=== PATIENT | female | born 1950 | race Caucasian/White ===

== ENCOUNTER → 2017-10-22 | Outpatient (CLI) | payer MEDICARE ==
[2015-04-26 21:00] VITALS: BP 157/76
--- NOTE | 2017-10-22 16:50 | RAD ---
Right knee, 2 views, 10/22/2017: HISTORY: Fall, knee pain No fracture or dislocation is identified. A tiny calcific density in the soft tissues along the anterior aspect of the patella appears old. There is minimal posterior patellar degenerative change. No significant joint effusion is evident. IMPRESSION: No acute bony abnormality is detected. Electronically signed by: Mark Andrade MD (10/22/2017 4:46 PM) [facility]
== END | disposition home or self-care (01) ==
LOC: DXRAD 15:55
PROVIDERS: ATTEND Physician Assistant
DX: M25.561 Pain in right knee (principal)
CPT/HCPCS: 73560

== ENCOUNTER 2019-01-03 15:39 | Observation (INO) | payer MEDICARE, OTHER ==
[~2019-01-03] VITALS: Ht 162.6 cm; Wt 91.8 kg
[2019-01-03] MEDS ORDERED: IV NORMAL SALINE 1,000ML 1,000 ML IV ONE (16:00)
[2019-01-03] MEDS ORDERED: ONDANSETRON PF 4 MG/2 ML VIAL. IV ONE (16:15)
[2019-01-03] MEDS ORDERED: FAMOTIDINE 20 MG/2 ML VIAL IVP ONE (16:15)
[2019-01-03 16:20] LABS: BASO % 1 % (0-3); EOS # 0.1 x10^3/uL (0.0-0.7); EOS % 3 % (0-3); HEMOGLOBIN 13.6 g/dL (12.0-15.5); LYMPH # 1.2 x10^3/uL (1.0-4.8); LYMPH % 22 % (24-48); MEAN CORPUSCULAR HEMOGLOBIN 30 pg (25-35); MEAN CORPUSCULAR HGB CONC 33 g/dL (31-37); MEAN CORPUSCULAR VOLUME 92 fL (79-100); MONO # 0.4 x10^3/uL (0.0-1.1); MONO % 7 % (0-9); NEUT # 3.6 x10^3uL (1.8-7.7); NEUT % 68 % (31-73); PLATELET COUNT 191 x10^3/uL (140-400); RED BLOOD COUNT 4.47 x10^6/uL (3.50-5.40); RED CELL DISTRIBUTION WIDTH 14.1 % (11.5-14.5); WHITE BLOOD COUNT 5.3 x10^3/uL (4.0-11.0)
--- NOTE | 2019-01-03 16:26 | EKG ---
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
[2019-01-03 16:27] LABS: BACTERIA,URINE MOD /HPF (0-FEW); BILIRUBIN,URINE NEG (NEG); CLARITY,URINE CLOUDY; COLOR,URINE YELLOW; GLUCOSE,URINE >=1000 mg/dL (NEG); NITRITE,URINE NEG (NEG); RBC,URINE 0 /HPF (0-2); SQUAMOUS EPITHELIAL CELL,UR MOD /LPF; UROBILINOGEN,URINE 0.2 mg/dL (0.2 mg/dL); WBC,URINE 20-40 /HPF (0-4)
[2019-01-03 16:35] LABS: ALBUMIN 3.6 g/dL (3.4-5.0); ALBUMIN/GLOBULIN RATIO 0.9 (1.0-1.7); CALCIUM 8.7 mg/dL (8.5-10.1); TOTAL BILIRUBIN 0.8 mg/dL (0.2-1.0); TOTAL PROTEIN 7.6 g/dL (6.4-8.2)
--- NOTE | 2019-01-03 16:45 | ED.ADGEN ---
Past History Past Medical History: COPD, Diabetes Past Surgical History: Other Additional Past Surgical Histo: stent; shoulder sx Alcohol Use: None Drug Use: None Adult General Chief Complaint Chief Complaint Hyperglycemia HPI HPI Patient is a 68-year-old female with history of insulin-dependent type 2 diabetes who presents with hyperglycemia, nausea, sweats, chest pressure and shortness of breath. Patient is compliant with her Lantus last took 12 units last evening. Reports nausea sweats chest pain starting earlier today. Patient's blood sugar greater than 400 at home. She states that her blood sugar is normal in the 200 range. No urinary frequency urgency or dysuria. Reports occasional cough.[] Review of Systems Review of Systems Review symptoms as per history of present illness. All other review symptoms are negative. All other systems were reviewed and found to be within normal limits, except as documented in this note. Current Medications Current Medications Current Medications Medications (Trade) Dose Ordered Sig/Sherrie Start Time Stop Time Status Last Admin Dose Admin Famotidine (Pepcid Vial) 20 mg 1X ONCE 01/03/19 16:15 01/03/19 16:16 DC 01/03/19 16:13 20 MG Insulin Human Regular (HumuLIN R VIAL) 6 unit 1X ONCE 01/03/19 17:00 01/03/19 17:01 DC 01/03/19 16:53 6 UNIT Ondansetron HCl (Zofran) 4 mg 1X ONCE 01/03/19 16:15 01/03/19 16:16 DC 01/03/19 16:13 4 MG Sodium Chloride 1,000 ml @ 1,000 mls/hr 1X ONCE 01/03/19 16:00 01/03/19 16:59 DC 01/03/19 16:13 1,000 MLS/HR Allergies Allergies Allergies Coded Allergies Type Severity Reaction Last Updated Verified aspirin Allergy Severe SEIZURE 06/19/14 No prednisone Allergy Severe SEIZURES 06/19/14 No Physical Exam Physical Exam Constitutional: anxious,clammy, acutely ill-appearing.[] HENT: Normocephalic, atraumatic, bilateral external ears normal, oropharynx moist, no oral exudates, nose normal. [] Eyes: PERRLA, EOMI, conjunctiva normal, no discharge. [] Neck: Normal range of motion, no tenderness, supple, no stridor. [] Cardiovascular:Heart rate regular rhythm, no murmur [] Lungs & Thorax: tachypnea, diminished breath sounds bilaterally, no wheezes or rales appreciated. [] Abdomen: Bowel sounds normal, soft, no tenderness.. [] Skin: Warm, dry, no erythema, no rash. [] Back: No tenderness, no CVA tenderness. [] Extremities: No tenderness, no edema. [] Neurologic: Alert and oriented X 3, normal motor function, normal sensory functi on, no focal deficits noted. [] Psychologic: Affect normal, judgement normal, mood normal. [] Current Patient Data Vital Signs Vital Signs Date Time Temp Pulse Resp B/P (MAP) Pulse Ox O2 Delivery O2 Flow Rate FiO2 01/03/19 16:08 79 18 94 Room Air Lab Results Laboratory Tests Test 01/03/19 15:52 01/03/19 15:56 01/03/19 16:05 Glucose (Fingerstick) 392 mg/dL (70-99) H White Blood Count 5.3 x10^3/uL (4.0-11.0) Red Blood Count 4.47 x10^6/uL (3.50-5.40) Hemoglobin 13.6 g/dL (12.0-15.5) Hematocrit 41.0 % (36.0-47.0) Mean Corpuscular Volume 92 fL (79-100) Mean Corpuscular Hemoglobin 30 pg (25-35) Mean Corpuscular Hemoglobin Concent 33 g/dL (31-37) Red Cell Distribution Width 14.1 % (11.5-14.5) Platelet Count 191 x10^3/uL (140-400) Neutrophils (%) (Auto) 68 % (31-73) Lymphocytes (%) (Auto) 22 % (24-48) L Monocytes (%) (Auto) 7 % (0-9) Eosinophils (%) (Auto) 3 % (0-3) Basophils (%) (Auto) 1 % (0-3) Neutrophils # (Auto) 3.6 x10^3uL (1.8-7.7) Lymphocytes # (Auto) 1.2 x10^3/uL (1.0-4.8) Monocytes # (Auto) 0.4 x10^3/uL (0.0-1.1) Eosinophils # (Auto) 0.1 x10^3/uL (0.0-0.7) Basophils # (Auto) 0.0 x10^3/uL (0.0-0.2) Sodium Level 136 mmol/L (136-145) Potassium Level 4.0 mmol/L (3.5-5.1) Chloride Level 100 mmol/L (98-107) Carbon Dioxide Level 28 mmol/L (21-32) Anion Gap 8 (6-14) Blood Urea Nitrogen 11 mg/dL (7-20) Creatinine 1.0 mg/dL (0.6-1.0) Estimated GFR (Cockcroft-Gault) 55.0 BUN/Creatinine Ratio 11 (6-20) Glucose Level 413 mg/dL (70-99) H Calcium Level 8.7 mg/dL (8.5-10.1) Total Bilirubin 0.8 mg/dL (0.2-1.0) Aspartate Amino Transferase (AST) 23 U/L (15-37) Alanine Aminotransferase (ALT) 23 U/L (14-59) Alkaline Phosphatase 108 U/L (46-116) Troponin I Quantitative < 0.017 ng/mL (0-0.055) WH-Jjv-V-Type Natriuretic Peptide 234 pg/mL (0-124) H Total Protein 7.6 g/dL (6.4-8.2) Albumin 3.6 g/dL (3.4-5.0) Albumin/Globulin Ratio 0.9 (1.0-1.7) L Acetone Level Neg (NEG) Urine Collection Type Unknown Urine Color Yellow Urine Clarity Cloudy Urine pH 5.5 Urine Specific [place] 1.010 Urine Protein Neg (NEG-TRACE) Urine Glucose (UA) >=1000 mg/dL (NEG) Urine Ketones (Stick) Neg mg/dL (NEG) Urine Blood Neg (NEG) Urine Nitrite Neg (NEG) Urine Bilirubin Neg (NEG) Urine Urobilinogen Dipstick 0.2 mg/dL (0.2 mg/dL) Urine Leukocyte Esterase Neg (NEG) Urine RBC 0 /HPF (0-2) Urine WBC 20-40 /HPF (0-4) Urine Squamous Epithelial Cells Mod /LPF Urine Bacteria Mod /HPF (0-FEW) Urine Mucus Slight /LPF EKG EKG [ekg: nORMAL SINUS RHYTHM, NO ACUTE st-t WAVE CHANGES.] Radiology/Procedures Radiology/Procedures [Chest x-ray: No acute cardiopulmonary disease per radiology report] Course & Med Decision Making Course & Med Decision Making Pertinent Labs and Imaging studies reviewed. (See chart for details) Chest pain, shortness of breath, hyperglycemia.IV fluids and insulin given with improved blood sugar. patient reports continued low-grade chest pressure. nitroglycerin aspirin given.Will admit to hospitalist service for further evaluation and treatment.[] Final Impression Final Impression [#1 chest pain #2 hyperglycemia] Roseline Disclaimer Dragon Disclaimer This electronic medical record was generated, in whole or in part, using a voice recognition dictation system. NIKI PURCELL DO Jan 03, 2019 16:45
[2019-01-03] MEDS ORDERED: INSULIN REGULAR 100 UNIT/ML 3ML VIAL. IM ONE (17:00)
--- NOTE | 2019-01-03 17:08 | RAD ---
Exam: Chest one view INDICATION: Shortness of breath TECHNIQUE: Frontal view of the chest Comparisons: CT 06/19/2014 FINDINGS: The cardiomediastinal silhouette and pulmonary vessels are within normal limits. Perihilar linear opacities are noted bilaterally. No pleural effusion. IMPRESSION: Perihilar linear opacities may represent scarring. No focal consolidation is identified. Electronically signed by: Whitley Ferrara MD (01/03/2019 5:05 PM) [facility]
[2019-01-03] MEDS ORDERED: NITROGLYCERIN OINT 1 GM PACKET. ONE (17:38)
[2019-01-03] MEDS ORDERED: ONDANSETRON PF 4 MG/2 ML VIAL. IV PRN (17:45)
[2019-01-03] MEDS ORDERED: NITROGLYCERIN OINT 1 GM PACKET. TP ONE (17:45)
[2019-01-03] MEDS ORDERED: INSULIN GLARGINE 300 UNITS/3 ML INSULN.PEN. SQ ONE (18:48)
[2019-01-03 19:00] VITALS: BP 147/92
--- NOTE | 2019-01-03 19:00 | NUR ---
The patient, NILESH ENCINAS, 68 y/o, F admitted by APOLONIA PLUNKETT MD, to room 117, was given written information regarding hospital policies, unit procedures and contact persons. Valuables were checked and left with the patient. Pt placed on telemetry. Vitals, medical history, physical and social needs assessed. Blood glucose measured. Water and boxed lunch given. Will continue to monitor.
[2019-01-03] MEDS ORDERED: INSULIN GLARGINE 300 UNITS/3 ML INSULN.PEN. SQ SCH (21:00)
--- NOTE | 2019-01-03 21:00 | NUR ---
Pt c/o chest pain that radiates to her left, lateral neck and face, and left arm with tingling that comes and goes, 12/06. EKG ordered and performed. Troponin series continued. Cardiology consulted, orders received and completed. Morphine given-pain 08/06.
[2019-01-03] MEDS ORDERED: MORPHINE SULFATE 2 MG/ML DISP.SYRIN. IV PRN ×2 (22:15)
[2019-01-03] MEDS: MORPHINE SULFATE 2 MG/ML DISP.SYRIN. IV PRN (22:47)
[2019-01-03 23:00] VITALS: BP 137/79
[2019-01-04] MEDS: MORPHINE SULFATE 2 MG/ML DISP.SYRIN. IV PRN ×2 (02:32→09:29)
[2019-01-04] MEDS ORDERED: GABA100C6 PO (02:53)
[2019-01-04] MEDS ORDERED: CRESTOR20 MG PO (03:25)
[2019-01-04] MEDS ORDERED: ALPR1TAB2 PO (03:25)
[2019-01-04] MEDS ORDERED: ISOS30TA4 PO (03:25)
[2019-01-04] MEDS ORDERED: PRAM0.255 PO (03:25)
[2019-01-04] MEDS ORDERED: MONT10TA80 PO (03:25)
[2019-01-04] MEDS ORDERED: HYDR-2769 PO (03:25)
[2019-01-04] MEDS: IPRATRPIUM/ALBUTEROL 0.5/2.5MG 3 ML NEBU. NEB SCH ×2 (05:22→09:37)
[2019-01-04] MEDS: NITROGLYCERIN OINT 1 GM PACKET. TP SCH ×3 (05:54→11:45)
[2019-01-04 07:01] LABS: BASO % 0 % (0-3); EOS # 0.2 x10^3/uL (0.0-0.7); EOS % 3 % (0-3); HEMATOCRIT 38.4 % (36.0-47.0); HEMOGLOBIN 12.8 g/dL (12.0-15.5); LYMPH # 2.7 x10^3/uL (1.0-4.8); LYMPH % 42 % (24-48); MEAN CORPUSCULAR HEMOGLOBIN 30 pg (25-35); MEAN CORPUSCULAR HGB CONC 33 g/dL (31-37); MEAN CORPUSCULAR VOLUME 91 fL (79-100); MONO # 0.4 x10^3/uL (0.0-1.1); MONO % 6 % (0-9); NEUT # 3.1 x10^3uL (1.8-7.7); NEUT % 49 % (31-73); PLATELET COUNT 189 x10^3/uL (140-400); RED BLOOD COUNT 4.21 x10^6/uL (3.50-5.40); WHITE BLOOD COUNT 6.4 x10^3/uL (4.0-11.0)
[2019-01-04 07:21] LABS: ALBUMIN 3.3 g/dL (3.4-5.0); ALBUMIN/GLOBULIN RATIO 0.9 (1.0-1.7); CALCIUM 8.6 mg/dL (8.5-10.1); CREATININE 0.9 mg/dL (0.6-1.0); GFR 62.1; POTASSIUM 3.4 mmol/L (3.5-5.1); TOTAL BILIRUBIN 0.6 mg/dL (0.2-1.0); TOTAL PROTEIN 6.9 g/dL (6.4-8.2)
[2019-01-04 07:29] VITALS: BP 98/62
[2019-01-04] MEDS ORDERED: HYDROcodone/APAP 10/325 1 TAB TABLET PO PRN (08:30)
[2019-01-04] MEDS: ALPRAZolam 0.5 MG TABLET PO SCH ×2 (08:39→13:28)
[2019-01-04] MEDS ORDERED: GABAPENTIN 100 MG CAPSULE. PO SCH (09:00)
[2019-01-04] MEDS ORDERED: ATORVASTATIN CALCIUM 20 MG TABLET PO SCH (09:00)
[2019-01-04] MEDS ORDERED: ISOSORBIDE MONONITRATE ER 30 MG TAB.ER.24H PO SCH (09:00)
--- NOTE | 2019-01-04 10:32 | NUR ---
Dr. Reid said that patient will need to be transferred to [facility] for cardiac cath. Can be transferred tonight. Will have cath in the morning.
--- NOTE | 2019-01-04 10:37 | PDOC2 ---
CONSULT Date of Admission DATE: 01/04/19 TIME: 10:37 Reason for Consult: Chest pain Referring Physician: Dr. Cisse Chief Complaint Chest pain Source: Chart review, Patient Problem List Problems Medical Problems: (1) Hyperglycemia Status: Acute History of Present Illness 68-year-old female with history of coronary artery disease s/p PCI/stent placement one year ago presented complaining of intermittent episodes of retrosternal chest pressure associated with mild shortness of breath worse with exertion and relieved with rest. She stated that her symptoms are similar to the symptoms she had prior to her angioplasty. She denied any orthopnea/PND, palpitations or syncope. Past Medical History Coronary artery disease s/p PCI/stent placement one year ago Diabetes mellitus type 2 Hypertension Hyperlipidemia COPD/asthma DVT/PE Osteoarthritis CVA Past Surgical History Right rotator cuff repair Cholecystectomy Hysterectomy Carpal tunnel release surgery Family History: Coronary Artery Disease Social History Patient admitted to secondhand smoking and denied any alcohol or drug use. 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 Current Medications Current Medications Sodium Chloride 1,000 ml @ 1,000 mls/hr 1X ONCE IV Last administered on 01/03/19at 16:13; Start 01/03/19 at 16:00; Stop 01/03/19 at 16:59; Status DC Famotidine (Pepcid Vial) 20 mg 1X ONCE IVP Last administered on 01/03/19at 16:13; Start 01/03/19 at 16:15; Stop 01/03/19 at 16:16; Status DC Ondansetron HCl (Zofran) 4 mg 1X ONCE IV Last administered on 01/03/19at 16:13; Start 01/03/19 at 16:15; Stop 01/03/19 at 16:16; Status DC Insulin Human Regular (HumuLIN R VIAL) 6 unit 1X ONCE IM Last administered on 01/03/19at 16:53; Start 01/03/19 at 17:00; Stop 01/03/19 at 17:01; Status DC Nitroglycerin (Nitro-Bid Oint) 0.5 inch 1X ONCE TP Last administered on 01/03/19at 17:42; Start 01/03/19 at 17:45; Stop 01/03/19 at 17:46; Status DC Ondansetron HCl (Zofran) 4 mg PRN Q4HRS PRN IV NAUSEA/VOMITING Last ad ministered on 01/03/19at 21:44; Start 01/03/19 at 17:45; Stop 01/04/19 at 17:44 Nitroglycerin (Nitro-Bid Oint) 0.5 inch Q6HRS TP Last administered on 01/04/19at 05:54; Start 01/04/19 at 00:00 Insulin Glargine (Lantus) 12 units QHS SQ Last administered on 01/03/19at 21:44; Start 01/03/19 at 21:00 Nitroglycerin (Nitro-Bid Oint) 1 inch STK-MED ONCE .ROUTE ; Start 01/03/19 at 17:38; Stop 01/03/19 at 17:39; Status DC Morphine Sulfate (Morphine 2mg Syringe) 2 mg PRN Q6HRS PRN IV PAIN Last administered on 01/04/19at 09:29; Start 01/03/19 at 22:15 Morphine Sulfate (Morphine 2mg Syringe) 3 mg PRN Q6HRS PRN IV PAIN; Start 01/03/19 at 22:15; Stop 01/03/19 at 22:09; Status DC Morphine Sulfate (Morphine 2mg Syringe) 4 mg PRN Q6HRS PRN IV PAIN; Start 01/03/19 at 22:15; Stop 01/03/19 at 22:09; Status DC Albuterol/ Ipratropium (Duoneb) 3 ml RTQID NEB Last administered on 01/04/19at 09:38; Start 01/04/19 at 08:00 Gabapentin (Neurontin) 100 mg BID PO Last administered on 01/04/19at 08:39; Start 01/04/19 at 09:00 Acetaminophen/ Hydrocodone Bitart (Lortab 10/325) 1 tab PRN Q6HRS PRN PO PAIN; Start 01/04/19 at 08:30 Isosorbide Mononitrate (Imdur) 30 mg DAILY PO ; Start 01/04/19 at 09:00 Montelukast Sodium (Singulair) 10 mg HS PO ; Start 01/04/19 at 21:00 Pramipexole Dihydrochloride (miraPEX) 0.25 mg QHS PO ; Start 01/04/19 at 21:00 Alprazolam (Xanax) 1 mg TID PO Last administered on 01/04/19at 08:39; Start 01/04/19 at 09:00 Atorvastatin Calcium (Lipitor) 80 mg DAILY PO Last administered on 01/04/19at 08:39; Start 01/04/19 at 09:00 Active Scripts Active Reported Xanax (Alprazolam) 1 Mg Tablet 1 Tab PO TID Hydrocodone-Apap 10-325 (Hydrocodone Bit/Acetaminophen) 1 Each Tablet 1 Tab PO PRN Q6HRS PRN Mirapex (Pramipexole Di-Hcl) 0.25 Mg Tablet 1 Tab PO QHS Montelukast Sodium Tablet (Montelukast Sodium) 10 Mg Tablet 10 Mg PO HS Crestor (Rosuvastatin Calcium) 20 Mg Tablet 1 Tab PO DAILY Isosorbide Mononitrate Er (Isosorbide Mononitrate) 30 Mg Tab.er.24h 1 Tab PO DAILY Gabapentin 100 Mg Capsule 100 Mg PO BID Allergies: Coded Allergies: aspirin (Unverified Allergy, Severe, SEIZURE, 06/19/14) SEIZURES prednisone (Unverified Allergy, Severe, SEIZURES, 06/19/14) SEIZURES PSYCHOLOGICAL ROS: No: Hallucinations Eyes: No: Loss of vision HEENT: No: Epistaxis Respiratory: YES: Shortness of breath; No: Cough Cardiovascular: yes: Chest Pain Gastrointestinal: No: Vomiting, Diarrhea Neurological: No: Seizures Skin: No: Rash General: Alert, Oriented X3 HEENT: Atraumatic, PERRLA Lungs: Clear to auscultation Heart: Regular rate Abdomen: Soft, No tenderness Extremities: No edema Psych/Mental Status: Mood NL VITALS Vital Signs Date Time Temp Pulse Resp B/P (MAP) Pulse Ox O2 Delivery O2 Flow Rate FiO2 01/04/19 10:12 Room Air 01/04/19 09:43 99 01/04/19 07:29 98.4 96 20 98/62 (74) Labs Laboratory Tests Test 01/03/19 15:52 01/03/19 15:56 01/03/19 16:05 01/03/19 18:12 Glucose (Fingerstick) 392 mg/dL (70-99) White Blood Count 5.3 x10^3/uL (4.0-11.0) Red Blood Count 4.47 x10^6/uL (3.50-5.40) Hemoglobin 13.6 g/dL (12.0-15.5) Hematocrit 41.0 % (36.0-47.0) Mean Corpuscular Volume 92 fL (79-100) Mean Corpuscular Hemoglobin 30 pg (25-35) Mean Corpuscular Hemoglobin Concent 33 g/dL (31-37) Red Cell Distribution Width 14.1 % (11.5-14.5) Platelet Count 191 x10^3/uL (140-400) Neutrophils (%) (Auto) 68 % (31-73) Lymphocytes (%) (Auto) 22 % (24-48) Monocytes (%) (Auto) 7 % (0-9) Eosinophils (%) (Auto) 3 % (0-3) Basophils (%) (Auto) 1 % (0-3) Neutrophils # (Auto) 3.6 x10^3uL (1.8-7.7) Lymphocytes # (Auto) 1.2 x10^3/uL (1.0-4.8) Monocytes # (Auto) 0.4 x10^3/uL (0.0-1.1) Eosinophils # (Auto) 0.1 x10^3/uL (0.0-0.7) Basophils # (Auto) 0.0 x10^3/uL (0.0-0.2) Sodium Level 136 mmol/L (136-145) Potassium Level 4.0 mmol/L (3.5-5.1) Chloride Level 100 mmol/L (98-107) Carbon Dioxide Level 28 mmol/L (21-32) Anion Gap 8 (6-14) Blood Urea Nitrogen 11 mg/dL (7-20) Creatinine 1.0 mg/dL (0.6-1.0) Estimated GFR (Cockcroft-Gault) 55.0 BUN/Creatinine Ratio 11 (6-20) Glucose Level 413 mg/dL (70-99) Calcium Level 8.7 mg/dL (8.5-10.1) Total Bilirubin 0.8 mg/dL (0.2-1.0) Aspartate Amino Transf (AST/SGOT) 23 U/L (15-37) Alanine Aminotransferase (ALT/SGPT) 23 U/L (14-59) Alkaline Phosphatase 108 U/L (46-116) Troponin I Quantitative < 0.017 ng/mL (0-0.055) GP-Qti-E-Type Natriuretic Peptide 234 pg/mL (0-124) Total Protein 7.6 g/dL (6.4-8.2) Albumin 3.6 g/dL (3.4-5.0) Albumin/Globulin Ratio 0.9 (1.0-1.7) Acetone Level Neg (NEG) Urine Collection Type Unknown Urine Color Yellow Urine Clarity Cloudy Urine pH 5.5 Urine Specific [place] 1.010 Urine Protein Neg (NEG-TRACE) Urine Glucose (UA) >=1000 mg/dL (NEG) Urine Ketones (Stick) Neg mg/dL (NEG) Urine Blood Neg (NEG) Urine Nitrite Neg (NEG) Urine Bilirubin Neg (NEG) Urine Urobilinogen Dipstick 0.2 mg/dL (0.2 mg/dL) Urine Leukocyte Esterase Neg (NEG) Urine RBC 0 /HPF (0-2) Urine WBC 20-40 /HPF (0-4) Urine Squamous Epithelial Cells Mod /LPF Urine Bacteria Mod /HPF (0-FEW) Urine Mucus Slight /LPF Lactic Acid Level 1.2 mmol/L (0.4-2.0) Test 01/03/19 20:20 01/03/19 21:30 01/04/19 01:05 01/04/19 04:34 Glucose (Fingerstick) 112 mg/dL (70-99) 100 mg/dL (70-99) Troponin I Quantitative < 0.017 ng/mL (0-0.055) < 0.017 ng/mL (0-0.055) Test 01/04/19 06:17 01/04/19 07:39 White Blood Count 6.4 x10^3/uL (4.0-11.0) Red Blood Count 4.21 x10^6/uL (3.50-5.40) Hemoglobin 12.8 g/dL (12.0-15.5) Hematocrit 38.4 % (36.0-47.0) Mean Corpuscular Volume 91 fL (79-100) Mean Corpuscular Hemoglobin 30 pg (25-35) Mean Corpuscular Hemoglobin Concent 33 g/dL (31-37) Red Cell Distribution Width 14.0 % (11.5-14.5) Platelet Count 189 x10^3/uL (140-400) Neutrophils (%) (Auto) 49 % (31-73) Lymphocytes (%) (Auto) 42 % (24-48) Monocytes (%) (Auto) 6 % (0-9) Eosinophils (%) (Auto) 3 % (0-3) Basophils (%) (Auto) 0 % (0-3) Neutrophils # (Auto) 3.1 x10^3uL (1.8-7.7) Lymphocytes # (Auto) 2.7 x10^3/uL (1.0-4.8) Monocytes # (Auto) 0.4 x10^3/uL (0.0-1.1) Eosinophils # (Auto) 0.2 x10^3/uL (0.0-0.7) Basophils # (Auto) 0.0 x10^3/uL (0.0-0.2) Sodium Level 139 mmol/L (136-145) Potassium Level 3.4 mmol/L (3.5-5.1) Chloride Level 105 mmol/L (98-107) Carbon Dioxide Level 26 mmol/L (21-32) Anion Gap 8 (6-14) Blood Urea Nitrogen 12 mg/dL (7-20) Creatinine 0.9 mg/dL (0.6-1.0) Estimated GFR (Cockcroft-Gault) 62.1 BUN/Creatinine Ratio 13 (6-20) Glucose Level 203 mg/dL (70-99) Calcium Level 8.6 mg/dL (8.5-10.1) Total Bilirubin 0.6 mg/dL (0.2-1.0) Aspartate Amino Transf (AST/SGOT) 20 U/L (15-37) Alanine Aminotransferase (ALT/SGPT) 19 U/L (14-59) Alkaline Phosphatase 93 U/L (46-116) Total Protein 6.9 g/dL (6.4-8.2) Albumin 3.3 g/dL (3.4-5.0) Albumin/Globulin Ratio 0.9 (1.0-1.7) Glucose (Fingerstick) 227 mg/dL (70-99) Assessment/Plan 1. Chest pain with typical features concerning for unstable angina in a patient with known history of coronary artery disease. Myocardial infarction has been ruled out. Plan for cardiac catheterization at [facility]. Risks and benefits were explained and she is agreeable. 2. Hypertension: Controlled 3. Hyperlipidemia: Continue statin therapy 4. Hyperglycemia: Treat per IM 5. h/o DVT/PE, on xarelto Thank you for your consultation CHING LEVY MD Jan 04, 2019 10:37
[2019-01-04 11:35] VITALS: BP 105/61
[2019-01-04 11:45] VITALS: BP 105/61
--- NOTE | 2019-01-04 12:44 | HP ---
ADMIT DATE: 01/03/2019 HISTORY OF PRESENT ILLNESS: The patient is a 68-year-old, female patient who came to the Emergency Room complaining of chest pain. She also complained of shortness of breath, nausea, and diaphoresis. The pain comes and goes, aggravated by exertion. She was evaluated in the Emergency Room. Her EKG showed that she was in normal sinus rhythm with no acute ST-T changes. Chest x-ray also showed no evidence of any acute cardiopulmonary abnormality. She has perihilar linear opacities that may represent scarring. No focal consolidation identified. The cardiomediastinal silhouette and pulmonary vessels are within normal limits. Her first set of cardiac enzyme showed troponin to be less than 0.017, and the patient was admitted to do 2 more sets of cardiac enzyme and consult to cardiology team. PAST MEDICAL HISTORY: Significant for coronary artery disease, status post stent deployment a year ago, type 2 diabetes, hyperlipidemia, chronic obstructive pulmonary disease/bronchial asthma. She has also history of DVT and pulmonary embolism, generalized osteoarthritis, degenerative disk disease. 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 PAST SURGICAL HISTORY: Significant for PCI with stent deployment, right rotator cuff repair, cholecystectomy, total abdominal hysterectomy, bilateral salpingo-oophorectomy, and left carpal tunnel release. ALLERGIES: She is allergic to ASPIRIN and PREDNISONE. She also stated that she is allergic to OXYCODONE. MEDICATIONS: She is currently on following medications: She is on Crestor 20 mg at bedtime, isosorbide mononitrate 30 mg daily, hydrocodone/APAP 10/325 one tablet every 6 hours, gabapentin 100 mg twice a day, alprazolam 1 mg 3 times a day, Mirapex 0.25 mg at bedtime, montelukast sodium 10 mg at bedtime. She is also on Xarelto 20 mg once a day. FAMILY HISTORY: She has 2 brothers, older and healthy. Two sisters, one of them was at the age of 65 because of cancer and heart problems. Her father at the age of 82 because of lung cancer and myocardial infarction. Mother at age of 83 because of myocardial infarction. SOCIAL HISTORY: She is , has 1 son and 2 daughters. She has been a secondhand smoker, does not drink alcohol or use any recreational drugs. 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 REVIEW OF SYSTEMS: The patient denied any blurring of vision, cataract, glaucoma, or macular degeneration. Denied any earache, tinnitus, or sensorineural deafness. Denied any nosebleeds, stuffy nose, or postnasal drip. Denied any sore throat, sore tongue, toothache, hoarseness of voice, or difficulty swallowing. Did complain of nausea, no vomiting. Denied any diarrhea or constipation. Denied any hematemesis, melena, or hematochezia. Denied any dysuria, frequency, or hematuria. Did complain of chest pain and shortness of breath. Denied any cough, phlegm, or hemoptysis. PHYSICAL EXAMINATION: GENERAL: On arrival to the Emergency Room, she looked well and was clearly in no apparent respiratory distress. No pallor, jaundice, cyanosis, or thyromegaly. No jugular venous distention. No limb edema. VITAL SIGNS: Her heart rate was 79, blood pressure 147/92, temperature was 97.7, respiratory rate 20, and oxygen saturation was 92%. HEAD, EYES, EARS, NOSE, AND THROAT: Normocephalic, atraumatic. NECK: Supple. HEART: Showed normal first and second heart sounds. No gallop or murmur. CHEST: Clear to auscultation. No crepitation, rhonchi. ABDOMEN: Distended, soft, nontender. NEUROLOGIC: She was awake, alert, responding appropriately. All cranial nerves intact. EXTREMITIES: She moves extremities without difficulty. She ambulates without assistance or assistive devices. LABORATORY DATA: Her lab work on admission, showed a serum sodium of 136, potassium 4, chloride 100, bicarbonate 28, anion gap of 8, BUN 11, creatinine 1, estimated GFR was 55 mL per minute. Her glucose was 113, calcium was 8.7. Lactic acid is 1.2. Total bilirubin, AST, ALT, alkaline phosphatase were normal. Her first set of cardiac enzymes showed troponin to be less than 0.017. Total protein was 7.6, albumin was 3.6. Her white cell count was 5300, hemoglobin 13, hematocrit 41, MCV 92, and platelet count of 191,000. Her acetone level was negative. Urinalysis showed that she has 20-40 wbc's, large amount of glucose, negative for protein, negative for nitrite, and leukocyte esterase. There was moderate amount of bacteria. Her chest x-ray showed that the cardiomediastinal silhouette and pulmonary vessels are within normal limits. There are perihilar linear opacities noted bilaterally. No pleural effusion. PLAN: We will do 2 more sets of cardiac enzyme, consult the cardiology team, and decide the further management accordingly. APOLONIA PLUNKETT MD DR: SUHA/eliezer JOB#: [id number] / [id number]
--- NOTE | 2019-01-04 12:57 | NUR ---
Called Nursing medical operations supervisor to get bed at [facility]. Awaiting a bed at this time.
[2019-01-04] MEDS ORDERED: RIVA20TA2 PO (13:03)
--- NOTE | 2019-01-04 14:18 | NUR ---
Called Ashley from [facility] and gave patient report. Nurse voiced understanding. Patient going to room 208. Called EMS, and they arrived to sheepskin pickler patient. EMS here to [facility] pick[facility] patient. Belongings sent with patient. Patient stable on discharge.
--- NOTE | 2019-01-04 17:13 | DS ---
DATE OF DISCHARGE: 01/04/2019 HOSPITAL COURSE: The patient is a 68-year-old female patient who came in complaining of chest pain, shortness of breath, nausea and diaphoresis. Her pain comes and goes, aggravated by exertion. She was admitted and has had 3 sets of cardiac enzymes that has ruled out myocardial infarction; however, her presentation is consistent with unstable angina. She was in fact seen by the shipping and receiving supervisor who recommended transferring her to [facility] with a plan to do cardiac catheterization tomorrow. PHYSICAL EXAMINATION: GENERAL: When I saw her this afternoon, she looked well and was clearly in no apparent respiratory distress. No pallor, jaundice, cyanosis or thyromegaly. No jugular venous distention. No limb edema. VITAL SIGNS: Her heart rate was 75, blood pressure was 137/79, temperature was 97.9, respiratory rate 21 and oxygen saturation was 91% on room air. HEAD, EYES, EARS, NOSE AND THROAT: Normocephalic, atraumatic. NECK: Supple. HEART: Showed normal first and second heart sounds. No gallop or murmur. CHEST: Clear to auscultation. No crepitation or rhonchi. ABDOMEN: Distended, soft, nontender. NEUROLOGIC: She is grossly intact. LABORATORY DATA: As of this morning showed a white cell count 6400, hemoglobin 13, hematocrit 38, MCV 91, and platelet count of 189,000. She has 3 sets of cardiac enzymes that ruled out myocardial infarction. Her chemistry showed a serum sodium 139, potassium 3.4, chloride 105, bicarbonate 26, anion gap of 8, BUN 12, creatinine 0.9, estimated GFR was 62 mL per minute. Her glucose was 203, calcium was 8.6. Total bilirubin, AST, ALT, alkaline phosphatase were normal. Total protein was 6.9, albumin 3.3. DISCHARGE MEDICATIONS: She will be transferred to [facility] to continue with alprazolam for Xanax 1 mg 3 times a day, gabapentin 100 mg twice a day, hydrocodone/APAP 10/325 one tablet every 6 hours, isosorbide mononitrate 30 mg daily, montelukast 10 mg at bedtime, Mirapex 0.25 mg at bedtime and Crestor 20 mg daily. FINAL DISCHARGE DIAGNOSES: 1. Unstable angina. 2. Coronary artery disease, status post PCI with stent deployment. 3. Type 2 diabetes. 4. Hyperlipidemia. 5. Deep venous thrombosis and pulmonary embolism. 6. Chronic obstructive pulmonary disease and bronchial asthma. 7. Right middle cerebral artery territory infarct with left side hemiplegia. 8. Osteoarthritis. 9. Degenerative disk disease. APOLONIA PLUNKETT MD DR: SUHA/eliezer JOB#: [id number] / [id number]
[2019-01-04] MEDS ORDERED: PRAMIPEXOLE 0.25 MG TABLET. PO SCH (21:00)
[2019-01-04] MEDS ORDERED: MONTELUKAST 10 MG TABLET. PO SCH (21:00)
--- NOTE | 2019-01-05 03:36 | EKG ---
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
== END 2019-01-04 14:22 | disposition short-term general hospital (02) ==
LOC: ER 15:39 → INTOOBSV 18:59 → 1 SOUTH 18:59
PROVIDERS: ADMIT Internal Medicine; ATTEND Internal Medicine
DX: I25.110 Atherosclerotic heart disease of native coronary artery with unstable angina pectoris (principal); E11.65 Type 2 diabetes mellitus with hyperglycemia; J44.9 Chronic obstructive pulmonary disease, unspecified; I25.10 Atherosclerotic heart disease of native coronary artery without angina pectoris; M15.9 Polyosteoarthritis, unspecified; E78.5 Hyperlipidemia, unspecified; Z82.49 Family history of ischemic heart disease and other diseases of the circulatory system; Z77.22 Contact with and (suspected) exposure to environmental tobacco smoke (acute) (chronic); I10 Essential (primary) hypertension; Z86.73 Personal history of transient ischemic attack (TIA), and cerebral infarction without residual deficits; Z86.718 Personal history of other venous thrombosis and embolism; Z79.4 Long term (current) use of insulin; Z80.1 Family history of malignant neoplasm of trachea, bronchus and lung; Z86.711 Personal history of pulmonary embolism; Z90.710 Acquired absence of both cervix and uterus; Z95.5 Presence of coronary angioplasty implant and graft; I26.99 Other pulmonary embolism without acute cor pulmonale; G81.94 Hemiplegia, unspecified affecting left nondominant side
CPT/HCPCS: 36415; 71045; 80053; 81001; 82010; 82947; 83605; 83880; 84484; 85025; 87086; 87186; 93005; 94640; 96361; 96372; 96374; 96375; 96376; 99284; G0378; J1815; J2270; J2405; J3490; J7620; G0379; 99285-25; J7030

== ENCOUNTER 2019-01-11 17:08 | Observation (INO) | payer OTHER ==
[~2019-01-11] VITALS: Ht 162.6 cm; Wt 91.9 kg
[~2019-01-11 17:08] MED LIST: ALPR1TAB2 PO; CRESTOR20 MG PO; GABA100C6 PO; HYDR-2769 PO; ISOS30TA4 PO; MONT10TA80 PO; PRAM0.255 PO; RIVA20TA2 PO
[2019-01-11] MEDS ORDERED: NALOXONE 2 MG/2 ML DISP.SYRIN. IV ONE ×2 (17:16→17:45)
--- NOTE | 2019-01-11 17:23 | EKG ---
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
--- NOTE | 2019-01-11 17:25 | PHYS DOC ---
Past History Past Medical History: COPD, Diabetes (CHRISTEL CALZADA DO) Past Surgical History: Other Additional Past Surgical Histo: stent; shoulder sx (CHRISTEL CALZADA DO) Alcohol Use: None Drug Use: None (CHRISTEL CALZADA DO) Adult General Chief Complaint Chief Complaint: ALTERED MENTAL STATUS HPI HPI Patient is a 68-year-old female presents by EMS due to altered mental status. History is limited from the patient due to her decreased mental status. EMS reports that her blood sugar was in the 300s. [facility] reports that they were called by a friend of the patient's. Patient been talking to the friend reported that she was having some shortness of breath and chest tightness. Friend tried to call the patient back and was unable to contact her. Friend then called EMS.[] (CHRISTEL CALZADA DO) Review of Systems Review of Systems Unable to obtain due to altered mental status (CHRISTEL CALZADA DO) Current Medications Current Medications Current Medications Medications (Trade) Dose Ordered Sig/Sherrie Start Time Stop Time Status Last Admin Dose Admin Naloxone HCl (Narcan) 2 mg STK-MED ONCE 01/11/19 17:16 01/11/19 17:17 DC (CHRISTEL CALZADA DO) Allergies Allergies Allergies Coded Allergies Type Severity Reaction Last Updated Verified aspirin Allergy Severe SEIZURE 06/19/14 No prednisone Allergy Severe SEIZURES 06/19/14 No (CHRISTEL CALZADA DO) Physical Exam Physical Exam Constitutional: Well developed, well nourished, somnolent[] HENT: Normocephalic, atraumatic, bilateral external ears normal, oropharynx moist, no oral exudates, nose normal. Tolerating secretions, gag reflex is intact[] Eyes: PERRLA, EOMI, conjunctiva normal, no discharge. [] Neck: Normal range of motion, no tenderness, supple, no stridor. [] Cardiovascular:Heart rate regular rhythm, no murmur [] Lungs & Thorax: Bilateral breath sounds clear to auscultation [] Abdomen: Bowel sounds normal, soft, no tenderness, no masses, no pulsatile masses. [] Skin: Warm, dry, no erythema, no rash. [] Back: No tenderness, no CVA tenderness. [] Extremities: No tenderness, no cyanosis, no clubbing, ROM intact, no edema. [] Neurologic: GCS7 E2 V1 M4, . [] Psychologic: Unable to assess[] (CHRISTEL CALZADA DO) EKG EKG [] (CHRISTEL CALZADA DO) Radiology/Procedures Radiology/Procedures [] (CHRISTEL CALZADA DO) Impressions: PROCEDURE: CT HEAD WO CONTRAST STUDY: CT head without contrast INDICATION: Altered mental status. Seizure activity. COMPARISON: 04/26/2015 TECHNIQUE: Axial CT imaging through the head without the use of intravenous contrast. Sagittal and coronal reformats were obtained. FINDINGS: Estrada-white matter differentiation is maintained. No acute intracranial hemorrhage. No mass effect, midline shift or hydrocephalus. Unchanged linear focus of mineralization along the right frontal calvarium, image 13 series 3. The calvarium is intact. IMPRESSION: No acute intracranial abnormality by CT. Electronically signed by: PONCHO NUNEZ MD (01/11/2019 5:55 PM) [facility] PROCEDURE: PORTABLE CHEST 1V Study: PORTABLE CHEST 1V Indication: Altered mental status. Shortness of air. Comparison: 01/03/2019 Findings: Unchanged configuration of the cardiomediastinal silhouette. Similar slightly prominent central vascular structures. No large effusion, lobar infiltrate or pneumothorax. Mild haziness at the left lung base favored related to volume loss. No free air seen under the diaphragm. Atherosclerotic calcifications at the aortic arch. Impression: No newly seen lobar infiltrate, large effusion or pneumothorax. Similar mild prominence of the central vascular structures but there are no radiographic manifestations to suggest overt failure. Electronically signed by: PONCHO NUNEZ MD (01/11/2019 6:28 PM) [facility] (JIMY HICKS Jr. DO) Course & Med Decision Making Course & Med Decision Making Pertinent Labs and Imaging studies reviewed. (See chart for details) ED course: Patient arrived, was placed in bed, tolerated exam, and was starting to improve after being given Narcan. While prepping the patient for CT scan she had seizure-like activity so was given 2 mg of Ativan IV. Patient never had a hypoxic episode during this activity. She was transported to CT and while there had a second episode of seizure-like activity. Again no hypoxia. Had a chance to review her chart and find that she had what appears to be similar activity shortly after her cardiac catheterization. It was thought that this was conversion disorder at that time. Patient care is being endorsed to the nighttime physician at 1800 with laboratory testing and imaging in progress.[] (CHRISTEL CALZADA DO) Course & Med Decision Making Patient care was accepted from Dr. Grady at 6:00 PM. Upon completion of workup, patient's case was discussed with Dr. Cisse and he will accept patient in admission. Also consult neurology. (JIMY HICKS Jr., DO) Dragon Disclaimer Dragon Disclaimer This electronic medical record was generated, in whole or in part, using a voice recognition dictation system. (CHRISTEL CALZADA DO) Departure Departure: Impression: Primary Impression: Altered mental status Additional Impressions: Chest pain Seizure-like activity Disposition: ADMITTED INPATIENT Admitting Physician: Chaparrita Cisse (JIMY HICKS Jr., DO) Condition: IMPROVED Referrals: BAILEY MORSE MD (PCP) Problem Qualifiers Primary Impression: Altered mental status Altered mental status type: unspecified Qualified Codes: R41.82 - Altered mental status, unspecified Additional Impressions: Chest pain Chest pain type: unspecified Qualified Codes: R07.9 - Chest pain, unspecified CHRISTEL CALZADA DO Jan 11, 2019 17:25 JIMY HICKS Jr., DO Jan 11, 2019 18:34
[2019-01-11 17:43] LABS: BASO % 1 % (0-3); EOS # 0.1 x10^3/uL (0.0-0.7); EOS % 3 % (0-3); HEMATOCRIT 38.1 % (36.0-47.0); LYMPH # 1.6 x10^3/uL (1.0-4.8); LYMPH % 29 % (24-48); MEAN CORPUSCULAR HEMOGLOBIN 31 pg (25-35); MEAN CORPUSCULAR HGB CONC 34 g/dL (31-37); MEAN CORPUSCULAR VOLUME 91 fL (79-100); MONO # 0.5 x10^3/uL (0.0-1.1); MONO % 9 % (0-9); NEUT # 3.2 x10^3uL (1.8-7.7); NEUT % 59 % (31-73); PLATELET COUNT 215 x10^3/uL (140-400); RED BLOOD COUNT 4.21 x10^6/uL (3.50-5.40); WHITE BLOOD COUNT 5.5 x10^3/uL (4.0-11.0)
[2019-01-11] MEDS ORDERED: PHYTONADIONE 10 MG/ML AMPUL. ONE (17:43)
[2019-01-11] MEDS ORDERED: IV NORMAL SALINE 1,000ML 1,000 ML IV ONE (17:45)
[2019-01-11 17:51] LABS: BARBITURATES NEG (NEG); BENZODIAZEPINES NEG (NEG); CANNABINOIDS NEG (NEG); COCAINE NEG (NEG); METHADONE NEG (NEG); OPIATES NEG (NEG); PHENCYCLIDINE NEG (NEG)
[2019-01-11 17:52] LABS: AMPHETAMINE/METHAMPHETAMINE NEG (NEG)
--- NOTE | 2019-01-11 17:58 | RAD ---
STUDY: CT head without contrast INDICATION: Altered mental status. Seizure activity. COMPARISON: 04/26/2015 TECHNIQUE: Axial CT imaging through the head without the use of intravenous contrast. Sagittal and coronal reformats were obtained. FINDINGS: Estrada-white matter differentiation is maintained. No acute intracranial hemorrhage. No mass effect, midline shift or hydrocephalus. Unchanged linear focus of mineralization along the right frontal calvarium, image 13 series 3. The calvarium is intact. IMPRESSION: No acute intracranial abnormality by CT. Electronically signed by: PONCHO NUNEZ MD (01/11/2019 5:55 PM) [facility]
[2019-01-11 18:01] LABS: BACTERIA,URINE FEW /HPF (0-FEW); BILIRUBIN,URINE NEG (NEG); CLARITY,URINE HAZY; COLOR,URINE STRAW; GLUCOSE,URINE >=1000 mg/dL (NEG); NITRITE,URINE NEG (NEG); SQUAMOUS EPITHELIAL CELL,UR OCC /LPF; UROBILINOGEN,URINE 0.2 mg/dL (0.2 mg/dL); WBC,URINE 20-40 /HPF (0-4)
[2019-01-11 18:09] LABS: ALBUMIN 3.5 g/dL (3.4-5.0); ALBUMIN/GLOBULIN RATIO 0.9 (1.0-1.7); MAGNESIUM 1.9 mg/dL (1.8-2.4); POTASSIUM 4.2 mmol/L (3.5-5.1); TOTAL BILIRUBIN 0.6 mg/dL (0.2-1.0); TOTAL PROTEIN 7.5 g/dL (6.4-8.2)
--- NOTE | 2019-01-11 18:31 | RAD ---
Study: PORTABLE CHEST 1V Indication: Altered mental status. Shortness of air. Comparison: 01/03/2019 Findings: Unchanged configuration of the cardiomediastinal silhouette. Similar slightly prominent central vascular structures. No large effusion, lobar infiltrate or pneumothorax. Mild haziness at the left lung base favored related to volume loss. No free air seen under the diaphragm. Atherosclerotic calcifications at the aortic arch. Impression: No newly seen lobar infiltrate, large effusion or pneumothorax. Similar mild prominence of the central vascular structures but there are no radiographic manifestations to suggest overt failure. Electronically signed by: PONCHO NUNEZ MD (01/11/2019 6:28 PM) [facility]
[2019-01-11] MEDS ORDERED: INSULIN REGULAR 100 UNIT/ML 3ML VIAL. IV ONE (19:00)
[2019-01-11] MEDS ORDERED: ONDANSETRON PF 4 MG/2 ML VIAL. IV PRN (19:00)
[2019-01-11] MEDS ORDERED: NITROGLYCERIN SUBLINGUAL 0.4 MG BOTTLE OF 25. SL PRN (19:00)
[2019-01-11] MEDS ORDERED: IV NORMAL SALINE 1,000ML 1,000 ML IV SCH (19:30)
[2019-01-11 20:36] VITALS: BP 166/89
[2019-01-11 23:01] VITALS: BP 129/72
[2019-01-12] MEDS: MORPHINE SULFATE 2 MG/ML DISP.SYRIN. IV PRN ×2 (01:55→06:08)
[2019-01-12 05:15] VITALS: BP 116/69
[2019-01-12 06:49] LABS: BASO % 0 % (0-3); EOS # 0.2 x10^3/uL (0.0-0.7); EOS % 5 % (0-3); HEMATOCRIT 33.4 % (36.0-47.0); HEMOGLOBIN 11.3 g/dL (12.0-15.5); LYMPH # 1.3 x10^3/uL (1.0-4.8); LYMPH % 33 % (24-48); MEAN CORPUSCULAR HEMOGLOBIN 30 pg (25-35); MEAN CORPUSCULAR HGB CONC 34 g/dL (31-37); MEAN CORPUSCULAR VOLUME 90 fL (79-100); MONO # 0.4 x10^3/uL (0.0-1.1); MONO % 9 % (0-9); NEUT % 53 % (31-73); PLATELET COUNT 178 x10^3/uL (140-400); RED BLOOD COUNT 3.72 x10^6/uL (3.50-5.40); RED CELL DISTRIBUTION WIDTH 13.8 % (11.5-14.5); WHITE BLOOD COUNT 3.9 x10^3/uL (4.0-11.0)
[2019-01-12 07:03] LABS: CALCIUM 8.2 mg/dL (8.5-10.1); CREATININE 0.8 mg/dL (0.6-1.0); GFR 71.1; POTASSIUM 3.6 mmol/L (3.5-5.1)
--- NOTE | 2019-01-12 08:39 | PDOC2 ---
RAMONA JAVED CASE CONSULTANT 01/12/19 0839: CARDIAC CONSULT DATE OF CONSULT Date Of Consult DATE: 01/12/19 TIME: 08:35 REASON FOR CONSULT Reason for Consult Chest pain REFERRING PHYSICIAN Referring Physician Dr. Cisse SOURCE Source: Chart review, Patient HPI History of Present Illness This is a 68 yo female, with a history of CAD s/p remote PCI to the LAD and PCI/LUCILLE to the LCX 01/05/19, who presented secondary to altered mental status, chest tightness, and shortness of breath. Friend reportedly noted that she had altered mental status at [facility] yesterday and called EMS. Patient complains of pressure in the left chest. Associated with shortness of breath, dizziness, and palpitations. Also complaints of numbness on the left side including left face, arm, and leg. Also having twitching in her left face. Reports compliance with medications including DAPT with ASA and Plavix. Of note, [place] medical record indicated allergy to ASA which causes seizure. [facility] chart does not list ASA as allergy and patient has been receiving ASA since PCI/stent last week. PAST MEDICAL HISTORY Past Medical History Coronary artery disease s/p PCI/stent placement Diabetes mellitus type 2 Hypertension Hyperlipidemia COPD/asthma DVT/PE Osteoarthritis CVA Lymphoma Anxiety Depression PSVT Seizure PAST SURGICAL HISTORY Past Surgical History Right rotator cuff repair Cholecystectomy Hysterectomy Carpal tunnel release surgery FAMILY HISTORY Family History: Coronary Artery Disease SOCIAL HISTORY Smoke: No ALCOHOL: none Drugs: None Lives: with Family CURRENT MEDICATIONS Current Medications Current Medications Naloxone HCl (Narcan) 2 mg STK-MED ONCE IV ; Start 01/11/19 at 17:16; Stop 01/11/19 at 17:17; Status DC Naloxone HCl (Narcan) 2 mg 1X ONCE IV Last administered on 01/11/19at 17:39; Start 01/11/19 at 17:45; Stop 01/11/19 at 17:46; Status DC Sodium Chloride 1,000 ml @ 1,000 mls/hr 1X ONCE IV Last administered on 01/11/19at 17:41; Start 01/11/19 at 17:45; Stop 01/11/19 at 18:44; Status DC Lorazepam (Ativan Inj) 2 mg STK-MED ONCE .ROUTE ; Start 01/11/19 at 17:34; Stop 01/11/19 at 17:35; Status DC Lorazepam (Ativan Inj) 2 mg 1X ONCE IV Last administered on 01/11/19at 17:40; Start 01/11/19 at 17:45; Stop 01/11/19 at 17:46; Status DC Phytonadione (Vitamin K) 10 mg STK-MED ONCE .ROUTE ; Start 01/11/19 at 17:43; Stop 01/11/19 at 17:43; Status DC Insulin Human Regular (HumuLIN R VIAL) 6 unit 1X ONCE IV Last administered on 01/11/19at 19:44; Start 01/11/19 at 19:00; Stop 01/11/19 at 19:01; Status DC Ondansetron HCl (Zofran) 4 mg PRN Q4HRS PRN IV NAUSEA/VOMITING; Start 01/11/19 at 19:00; Stop 01/12/19 at 18:59 Morphine Sulfate (Morphine 2mg Syringe) 2 mg PRN Q2HR PRN IV PAIN Last administered on 01/12/19at 06:08; Start 01/11/19 at 19:00; Stop 01/12/19 at 18:59 Sodium Chloride 1,000 ml @ 100 mls/hr Q10H IV Last administered on 01/11/19at 22:17; Start 01/11/19 at 19:30; Stop 01/12/19 at 19:29 Nitroglycerin (Nitrostat) 0.4 mg PRN Q5MIN PRN SL CHEST PAIN; Start 01/11/19 at 19:00; Stop 01/12/19 at 18:59 Active Scripts Active Reported Xarelto (Rivaroxaban) 20 Mg Tablet 20 Mg PO DAILY Xanax (Alprazolam) 1 Mg Tablet 1 Tab PO TID Hydrocodone-Apap 10-325 (Hydrocodone Bit/Acetaminophen) 1 Each Tablet 1 Tab PO PRN Q6HRS PRN Mirapex (Pramipexole Di-Hcl) 0.25 Mg Tablet 1 Tab PO QHS Montelukast Sodium Tablet (Montelukast Sodium) 10 Mg Tablet 10 Mg PO HS Crestor (Rosuvastatin Calcium) 20 Mg Tablet 1 Tab PO DAILY Isosorbide Mononitrate Er (Isosorbide Mononitrate) 30 Mg Tab.er.24h 1 Tab PO DAILY Gabapentin 100 Mg Capsule 100 Mg PO BID ALLERGIES Allergies: Coded Allergies: aspirin (Unverified Allergy, Severe, SEIZURE, 06/19/14) SEIZURES prednisone (Unverified Allergy, Severe, SEIZURES, 06/19/14) SEIZURES fentanyl (Verified Allergy, Intermediate, 01/12/19) ROS Review of Systems 14 point ROS conducted with pertinent positives noted above in in HPI. PHYSICAL EXAM General: Alert, Cooperative, No acute distress, Other (oriented to person and year. Known that she is in hospital, but not which one. Unable to stat president.) Lungs: Other (diminished bases) Heart: Regular rate, Normal S1, Normal S2 Abdomen: Soft, No tenderness Extremities: No edema, Normal pulses Skin: No rashes, No breakdown Neuro: Normal speech, Reflexes 2+ (left-sided facial twitching. ) MUSCULOSKELETAL: Osteoarthritic changes both hands VITALS Vital Signs Vital Signs Date Time Temp Pulse Resp B/P (MAP) Pulse Ox O2 Delivery O2 Flow Rate FiO2 01/12/19 06:08 24 Room Air 01/12/19 05:15 97.7 63 116/69 (85) 95 LABS LABS Laboratory Tests Test 01/11/19 17:13 01/11/19 17:19 01/11/19 17:20 01/11/19 17:26 Prothrombin Time 9.6 SEC (9.4-11.4) Prothromb Time International Ratio 0.9 (0.9-1.1) Activated Partial Thromboplast Time 22 SEC (23-33) Sodium Level 137 mmol/L (136-145) Potassium Level 4.2 mmol/L (3.5-5.1) Chloride Level 102 mmol/L (98-107) Carbon Dioxide Level 26 mmol/L (21-32) Anion Gap 9 (6-14) Blood Urea Nitrogen 14 mg/dL (7-20) Creatinine 1.0 mg/dL (0.6-1.0) Estimated GFR (Cockcroft-Gault) 55.0 BUN/Creatinine Ratio 14 (6-20) Glucose Level 321 mg/dL (70-99) Calcium Level 9.0 mg/dL (8.5-10.1) Magnesium Level 1.9 mg/dL (1.8-2.4) Total Bilirubin 0.6 mg/dL (0.2-1.0) Aspartate Amino Transf (AST/SGOT) 26 U/L (15-37) Alanine Aminotransferase (ALT/SGPT) 24 U/L (14-59) Alkaline Phosphatase 130 U/L (46-116) Creatine Kinase 55 U/L (26-192) EE-Ash-O-Type Natriuretic Peptide 159 pg/mL (0-124) Total Protein 7.5 g/dL (6.4-8.2) Albumin 3.5 g/dL (3.4-5.0) Albumin/Globulin Ratio 0.9 (1.0-1.7) White Blood Count 5.5 x10^3/uL (4.0-11.0) Red Blood Count 4.21 x10^6/uL (3.50-5.40) Hemoglobin 13.0 g/dL (12.0-15.5) Hematocrit 38.1 % (36.0-47.0) Mean Corpuscular Volume 91 fL (79-100) Mean Corpuscular Hemoglobin 31 pg (25-35) Mean Corpuscular Hemoglobin Concent 34 g/dL (31-37) Red Cell Distribution Width 14.0 % (11.5-14.5) Platelet Count 215 x10^3/uL (140-400) Neutrophils (%) (Auto) 59 % (31-73) Lymphocytes (%) (Auto) 29 % (24-48) Monocytes (%) (Auto) 9 % (0-9) Eosinophils (%) (Auto) 3 % (0-3) Basophils (%) (Auto) 1 % (0-3) Neutrophils # (Auto) 3.2 x10^3uL (1.8-7.7) Lymphocytes # (Auto) 1.6 x10^3/uL (1.0-4.8) Monocytes # (Auto) 0.5 x10^3/uL (0.0-1.1) Eosinophils # (Auto) 0.1 x10^3/uL (0.0-0.7) Basophils # (Auto) 0.0 x10^3/uL (0.0-0.2) Urine Collection Type Unknown Urine Color Straw Urine Clarity Hazy Urine pH 5.5 Urine Specific Bryson 1.020 Urine Protein Neg (NEG-TRACE) Urine Glucose (UA) >=1000 mg/dL (NEG) Urine Ketones (Stick) Neg mg/dL (NEG) Urine Blood Trace (NEG) Urine Nitrite Neg (NEG) Urine Bilirubin Neg (NEG) Urine Urobilinogen Dipstick 0.2 mg/dL (0.2 mg/dL) Urine Leukocyte Esterase Neg (NEG) Urine RBC 1-2 /HPF (0-2) Urine WBC 20-40 /HPF (0-4) Urine Squamous Epithelial Cells Occ /LPF Urine Bacteria Few /HPF (0-FEW) Urine Mucus Mod /LPF Lactic Acid Level 1.8 mmol/L (0.4-2.0) Ammonia 23 mcmol/L (11-34) Urine Opiates Screen Neg (NEG) Urine Methadone Screen Neg (NEG) Urine Barbiturates Neg (NEG) Urine Phencyclidine Screen Neg (NEG) Urine Amphetamine/Methamphetamine Neg (NEG) Urine Benzodiazepines Screen Neg (NEG) Urine Cocaine Screen Neg (NEG) Urine Cannabinoids Screen Neg (NEG) Urine Ethyl Alcohol Neg (NEG) Acetone Level Neg (NEG) Glucose (Fingerstick) 318 mg/dL (70-99) Test 01/11/19 19:01 01/11/19 19:27 01/11/19 20:03 01/11/19 21:51 Troponin I Quantitative < 0.017 ng/mL (0-0.055) Glucose (Fingerstick) 259 mg/dL (70-99) 236 mg/dL (70-99) 172 mg/dL (70-99) Test 01/11/19 22:20 01/12/19 00:55 01/12/19 06:15 01/12/19 07:24 Troponin I Quantitative < 0.017 ng/mL (0-0.055) < 0.017 ng/mL (0-0.055) White Blood Count 3.9 x10^3/uL (4.0-11.0) Red Blood Count 3.72 x10^6/uL (3.50-5.40) Hemoglobin 11.3 g/dL (12.0-15.5) Hematocrit 33.4 % (36.0-47.0) Mean Corpuscular Volume 90 fL (79-100) Mean Corpuscular Hemoglobin 30 pg (25-35) Mean Corpuscular Hemoglobin Concent 34 g/dL (31-37) Red Cell Distribution Width 13.8 % (11.5-14.5) Platelet Count 178 x10^3/uL (140-400) Neutrophils (%) (Auto) 53 % (31-73) Lymphocytes (%) (Auto) 33 % (24-48) Monocytes (%) (Auto) 9 % (0-9) Eosinophils (%) (Auto) 5 % (0-3) Basophils (%) (Auto) 0 % (0-3) Neutrophils # (Auto) 2.0 x10^3uL (1.8-7.7) Lymphocytes # (Auto) 1.3 x10^3/uL (1.0-4.8) Monocytes # (Auto) 0.4 x10^3/uL (0.0-1.1) Eosinophils # (Auto) 0.2 x10^3/uL (0.0-0.7) Basophils # (Auto) 0.0 x10^3/uL (0.0-0.2) Sodium Level 141 mmol/L (136-145) Potassium Level 3.6 mmol/L (3.5-5.1) Chloride Level 108 mmol/L (98-107) Carbon Dioxide Level 24 mmol/L (21-32) Anion Gap 9 (6-14) Blood Urea Nitrogen 8 mg/dL (7-20) Creatinine 0.8 mg/dL (0.6-1.0) Estimated GFR (Cockcroft-Gault) 71.1 Glucose Level 162 mg/dL (70-99) Calcium Level 8.2 mg/dL (8.5-10.1) Glucose (Fingerstick) 154 mg/dL (70-99) ECHOCARDIOGRAM Echocardiogram <Conclusion> The left ventricle is normal size. The left ventricular systolic function is normal and the ejection fraction is within normal range. The Ejection Fraction is 55-60%. There is mild concentric left ventricular hypertrophy. There is no significant aortic valvular stenosis. Doppler and Color Flow revealed no significant aortic regurgitation. Doppler and Color-flow revealed trace mitral regurgitation. Doppler and Color Flow revealed trace to mild tricuspid regurgitation with an estimated PAP of 44 mmHg. DATE: 01/06/19 1203 HEART CATH Heart Cath FINDINGS 1. Hemodynamics: Left ventricular end-diastolic pressure of 15 mmHg. No pullback gradient across the aortic valve. 2. Left ventriculography: Normal left ventricle systolic function with ejection fraction estimated at 60%. No significant mitral regurgitation seen. 3. Coronary angiography: a. The left main coronary artery arose from the left sinus of Valsalva, gave rise to the left anterior descending and left circumflex arteries and did not show any significant stenosis. b. The left anterior descending artery showed widely patent stent in the midsegment. The diagonal branch which is a small to medium caliber vessel appeared to have been jailed by the stent resulting in 80% stenosis. c. The left circumflex artery was a large caliber vessel that showed 80% stenosis in the midsegment. d. The right coronary artery was a large and dominant vessel arising from the right sinus of Valsalva that did not show any significant stenosis. Conclusion 1. 80% stenosis involving a large caliber left circumflex artery. The previously placed stent in the left anterior descending artery was widely pa tent. The diagonal branch which is a small to medium caliber vessel appeared to have been jailed by the stent resulting in 80% ostial/proximal segment stenosis. 2. Successful PCI/drug eluting stent placement to the left circumflex artery 3. Normal left ventricle systolic function with ejection fraction estimated at 60% Recommendations 1. Aspirin 325 mg daily 2. Plavix 75 mg daily for preferably one year 3. Cardiovascular risk factor modification DATE: 01/05/19 1102 ASSESSMENT/PLAN Assessment/Plan 1. Altered mental status, left sided-facial twitching 2. Chest pain; AMI ruled out. Reports compliance with DAPT with ASA/Plavix. [facility] records indicate allergy to ASA with seizure activity 3. CAD; s/p previous LAD stent and s/p PCI/LUCILLE to LCx 01/05/19 as noted above. 4. DM2: uncontrolled 5. Accelerated hypertension; now controlled 6. Hyperlipidemia; statin. on goal 7. COPD/asthma; stable 8. DVT/PE: noted 6 months ago 9. PSVT; rate controlled. On BB 10. Hx of CVA with left side-residual Recommendations Secondary prevention. Resume Plavix, statin therapy, BB. Hold ASA for now until seen by neurology Xarelto 2.5mg BID given CVD DM control as per PCP Follow neuro recommendations JAMES THOMAS MD 01/12/19 7077: CARDIAC CONSULT ASSESSMENT/PLAN Assessment/Plan Patient seen and examined Chest pain. History of stent placement last week. Patient reports compliance with medications. No ischemic EKG changes. No significant elevation of troponin. Continue medical treatment. Discussed with the patient. Accelerated hypertension. Improved on present medications. Poor control. Continue as per the primary service. Hyperlipidemia. On statin medications. Episodes of decreased level of consciousness with a history of a CVA. Improved now. Being evaluated by neurology. History of the PSVT. Continue on telemetry. Beta blockers. History of PE and DVT over 6 months ago. Thank you for allowing us to participate in the care of your patient. RAMONA JAVED APRN Jan 12, 2019 08:39 JAMES THOMAS MD Jan 12, 2019 17:17
[2019-01-12] MEDS: METOPROLOL TART IMMED RELEASE 25 MG TABLET PO SCH ×2 (09:00→20:14)
[2019-01-12 09:03] VITALS: BP 149/77
[2019-01-12] MEDS ORDERED: POTASSIUM CHLORIDE 20 MEQ TABLET.ER. PO ONE (09:15)
[2019-01-12] MEDS ORDERED: FUROSEMIDE 20 MG/2 ML VIAL IVP ONE (09:15)
[2019-01-12] MEDS: RIVAROXABAN 10 MG TABLET. PO SCH ×2 (11:30→17:15)
[2019-01-12] MEDS ORDERED: INSU100I13 SQ (11:57)
[2019-01-12 15:08] VITALS: BP 118/68
[2019-01-12] MEDS ORDERED: IOHEXOL 350 MG/ML 100 ML VIAL. IV ONE (16:15)
[2019-01-12] MEDS: CLOPIDOGREL BISULFATE 75 MG TABLET PO SCH (17:12)
[2019-01-12] MEDS: ISOSORBIDE MONONITRATE ER 30 MG TAB.ER.24H PO SCH (17:13)
--- NOTE | 2019-01-12 17:53 | RAD ---
CT ANGIOGRAPHY CHEST Indication: Chest pain, shortness of breath . Technique: After intravenous contrast administration, CT imaging was performed of the chest. MIP reconstructions were obtained. Exposure: One or more of the following individualized dose reduction techniques were utilized for this examination: 1. Automated exposure control 2. Adjustment of the mA and/or kV according to patient size 3. Use of iterative reconstruction technique. Comparison: None FINDINGS: No evidence of a pulmonary embolism. Suboptimal visualization of the more peripheral pulmonary artery branches. No evidence of aortic aneurysm or dissection. Mild aortic calcification. Great vessel origins appear grossly patent. Thyroid appears unremarkable and symmetric. No significant lymph node enlargement. Coronary artery calcifications. No significant pericardial or pleural effusion. Emphysematous changes in both lungs. Ill-defined and mostly linear opacities in both lungs, most likely represent areas of fibrosis and scarring, greatest in the upper lobes. No consolidating airspace infiltrate. There are several areas of slightly more nodular opacity in the right upper lobe, such as on series 3, image 36 and series 3, image 31. No definite dominant mass is identified. Trachea and mainstem bronchi are grossly patent. Degenerative spondylosis. Vertebral body height and alignment are intact. Posterior left rib irregularities, may be due to old fractures. Scans to the upper abdomen are limited by technique. Low-density lesion in the right kidney measures fluid Hounsfield units, most likely a cyst, although measurements may be compromised by artifact, presumably from the patient's arms. IMPRESSION: 1. No evidence of pulmonary embolism. Note that there is limited visualization of the more peripheral pulmonary artery branches, possibly due to suboptimal opacification. 2. Mostly reticular opacities in both lungs, with several areas of mild nodular component. Overall these are thought to most likely be related to chronic scarring or fibrosis. However, follow-up CT chest in about 3-6 months could be of benefit for further evaluation, or sooner if warranted by clinical worsening. 3. Left upper pole renal lesion, likely a cyst. Electronically signed by: Levi Mckenzie MD (01/12/2019 5:50 PM) [facility]
--- NOTE | 2019-01-12 18:17 | HP ---
ADMIT DATE: 01/12/2019 HISTORY OF PRESENT ILLNESS: The patient is a 68-year-old female patient brought to the Emergency Room by emergency medical service personnel due to altered mental status. Reportedly, her blood sugar was in the 300s and they were called by a friend of the patient. The patient had been talking to the friend. She stated that she was having some shortness of breath and chest tightness. The friend tried to call her back and was unable to contact her and therefore she contacted the ambulance team who brought her to the Emergency Room. She apparently was evaluated in the Emergency Room and was found to have [place] coma scale of 7. She had a CT scan of the head without contrast, which basically showed that the hernandes-white matter differentiation was maintained. No acute intracranial hemorrhage. No mass effect or midline shift or hydrocephalus. Unchanged linear focus of mineralization along the right frontal calvarium. The chest x-ray showed unchanged configuration of the cardiomediastinal silhouette, similar to slightly prominent central vascular structures. No large effusion or lobar infiltrate, pneumothorax. Mild haziness at the left lung base, favored to be related to volume loss. No free air seen under diaphragm, atherosclerotic calcification of the aortic arch. She apparently started to improve. She was basically initially unresponsive, started to improve after being given Narcan. While prepping the patient's CT scan, she had had seizure-like activity, so was given 2 mg of Ativan IV. The patient never had a hypoxic episode during this activity. She was transported to CT scan. While there, she had a second episode of seizure-like activity again. No hypoxia. I had a chance to review her chart and found that that she had what appears to be similar activity shortly after her cardiac catheterization and after that the patient was admitted to [facility] with altered mental status, chest pain, seizure-like activity, for which Dr. Garcia was consulted as well as the Cardiology team. PAST MEDICAL HISTORY: Significant for coronary artery disease, status post PCI, stent deployment x 2. She has type 2 diabetes mellitus, hyperlipidemia, chronic obstructive pulmonary disease/bronchial asthma. She also has history of DVT and pulmonary embolism, generalized osteoarthritis, degenerative disk disease. 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 PAST SURGICAL HISTORY: Significant for PCI with stent deployment x 2, one was done only recently. She is status post right rotator cuff repair, cholecystectomy, total abdominal hysterectomy, bilateral salpingo-oophorectomy and left carpal tunnel release. ALLERGIES: She is allergic to ASPIRIN and PREDNISONE. She also stated that she is allergic to OXYCODONE and had a reaction to FENTANYL on most recent admission to [facility]. MEDICATIONS: She is currently on rivaroxaban only 2.5 mg once a day, isosorbide mononitrate 30 mg once a day, hydrocodone/APAP 10/325 one tablet every 6 hours, gabapentin 100 mg twice a day, alprazolam 1 mg 3 times a day, pramipexole for Mirapex 0.25 mg at bedtime. She is on montelukast 10 mg at bedtime and she is on Lantus insulin 12 units at bedtime. FAMILY HISTORY: She has 2 brothers older and healthy. Two sisters, one of them had at age of 65 because of cancer and heart problems. Her father at the age of 82 because of lung cancer, myocardial infarction. Her mother at age of 83 because of myocardial infarction. SOCIAL HISTORY: She is and has 1 son and 2 daughters. She has been a secondhand smoker, does not drink alcohol or use any recreational drugs. 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 REVIEW OF SYSTEMS: As per history of present illness. PHYSICAL EXAMINATION: GENERAL: On arrival to the Emergency Room, she apparently was lethargic with a [place] coma scale of 7. She was pale, but no jaundice, cyanosis or thyromegaly. No jugular venous distention. No lower limb edema. VITAL SIGNS: Her heart rate was 82, blood pressure was 170/95, temperature was 97.7, respiratory rate was 22 and oxygen saturation was 96% on room air. HEAD, EYES, EARS, NOSE AND THROAT: Showed normocephalic, atraumatic. NECK: Supple. HEART: Showed normal first and second heart sounds. No gallop or murmur. CHEST: Clear to auscultation. No crepitation or rhonchi. ABDOMEN: Distended, soft, nontender. NEUROLOGIC: She was apparently lethargic, but arousable. Her [place] coma scale was 7. LABORATORY DATA: While in the Emergency Room showed a white cell count of 5500, hemoglobin 13, hematocrit 38, MCV 91, and platelet count 215,000. Her chemistry showed a serum sodium 137, potassium 4.2, chloride 102, bicarbonate 26, anion gap of 9, BUN 14, creatinine 1, estimated GFR was 55 mL per minute. Her glucose was high at 321. Lactic acid was 1.8, calcium was 9, magnesium was 1.9. Total bilirubin, AST, ALT were normal. Alkaline phosphatase slightly elevated. His serum ammonia was 23. CK was only 55. Beta-natriuretic peptide was 159. Total protein was 7.5, albumin was 3.5. Her prothrombin time was 9.6, INR of 0.9, aPTT was 22. Urinalysis showed the urine was still colored, hazy with a pH of 5.5, specific gravity of 1.020. The urine was negative for protein. There was large amount of glucose, negative for, trace amount of blood, negative for nitrite and bilirubin, negative for leukocyte esterase. There were 1-2 rbc's, 20-40 wbc's and very few bacteria. Her toxic screen was essentially negative. Her CT scan of the head showed that the hernandes-white matter differentiation is maintained. No acute intracranial hemorrhage. No mass effect, midline shift or hydrocephalus. Unchanged linear focus of mineralization along the right frontal calvarium, image 13 series. The calvarium is intact. Her chest x-ray showed unchanged configuration of the cardiomediastinal silhouette, similar slightly prominent central vascular structure. No large effusion, lobar infiltrate or pneumothorax. Mild haziness at the left lung base, favored related to volume loss. No free air seen under diaphragm, atherosclerotic calcification of the aortic arch. ASSESSMENT AND PLAN: The patient was admitted to do 2 more cardiac enzymes, to consult the certified bench jeweler technician as well as the neurologist for possible seizure activity. We will continue on all her medications. Apparently, her rivaroxaban was cut down to only 2.5 mg per the Cardiology team. APOLONIA PLUNKETT MD DR: SUHA/eliezer JOB#: [id number] / [id number]
[2019-01-12 19:00] VITALS: BP 127/71
[2019-01-12] MEDS: GABAPENTIN 100 MG CAPSULE. PO SCH (20:14)
[2019-01-12] MEDS: ALPRAZolam 0.5 MG TABLET PO SCH (20:14)
[2019-01-12] MEDS: HYDROcodone/APAP 10/325 1 TAB TABLET PO PRN (20:15)
[2019-01-12] MEDS ORDERED: INSULIN GLARGINE SYRINGE. SQ SCH (21:00)
[2019-01-12] MEDS ORDERED: MONTELUKAST 10 MG TABLET. PO SCH (21:00)
[2019-01-12] MEDS ORDERED: ATORVASTATIN CALCIUM 20 MG TABLET PO SCH (21:00)
[2019-01-12] MEDS ORDERED: PRAMIPEXOLE 0.25 MG TABLET. PO SCH (21:00)
[2019-01-12 21:14] VITALS: BP 119/79
[2019-01-12] MEDS ORDERED: ALBUTEROL SULFATE 2.5 MG/3 ML NEBU. NEB PRN (21:15)
[2019-01-12] MEDS ORDERED: ONDANSETRON PF 4 MG/2 ML VIAL. IV PRN (22:00)
[2019-01-12 23:00] VITALS: BP 102/64
--- NOTE | 2019-01-12 23:58 | PN ---
DATE: 01/12/2019 SUBJECTIVE: The patient is resting, slightly propped up in bed, lethargic, but arousable. She is now more awake, alert, responding appropriately. She continued to complain of chest tightness in the left side, but with exertion. Has had apparently no further episodes of seizure-like activity while here in the floor. PHYSICAL EXAMINATION: GENERAL: When I examined her, she was resting slightly propped up in bed, in no apparent respiratory distress. No pallor, jaundice, cyanosis, or thyromegaly. No jugular venous distention. No lower limb edema. VITAL SIGNS: Her heart rate was 95, blood pressure was 118/60, temperature was 98.1, respiratory rate 28 and oxygen saturation was 92%. HEAD, EYES, EARS, NOSE AND THROAT: Normocephalic, atraumatic. NECK: Supple. HEART: Showed normal first and second heart sounds with no gallop or murmur. CHEST: Shows good air entry on the right side, reduced air entry on the left side. ABDOMEN: Distended, soft, nontender. NEUROLOGIC: She is awake, alert, responding appropriately. She seems to have left-sided hemiparesis. Her intake overnight was 750, no output was recorded. LABORATORY DATA: Her lab work this morning showed a serum sodium of 41, potassium 3.6, chloride 108, bicarbonate 24, anion gap of 9, BUN 8, creatinine 0.8, estimated GFR was 71 mL per minute. Her glucose was 162, calcium was 8.2. She has 2 more sets of cardiac enzymes that were negative, showed a troponin to be less than 0.07. Her white cell count was 3900, hemoglobin 11.3, hematocrit 33, MCV 90, and platelet count of 178,000. Her prothrombin time, INR and aPTT were normal. PLAN: Given the markedly decreased air entry on the left side, I would arrange for her to have a CT scan of the chest with PE protocol. I will go ahead and give her Lasix and discontinue IV fluid. Meanwhile, we will continue with all her other medications and was started also on IV Rocephin for possibly urinary tract infection. APOLONIA PLUNKETT MD DR: SUHA/eliezer JOB#: [id number] / [id number]
--- NOTE | 2019-01-13 02:13 | CONS ---
DATE OF CONSULTATION: 01/12/2019 NEUROLOGY CONSULT REFERRING PHYSICIAN: Dr. Cisse. REASON FOR CONSULTATION: Acute mental status changes. HISTORY OF PRESENT ILLNESS: This is a 68-year-old right-handed female, was admitted through Emergency Room today after she was found to have mental status changes. Apparently, initially the patient talked to her friend and told her she had chest pain and shortness of breath. Later on, she was transferred to Emergency Room for further evaluation. Initially she was unresponsive; therefore, she was given Narcan, her mental status has improved and transferred the patient to Radiology for CT scan of the head. While she was there, she had seizure-like activities without change in her oxygen saturation. Initial head CT scan revealed no evidence of acute intracranial process. The patient had 2 spells of seizure-like activities before she went back to Emergency Room and she continued to be confused and disoriented. PAST MEDICAL HISTORY: Significant for coronary artery disease, required stent placement x 2, diabetes mellitus, lipidemia, COPD, asthma, DVT, pulmonary embolism, history of stroke in 06/2018 due to right middle cerebral artery, resulted in left hemiparesis, diabetes mellitus type 2. PAST SURGICAL HISTORY: Stent placement x 2, right rotator cuff repair, cholecystectomy, abdominal hysterectomy and left carpal tunnel release. SOCIAL HISTORY: The patient is . She has 3 children. She denies smoking, alcohol drinking, or illicit drug use. FAMILY HISTORY: One sister, she of cancer and heart disease at age of 65. Father at age of 82 due to lung cancer and coronary artery disease. Mother at age of 83 with coronary artery disease and heart attack. CURRENT HOME MEDICATIONS: Rivaroxaban 2.5 mg daily, isosorbide 30 mg daily, hydrocodone/APAP 10/325 mg q. 6 hours p.r.n., gabapentin 100 mg twice daily, alprazolam 1 mg 3 times daily, Mirapex 0.25 mg at bedtime and montelukast 10 mg at bedtime, insulin Lantus 12 units at bedtime. REVIEW OF SYSTEMS: A 10-point review of system was performed as mentioned above in the history of present illness. The patient did not recall the event and she continued to complain of chest discomfort and shortness of breath. ALLERGIES: ASPIRIN, PREDNISONE, OXYCODONE, FENTANYL. PHYSICAL EXAMINATION: GENERAL: Well-developed, well-nourished female, not in acute distress. She weighs 91.8 kilos. VITAL SIGNS: Blood pressure 149/77, respiratory rate 20, pulse is 95, oxygen saturation 93% and temperature 98.1. HEENT: Normocephalic, atraumatic, otherwise unremarkable. NECK: Supple. Negative for carotid bruit, lymphadenopathy or thyromegaly. LUNGS: Clear to A and P. CARDIOVASCULAR: Regular rate and rhythm, normal S1, S2. ABDOMEN: Soft. Bowel sounds positive. EXTREMITIES: Negative for cyanosis, clubbing or edema. NEUROLOGICAL EXAM: MENTAL STATUS: The patient is alert and oriented x 3. The speech is fluent. There is no language dysfunction. The patient recalls 2/3 immediately and after 1 and 3 minutes. Judgment and abstract thinking are fair. The patient denies hallucination or delusion. CRANIAL NERVES: Visual griggs are full. The pupils are reactive to light and accommodation. The extraocular movements are intact. There is no nystagmus. There is no facial motor or sensory deficit. Hearing is intact bilaterally. The palate is elevated symmetrically. Sternocleidomastoid muscles are powerful bilaterally. The patient shrugs her shoulders symmetrically, protrudes her tongue in the midline without fasciculation or atrophy. MOTOR: No focal muscle bulk was seen. The tone is normal. The strength is 4/5 in the left upper and lower extremities. The strength elsewhere was 5/5 throughout. Sensory examination revealed diminished pinprick and light touch senses over the left upper and lower extremities. Deep tendon reflexes were symmetric and active without pathologic responses. Gait not tested at this time. DIAGNOSTIC DATA: Chest x-ray revealed no acute cardiopulmonary process and nonenhanced head CT scan revealed no evidence of acute intracranial abnormalities. Chest CT scan revealed no evidence of pulmonary embolism and chronic scarring or fibrosis. It shows also a cyst of the left upper pole renal lesion. LABORATORY DATA: CBC revealed white blood cells of 3900, hemoglobin 11.3, hematocrit 33.4, platelet count 178,000. Chemistry revealed sodium of 141, potassium 3.6, chloride 108, CO2 24, BUN 8, creatinine 0.8 and glucose 162, calcium 9.2. Urinalysis shows white blood cells of 20-40 with negative urinary leukocyte esterase and nitrite. Urine drug screen is negative. IMPRESSION: 1. Chest pain and shortness of breath with history of coronary artery disease. 2. Mental status changes-improved. The patient does not have any acute encephalopathy. 3. Left-sided weakness with history of right middle cerebral artery infarct. The current CT scan was negative for acute intracranial process. 4. Multiple medical problems include chronic obstructive pulmonary disease, coronary artery disease, hyperlipidemia and diabetes mellitus. RECOMMENDATIONS: 1. Continue with current management initiated by Dr. Cisse. 2. Continue with Cardiology workup. 3. We will obtain previous medical record and obtain brain MRI results. 4. Physical therapy evaluation. M Dottie LOYD MD DR: ZHANE/eliezer JOB#: [id number] / [id number]
[2019-01-13 05:00] VITALS: BP 110/68
[2019-01-13] MEDS: HYDROcodone/APAP 10/325 1 TAB TABLET PO PRN (07:08)
[2019-01-13] MEDS ORDERED: ASPIRIN ENTERIC COATED 81 MG TABLET.DR. PO SCH (08:00)
[2019-01-13] MEDS: RIVAROXABAN 10 MG TABLET. PO SCH (08:10)
[2019-01-13] MEDS: GABAPENTIN 100 MG CAPSULE. PO SCH (08:10)
[2019-01-13] MEDS: CLOPIDOGREL BISULFATE 75 MG TABLET PO SCH (08:10)
[2019-01-13] MEDS: ISOSORBIDE MONONITRATE ER 30 MG TAB.ER.24H PO SCH (08:11)
[2019-01-13] MEDS: ALPRAZolam 0.5 MG TABLET PO SCH ×2 (08:11→13:23)
[2019-01-13] MEDS: METOPROLOL TART IMMED RELEASE 25 MG TABLET PO SCH (08:12)
[2019-01-13] MEDS ORDERED: ISOSORBIDE MONONITRATE ER 30 MG TAB.ER.24H PO SCH (09:00)
[2019-01-13 11:26] VITALS: BP 93/53
--- NOTE | 2019-01-13 13:20 | DISCH ---
HOME HEALTH DISCHARGE/MEDS DISCHARGE INFORMATION: Discharge Date: Jan 13, 2019 Final Diagnosis: Problems Medical Problems: (1) Altered mental status Status: Acute (2) Chest pain Status: Acute (3) Seizure-like activity Status: Acute Condition on Discharge: Stable CODE STATUS: Code Status: Full HOME HEALTH: Face to Face: I certify this patient is under my care and that I, or a nurse practitioner or physician's assistant district attorney working with me, had a face to face encounter that meets the physician face to face encounter requirements with this patient on 01/13/19 Retirement For: Admin/Educate Injections Physical Therapy For: Evalulation/Treatment Occupational Therapy For: Evaluation/Treatment POST DISCHARGE ORDERS: Activity Instructions for Disc: Resume previous activity Weight Bearing Status after Di: Full weight bearing DIET AFTER DISCHARGE: Cardiac CERTIFICATION STATEMENT: Certification Statement: Based on the above finding, I certify that this patient is confined to the home and needs intermittent detention care, physical therapy and/or speech therapy, or continues to need occupational therapy.~ This patient is under my care, and I have initiated the establishment of the plan of care.~ This patient will be followed by myself or a community physician who will periodically review the plan of care. DISCHARGE MEDICATIONS: Home Meds Reported Medications Insulin Glargine,Hum.rec.anlog (LANTUS SOLOSTAR) 100 Unit/1 Ml Insuln.pen, 12 UNIT SQ QHS for HIGH BLOOD SUGAR-DIABETES 01/12/19 Rivaroxaban (XARELTO) 20 Mg Tablet, 20 MG PO DAILY for blood thinner, TAB 01/04/19 Alprazolam (XANAX) 1 Mg Tablet, 1 TAB PO TID for anxiety, #90 TAB 01/04/19 Hydrocodone Bit/Acetaminophen (HYDROCODONE-APAP 10-325 ) 1 Each Tablet, 1 TAB PO PRN Q6HRS PRN for PAIN, TAB 0 Refills 01/04/19 Pramipexole Di-Hcl (MIRAPEX) 0.25 Mg Tablet, 1 TAB PO QHS for restless leg, #90 TAB 1 Refill 01/04/19 Montelukast Sodium (MONTELUKAST SODIUM TABLET ) 10 Mg Tablet, 10 MG PO HS for FOR ASTHMA, TAB 0 Refills 01/04/19 Isosorbide Mononitrate (ISOSORBIDE MONONITRATE ER) 30 Mg Tab.er.24h, 1 TAB PO DAILY for chest pain, #30 TAB 5 Refills 01/04/19 Gabapentin (Gabapentin) 100 Mg Capsule, 100 MG PO BID for neuropathy, CAP 01/04/19 Discontinued Reported Medications Rosuvastatin Calcium (CRESTOR) 20 Mg Tablet, 1 TAB PO DAILY for hyperlipidemia, #30 TAB 5 Refills 01/04/19 APOLONIA PLUNKETT MD Jan 13, 2019 13:20
--- NOTE | 2019-01-13 14:59 | DS ---
DATE OF DISCHARGE: HOSPITAL COURSE: The patient is a 68-year-old female patient who was admitted to the Emergency Room with altered mental status. She apparently spoke with her friend, told her that she had chest pain and shortness of breath. Later on, she was transferred to the Emergency Room for further evaluation. Initially, she was unresponsive. She was given Narcan and her mental status has improved and transferred the patient to Radiology for CT scan of the head. While she was there, she had a seizure-like activity without change in her oxygen saturation. Her CT scan was unremarkable and unrevealing. Patient had 2 spells of seizure-like activity before she went back to the Emergency Room and she continued to be confused and disoriented. All her lab work including multiple sets of cardiac enzyme as well as CT scan of the chest with PE protocol were normal and revealed no evidence of myocardial infarction or pulmonary embolism and therefore, the patient has been up and about ambulating with a walker and expressed her desire to be discharged home and therefore the patient was discharged home with home health. PHYSICAL EXAMINATION: GENERAL: When I saw her this afternoon, she looked well and was clearly in no apparent respiratory distress, slightly pale, no jaundice, cyanosis or thyromegaly. No jugular venous distention. No lower limb edema. VITAL SIGNS: Her heart rate was 66, blood pressure was 93/53, temperature was 97.4, respiratory rate 20, and oxygen saturation was 93%. HEAD, EYES, EARS, NOSE AND THROAT: Showed normocephalic, atraumatic. NECK: Supple. HEART: Showed normal first and second heart sounds. No gallop or murmur. CHEST: Clear to auscultation. No crepitation or rhonchi. ABDOMEN: Distended, soft, nontender. NEUROLOGIC: She is definitely more awake, alert, responding appropriately. All cranial nerves intact. She moves extremities without difficulty. She ambulates with a walker. Does have left-sided residual hemiparesis. Her intake over the last 24 hours was 1050, output was 1400. LABORATORY DATA: Showed a serum sodium 141, potassium 3.6, chloride 108, bicarbonate 24, anion gap of 9, BUN 8, creatinine 0.8, estimated GFR was 71 mL. As I stated, she has 3 sets of cardiac enzymes that ruled out myocardial infarction. She was seen by the Cardiology team and basically myocardial infarction was ruled out. Again, she has a CT angio of the chest and that showed no evidence of pulmonary emboli or pneumothorax, pulmonary consolidation. As she remained hemodynamically stable, a decision was made to discharge her home to continue on all her medications that include alprazolam for Xanax 1 mg 3 times a day, gabapentin 100 mg 3 times a day, hydrocodone/APAP one tablet every 6 hours. She is on Lantus insulin 12 units at bedtime, isosorbide mononitrate 30 mg once a day, Singulair 10 mg once a day, Mirapex 0.25 mg at bedtime. She was also discharged on rivaroxaban 2.5 mg once a day and cefdinir 300 mg twice a day for 5 more days. FINAL DISCHARGE DIAGNOSES: 1. Altered mental status, resolved. 2. Chest pain with shortness of breath. No evidence of pulmonary emboli or myocardial infarction. 3. Residual left-sided weakness due to right middle cerebral artery infarct. 4. Multiple other medical problems including: A. Chronic obstructive pulmonary disease, coronary artery disease, hyperlipidemia, and type 2 diabetes. APOLONIA PLUNKETT MD DR: SUHA/eliezer JOB#: [id number] / [id number]
--- NOTE | 2019-01-14 03:02 | PN ---
DATE: SUBJECTIVE: The patient denies any new medical or neurological complaints. She continues to have difficulty sleeping and left-sided weakness. She denies headaches, visual disturbances, nausea, vomiting, dysarthria or dysphagia. OBJECTIVE: GENERAL: Well-developed, well-nourished female, not in acute distress. VITAL SIGNS: Blood pressure 93/53, respiratory rate 20, pulse is 66 and regular, oxygen saturation 93% on room air and temperature 97.4. HEENT: Normocephalic, atraumatic, otherwise unremarkable. NECK: Supple. Negative for carotid bruit, lymphadenopathy or thyromegaly. LUNGS: Clear to A and P. CARDIOVASCULAR: Regular rate and rhythm, normal S1, S2. ABDOMEN: Soft. Bowel sounds positive. EXTREMITIES: Negative for cyanosis, clubbing or edema. NEUROLOGICAL EXAM: Normal mental status and intact cranial nerves. Motor examination revealed left-sided hemiparesis, probably secondary to previous stroke. Sensory examination revealed diminished pinprick and light touch senses over the left upper and lower extremities. Deep tendon reflexes were symmetric and hypoactive with absent Achilles responses. Gait not tested at this time. LABORATORY DATA: Chemistry revealed sodium of 141, potassium 3.6, chloride 108, CO2 of 24, BUN 8, creatinine 0.9. IMPRESSION: 1. Acute encephalopathy -- resolved, etiology uncertain. 2. Chest pain and shortness of breath. Negative for pulmonary embolism and myocardial infarction. 3. Left-sided weakness secondary to previous right middle cerebral artery infarct. 4. Chronic obstructive pulmonary disease, coronary artery disease, hyperlipidemia and type 2 diabetes mellitus. RECOMMENDATIONS: The patient is neurologically stable; therefore, we will continue with current management and discharge. M Dottie LOYD MD DR: ZHANE/eliezer JOB#: [id number] / [id number]
== END 2019-01-13 15:00 | disposition home health service (06) ==
LOC: ER 17:08 → 1 SOUTH 18:30 → UNDOADMIN 18:30 → 1 SOUTH 18:51 → INTOOBSV 18:51
PROVIDERS: ADMIT Internal Medicine; ATTEND Internal Medicine
DX: R41.82 Altered mental status, unspecified (principal); R56.9 Unspecified convulsions; G93.40 Encephalopathy, unspecified; I69.354 Hemiplegia and hemiparesis following cerebral infarction affecting left non-dominant side; R25.3 Fasciculation; E11.65 Type 2 diabetes mellitus with hyperglycemia; I10 Essential (primary) hypertension; E78.5 Hyperlipidemia, unspecified; F32.9 Major depressive disorder, single episode, unspecified; F41.9 Anxiety disorder, unspecified; R07.89 Other chest pain; J44.9 Chronic obstructive pulmonary disease, unspecified; I25.10 Atherosclerotic heart disease of native coronary artery without angina pectoris; Z88.8 Allergy status to other drugs, medicaments and biological substances; M15.9 Polyosteoarthritis, unspecified; Z80.1 Family history of malignant neoplasm of trachea, bronchus and lung; Z82.49 Family history of ischemic heart disease and other diseases of the circulatory system; Z86.711 Personal history of pulmonary embolism; Z86.718 Personal history of other venous thrombosis and embolism; Z88.6 Allergy status to analgesic agent; Z90.710 Acquired absence of both cervix and uterus; Z95.5 Presence of coronary angioplasty implant and graft; Z85.72 Personal history of non-Hodgkin lymphomas; Z90.722 Acquired absence of ovaries, bilateral; Z90.49 Acquired absence of other specified parts of digestive tract; Z79.899 Other long term (current) drug therapy
CPT/HCPCS: 36415; 51702; 70450; 71045; 71275; 80048; 80053; 80307; 81001; 82010; 82140; 82550; 82947; 83605; 83735; 83880; 84484; 85025; 85610; 85730; 87040; 87086; 87186; 93005; 96361; 96365; 96372; 96375; 96376; 97110; 97162; 97166; 97530; 99284; G0378; J0696; J1815; J2060; J2270; J2310; J2405; J7613; Q9967; 96374; G0379; 99285-25; J7030

== ENCOUNTER 2019-02-09 17:25 | Inpatient (IN) | payer OTHER ==
[~2019-02-09] VITALS: Ht 162.6 cm; Wt 94.5 kg
[~2019-02-09 17:25] MED LIST changes: +INSU100I13 SQ
[2019-02-09] MEDS ORDERED: IV RINGERS SOLUTION,LACTATED 1,000 ML IV SCH (18:28)
--- NOTE | 2019-02-09 18:28 | ED.ADGEN ---
Past History Past Medical History: Anxiety, Arthritis, Arrhythmia, CAD, COPD, High Cholesterol, Hypertension, [place], Other Additional Past Medical Histor: Cardiac Past Surgical History: Angioplasty, Hysterectomy, Other Additional Past Surgical Histo: stent placed at [facility] on saturday01/05/19 Alcohol Use: None Drug Use: None Adult General Chief Complaint Chief Complaint ".. I ve been having chest pain all day.. .here in the center of my chest. .. i t sunday goes up in my neck... Cardiac stuff in all my family... Mother, father, grandmother, sisters,... all had cardiac issues and stents and bypasses by my age... I did get some stents 3 weeks ago at [facility]... I can't remember the doctor's name...".. HPI HPI Patient is a 68 year old female who presents with above hx and complaints of Chest Pain. Pain is localized to center of chest and substernal..Pt. does have chest wall pain on palpation of sternum. Pt. describes it as dull ache.. Does radiate to neck area. Pt. currently states the discomfort has gone away.. Pt has multiple family members sits had cardiac issues, mother, dad, sisters, and mother. Patient states she's been compliant for medications. No history of trauma. Patient does have a history of GERD. Patient denies any intake bad food. No dark or tarry stools. Patient does have a history of COPD, DM, hypertension and elevated cholesterol. Heart score 5 Review of Systems Review of Systems Constitutional: Denies fever or chills [] Eyes: Denies change in visual acuity, redness, or eye pain [] HENT: Denies nasal congestion or sore throat [] Respiratory: Denies cough or shortness of breath [] Cardiovascular: No additional information not addressed in HPI [] GI: Denies abdominal pain, nausea, vomiting, bloody stools or diarrhea [] : Denies dysuria or hematuria [] Musculoskeletal: Denies back pain or joint pain [] Integument: Denies rash or skin lesions [] Neurologic: Denies headache, focal weakness or sensory changes [] Endocrine: Denies polyuria or polydipsia [] All other systems were reviewed and found to be within normal limits, except as documented in this note. Family History Family History Multiple family members with cardiac issues Current Medications Current Medications Current Medications Medications (Trade) Dose Ordered Sig/Sherrie Start Time Stop Time Status Last Admin Dose Admin Clopidogrel Bisulfate (Plavix) 75 mg STK-MED ONCE 02/09/19 18:56 02/09/19 18:56 DC Famotidine (Pepcid Vial) 20 mg 1X ONCE 02/09/19 19:00 02/09/19 19:01 DC 02/09/19 19:01 20 MG Famotidine (Pepcid) 20 mg STK-MED ONCE 02/09/19 18:55 02/09/19 18:56 DC Lactated Ringer's 1,000 ml @ 100 mls/hr Q10H 02/09/19 18:28 02/10/19 04:27 DC 02/09/19 18:59 100 MLS/HR Lorazepam (Ativan Inj) 1 mg 1X ONCE 02/09/19 19:00 02/09/19 19:01 DC 02/09/19 18:59 1 MG Morphine Sulfate (Morphine 2mg Syringe) 2 mg 1X ONCE 02/09/19 19:00 02/09/19 19:01 DC 02/09/19 19:00 2 MG Nitroglycerin (Nitro-Bid Oint) 1 inch STK-MED ONCE 02/09/19 18:56 02/09/19 18:56 DC Allergies Allergies Allergies Coded Allergies Type Severity Reaction Last Updated Verified aspirin Allergy Severe SEIZURE 06/19/14 No prednisone Allergy Severe SEIZURES 06/19/14 No fentanyl Allergy Intermediate 01/12/19 Yes Physical Exam Physical Exam Constitutional: moderate acute distress, non-toxic appearance. [] HENT: Normocephalic, atraumatic, bilateral external ears normal, oropharynx moist, no oral exudates, nose normal. [] Eyes: PERRLA, EOMI, conjunctiva normal, no discharge. [] Neck: Normal range of motion, no tenderness, supple, no stridor. [] Cardiovascular ill regular rate and rhythm rhythm, no murmur []PMI to Lt. Lungs & Thorax: Bilateral breath sounds equal apex with scattered wheezes on auscultation . Has pain on palpation of sternum. Abdomen: Bowel sounds normal, soft, no tenderness, no masses, no pulsatile masses. [] Multiple surgery scars. Skin: Warm, dry, no erythema, no rash. Poor turgor Back: No tenderness, no CVA tenderness. [] Extremities: No tenderness, no cyanosis, no clubbing, ROM intact, no edema. No cording appreciated. Arthritic changes. Neurologic: Alert and oriented X 3, normal motor function, normal sensory function, no gross focal deficits noted. []Does have a fine tremor Psychologic: Affect very anxious, judgement normal, mood normal. [] Current Patient Data Vital Signs Vital Signs Date Time Temp Pulse Resp B/P (MAP) Pulse Ox O2 Delivery O2 Flow Rate FiO2 02/09/19 19:22 63 18 133/70 (91) 98 Room Air 02/09/19 17:55 98.1 Lab Results Laboratory Tests Test 02/09/19 17:34 02/09/19 17:51 Urine Collection Type Unknown Urine Color Yellow Urine Clarity Hazy Urine pH 5.5 Urine Specific [place] 1.015 Urine Protein Neg (NEG-TRACE) Urine Glucose (UA) >=1000 mg/dL (NEG) Urine Ketones (Stick) Trace mg/dL (NEG) Urine Blood Neg (NEG) Urine Nitrite Neg (NEG) Urine Bilirubin Neg (NEG) Urine Urobilinogen Dipstick 0.2 mg/dL (0.2 mg/dL) Urine Leukocyte Esterase Neg (NEG) Urine RBC 0 /HPF (0-2) Urine WBC 1-4 /HPF (0-4) Urine Squamous Epithelial Cells Mod /LPF Urine Bacteria Few /HPF (0-FEW) Urine Mucus Mod /LPF Urine Sperm Present /HPF Urine Opiates Screen Neg (NEG) Urine Methadone Screen Neg (NEG) Urine Barbiturates Neg (NEG) Urine Phencyclidine Screen Neg (NEG) Urine Amphetamine/Methamphetamine Neg (NEG) Urine Benzodiazepines Screen Neg (NEG) Urine Cocaine Screen Neg (NEG) Urine Cannabinoids Screen Neg (NEG) Urine Ethyl Alcohol Neg (NEG) White Blood Count 3.7 x10^3/uL (4.0-11.0) L Red Blood Count 3.69 x10^6/uL (3.50-5.40) Hemoglobin 11.3 g/dL (12.0-15.5) L Hematocrit 33.6 % (36.0-47.0) L Mean Corpuscular Volume 91 fL (79-100) Mean Corpuscular Hemoglobin 31 pg (25-35) Mean Corpuscular Hemoglobin Concent 34 g/dL (31-37) Red Cell Distribution Width 14.4 % (11.5-14.5) Platelet Count 172 x10^3/uL (140-400) Neutrophils (%) (Auto) 59 % (31-73) Lymphocytes (%) (Auto) 28 % (24-48) Monocytes (%) (Auto) 9 % (0-9) Eosinophils (%) (Auto) 4 % (0-3) H Basophils (%) (Auto) 0 % (0-3) Neutrophils # (Auto) 2.1 x10^3uL (1.8-7.7) Lymphocytes # (Auto) 1.0 x10^3/uL (1.0-4.8) Monocytes # (Auto) 0.3 x10^3/uL (0.0-1.1) Eosinophils # (Auto) 0.1 x10^3/uL (0.0-0.7) Basophils # (Auto) 0.0 x10^3/uL (0.0-0.2) Prothrombin Time 9.7 SEC (9.4-11.4) Prothrombin Time INR 0.9 (0.9-1.1) Activated Partial Thromboplast Time 23 SEC (23-33) D-Dimer (Winter) 0.78 mg/L (0.00-0.50) H Sodium Level 141 mmol/L (136-145) Potassium Level 3.7 mmol/L (3.5-5.1) Chloride Level 106 mmol/L (98-107) Carbon Dioxide Level 28 mmol/L (21-32) Anion Gap 7 (6-14) Blood Urea Nitrogen 6 mg/dL (7-20) L Creatinine 0.8 mg/dL (0.6-1.0) Estimated GFR (Cockcroft-Gault) 71.1 Glucose Level 237 mg/dL (70-99) H Calcium Level 8.2 mg/dL (8.5-10.1) L Magnesium Level 1.8 mg/dL (1.8-2.4) Total Bilirubin 0.7 mg/dL (0.2-1.0) Direct Bilirubin 0.2 mg/dL (0.0-0.2) Aspartate Amino Transferase (AST) 23 U/L (15-37) Alanine Aminotransferase (ALT) 33 U/L (14-59) Alkaline Phosphatase 90 U/L (46-116) Creatine Kinase 39 U/L (26-192) Troponin I Quantitative < 0.017 ng/mL (0-0.055) SK-Hmx-[id number]-Type Natriuretic Peptide 429 pg/mL (0-124) H Total Protein 6.6 g/dL (6.4-8.2) Albumin 3.3 g/dL (3.4-5.0) L Lipase 70 U/L (73-393) L EKG EKG I interpretation EKG shows regular irregular rhythm at 72 ventricle beats. Does have a lot of baseline artifact. No obvious P waves appears to be A. fib. Does have artifact from tremor. Radiology/Procedures Radiology/Procedures [][address] [address] IMAGING REPORT Signed PATIENT: NILESH ENCINAS ACCOUNT: [id number] : 1950 LOCATION: ER AGE: 68 SEX: F EXAM STATUS: REG ER ORD. PHYSICIAN: MARLEY VACA MD REASON: cp, SOA, COUGH. PROCEDURE: PORTABLE CHEST 1V AP chest x-ray HISTORY: Shortness of breath and cough. COMPARISON: CT chest January 12, 2019. FINDINGS: Heart size normal. Aortic arch calcified plaque and mild tortuosity is stable. Mild bilateral suprahilar upper lobe scarring stable. Sequela of chronic interstitial lung disease with interstitial reticulation is stable. No pneumothorax, pulmonary opacities or pleural effusions. The bones are unremarkable. IMPRESSION: No acute process. Stable exam. Electronically signed by: Joanie Solorzano MD (02/09/2019 7:43 PM) [facility] DICTATED AND SIGNED BY: JOANIE SOLORZANO MD DATE: 02/09/191942 CC: MARLEY VACA MD; BAILEY MORSE MD ~ Course & Med Decision Making Course & Med Decision Making Pertinent Labs and Imaging studies reviewed. (See chart for details) Patient admitted to with cardiology consult.. Will complete serial enzymes. US in Am. [] Final Impression Final Impression 1. Chest Pain[] 2. Coronary artery disease with stent placement 3. History of hypertension 4. DM = 237 glucose 5. Anemia 11.3 Hgb 6. Elevation of D-dimer 0.78 7. Sternal Body Fx- appears acute 8. Interstitial lung disease/COPD- (No smoking hx.} 9. Afib 10. Intentional tremor Dragon Disclaimer Dragon Disclaimer This electronic medical record was generated, in whole or in part, using a voice recognition dictation system. Dragon Disclaimer This chart was dictated in whole or in part using Voice Recognition software in a busy, high-work load, and often noisy Emergency Department environment. It may contain unintended and wholly unrecognized errors or omissions. MARLEY VACA MD Feb 09, 2019 18:28
[2019-02-09 18:48] LABS: BASO % 0 % (0-3); EOS # 0.1 x10^3/uL (0.0-0.7); EOS % 4 % (0-3); HEMATOCRIT 33.6 % (36.0-47.0); HEMOGLOBIN 11.3 g/dL (12.0-15.5); LYMPH % 28 % (24-48); MEAN CORPUSCULAR HEMOGLOBIN 31 pg (25-35); MEAN CORPUSCULAR HGB CONC 34 g/dL (31-37); MEAN CORPUSCULAR VOLUME 91 fL (79-100); MONO # 0.3 x10^3/uL (0.0-1.1); MONO % 9 % (0-9); NEUT # 2.1 x10^3uL (1.8-7.7); NEUT % 59 % (31-73); PLATELET COUNT 172 x10^3/uL (140-400); RED BLOOD COUNT 3.69 x10^6/uL (3.50-5.40); RED CELL DISTRIBUTION WIDTH 14.4 % (11.5-14.5); WHITE BLOOD COUNT 3.7 x10^3/uL (4.0-11.0)
[2019-02-09 18:55] LABS: BARBITURATES NEG (NEG); BENZODIAZEPINES NEG (NEG); CANNABINOIDS NEG (NEG); COCAINE NEG (NEG); METHADONE NEG (NEG); OPIATES NEG (NEG); PHENCYCLIDINE NEG (NEG)
[2019-02-09] MEDS ORDERED: FAMOTIDINE 20 MG TABLET ONE (18:55)
[2019-02-09 18:56] LABS: AMPHETAMINE/METHAMPHETAMINE NEG (NEG)
[2019-02-09] MEDS ORDERED: CLOPIDOGREL BISULFATE 75 MG TABLET ONE (18:56)
[2019-02-09] MEDS ORDERED: NITROGLYCERIN OINT 1 GM PACKET. ONE (18:56)
[2019-02-09 19:00] LABS: ALBUMIN 3.3 g/dL (3.4-5.0); CALCIUM 8.2 mg/dL (8.5-10.1); CREATININE 0.8 mg/dL (0.6-1.0); DIRECT BILIRUBIN 0.2 mg/dL (0.0-0.2); GFR 71.1; MAGNESIUM 1.8 mg/dL (1.8-2.4); POTASSIUM 3.7 mmol/L (3.5-5.1); TOTAL BILIRUBIN 0.7 mg/dL (0.2-1.0); TOTAL PROTEIN 6.6 g/dL (6.4-8.2)
[2019-02-09] MEDS ORDERED: MORPHINE SULFATE 2 MG/ML DISP.SYRIN. IV ONE (19:00)
[2019-02-09] MEDS ORDERED: CLOPIDOGREL BISULFATE 75 MG TABLET PO ONE (19:00)
[2019-02-09] MEDS ORDERED: NITROGLYCERIN OINT 1 GM PACKET. TP ONE (19:00)
[2019-02-09] MEDS ORDERED: FAMOTIDINE 20 MG/2 ML VIAL IVP ONE (19:00)
[2019-02-09 19:25] LABS: BACTERIA,URINE FEW /HPF (0-FEW); BILIRUBIN,URINE NEG (NEG); CLARITY,URINE HAZY; COLOR,URINE YELLOW; GLUCOSE,URINE >=1000 mg/dL (NEG); NITRITE,URINE NEG (NEG); RBC,URINE 0 /HPF (0-2); SQUAMOUS EPITHELIAL CELL,UR MOD /LPF; UROBILINOGEN,URINE 0.2 mg/dL (0.2 mg/dL)
[2019-02-09 19:26] LABS: SPERM,URINE PRESENT /HPF
--- NOTE | 2019-02-09 19:46 | RAD ---
AP chest x-ray HISTORY: Shortness of breath and cough. COMPARISON: CT chest January 12, 2019. FINDINGS: Heart size normal. Aortic arch calcified plaque and mild tortuosity is stable. Mild bilateral suprahilar upper lobe scarring stable. Sequela of chronic interstitial lung disease with interstitial reticulation is stable. No pneumothorax, pulmonary opacities or pleural effusions. The bones are unremarkable. IMPRESSION: No acute process. Stable exam. Electronically signed by: Cristi Solorzano MD (02/09/2019 7:43 PM) [facility]
[2019-02-09] MEDS ORDERED: ACETAMINOPHEN 325 MG TABLET PO PRN (21:30)
[2019-02-09] MEDS ORDERED: ONDANSETRON PF 4 MG/2 ML VIAL. IV PRN (21:30)
[2019-02-09] MEDS ORDERED: ENOXAPARIN ** NOTE DOSE ** SYRINGE SQ ONE (21:30)
[2019-02-09] MEDS ORDERED: MORPHINE SULFATE 2 MG/ML DISP.SYRIN. IV PRN (21:30)
[2019-02-09] MEDS ORDERED: CONTRAST GIVEN MC PRN (21:45)
[2019-02-09] MEDS ORDERED: ANTI-COAG MONITOR BY PHARMACY. MC PRN (21:45)
[2019-02-09] MEDS ORDERED: IOHEXOL 350 MG/ML 100 ML VIAL. IV ONE (22:00)
--- NOTE | 2019-02-09 22:37 | RAD ---
CT angiography chest with contrast PQRS statement: CT scans at this facility use dose reduction including either automated exposure control, iterative reconstructions, and /or weight based radiation dosing via mA and kV modification when appropriate to reduce radiation dose to as low as reasonably achievable. HISTORY: Chest pain. Interstitial lung disease. Elevated d-dimer. COMPARISON: CT chest January 12, 2019. TECHNIQUE: Helical CT imaging the chest with 3-D MIP reconstructions of the pulmonary arteries to assess for blunt 100 mL Omnipaque 350 intravenous contrast. FINDINGS: There is an upper sternal body transverse fracture with mild cortical offset of 1 mm new from prior imaging consistent with an acute or subacute fracture with minimal retrosternal anterior mediastinal focal edema, no mediastinal hematoma. This is new from prior imaging. Left coronary densities relating calcified plaque as well as stents. Mild tortuosity and calcified plaque aortic arch and descending aorta. 1 cm left renal upper pole hypodensity likely a cyst, stable. No pulmonary artery emboli. Mild prominent 1 cm distal paratracheal mediastinal lymph node with a fatty hilum is stable. No new or enlarging adenopathy. Bilateral suprahilar upper lobe scarring with traction bronchiectasis stable. There is mild mosaic attenuation of the lungs upper portion of which is likely due to the presence of centrilobular emphysema although areas of lucency from air trapping from asthma exacerbation or bronchiolitis are also possibilities, this is more pronounced relative to the prior exam. No consolidated opacity. No pleural effusions. IMPRESSION: 1. Acute traumatic nondisplaced upper sternal body fracture. No mediastinal hematoma. 2. Chronic lung disease as described above. 3. No pulmonary artery emboli. Electronically signed by: Cristi Solorzano MD (02/09/2019 10:34 PM) [facility]
[2019-02-09 22:55] VITALS: BP 140/79
[2019-02-10] MEDS ORDERED: METO25TA4 PO (03:01)
[2019-02-10] MEDS ORDERED: TOPI50TA8 PO (03:01)
[2019-02-10] MEDS ORDERED: TIZA2CAP2 PO (03:01)
[2019-02-10] MEDS ORDERED: ROSU20TA28 PO (03:01)
[2019-02-10] MEDS ORDERED: GABA300C8 PO ×2 (03:01)
[2019-02-10] MEDS ORDERED: TRAZ-120 PO (03:01)
[2019-02-10] MEDS ORDERED: PANT40TA5 PO (03:01)
[2019-02-10] MEDS ORDERED: CLOP75TA PO (03:01)
[2019-02-10 05:20] VITALS: BP 146/73
[2019-02-10] MEDS ORDERED: IPRATRPIUM/ALBUTEROL 0.5/2.5MG 3 ML NEBU. ONE (06:01)
[2019-02-10] MEDS: IPRATRPIUM/ALBUTEROL 0.5/2.5MG 3 ML NEBU. NEB SCH ×4 (06:02→21:18)
[2019-02-10] MEDS: HYDROcodone/APAP 10/325 1 TAB TABLET PO PRN (07:07)
[2019-02-10 08:00] VITALS: BP 123/67
[2019-02-10 08:36] LABS: BASO % 0 % (0-3); EOS # 0.2 x10^3/uL (0.0-0.7); EOS % 5 % (0-3); HEMATOCRIT 30.3 % (36.0-47.0); HEMOGLOBIN 10.2 g/dL (12.0-15.5); LYMPH # 0.8 x10^3/uL (1.0-4.8); LYMPH % 21 % (24-48); MEAN CORPUSCULAR HEMOGLOBIN 30 pg (25-35); MEAN CORPUSCULAR HGB CONC 34 g/dL (31-37); MEAN CORPUSCULAR VOLUME 90 fL (79-100); MONO # 0.3 x10^3/uL (0.0-1.1); MONO % 8 % (0-9); NEUT # 2.6 x10^3uL (1.8-7.7); NEUT % 67 % (31-73); PLATELET COUNT 143 x10^3/uL (140-400); RED BLOOD COUNT 3.35 x10^6/uL (3.50-5.40); RED CELL DISTRIBUTION WIDTH 14.5 % (11.5-14.5); WHITE BLOOD COUNT 3.9 x10^3/uL (4.0-11.0)
--- NOTE | 2019-02-10 08:37 | PDOC2 ---
RAMONA JAVED DISTRIBUTION ESTIMATOR 02/10/19 0837: CARDIAC CONSULT DATE OF CONSULT Date Of Consult DATE: 02/10/19 TIME: 08:36 REASON FOR CONSULT Reason for Consult Chest pain REFERRING PHYSICIAN Referring Physician Dr. Ortiz SOURCE Source: Chart review, Patient HPI History of Present Illness This is a 68 yo female who presented secondary to chest pain. Patient has a history of CAD s/p remote h/o PCI/stent to the LAD and recent PCI/LUCILLE to LCx 01/05/19. Unfortunately, patient was arrested 01/24/19 due to past warrant. She reports that she was only given ASA and insulin while in half-way. While in half-way, apparently went unresponsive for unknown reasons. CPR was initiated. Was take to [facility]. Underwent cath at that time and patient reports no intervention. Returned back to the facility and was released last Saturday. Reports she resume her routine oral medications at that time. Has been out of pain medication and antianxiety medication for the last couple of weeks. Has been dealing with central chest pain following resuscitation. Yesterday, developed pain in her left chest. Describes as aching. Radiates to her left should and down her left arm. Reports tremor in her left arm and the arm doesn't seem to want to work. Also c/o left-sided facial droop and speech difficulties. PAST MEDICAL HISTORY Past Medical History Coronary artery disease Diabetes mellitus type 2 Hypertension Hyperlipidemia COPD/asthma DVT/PE Osteoarthritis CVA Lymphoma Anxiety Depression PSVT Seizure PAST SURGICAL HISTORY Past Surgical History Right rotator cuff repair Cholecystectomy Hysterectomy Carpal tunnel release surgery s/p PCI/stent placement FAMILY HISTORY Family History: Coronary Artery Disease SOCIAL HISTORY Social History Smoke: No ALCOHOL: none Drugs: None Lives: with Family CURRENT MEDICATIONS Current Medications Current Medications Lactated Ringer's 1,000 ml @ 100 mls/hr Q10H IV Last administered on 02/09/19at 18:59; Start 02/09/19 at 18:28; Stop 02/10/19 at 04:27; Status DC Clopidogrel Bisulfate (Plavix) 300 mg 1X ONCE PO Last administered on 02/09/19at 18:59; Start 02/09/19 at 19:00; Stop 02/09/19 at 19:01; Status DC Nitroglycerin (Nitro-Bid Oint) 0.5 inch 1X ONCE TP Last administered on 02/09/19at 19:01; Start 02/09/19 at 19:00; Stop 02/09/19 at 19:01; Status DC Famotidine (Pepcid Vial) 20 mg 1X ONCE IVP Last administered on 02/09/19at 19:01; Start 02/09/19 at 19:00; Stop 02/09/19 at 19:01; Status DC Lorazepam (Ativan Inj) 1 mg 1X ONCE IVP Last administered on 02/09/19at 18:59; Start 02/09/19 at 19:00; Stop 02/09/19 at 19:01; Status DC Morphine Sulfate (Morphine 2mg Syringe) 2 mg 1X ONCE IV Last administered on 02/09/19at 19:00; Start 02/09/19 at 19:00; Stop 02/09/19 at 19:01; Status DC Famotidine (Pepcid) 20 mg STK-MED ONCE .ROUTE ; Start 02/09/19 at 18:55; Stop 02/09/19 at 18:56; Status DC Nitroglycerin (Nitro-Bid Oint) 1 inch STK-MED ONCE .ROUTE ; Start 02/09/19 at 18:56; Stop 02/09/19 at 18:56; Status DC Clopidogrel Bisulfate (Plavix) 75 mg STK-MED ONCE .ROUTE ; Start 02/09/19 at 18:56; Stop 02/09/19 at 18:56; Status DC Enoxaparin Sodium (Lovenox 100mg Syringe) 90 mg 1X ONCE SQ Last administered on 02/09/19at 22:24; Start 02/09/19 at 21:30; Stop 02/09/19 at 21:31; Status DC Ondansetron HCl (Zofran) 4 mg PRN Q4HRS PRN IV NAUSEA/VOMITING Last administered on 02/10/19at 07:27; Start 02/09/19 at 21:30; Stop 02/10/19 at 21:29 Morphine Sulfate (Morphine 2mg Syringe) 2 mg PRN Q2HR PRN IV PAIN Last administered on 02/10/19at 01:04; Start 02/09/19 at 21:30; Stop 02/10/19 at 21:29 Acetaminophen (Tylenol) 650 mg PRN Q4HRS PRN PO FEVER; Start 02/09/19 at 21:30; Stop 02/10/19 at 21:29 Albuterol/ Ipratropium (Duoneb) 3 ml RTQID NEB Last administered on 02/10/19at 06:02; Start 02/10/19 at 08:00; Stop 02/11/19 at 07:59 Enoxaparin Sodium (Lovenox 100mg Syringe) 90 mg BID ONCE SQ ; Start 02/10/19 at 09:00; Stop 02/10/19 at 07:04; Status DC Clopidogrel Bisulfate (Plavix) 75 mg DAILY PO ; Start 02/10/19 at 09:00; Stop 02/10/19 at 06:49; Status DC Iohexol (Omnipaque 350 Mg/ml) 100 ml 1X ONCE IV Last administered on 02/09/19at 21:54; Start 02/09/19 at 22:00; Stop 02/09/19 at 22:01; Status DC Info (Do NOT chart on this entry -- for MONITORING) 1 each PRN DAILY PRN MC SEE COMMENTS; Start 02/09/19 at 21:45; Stop 02/11/19 at 21:44 Info (Anti-Coagulation Monitoring By Pharmacy) 1 each PRN DAILY PRN MC SEE COMMENTS; Start 02/09/19 at 21:45 Albuterol/ Ipratropium (Duoneb) 3 ml STK-MED ONCE .ROUTE ; Start 02/10/19 at 06:01; Stop 02/10/19 at 06:01; Status DC Clopidogrel Bisulfate (Plavix) 75 mg DAILY PO ; Start 02/10/19 at 09:00 Gabapentin (Neurontin) 300 mg BIDPCLD PO ; Start 02/10/19 at 12:30 Gabapentin (Neurontin) 600 mg DAILY08 PO ; Start 02/10/19 at 08:00 Acetaminophen/ Hydrocodone Bitart (Lortab 10/325) 1 tab PRN Q6HRS PRN PO PAIN Last administered on 02/10/19at 07:07; Start 02/10/19 at 06:45 Isosorbide Mononitrate (Imdur) 30 mg DAILY PO ; Start 02/10/19 at 09:00 Metoprolol Tartrate (Lopressor) 12.5 mg BID PO ; Start 02/10/19 at 09:00 Montelukast Sodium (Singulair) 10 mg HS PO ; Start 02/10/19 at 21:00 Pantoprazole Sodium (Protonix) 40 mg DAILYAC PO ; Start 02/10/19 at 07:30 Pramipexole Dihydrochloride (miraPEX) 0.25 mg QHS PO ; Start 02/10/19 at 21:00 Trazodone HCl (Desyrel) 25 mg HS PO ; Start 02/10/19 at 21:00 Alprazolam (Xanax) 1 mg TID PO ; Start 02/10/19 at 09:00 Insulin Glargine (Lantus Syringe) 12 unit QHS SQ ; Start 02/10/19 at 21:00 Rivaroxaban (Xarelto) 20 mg DAILY PO ; Start 02/10/19 at 09:00 Atorvastatin Calcium (Lipitor) 40 mg QHS PO ; Start 02/10/19 at 21:00 Tizanidine HCl (Zanaflex) 2 mg DAILY PO ; Start 02/10/19 at 09:00 Topiramate (Topamax) 50 mg BID PO ; Start 02/10/19 at 09:00 Active Scripts Active Reported Rosuvastatin Calcium 20 Mg Tablet 20 Mg PO HS LAST DOSE GIVEN: DATE: TIME: NEXT DOSE DUE: DATE: TIME: Tizanidine HCl 2 Mg Capsule 2 Mg PO DAILY LAST DOSE GIVEN: DATE: TIME: NEXT DOSE DUE: DATE: TIME: Pantoprazole Sodium 40 Mg Tablet.dr 40 Mg PO DAILY LAST DOSE GIVEN: DATE: TIME: NEXT DOSE DUE: DATE: TIME: Metoprolol Tartrate 25 Mg Tablet 12.5 Mg PO BID LAST DOSE GIVEN: DATE: TIME: NEXT DOSE DUE: DATE: TIME: Clopidogrel (Clopidogrel Bisulfate) 75 Mg Tablet 75 Mg PO DAILY LAST DOSE GIVEN: DATE: TIME: NEXT DOSE DUE: DATE: TIME: Gabapentin 300 Mg Capsule 300 Mg PO BIDPCLD LAST DOSE GIVEN: DATE: TIME: NEXT DOSE DUE: DATE: TIME: Gabapentin 300 Mg Capsule 600 Mg PO DAILY08 LAST DOSE GIVEN: DATE: TIME: NEXT DOSE DUE: DATE: TIME: Trazodone Hcl 50 Mg Tablet 25 Mg PO HS LAST DOSE GIVEN: DATE: TIME: NEXT DOSE DUE: DATE: TIME: Topiramate 50 Mg Tablet 50 Mg PO BID LAST DOSE GIVEN: DATE: TIME: NEXT DOSE DUE: DATE: TIME: Lantus Solostar (Insulin Glargine,Hum.rec.anlog) 100 Unit/1 Ml Insuln.pen 12 Unit SQ QHS LAST DOSE GIVEN: DATE: TIME: NEXT DOSE DUE: DATE: TIME: Xarelto (Rivaroxaban) 20 Mg Tablet 20 Mg PO DAILY LAST DOSE GIVEN: DATE: TIME: NEXT DOSE DUE: DATE: TIME: Xanax (Alprazolam) 1 Mg Tablet 1 Mg PO TID LAST DOSE GIVEN: DATE: TIME: NEXT DOSE DUE: DATE: TIME: Hydrocodone-Apap 10-325 (Hydrocodone Bit/Acetaminophen) 1 Each Tablet 1 Tab PO PRN Q6HRS PRN LAST DOSE GIVEN: DATE: TIME: NEXT DOSE DUE: DATE: TIME: Mirapex (Pramipexole Di-Hcl) 0.25 Mg Tablet 0.25 Mg PO QHS LAST DOSE GIVEN: DATE: TIME: NEXT DOSE DUE: DATE: TIME: Montelukast Sodium Tablet (Montelukast Sodium) 10 Mg Tablet 10 Mg PO HS LAST DOSE GIVEN: DATE: TIME: NEXT DOSE DUE: DATE: TIME: Isosorbide Mononitrate Er (Isosorbide Mononitrate) 30 Mg Tab.er.24h 30 Mg PO DAILY LAST DOSE GIVEN: DATE: TIME: NEXT DOSE DUE: DATE: TIME: ALLERGIES Allergies: Coded Allergies: aspirin (Unverified Allergy, Severe, SEIZURE, 06/19/14) SEIZURES prednisone (Unverified Allergy, Severe, SEIZURES, 06/19/14) SEIZURES fentanyl (Verified Allergy, Intermediate, 01/12/19) oxycodone (Verified Allergy, Intermediate, 02/09/19) ROS Review of Systems 14 point ROS conducted with pertinent positives noted above in HPI PHYSICAL EXAM Physical Exam General: Alert, Oriented X3, Cooperative, No acute distress HEENT: Mucous membr. moist/pink Heart: Regular rate (SR), Normal S1, Normal S2, No murmurs Abdomen: Soft, No tenderness Extremities: No cyanosis, No edema Skin: No breakdown, No significant lesion Neuro: Normal speech, Sensation intact Psych/Mental Status: Mental status NL, Mood NL MUSCULOSKELETAL: Osteoarthritic changes both hands VITALS Vital Signs Vital Signs Date Time Temp Pulse Resp B/P (MAP) Pulse Ox O2 Delivery O2 Flow Rate FiO2 02/10/19 07:07 18 Room Air 02/10/19 06:04 94 02/10/19 05:20 97.2 72 146/73 (97) LABS LABS Laboratory Tests Test 02/09/19 17:34 02/09/19 17:51 02/10/19 02:35 Urine Collection Type Unknown Urine Color Yellow Urine Clarity Hazy Urine pH 5.5 Urine Specific Apex 1.015 Urine Protein Neg (NEG-TRACE) Urine Glucose (UA) >=1000 mg/dL (NEG) Urine Ketones (Stick) Trace mg/dL (NEG) Urine Blood Neg (NEG) Urine Nitrite Neg (NEG) Urine Bilirubin Neg (NEG) Urine Urobilinogen Dipstick 0.2 mg/dL (0.2 mg/dL) Urine Leukocyte Esterase Neg (NEG) Urine RBC 0 /HPF (0-2) Urine WBC 1-4 /HPF (0-4) Urine Squamous Epithelial Cells Mod /LPF Urine Bacteria Few /HPF (0-FEW) Urine Mucus Mod /LPF Urine Sperm Present /HPF Urine Opiates Screen Neg (NEG) Urine Methadone Screen Neg (NEG) Urine Barbiturates Neg (NEG) Urine Phencyclidine Screen Neg (NEG) Urine Amphetamine/Methamphetamine Neg (NEG) Urine Benzodiazepines Screen Neg (NEG) Urine Cocaine Screen Neg (NEG) Urine Cannabinoids Screen Neg (NEG) Urine Ethyl Alcohol Neg (NEG) White Blood Count 3.7 x10^3/uL (4.0-11.0) Red Blood Count 3.69 x10^6/uL (3.50-5.40) Hemoglobin 11.3 g/dL (12.0-15.5) Hematocrit 33.6 % (36.0-47.0) Mean Corpuscular Volume 91 fL (79-100) Mean Corpuscular Hemoglobin 31 pg (25-35) Mean Corpuscular Hemoglobin Concent 34 g/dL (31-37) Red Cell Distribution Width 14.4 % (11.5-14.5) Platelet Count 172 x10^3/uL (140-400) Neutrophils (%) (Auto) 59 % (31-73) Lymphocytes (%) (Auto) 28 % (24-48) Monocytes (%) (Auto) 9 % (0-9) Eosinophils (%) (Auto) 4 % (0-3) Basophils (%) (Auto) 0 % (0-3) Neutrophils # (Auto) 2.1 x10^3uL (1.8-7.7) Lymphocytes # (Auto) 1.0 x10^3/uL (1.0-4.8) Monocytes # (Auto) 0.3 x10^3/uL (0.0-1.1) Eosinophils # (Auto) 0.1 x10^3/uL (0.0-0.7) Basophils # (Auto) 0.0 x10^3/uL (0.0-0.2) Prothrombin Time 9.7 SEC (9.4-11.4) Prothromb Time International Ratio 0.9 (0.9-1.1) Activated Partial Thromboplast Time 23 SEC (23-33) D-Dimer (Winter) 0.78 mg/L (0.00-0.50) Sodium Level 141 mmol/L (136-145) Potassium Level 3.7 mmol/L (3.5-5.1) Chloride Level 106 mmol/L (98-107) Carbon Dioxide Level 28 mmol/L (21-32) Anion Gap 7 (6-14) Blood Urea Nitrogen 6 mg/dL (7-20) Creatinine 0.8 mg/dL (0.6-1.0) Estimated GFR (Cockcroft-Gault) 71.1 Glucose Level 237 mg/dL (70-99) Calcium Level 8.2 mg/dL (8.5-10.1) Magnesium Level 1.8 mg/dL (1.8-2.4) Total Bilirubin 0.7 mg/dL (0.2-1.0) Direct Bilirubin 0.2 mg/dL (0.0-0.2) Aspartate Amino Transf (AST/SGOT) 23 U/L (15-37) Alanine Aminotransferase (ALT/SGPT) 33 U/L (14-59) Alkaline Phosphatase 90 U/L (46-116) Creatine Kinase 39 U/L (26-192) Troponin I Quantitative < 0.017 ng/mL (0-0.055) < 0.017 ng/mL (0-0.055) VM-Gzp-O-Type Natriuretic Peptide 429 pg/mL (0-124) Total Protein 6.6 g/dL (6.4-8.2) Albumin 3.3 g/dL (3.4-5.0) Lipase 70 U/L (73-393) ECHOCARDIOGRAM Echocardiogram <Conclusion> The left ventricle is normal size. The left ventricular systolic function is normal and the ejection fraction is within normal range. The Ejection Fraction is 55-60%. There is mild concentric left ventricular hypertrophy. There is no significant aortic valvular stenosis. Doppler and Color Flow revealed no significant aortic regurgitation. Doppler and Color-flow revealed trace mitral regurgitation. Doppler and Color Flow revealed trace to mild tricuspid regurgitation with an estimated PAP of 44 mmHg. DATE: 01/06/19 1203 HEART CATH Heart Cath FINDINGS 1. Hemodynamics: Left ventricular end-diastolic pressure of 15 mmHg. No pullback gradient across the aortic valve. 2. Left ventriculography: Normal left ventricle systolic function with e jection fraction estimated at 60%. No significant mitral regurgitation seen. 3. Coronary angiography: a. The left main coronary artery arose from the left sinus of Valsalva, gave rise to the left anterior descending and left circumflex arteries and did not show any significant stenosis. b. The left anterior descending artery showed widely patent stent in the midsegment. The diagonal branch which is a small to medium caliber vessel appeared to have been jailed by the stent resulting in 80% stenosis. c. The left circumflex artery was a large caliber vessel that showed 80% stenosis in the midsegment. d. The right coronary artery was a large and dominant vessel arising from the right sinus of Valsalva that did not show any significant stenosis. Conclusion 1. 80% stenosis involving a large caliber left circumflex artery. The previously placed stent in the left anterior descending artery was widely patent. The diagonal branch which is a small to medium caliber vessel appeared to have been jailed by the stent resulting in 80% ostial/proximal segment stenosis. 2. Successful PCI/drug eluting stent placement to the left circumflex artery 3. Normal left ventricle systolic function with ejection fraction estimated at 60% Recommendations 1. Aspirin 325 mg daily 2. Plavix 75 mg daily for preferably one year 3. Cardiovascular risk factor modification DATE: 01/05/19 1102 ASSESSMENT/PLAN Assessment/Plan 1. Chest pain, mixed features; AMI ruled out. 2. Recent cardiac arrest. Details unknown. CTA noted with sternal fx. Underwent cath at [facility] 2 weeks ago reportedly without intervention 2. CAD; s/p past LAD stent patent per [facility]. Recent PCI/LUCILLE to LCx as noted above. Recent echo with EF and WM nml. Has been compliant with DAPT 3. Hypertension; controlled 4. Hyperlipidemia; statin 5. Diabetes, II 7. DVT/PE: noted 7 mo ago. CTA negative for PE. 8. Hx of CVA with left side weakness. 8. Anxiety; out of anxiety meds x2 weeks. . Recommendations Continue with Plavix and Xarelto and secondary prevention measures. Obtain recent cath report form [facility] Further recs pending review of OSH records. NAEL SAMUELS MD 02/11/19 0815: CARDIAC CONSULT ASSESSMENT/PLAN Assessment/Plan Late entry for 02/10/2019 Pt. seen and examined. 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 68 y.o woman with complex medical history with chest pain with rib fractures. ?history of cardiac arrest? at [place]. Will await records. May need ICD. Supportive care for now. RAMONA JAVED APRN Feb 10, 2019 08:37 NAEL SAMUELS MD Feb 11, 2019 08:15
[2019-02-10 08:43] LABS: CALCIUM 8.1 mg/dL (8.5-10.1); CREATININE 0.7 mg/dL (0.6-1.0); POTASSIUM 3.2 mmol/L (3.5-5.1)
[2019-02-10] MEDS: tiZANidine 4 MG TABLET. PO SCH (09:00)
[2019-02-10] MEDS ORDERED: CLOPIDOGREL BISULFATE 75 MG TABLET PO SCH (09:00)
[2019-02-10] MEDS ORDERED: ENOXAPARIN ** NOTE DOSE ** SYRINGE SQ ONE (09:00)
[2019-02-10] MEDS ORDERED: MAGNESIUM SULFATE 2GM 50 ML IV ONE (09:15)
[2019-02-10] MEDS: CLOPIDOGREL BISULFATE 75 MG TABLET PO SCH (09:45)
[2019-02-10] MEDS: GABAPENTIN 300 MG CAPSULE. PO SCH ×3 (09:45→17:39)
[2019-02-10] MEDS: RIVAROXABAN 10 MG TABLET. PO SCH (09:45)
[2019-02-10] MEDS: ALPRAZolam 0.5 MG TABLET PO SCH ×3 (09:45→23:43)
[2019-02-10] MEDS: PANTOPRAZOLE 40 MG TABLET. PO SCH (09:45)
[2019-02-10] MEDS: METOPROLOL TART IMMED RELEASE 25 MG TABLET PO SCH ×2 (09:46→23:42)
[2019-02-10] MEDS: TOPIRAMATE 25 MG TABLET. PO SCH ×2 (09:46→23:43)
[2019-02-10] MEDS: ISOSORBIDE MONONITRATE ER 30 MG TAB.ER.24H PO SCH (09:46)
[2019-02-10 11:00] VITALS: BP 96/54
--- NOTE | 2019-02-10 12:09 | RAD ---
Bilateral lower extremity venous real time grayscale, color and spectral duplex ultrasound was performed. History: Elevated d-dimer, chest pain history of DVT Comparison: None. Findings: The common femoral, femoral and popliteal veins demonstrate anechoic lumina, full compressibility, and cephalad color doppler flow. The bilateral posterior tibial veins are unremarkable. Impression: No evidence of DVT in either lower extremity. Electronically signed by: Magno Ogden MD (02/10/2019 12:06 PM) [facility]
[2019-02-10] MEDS ORDERED: DEXTROSE 50% 25 GM / 50ML DISP.SYRIN. IV PRN (13:45)
[2019-02-10 15:05] VITALS: BP 108/46
[2019-02-10 17:14] VITALS: BP 95/48
[2019-02-10] MEDS: INSULIN LISPRO 300 UNITS/3 ML VIAL. SQ SCH (17:35)
[2019-02-10 20:29] VITALS: BP_SYST 100; BP_SYST 117; BP_DIAS 52; BP_DIAS 53
--- NOTE | 2019-02-10 20:55 | HP ---
ADMIT DATE: 02/09/2019 HISTORY OF PRESENT ILLNESS: The patient is a 68-year-old female patient who presented to the walk-in clinic with complaint of chest pain. She apparently has a history of coronary artery disease, status post remote PCI with stent deployment to left anterior descending artery and recent PCI with drug-eluting stent deployment to left circumflex artery on 01/05/2019. She apparently was arrested on 01/24/2019 due to a past warrant. She reports that she was only given aspirin and insulin while in long term. While in long term apparently, went unresponsive for unknown reason. CPR was initiated, was taken to the [facility], where she underwent cardiac catheterization at that time. The patient reports no intervention. She returned back to the facility and was released last 02/02/2019. She stated that she resumed all her routine medications at that time, has been out of pain medications and anti-anxiety medication. For the last couple of weeks, has been feeling the central chest pain following resuscitation and yesterday she developed pain in her left chest, described as aching, radiating to her left shoulder and down to her left arm. She reports tremor in her left arm. The arm does not seem to want to work. She also complained of left-sided facial droop and had speech difficulty. She was evaluated in the Emergency Room and a first set of cardiac enzymes showed troponin to be less than 0.017 and was basically admitted to do 2 more sets of cardiac enzymes to consult the Cardiology team and her EKG showed that she was in regular irregular rhythm at 72 beats per minute that appeared to be atrial fibrillation, does have artifacts from her tremor and was admitted and continued all her other medications. PAST MEDICAL HISTORY: Significant for coronary artery disease and type 2 diabetes mellitus, hypertension, hyperlipidemia, chronic obstructive pulmonary disease/bronchial asthma, DVT and PE, osteoarthritis, cerebrovascular accident, lymphoma, anxiety, depression, paroxysmal supraventricular tachycardia, and seizure disorder. PAST SURGICAL HISTORY: Significant for rotator cuff repair, cholecystectomy, hysterectomy, carpal tunnel release surgery, and she is status post PCI with stent deployment, with recent stent placement. FAMILY HISTORY: Significant for coronary artery disease. SOCIAL HISTORY: She lives with her family. She does not smoke, drink alcohol, or use any recreational drugs. ALLERGIES: She is allergic to ASPIRIN, FENTANYL, OXYCODONE and PREDNISONE. MEDICATIONS: She is currently on tizanidine 2 mg daily, rivaroxaban for Xarelto 20 mg once a day, Plavix 75 mg once a day, rosuvastatin for Crestor 20 mg at bedtime, isosorbide mononitrate 30 mg daily, metoprolol tartrate 12.5 mg twice a day, hydrocodone/APAP 10/325 one tablet every 6 hours, gabapentin 600 mg daily, gabapentin 300 mg twice a day, topiramate 50 mg twice a day, trazodone 50 mg at bedtime. She is also on alprazolam 1 mg p.o. t.i.d. and Mirapex 0.5 mg at bedtime, montelukast 10 mg at bedtime and Protonix 40 mg daily. She is also on Lantus insulin 12 units at bedtime. REVIEW OF SYSTEMS: As per history of present illness. PHYSICAL EXAMINATION: GENERAL: On arrival to the Emergency Room, she was somewhat pale, but no jaundice, cyanosis, or thyromegaly. No jugular venous distension. No lower limb edema. VITAL SIGNS: Her heart rate was 64, blood pressure 143/76, temperature was 98.1, respiratory rate was 18 and oxygen saturation was 97% on room air. HEAD, EYES, EARS, NOSE, AND THROAT: Showed normocephalic, atraumatic. NECK: Supple. HEART: Showed normal first and second heart sounds. No gallop, rub or murmur. CHEST: Shows central trachea, equally reduced expansion, reduced air entry, ____ sounds. I could not appreciate any crepitation or rhonchi. ABDOMEN: Slightly distended, soft, nontender. NEUROLOGIC: She was awake, alert, responding appropriately. All cranial nerves intact. Does have mild left-sided facial droop. She has also tremors of both upper extremities; however, she is able to move her extremities without difficulty. LABORATORY DATA: On admission showed that her white cell count was 3700, hemoglobin 11.3, hematocrit 33.6, MCV 91, and platelet count 172,000 with normal manual differential. Her serum sodium 141, potassium 3.7, chloride 106, bicarbonate 28, anion gap of 7, BUN 6, creatinine 0.8, estimated GFR was 71 mL per minute, glucose 237, calcium was 8.2, magnesium was 1.8. Total bilirubin, AST, ALT, alkaline phosphatase was normal. Her CK was only 39. Her beta-natriuretic peptide was 429. Total protein was 6.6, albumin 3.7. Lipase was 70. Her first set of cardiac enzymes showed troponin to be less than 0.017. Her TSH was normal at 0.628. Her prothrombin time was 9.7, INR 0.9, aPTT was 23 and D-dimer was high at 0.78 mg/L. Her urinalysis that shows her urine was yellow, hazy with a pH of 5.5, specific gravity at 1.015. The urine was negative for protein, large amount of glucose, trace of ketones, negative for blood, negative for nitrite and leukocyte esterase. There are no rbc's, no wbc's, and no bacteria. Her urine toxicology screen was negative. She did have a chest x-ray, which showed that the heart size is normal, aortic arch calcified plaque and mild tortuosity is stable, mild bilateral suprahilar upper lobe scarring, stable; sequelae of chronic interstitial lung disease with interstitial reticulation is stable. No pneumothorax, pulmonary opacities or pleural effusion. The bones are unremarkable. She did have a CT angio of the chest, which showed that she has acute traumatic nondisplaced upper sternal body fracture. No mediastinal hematoma, has chronic lung disease as described with no pulmonary artery emboli. She did have also a venous Doppler ultrasound of both lower extremities, which showed no evidence of deep vein thrombosis in either lower extremity. PLAN: The patient was admitted to ICU. We will do 2 more sets of cardiac enzyme and consult the Cardiology team. Meanwhile, continue all her current medications. APOLONIA PLUNKETT MD DR: SUHA/eliezer JOB#: [id number] / [id number]
[2019-02-10] MEDS: traZODone 50 MG TABLET. PO SCH (21:00)
[2019-02-10] MEDS: INSULIN GLARGINE SYRINGE. SQ SCH (21:00)
[2019-02-10] MEDS: MONTELUKAST 10 MG TABLET. PO SCH (23:43)
[2019-02-10] MEDS: ATORVASTATIN CALCIUM 20 MG TABLET PO SCH (23:43)
[2019-02-10] MEDS: PRAMIPEXOLE 0.25 MG TABLET. PO SCH (23:43)
[2019-02-11] VITALS (8 sets, daily range): BP systolic 99–134; BP diastolic 48–64
--- NOTE | 2019-02-11 00:58 | PN ---
DATE: SUBJECTIVE: The patient is resting slightly propped up in bed, in no apparent respiratory distress. She continued to complain of chest pain that goes on and off. The severity is up to 8-9/10, does have some nausea, but no vomiting. She has also shortness of breath. She was in fpc recently between 01/24/2019 and 02/02/2019 during which she became unresponsive and had a CPR and apparently was admitted to [facility] and at that time, left heart catheterization according to her was normal; however, she seemed to have sustained a nondisplaced fracture of the upper part of the sternum. She was admitted last night and so far she has 3 sets of cardiac enzymes that were negative. Her troponin has been less than 0.017 x 3. She was admitted on 01/04/2019 with unstable angina and was transferred to [facility] where cardiac catheterization showed 80% stenosis of her left circumflex artery, which she underwent PCI with a drug-eluting stent deployment. She apparently was without Plavix at the time she was in the fpc. She apparently has had an echocardiogram done, the results of which is still pending at the time of this dictation. PHYSICAL EXAMINATION: GENERAL: When I examined her this afternoon, she looked well and was clearly in no apparent respiratory distress, pale, no jaundice, cyanosis or thyromegaly. No jugular venous distension. No lower limb edema. VITAL SIGNS: Her heart rate was 68, blood pressure was 96/54, temperature was 97.9, respiratory rate was 11 and oxygen saturation was 97% on 2 liters of oxygen. HEAD, EYES, EARS, NOSE AND THROAT: Showed normocephalic, atraumatic. NECK: Supple. HEART: Showed normal first and second heart sounds. No gallop or murmur. CHEST: Clear to auscultation. No crepitation or rhonchi. ABDOMEN: Distended, soft, nontender. No guarding or rigidity. No organomegaly. All hernial orifice intact. Bowel sounds normal. NEUROLOGIC: She was awake, alert, responding appropriately. She has mild left-sided facial droop. She has also bilateral upper extremity tremors; however, she normally is able to ambulate without assistance or assistive devices. ASSESSMENT: In summary, this is a 68-year-old female patient who came in with chest pain with mixed features; however, acute myocardial infarction was ruled out. She has recent cardiac catheterization and at that time, CT angio of the chest showed that she has sternal fracture. She has had cardiac catheterization done at [facility] 2 weeks ago, reportedly without any intervention. She is known to have coronary artery disease, status post left anterior descending stent deployment that was patent and her last left heart catheterization done on 01/05/2019, she underwent PCI with drug-eluting stent deployment to left circumflex artery. At that time, her ejection fraction and wall motion were normal. Hypertension, hyperlipidemia, type 2 diabetes. She has a history of DVT and PE and she has a history of cerebrovascular accident with left-sided weakness as well as anxiety. I will discuss the finding with the custodial foreman given the fact that she was without the Plavix for almost for 10 days. There is a possibility that she might have clotted the stent. APOLONIA PLUNKETT MD DR: SUHA/eliezer JOB#: [id number] / [id number]
[2019-02-11] MEDS: HYDROcodone/APAP 10/325 1 TAB TABLET PO PRN ×2 (03:47→21:13)
--- NOTE | 2019-02-11 06:43 | EKG ---
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
[2019-02-11] MEDS: RIVAROXABAN 10 MG TABLET. PO SCH (08:07)
[2019-02-11] MEDS: TOPIRAMATE 25 MG TABLET. PO SCH ×2 (08:08→21:14)
[2019-02-11] MEDS: GABAPENTIN 300 MG CAPSULE. PO SCH ×3 (08:08→17:26)
[2019-02-11] MEDS: tiZANidine 4 MG TABLET. PO SCH (08:08)
[2019-02-11] MEDS: CLOPIDOGREL BISULFATE 75 MG TABLET PO SCH (08:08)
[2019-02-11] MEDS: PANTOPRAZOLE 40 MG TABLET. PO SCH (08:08)
[2019-02-11] MEDS: ALPRAZolam 0.5 MG TABLET PO SCH ×3 (08:08→21:00)
[2019-02-11] MEDS: INSULIN LISPRO 300 UNITS/3 ML VIAL. SQ SCH ×3 (08:18→17:25)
[2019-02-11] MEDS: METOPROLOL TART IMMED RELEASE 25 MG TABLET PO SCH ×2 (09:00→21:13)
[2019-02-11] MEDS: ISOSORBIDE MONONITRATE ER 30 MG TAB.ER.24H PO SCH (09:00)
[2019-02-11] MEDS: LIDOCAINE (700MG/PATCH) PATCH. TD SCH (15:00)
[2019-02-11] MEDS ORDERED: IPRATRPIUM/ALBUTEROL 0.5/2.5MG 3 ML NEBU. ONE (16:04)
[2019-02-11] MEDS: DICLOFENAC SODIUM 1% TOPICAL GEL 100GM TUBE. TP SCH (16:06)
--- NOTE | 2019-02-11 16:58 | PDOC ---
PROVIDER NOTE PROVIDER NOTE PROVIDER NOTE Cardiology Follow up Note: S: No new events. Reviewed extensive OSH records. No evidence of cardiac arrest identified. She had a cath in Dec 2018 with patent LAD and LCx stents. Unclear how she sustained a sternal fracture? O: VSS Tenderness of the chest wall Normal heart tones. Labs reviewed. OSH records reviewed. Impression: 1. CAD - stable 2. DVT - chronic recurrent Plan: 1. Continue plavix, xarelto, Metoprolol 2. Pain control for her sternal fracture Supportive care. Nothing further to add from CV standpoint. Thanks. NAEL SAMUELS MD Feb 11, 2019 16:58
[2019-02-11] MEDS ORDERED: PATCH REMOVAL. MC SCH (21:00)
[2019-02-11] MEDS: MONTELUKAST 10 MG TABLET. PO SCH (21:12)
[2019-02-11] MEDS: PRAMIPEXOLE 0.25 MG TABLET. PO SCH (21:13)
[2019-02-11] MEDS: ATORVASTATIN CALCIUM 20 MG TABLET PO SCH (21:13)
[2019-02-11] MEDS: traZODone 50 MG TABLET. PO SCH (21:14)
[2019-02-11] MEDS: INSULIN GLARGINE SYRINGE. SQ SCH (21:20)
[2019-02-12] MEDS: HYDROcodone/APAP 10/325 1 TAB TABLET PO PRN (03:55)
[2019-02-12 05:17] VITALS: BP 105/55
--- NOTE | 2019-02-12 05:56 | PN ---
DATE: SUBJECTIVE: The patient is resting slightly propped up in bed, in no apparent respiratory distress. She continued to have chest pains, but generally much improved. Denied any shortness of breath, cough or phlegm. PHYSICAL EXAMINATION: GENERAL: When I examined her this afternoon, she looked pale, no jaundice, cyanosis or thyromegaly. No jugular venous distension. No limb edema. VITAL SIGNS: Her heart rate was 57, blood pressure was 99/56, temperature was 98.8, respiratory rate was 21 and oxygen saturation was 97%. HEAD, EYES, EARS, NOSE AND THROAT: Showed normocephalic, atraumatic. NECK: Supple. HEART: Showed normal first and second heart sounds. No gallop or murmur. CHEST: Clear to auscultation. No crepitation or rhonchi. ABDOMEN: Distended, soft, nontender. No guarding or rigidity. No organomegaly. All hernial orifice intact. Bowel sounds normal. NEUROLOGIC: She is awake, alert, responding appropriately. All cranial nerves are intact. She moves extremities without difficulty. She is able to ambulate without assistance or assistive devices. Her intake over the last 24 hours was ____, no output recorded. LABORATORY DATA: Her blood sugar seems to be reasonably controlled. Magnesium is 1.6. ASSESSMENT: 1. This is a 68-year-old female patient who came in with chest pain with mixed features; however, acute myocardial infarction was ruled out. 2. She has recent cardiac catheterization done at [facility], reportedly without any intervention. We have not received the actual report of the cardiac catheterization. 3. CT angio of the chest showed that she has sternal fracture. 4. She is known to have coronary artery disease, status post left anterior descending artery stent deployment that was patent and her last left heart catheterization was done on 01/05/2019. At that time, she underwent PCI with drug-eluting stent deployment to her left circumflex artery. At that time, her ejection fraction was normal. She has multiple other medical problems including: A. Hypertension. B. Hyperlipidemia. C. Type 2 diabetes mellitus. D. She also has history of deep venous thrombosis and pulmonary embolism. E. History of cerebrovascular accident. PLAN: We have received some records from [facility]. We will contact the medical record department to get the actual cardiac catheterization reports and to decide further management. APOLONIA PLUNKETT MD DR: [place] JOB#: [id number] / [id number]
[2019-02-12 06:39] LABS: CALCIUM 8.2 mg/dL (8.5-10.1); CREATININE 0.8 mg/dL (0.6-1.0); GFR 71.1; POTASSIUM 4.4 mmol/L (3.5-5.1)
[2019-02-12] MEDS: INSULIN LISPRO 300 UNITS/3 ML VIAL. SQ SCH ×2 (08:00→12:19)
[2019-02-12] MEDS: METOPROLOL TART IMMED RELEASE 25 MG TABLET PO SCH (08:19)
[2019-02-12] MEDS: RIVAROXABAN 10 MG TABLET. PO SCH (08:19)
[2019-02-12] MEDS: CLOPIDOGREL BISULFATE 75 MG TABLET PO SCH (08:19)
[2019-02-12] MEDS: GABAPENTIN 300 MG CAPSULE. PO SCH ×2 (08:20→12:29)
[2019-02-12] MEDS: PANTOPRAZOLE 40 MG TABLET. PO SCH (08:20)
[2019-02-12] MEDS: tiZANidine 4 MG TABLET. PO SCH (08:20)
[2019-02-12] MEDS: LIDOCAINE (700MG/PATCH) PATCH. TD SCH (08:20)
[2019-02-12] MEDS: TOPIRAMATE 25 MG TABLET. PO SCH (08:20)
[2019-02-12] MEDS: ISOSORBIDE MONONITRATE ER 30 MG TAB.ER.24H PO SCH (08:22)
[2019-02-12] MEDS: ALPRAZolam 0.5 MG TABLET PO SCH ×2 (08:22→14:00)
[2019-02-12] MEDS: DICLOFENAC SODIUM 1% TOPICAL GEL 100GM TUBE. TP SCH (08:25)
[2019-02-12 09:05] VITALS: BP 78/38
[2019-02-12 09:12] VITALS: BP 87/46
[2019-02-12] MEDS ORDERED: IV NORMAL SALINE 500ML 500 ML IV ONE (09:15)
[2019-02-12 09:27] VITALS: BP 96/47
[2019-02-12 10:26] VITALS: BP 104/50
--- NOTE | 2019-02-13 01:05 | DS ---
DATE OF DISCHARGE: 02/12/2019 HISTORY OF PRESENT ILLNESS: The patient is a 68-year-old female patient who came to the Emergency Room of [facility] with a complaint of chest pain. She apparently was incarcerated on 01/24/2019 due to a past warrant. She reports that she was only given aspirin, insulin while in skilled nursing. While in skilled nursing also she apparently went unresponsive for unknown reason. CPR was initiated and was taken to the [facility] where she underwent cardiac catheterization at that time. The patient reports no intervention. She returned back to the facility and was released on last 02/02/2019. She resumed all her routine medications at the time, has been out of pain medication and antianxiety medication for the last couple of weeks. She has been feeling a central chest pain following resuscitation and the day before admission, she developed pain in her left chest, described as aching, radiating to the left shoulder and down her left arm. She reports also tremors in her left arm. The arm does not seem to want to work according to her description. She also complained of left-sided facial droop and had speech difficulty. She was evaluated in the Emergency Room and her first set of cardiac enzymes showed troponin to be less than 0.017 and was admitted to do 2 more sets of cardiac enzymes and to consult the cardiology team. We did request the reports from [facility] that were reviewed. She apparently has had catheter with a patent left anterior descending and left circumflex stents. As she remained hemodynamically stable, has been up and about with a walker, a decision was made to discharge her home with home health. When I saw her this afternoon, she was sitting comfortably in her chair, in no apparent distress. On questioning her, she denied any complaints and said that she be discharged. PHYSICAL EXAMINATION: GENERAL: When I examined her, she looked pale, not jaundiced, cyanosed or thyromegaly. No jugular venous distension. No lower limb edema. VITAL SIGNS: Her heart rate was 61, blood pressure was 104/50, temperature was 97.9, respiratory rate was 18 and oxygen saturation was 96% on room air. HEAD, EYES, EARS, NOSE AND THROAT: Showed normocephalic, atraumatic. NECK: Supple. HEART: Showed normal first and second heart sounds. No gallop or murmur. CHEST: Clear to auscultation. No crepitation, rhonchi. ABDOMEN: Distended, soft, nontender. No guarding or rigidity. No organomegaly. All hernial orifices intact. Bowel sounds normal. NEUROLOGIC: She was awake, alert, responding appropriately. Her cranial nerves intact. She moves extremities without difficulty. She ambulates with a walker. Her intake was 1850, no output was recorded. LABORATORY DATA: This morning showed a serum sodium 137, potassium 4.4, chloride 104, bicarbonate 26, anion gap of 7, BUN 10, creatinine 0.8, estimated GFR was 71 mL per minute. Her glucose 160 and calcium was 8.2. White cell count was 3900, hemoglobin 10, hematocrit 30, MCV 90 and platelet count of 143,000. Prothrombin time, INR and aPTT were normal. D-dimer was 0.78. Urinalysis showed large amount of glucose, but no other abnormality. DISCHARGE MEDICATIONS: She was discharged home with home health to continue ____ gabapentin 300 mg twice a day, hydrocodone/APAP 10/325 one tablet every 6 hours, Lantus insulin 12 units at bedtime, isosorbide mononitrate 30 mg daily, metoprolol 12.5 mg twice a day, montelukast 10 mg at bedtime, Protonix 40 mg daily, Mirapex 0.25 mg at bedtime, rivaroxaban 20 mg once a day, Crestor 20 mg at bedtime, tizanidine 2 mg daily, topiramate 50 mg twice a day and trazodone 25 mg at bedtime. FINAL DISCHARGE DIAGNOSES: 1. ____ disease/bronchial asthma. 2. Deep venous thrombosis and pulmonary embolism. 3. Osteoarthritis. 4. Cerebrovascular accident. 5. Lymphoma. 6. Anxiety and depression. 7. Paroxysmal supraventricular tachycardia. 8. Pseudoseizures. 9. Sternal fracture. APOLONIA PLUNKETT MD DR: SUHA/eliezer JOB#: [id number] / [id number]
--- NOTE | 2019-02-13 03:19 | PN ---
DATE: 02/12/2019 SUBJECTIVE: The patient is resting slightly propped up in bed, no apparent distress. She is awake, alert. On questioning her, denied any complaint, in particular denied any chest pain or shortness of breath. She had a good night sleep. Did not require BiPAP last night. She was seen in consultation by the Cardiology team and she did not want any invasive procedure and a decision was made to start her on aspirin 81 mg once a day. Meanwhile, continue with IV antibiotic in the form of vancomycin and Zosyn as her cultures grew gram-positive cocci in clusters in 2 sets drawn in 1 out of 4 positive. PHYSICAL EXAMINATION: GENERAL: When I examined her this afternoon, she looked pale, but no jaundice, cyanosis or thyromegaly. No jugular venous distension. No lower limb edema. VITAL SIGNS: Her heart rate was 63, blood pressure 113/66, temperature was 98, respiratory rate was 14 and oxygen saturation was 96% on 2.5 liters of oxygen. HEAD, EYES, EARS, NOSE AND THROAT: Showed normocephalic, atraumatic. NECK: Supple. HEART: Showed normal first and second heart sounds with no gallop, rub or murmur. CHEST: Clear to auscultation. No crepitation or rhonchi. ABDOMEN: Distended, soft, nontender. No guarding or rigidity. No organomegaly. All hernial orifice intact. Bowel sounds normal. NEUROLOGIC: She is awake, alert, responding appropriately. All cranial nerves are intact. She moves upper extremities to much good extent than lower extremities. She is mostly bedbound, chair bound. Her intake over the last 24 hours was 670, output was 2275. LABORATORY DATA: As of this morning, her white cell count was 4300, hemoglobin 11.6, hematocrit 34.5, MCV 97 and platelet count of 141,000. Her chemistry showed a serum sodium 139, potassium 4.1, chloride 101, bicarbonate 35, anion gap of 3, BUN 23, creatinine 1.3, estimated GFR was 39 mL per minute. Her glucose was 92, calcium was 8.5. Total bilirubin, AST, ALT, alkaline phosphatase were normal. Her troponin has peaked up to 1.1 and came down to 0.58. Her total protein was 6.3, albumin 2.6. ASSESSMENT: 1. Acute on chronic diastolic congestive heart failure. 2. Acute pulmonary edema. 3. Acute on chronic hypoxic hypercapnic respiratory failure. 4. Healthcare-associated pneumonia. 5. Urinary tract infection. 6. Hypertension. 7. Atrial fibrillation. PLAN: To continue with oxygen supplementation. Continue with aspirin 81 mg once a day. Continue with IV furosemide daily. Continue with potassium supplement. Continue with vancomycin and Zosyn. We will evaluate her again tomorrow and if she remained stable and will have to cut the identification and sensitivity. She will be discharged back to [place]. APOLONIA PLUNKETT MD DR: SUHA/eliezer JOB#: [id number] / [id number]
== END 2019-02-12 15:18 | disposition home health service (06) | DRG 177 ==
LOC: ER 17:25 → ICU 21:00
PROVIDERS: ADMIT Internal Medicine; ATTEND Internal Medicine
DX: J69.0 Pneumonitis due to inhalation of food and vomit (principal); J96.21 Acute and chronic respiratory failure with hypoxia; J96.22 Acute and chronic respiratory failure with hypercapnia; I50.33 Acute on chronic diastolic (congestive) heart failure; I47.1 Supraventricular tachycardia; I69.354 Hemiplegia and hemiparesis following cerebral infarction affecting left non-dominant side; J44.0 Chronic obstructive pulmonary disease with (acute) lower respiratory infection; N39.0 Urinary tract infection, site not specified; I11.0 Hypertensive heart disease with heart failure; E78.5 Hyperlipidemia, unspecified; E11.9 Type 2 diabetes mellitus without complications; Z86.711 Personal history of pulmonary embolism; Z86.718 Personal history of other venous thrombosis and embolism; I25.10 Atherosclerotic heart disease of native coronary artery without angina pectoris; E78.00 Pure hypercholesterolemia, unspecified; F32.9 Major depressive disorder, single episode, unspecified; F41.9 Anxiety disorder, unspecified; G40.909 Epilepsy, unspecified, not intractable, without status epilepticus; I48.91 Unspecified atrial fibrillation; K21.9 Gastro-esophageal reflux disease without esophagitis; M19.90 Unspecified osteoarthritis, unspecified site; Z82.49 Family history of ischemic heart disease and other diseases of the circulatory system; Z90.710 Acquired absence of both cervix and uterus; Z95.5 Presence of coronary angioplasty implant and graft; Z86.74 Personal history of sudden cardiac arrest; Z85.72 Personal history of non-Hodgkin lymphomas
CPT/HCPCS: 36415; 71045; 71275; 80048; 80076; 80307; 81001; 82550; 82947; 83690; 83735; 83880; 84443; 84484; 85025; 85379; 85610; 85730; 93005; 93970; 94640; 96361; 96372; 96374; 96375; G0238; J1650; J1815; J2060; J2270; J2405; J3475; J3490; J7040; J7120; J7620; Q9967; 99285-25

== ENCOUNTER → 2019-04-21 | Outpatient (CLI) | payer OTHER ==
[~2019-04-21] MED LIST changes: +CLOP75TA PO; +GABA300C8 PO; +METO25TA4 PO; +PANT40TA5 PO; +ROSU20TA28 PO; +TIZA2CAP2 PO; +TOPI50TA8 PO; +TRAZ-120 PO
--- NOTE | 2019-04-21 13:43 | RAD ---
PA and lateral chest. HISTORY: Knot on sternum after CPR, chronic anxiety PA and lateral views were taken of the chest. There is a small nodule in the lateral right upper lobe was not definitely identified on the old images. There is biapical scarring and volume loss similar to the old study. Heart is normal in size. There is no pleural effusion. There is no definite sternal fracture on the lateral view but the manubrium is poorly seen. There is mild scoliosis. IMPRESSION: 1. Biapical scarring and volume loss similar to the prior study from January. 2. Possible nodule in the lateral right upper lobe follow-up would be of benefit. 3. No effusion. 4. No new infiltrates. Electronically signed by: Kalyan Boyd MD (04/21/2019 1:40 PM) [id number]
== END | disposition home or self-care (01) ==
LOC: PMG 11:50
PROVIDERS: ATTEND Family Medicine
DX: J98.4 Other disorders of lung (principal); R91.1 Solitary pulmonary nodule; F41.9 Anxiety disorder, unspecified
CPT/HCPCS: 71046

== ENCOUNTER 2019-05-10 14:06 | Inpatient (IN) | payer MEDICARE, OTHER ==
[~2019-05-10] VITALS: Ht 162.6 cm; Wt 94.0 kg
[2019-05-10] MEDS ORDERED: 0.9 % SODIUM CHLORIDE 10 ML DISP.SYRIN. IV PRN (14:30)
[2019-05-10 14:52] LABS: BASO % 0 % (0-3); EOS # 0.3 x10^3/uL (0.0-0.7); EOS % 4 % (0-3); HEMATOCRIT 36.2 % (36.0-47.0); HEMOGLOBIN 12.2 g/dL (12.0-15.5); LYMPH # 2.2 x10^3/uL (1.0-4.8); LYMPH % 36 % (24-48); MEAN CORPUSCULAR HEMOGLOBIN 29 pg (25-35); MEAN CORPUSCULAR HGB CONC 34 g/dL (31-37); MEAN CORPUSCULAR VOLUME 85 fL (79-100); MONO # 0.4 x10^3/uL (0.0-1.1); MONO % 7 % (0-9); NEUT # 3.2 x10^3uL (1.8-7.7); NEUT % 53 % (31-73); PLATELET COUNT 202 x10^3/uL (140-400); RED BLOOD COUNT 4.25 x10^6/uL (3.50-5.40); RED CELL DISTRIBUTION WIDTH 14.1 % (11.5-14.5); WHITE BLOOD COUNT 6.1 x10^3/uL (4.0-11.0)
[2019-05-10 14:53] LABS: CALCIUM 8.9 mg/dL (8.5-10.1); CREATININE 0.7 mg/dL (0.6-1.0); POTASSIUM 4.1 mmol/L (3.5-5.1)
[2019-05-10 15:09] LABS: ALBUMIN 3.4 g/dL (3.4-5.0); MAGNESIUM 1.9 mg/dL (1.8-2.4); TOTAL BILIRUBIN 0.4 mg/dL (0.2-1.0); TOTAL PROTEIN 6.8 g/dL (6.4-8.2)
--- NOTE | 2019-05-10 15:11 | RAD ---
PORTABLE CHEST 1V INDICATION: Dyspnea. COMPARISON STUDY: 04/21/2019. FINDINGS: Lungs: Low lung volume. No pulmonary mass or consolidation. The tracheobronchial tree and hilar structures are normal. Pleura: No pleural effusion or pneumothorax. Heart and Mediastinum: Stable cardiomediastinal silhouette and great vessels. IMPRESSION: Low lung volume. No consolidation. Electronically signed by: Simone Beth MD (05/10/2019 3:08 PM) [id number]
[2019-05-10] MEDS ORDERED: IPRATRPIUM/ALBUTEROL 0.5/2.5MG 3 ML NEBU. NEB ONE (15:15)
[2019-05-10] MEDS ORDERED: methylPREDNISolone SOD SUCC PF 125 MG/2 ML VIAL. IV ONE (15:15)
[2019-05-10 15:23] LABS: BGAS PH 7.52 (7.35-7.45)
--- NOTE | 2019-05-10 15:51 | RAD ---
CT HEAD AND CERVICAL SPINE WO Indication: Fell this morning. Head and neck pain. Exposure: One or more of the following individualized dose reduction techniques were utilized for this examination: 1. Automated exposure control 2. Adjustment of the mA and/or kV according to patient size 3. Use of iterative reconstruction technique. Technique: Standard imaging without intravenous contrast. Head: Comparison with 01/11/2019 There is some motion degradation. No evidence of acute intracranial hemorrhage, mass effect, midline shift or abnormal extra-axial fluid collection. Estrada-white matter distinction is intact. Ventricles and sulci appear unremarkable. Orbits appear unremarkable. No evidence of significant scalp hematoma. Visualized sinuses appear clear. Mastoids and auditory canals appear to be clear. No evidence of depressed old fracture IMPRESSION: No evidence of acute intracranial hemorrhage. Cervical spine: Mild motion degradation. Visualized skull base appears intact. Ring of C1 is intact. Cervico-occipital junction intact. C1 and C2 appear grossly symmetric. No evidence of acute fracture. Degenerative changes at the temporomandibular joints. Degenerative changes at the anterior C1-C2 articulation. Multilevel degenerative spondylosis. No significant subluxation. Multilevel mild osseous central spinal canal stenosis. Multilevel neural foraminal stenosis bilaterally. Prevertebral soft tissues demonstrate no significant swelling or hematoma. Visualized thyroid demonstrates no dominant mass. Visualized airway grossly patent and midline. Irregular opacities in the lung apices are partially visualized, likely scarring or fibrosis. Note that this appears similar to a CT chest which was obtained on 02/09/2019. IMPRESSION: 1. Degenerative spondylosis with stenosis. 2. No evidence of acute fracture or subluxation. Electronically signed by: Levi Mckenzie MD (05/10/2019 3:48 PM) [facility]
--- NOTE | 2019-05-10 16:07 | PHYS DOC ---
Past History Past Medical History: CHF, COPD Additional Past Medical Histor: Cardiac Past Surgical History: No Surgical History Additional Past Surgical Histo: stent placed at [place] on saturday01/05/19 Alcohol Use: None Drug Use: None Adult General Chief Complaint Chief Complaint: SHORTNESS OF BREATH HPI HPI Patient is a 68-year-old female who was brought here by EMS for trouble breathing. Patient has history COPD, diabetes, hypertension. She is says she had trouble breathing started this morning, USED HER BREATHING AT HOME but did not get better so she called EMS. Patient also says she felt this morning and hit her head. She does complain of headache and neck pain. Says she had been coughing so much that her chest hurts as well. Patient feelS like she has the fever. aLL OTHER ros IS NEGATIVE UNLESS OTHERWISE NOTED IN hpi Review of Systems Review of Systems See above Current Medications Current Medications Current Medications Medications (Trade) Dose Ordered Sig/Sherrie Start Time Stop Time Status Last Admin Dose Admin Albuterol/ Ipratropium (Duoneb) 3 ml 1X ONCE 05/10/19 15:15 05/10/19 15:16 DC 05/10/19 15:15 3 ML Methylprednisolone Sodium Succinate (SOLU-Medrol 125MG VIAL) 125 mg 1X ONCE 05/10/19 15:15 05/10/19 15:16 DC Sodium Chloride (Normal Saline Flush) 10 ml QSHIFT PRN 05/10/19 14:30 Allergies Allergies Allergies Coded Allergies Type Severity Reaction Last Updated Verified aspirin Allergy Severe SEIZURE 06/19/14 No prednisone Allergy Severe SEIZURES 06/19/14 No fentanyl Allergy Intermediate 01/12/19 Yes oxycodone Allergy Intermediate 02/09/19 Yes Physical Exam Physical Exam See above Constitutional: Well developed, well nourished, no acute distress, non-toxic appearance. [] HENT: Normocephalic, atraumatic, bilateral external ears normal, oropharynx moist, no oral exudates, nose normal. [] Eyes: PERRLA, EOMI, conjunctiva normal, no discharge. [] Neck: Normal range of motion, no tenderness, supple, no stridor. [] Cardiovascular:Heart rate regular rhythm, no murmur [] Lungs & Thorax: WHEEZING IN ALL LUNG PRINCE WITH RESPIRATORY DISTRESS MODERA TELY. Abdomen: Bowel sounds normal, soft, no tenderness, no masses, no pulsatile masses. [] Skin: Warm, dry, no erythema, no rash. [] Back: No tenderness, no CVA tenderness. [] Extremities: No tenderness, no cyanosis, no clubbing, ROM intact, no edema. [] Neurologic: Alert and oriented X 3, normal motor function, normal sensory function, no focal deficits noted. [] Psychologic: Affect normal, judgement normal, mood normal. [] Current Patient Data Vital Signs Vital Signs Date Time Temp Pulse Resp B/P (MAP) Pulse Ox O2 Delivery O2 Flow Rate FiO2 05/10/19 15:38 100 05/10/19 14:43 98.0 84 26 Nasal Cannula 4.0 Lab Results Laboratory Tests Test 05/10/19 14:24 05/10/19 14:51 White Blood Count 6.1 x10^3/uL (4.0-11.0) Red Blood Count 4.25 x10^6/uL (3.50-5.40) Hemoglobin 12.2 g/dL (12.0-15.5) Hematocrit 36.2 % (36.0-47.0) Mean Corpuscular Volume 85 fL (79-100) Mean Corpuscular Hemoglobin 29 pg (25-35) Mean Corpuscular Hemoglobin Concent 34 g/dL (31-37) Red Cell Distribution Width 14.1 % (11.5-14.5) Platelet Count 202 x10^3/uL (140-400) Neutrophils (%) (Auto) 53 % (31-73) Lymphocytes (%) (Auto) 36 % (24-48) Monocytes (%) (Auto) 7 % (0-9) Eosinophils (%) (Auto) 4 % (0-3) H Basophils (%) (Auto) 0 % (0-3) Neutrophils # (Auto) 3.2 x10^3uL (1.8-7.7) Lymphocytes # (Auto) 2.2 x10^3/uL (1.0-4.8) Monocytes # (Auto) 0.4 x10^3/uL (0.0-1.1) Eosinophils # (Auto) 0.3 x10^3/uL (0.0-0.7) Basophils # (Auto) 0.0 x10^3/uL (0.0-0.2) Prothrombin Time 9.9 SEC (9.4-11.4) Prothrombin Time INR 1.0 (0.9-1.1) Activated Partial Thromboplast Time 23 SEC (23-33) Sodium Level 141 mmol/L (136-145) Potassium Level 4.1 mmol/L (3.5-5.1) Chloride Level 106 mmol/L (98-107) Carbon Dioxide Level 27 mmol/L (21-32) Anion Gap 8 (6-14) Blood Urea Nitrogen 8 mg/dL (7-20) Creatinine 0.7 mg/dL (0.6-1.0) Estimated GFR (Cockcroft-Gault) 83.0 BUN/Creatinine Ratio 11 (6-20) Glucose Level 296 mg/dL (70-99) H Lactic Acid Level 1.8 mmol/L (0.4-2.0) Calcium Level 8.9 mg/dL (8.5-10.1) Magnesium Level 1.9 mg/dL (1.8-2.4) Total Bilirubin 0.4 mg/dL (0.2-1.0) Aspartate Amino Transferase (AST) 22 U/L (15-37) Alanine Aminotransferase (ALT) 25 U/L (14-59) Alkaline Phosphatase 117 U/L (46-116) H Creatine Kinase 49 U/L (26-192) Creatine Kinase MB (Mass) 0.5 ng/mL (0.0-3.6) Creatine Kinase MB Relative Index 1.0 % (0-4) Troponin I Quantitative < 0.017 ng/mL (0-0.055) Total Protein 6.8 g/dL (6.4-8.2) Albumin 3.4 g/dL (3.4-5.0) Albumin/Globulin Ratio 1.0 (1.0-1.7) Lipase 81 U/L (73-393) Blood pH 7.52 (7.35-7.45) H Blood Gas PCO2 31 mmHg (35-45) L Blood Gas PO2 165 mmHg (80-100) H Blood Gas HCO3 25 mmol/L (22-26) Arterial Bld O2 Saturation (Calc) 100 % (92-99) H FiO2 35 % EKG EKG EKG WAS DONE, RATE OF 71 BPM, NO STEMI, SINUS RHYTHM[] Radiology/Procedures Radiology/Procedures [][address] [id number] IMAGING REPORT Signed PATIENT: NILESH ENCINAS ACCOUNT: [id number] : 1950 LOCATION: ER AGE: 68 SEX: F EXAM STATUS: REG ER ORD. PHYSICIAN: ARLEY CARMEN DO REASON: fell this AM, HEAD AND NECK PAIN PROCEDURE: CT HEAD AND CERVICAL SPINE WO CT HEAD AND CERVICAL SPINE WO Indication: Fell this morning. Head and neck pain. Exposure: One or more of the following individualized dose reduction techniques were utilized for this examination: 1. Automated exposure control 2. Adjustment of the mA and/or kV according to patient size 3. Use of iterative reconstruction technique. Technique: Standard imaging without intravenous contrast. Head: Comparison with 01/11/2019 There is some motion degradation. No evidence of acute intracranial hemorrhage, mass effect, midline shift or abnormal extra-axial fluid collection. Estrada-white matter distinction is intact. Ventricles and sulci appear unremarkable. Orbits appear unremarkable. No evidence of significant scalp hematoma. Visualized sinuses appear clear. Mastoids and auditory canals appear to be clear. No evidence of depressed old fracture IMPRESSION: No evidence of acute intracranial hemorrhage. Cervical spine: Mild motion degradation. Visualized skull base appears intact. Ring of C1 is intact. Cervico-occipital junction intact. C1 and C2 appear grossly symmetric. No evidence of acute fracture. Degenerative changes at the temporomandibular joints. Degenerative changes at the anterior C1-C2 articulation. Multilevel degenerative spondylosis. No significant subluxation. Multilevel mild osseous central spinal canal stenosis. Multilevel neural foraminal stenosis bilaterally. Prevertebral soft tissues demonstrate no significant swelling or hematoma. Visualized thyroid demonstrates no dominant mass. Visualized airway grossly patent and midline. Irregular opacities in the lung apices are partially visualized, likely scarring or fibrosis. Note that this appears similar to a CT chest which was obtained on 02/09/2019. IMPRESSION: 1. Degenerative spondylosis with stenosis. 2. No evidence of acute fracture or subluxation. Electronically signed by: Levi Mckenzie MD (05/10/2019 3:48 PM) [facility] DICTATED AND SIGNED BY: LEVI MCKENZIE MD DATE: 05/10/19 1548 CC: ARLEY CARMEN DO; BAILEY MORSE MD ~ [address] [id number] IMAGING REPORT Signed PATIENT: NILESH ENCINAS ACCOUNT: [id number] : 1950 LOCATION: ER AGE: 68 SEX: F EXAM STATUS: REG ER ORD. PHYSICIAN: ARLEY CARMEN DO REASON: soa PROCEDURE: PORTABLE CHEST 1V PORTABLE CHEST 1V INDICATION: Dyspnea. COMPARISON STUDY: 04/21/2019. FINDINGS: Lungs: Low lung volume. No pulmonary mass or consolidation. The tracheobronchial tree and hilar structures are normal. Pleura: No pleural effusion or pneumothorax. Heart and Mediastinum: Stable cardiomediastinal silhouette and great vessels. IMPRESSION: Low lung volume. No consolidation. Electronically signed by: Angela Villegas MD (05/10/2019 3:08 PM) [facility] DICTATED AND SIGNED BY: ANGELA VILLEGAS MD DATE: 05/10/19 1508 CC: ARLEY CARMEN DO; BAILEY MORSE MD ~ Course & Med Decision Making Course & Med Decision Making Pertinent Labs and Imaging studies reviewed. (See chart for details) She is a 68-year-old female who was evaluated for trouble breathing, she was fou nd to have COPD exacerbation, admitted to hospital for further evaluation and treatment. Dragon Disclaimer Dragon Disclaimer This electronic medical record was generated, in whole or in part, using a voice recognition dictation system. Departure Departure: Impression: Primary Impression: COPD exacerbation Additional Impression: Chest pain Disposition: ADMITTED INPATIENT Admitting Physician: Chaparrita Cisse Condition: STABLE Referrals: BAILEY MORSE MD (PCP) Problem Qualifiers ARLEY CARMEN DO May 10, 2019 16:07
[2019-05-10] MEDS ORDERED: ONDANSETRON PF 4 MG/2 ML VIAL. IV PRN (16:15)
[2019-05-10 18:17] VITALS: BP 160/70
[2019-05-10 18:33] LABS: CALCIUM 8.8 mg/dL (8.5-10.1); CREATININE 0.8 mg/dL (0.6-1.0); GFR 71.1
[2019-05-10 19:00] VITALS: BP 160/71
[2019-05-10] MEDS: IPRATRPIUM/ALBUTEROL 0.5/2.5MG 3 ML NEBU. NEB SCH (20:55)
[2019-05-10] MEDS: MONTELUKAST 10 MG TABLET. PO SCH (20:58)
[2019-05-10] MEDS: ATORVASTATIN CALCIUM 20 MG TABLET PO SCH (20:59)
[2019-05-10] MEDS: traZODone 50 MG TABLET. PO SCH (20:59)
[2019-05-10] MEDS: ALPRAZolam 0.5 MG TABLET PO SCH (20:59)
[2019-05-10] MEDS ORDERED: INSULIN GLARGINE SYRINGE. SQ SCH (21:00)
[2019-05-10] MEDS: HYDROcodone/APAP 10/325 1 TAB TABLET PO PRN (21:00)
[2019-05-10] MEDS: GABAPENTIN 300 MG CAPSULE. PO SCH (21:02)
[2019-05-10 21:10] VITALS: BP 171/82
[2019-05-10] MEDS: PRAMIPEXOLE 0.25 MG TABLET. PO SCH (21:19)
[2019-05-10 22:45] LABS: BACTERIA,URINE MANY /HPF (0-FEW); BILIRUBIN,URINE NEG (NEG); CLARITY,URINE CLOUDY; COLOR,URINE YELLOW; GLUCOSE,URINE >=1000 mg/dL (NEG); NITRITE,URINE POS (NEG); RBC,URINE 0 /HPF (0-2); SQUAMOUS EPITHELIAL CELL,UR OCC /LPF; UROBILINOGEN,URINE 0.2 mg/dL (0.2 mg/dL)
[2019-05-10 22:54] LABS: INFLUENZA A PATIENT NEGATIVE (NEGATIVE); INFLUENZA B PATIENT NEGATIVE (NEGATIVE)
[2019-05-10 23:03] VITALS: BP 121/71
[2019-05-11] MEDS: HYDROcodone/APAP 10/325 1 TAB TABLET PO PRN ×3 (02:58→19:42)
--- NOTE | 2019-05-11 04:11 | EKG ---
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
[2019-05-11] MEDS: IPRATRPIUM/ALBUTEROL 0.5/2.5MG 3 ML NEBU. NEB SCH ×4 (05:34→20:39)
[2019-05-11 07:46] VITALS: BP 111/68
[2019-05-11] MEDS: ALPRAZolam 0.5 MG TABLET PO SCH ×3 (08:47→18:23)
[2019-05-11] MEDS: ISOSORBIDE MONONITRATE ER 30 MG TAB.ER.24H PO SCH ×2 (08:47→11:30)
[2019-05-11] MEDS ORDERED: METOPROLOL TART IMMED RELEASE 25 MG TABLET PO SCH (09:00)
[2019-05-11] MEDS ORDERED: CLOPIDOGREL BISULFATE 75 MG TABLET PO SCH (09:00)
[2019-05-11 10:31] VITALS: BP 110/65
[2019-05-11] MEDS ORDERED: IV NORMAL SALINE 1,000ML 1,000 ML IV ONE (12:00)
[2019-05-11] MEDS: GABAPENTIN 300 MG CAPSULE. PO SCH ×2 (14:08→18:24)
[2019-05-11 14:45] VITALS: BP 123/70
[2019-05-11] MEDS: IV NORMAL SALINE 1,000ML 1,000 ML IV SCH (16:15)
[2019-05-11] MEDS ORDERED: IOHEXOL 350 MG/ML 100 ML VIAL. IV ONE (16:30)
--- NOTE | 2019-05-11 17:06 | HP ---
ADMIT DATE: 05/10/2019 HISTORY OF PRESENT ILLNESS: The patient is a 68-year-old female patient who came to the Emergency Room complaining of shortness of breath. She had history of COPD. She stated that she had trouble breathing, started yesterday morning, used her breathing treatment at home, but did not get any better and called AMS. The patient also states she fell this morning and hit her head. She does complain of headache and neck pain. She stated that she has been coughing that her chest is hurting as well. She also states that she feels that she has fever. She was evaluated in the Emergency Room and in fact she has no fever documented and her lab work showed a white cell count, it was normal. Her blood gases showed that she is actually hyperventilating and her chemistry was unremarkable and was admitted for COPD exacerbation. She was continued on all her medications and started on a breathing treatment as well as Solu-Medrol. PAST MEDICAL HISTORY: Significant for coronary artery disease, status post PCI with stent deployment. She has type 2 diabetes mellitus, hyperlipidemia, chronic obstructive pulmonary disease/bronchial asthma. She also has a history of DVT and pulmonary embolism, generalized osteoarthritis, degenerative disk disease. She has right middle cerebral artery territory infarct with left side hemiplegia in 06/2018. PAST SURGICAL HISTORY: Significant for PCI with stent deployment, right rotator cuff repair, cholecystectomy, total abdominal hysterectomy, bilateral salpingo-oophorectomy, left carpal tunnel release. ALLERGIES: SHE IS ALLERGIC TO ASPIRIN AND PREDNISONE. SHE ALSO STATED THAT SHE IS ALLERGIC TO OXYCODONE AND FENTANYL. MEDICATIONS: She is currently on following medications: She is on Plavix 75 mg once a day, Crestor 20 mg at bedtime, isosorbide mononitrate 30 mg daily, metoprolol tartrate 12.5 mg p.o. b.i.d., hydrocodone/APAP 10/325 one tablet every 6 hours, gabapentin 300 mg twice a day, topiramate 50 mg twice a day, trazodone 25 mg at bedtime, alprazolam 1 mg 3 times a day. She is on Mirapex 0.25 mg at bedtime, montelukast 10 mg daily, Protonix 40 mg once a day and Lantus 12 units at bedtime. FAMILY HISTORY: She has 2 brothers, older and healthy. Two sisters, one of them is at the age of 65 because of cancer and heart problem. Her father at the age of 82 because of lung cancer and myocardial infarction. Her mother at age of 83 because of myocardial infarction. SOCIAL HISTORY: She is , has 1 son and 2 daughters. She has been a secondhand smoker, does not drink alcohol or use recreational drugs. 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 REVIEW OF SYSTEMS: As per history of present illness. PHYSICAL EXAMINATION: GENERAL: On arrival to the Emergency Room, the patient was somewhat tachypneic, but there was no pallor, jaundice, cyanosis or thyromegaly. No jugular venous distension. No lower limb edema. VITAL SIGNS: Her heart rate was 84, blood pressure was 160/70, temperature was 98, respiratory rate was 26 and oxygen saturation was 95% on 4 liters of oxygen. HEAD, EYES, EARS, NOSE AND THROAT: Showed normocephalic, atraumatic. NECK: Supple. HEART: Showed normal first and second heart sounds. No gallop or murmur. CHEST: Showed central trachea. The patient was in moderate respiratory distress with wheezing all over the lung griggs. No crepitation. ABDOMEN: Distended, soft, nontender. No guarding or rigidity. No organomegaly. All hernial orifices intact. Bowel sounds normal. NEUROLOGIC: She was alert, oriented x 3 without any motor or sensory deficit. LABORATORY DATA: Her lab work on admission showed her white cell count to be 6100, hemoglobin 12, hematocrit 36, MCV 85 and platelet count of 202,000 with normal manual differential. Her prothrombin time, INR and aPTT were normal. Her blood gases on admission showed a pH of 7.52, pCO2 of 31, pO2 of 165, bicarbonate was 25 and oxygen saturation was 100%, FiO2 of 35%. Her chemistry showed a serum sodium 141, potassium 4.1, chloride 106, bicarbonate 27, anion gap of 8, BUN 8, creatinine 0.7, estimated GFR was 83 mL per minute. Her glucose was 196, calcium was 8.9, magnesium was 1.9. Total bilirubin, AST, ALT, alkaline phosphatase were normal. Her first set of cardiac enzymes showed troponin to be less than 0.017. Total protein 6.8, albumin 3.4. Lipase was 81. Her urinalysis essentially showed large amount of glucose and positive for nitrite. There was 1-4 wbc's and many bacteria. Her influenza A and B were negative. IMAGING: Her chest x-ray showed that the patient has low lung volumes, no consolidation. CT scan of the head and cervical spine showed no evidence of acute intracranial hemorrhage, degenerative spondylosis or stenosis, no evidence of acute fracture or subluxation. ASSESSMENT AND PLAN: The patient was admitted with diagnosis of chronic obstructive pulmonary disease exacerbation and was started on Solu-Medrol. Her chest pain is fairly atypical. We will do 2 more sets of cardiac enzyme and also I will arrange for her to have a CT angio of the chest. She has a history of pulmonary embolism before and she is off the Xarelto for some unknown reason. I will also arrange for a bone scan to find out that she is claiming that she has broken sternum. I am not really looking at all her previous records. I could not see any documentation stating that she has broken her sternum. APOLONIA PLUNKETT MD DR: SUHA/eliezer JOB#: [id number] / [id number]
[2019-05-11 20:22] VITALS: BP 112/68
[2019-05-11] MEDS ORDERED: DEXTROSE 50% 25 GM / 50ML DISP.SYRIN. IV PRN (20:45)
[2019-05-11] MEDS ORDERED: ALBUTEROL SULFATE 2.5 MG/3 ML NEBU. NEB PRN (20:45)
[2019-05-11] MEDS ORDERED: INSULIN GLARGINE SYRINGE. SQ SCH (21:00)
[2019-05-11] MEDS ORDERED: TOPIRAMATE 25 MG TABLET. PO SCH (21:00)
[2019-05-11] MEDS ORDERED: ENOXAPARIN ** NOTE DOSE ** SYRINGE SQ ONE (21:00)
[2019-05-11] MEDS ORDERED: MONTELUKAST 10 MG TABLET. PO SCH (21:00)
[2019-05-11] MEDS: MONTELUKAST 10 MG TABLET. PO SCH (21:28)
[2019-05-11] MEDS: ATORVASTATIN CALCIUM 20 MG TABLET PO SCH (21:28)
[2019-05-11] MEDS: traZODone 50 MG TABLET. PO SCH (21:29)
[2019-05-11] MEDS: PRAMIPEXOLE 0.25 MG TABLET. PO SCH (21:29)
[2019-05-11] MEDS: methylPREDNISolone SOD SUCC PF 40 MG/ML VIAL. IV SCH (21:29)
[2019-05-11 23:51] VITALS: BP 113/66
--- NOTE | 2019-05-12 01:41 | PN ---
DATE: 05/11/2019 SUBJECTIVE: The patient is resting slightly propped up in bed, in no apparent respiratory distress. She continues to complain of left-sided chest pain, worse on coughing and also chest tightness and wheezing. When I saw her this afternoon, she looked well and was clearly in no apparent respiratory distress. No pallor, jaundice, cyanosis or thyromegaly. No jugular venous distention. No lower limb edema. PHYSICAL EXAMINATION: VITAL SIGNS: Her heart rate was 103, blood pressure was 123/70, temperature 97.7, respiratory rate was 24 and oxygen saturation was 96% on 2 liters of oxygen. HEAD, EYES, EARS, NOSE AND THROAT: Showed normocephalic, atraumatic. NECK: Supple. HEART: Showed normal first and second heart sounds. No gallop, rub or murmur. CHEST: Shows central trachea, equal bilateral expansion, air entry. Diffuse wheezing. No crepitation. ABDOMEN: Distended, soft, nontender. NEUROLOGIC: She was awake, alert, responding appropriately. All cranial nerves intact. She moves extremities without difficulty. Her intake and output are incompletely recorded. LABORATORY DATA: No lab work done today. ASSESSMENT: 1. Chronic obstructive pulmonary disease exacerbation. We will continue with bronchodilator Solu-Medrol, Singulair and Mucinex. 2. The patient has other medical problems including her type 2 diabetes mellitus. 3. Coronary artery disease, status post percutaneous coronary intervention with stent deployment. 4. Hyperlipidemia. 5. History of deep venous thrombosis and pulmonary embolism. 6. Generalized osteoarthritis. 7. Right middle cerebral artery territory infarct, left side hemiplegia. 8. Degenerative disk disease. PLAN: The patient has marked sinus tachycardia, so we will give her a bolus of normal saline at 500 and started her at 75 mL. I will arrange for her to have a CT angio of the chest. As for some reason, she is not on Xarelto and I will check another troponin and I will also arrange for her to have a bone scan to confirm or refute her complaint that her sternum was broken. APOLONIA PLUNKETT MD DR: SUHA/eliezer JOB#: [id number] / [id number]
[2019-05-12] MEDS: ALPRAZolam 0.5 MG TABLET PO SCH ×2 (05:02)
[2019-05-12] MEDS: IV NORMAL SALINE 1,000ML 1,000 ML IV SCH (05:02)
[2019-05-12] MEDS: methylPREDNISolone SOD SUCC PF 40 MG/ML VIAL. IV SCH (05:02)
[2019-05-12] MEDS ORDERED: IPRATRPIUM/ALBUTEROL 0.5/2.5MG 3 ML NEBU. ONE (05:08)
[2019-05-12] MEDS: IPRATRPIUM/ALBUTEROL 0.5/2.5MG 3 ML NEBU. NEB SCH ×2 (05:19→09:26)
[2019-05-12 05:22] VITALS: BP_SYST 112; BP_SYST 160; BP_DIAS 61
[2019-05-12 06:35] LABS: HEMATOCRIT 32.9 % (36.0-47.0); HEMOGLOBIN 10.8 g/dL (12.0-15.5); RED BLOOD COUNT 3.79 x10^6/uL (3.50-5.40); RED CELL DISTRIBUTION WIDTH 14.4 % (11.5-14.5); WHITE BLOOD COUNT 5.9 x10^3/uL (4.0-11.0)
[2019-05-12 06:48] LABS: ALBUMIN 3.3 g/dL (3.4-5.0); CALCIUM 8.5 mg/dL (8.5-10.1); CREATININE 0.9 mg/dL (0.6-1.0); GFR 62.1; POTASSIUM 4.4 mmol/L (3.5-5.1); TOTAL BILIRUBIN 0.3 mg/dL (0.2-1.0); TOTAL PROTEIN 6.5 g/dL (6.4-8.2)
[2019-05-12] MEDS ORDERED: PANTOPRAZOLE 40 MG TABLET. PO SCH (07:30)
[2019-05-12] MEDS ORDERED: ONDANSETRON ODT 4 MG TAB.RAPDIS PO PRN (08:00)
[2019-05-12] MEDS ORDERED: GABAPENTIN 300 MG CAPSULE. PO SCH (08:00)
[2019-05-12] MEDS ORDERED: INSULIN LISPRO 300 UNITS/3 ML VIAL. SQ SCH (08:00)
[2019-05-12 08:43] LABS: HEMATOCRIT 32.5 % (36.0-47.0); HEMOGLOBIN 10.8 g/dL (12.0-15.5); RED BLOOD COUNT 3.78 x10^6/uL (3.50-5.40); RED CELL DISTRIBUTION WIDTH 14.2 % (11.5-14.5); WHITE BLOOD COUNT 6.9 x10^3/uL (4.0-11.0)
[2019-05-12 08:52] LABS: CALCIUM 8.6 mg/dL (8.5-10.1); CREATININE 0.9 mg/dL (0.6-1.0); GFR 62.1; POTASSIUM 4.5 mmol/L (3.5-5.1)
[2019-05-12 08:58] LABS: ALBUMIN 3.4 g/dL (3.4-5.0); ALBUMIN/GLOBULIN RATIO 1.1 (1.0-1.7); TOTAL BILIRUBIN 0.4 mg/dL (0.2-1.0); TOTAL PROTEIN 6.5 g/dL (6.4-8.2)
[2019-05-12] MEDS ORDERED: IOHEXOL 350 MG/ML 100 ML VIAL. IV ONE (09:15)
[2019-05-12] MEDS ORDERED: CONTRAST GIVEN MC PRN (09:15)
--- NOTE | 2019-05-12 09:19 | RAD ---
EXAM: CT Head with and without IV contrast INDICATION: Unresponsive TECHNIQUE: Multi-detector row CT images were obtained of the head with and without the use of IV contrast. All CT scans performed at this facility utilize dose optimization techniques as appropriate to the exam, including the following: Automated exposure control and adjustment of the mA and/or KV according to patient size (this includes techniques or standardized protocols for targeted exams where dose is indication/reason for exam). IV CONTRAST: Administered DLP 946.5 mGycm COMPARISON: None FINDINGS: BRAIN PARENCHYMA: No evidence of acute intraparenchymal hemorrhage or infarct. No abnormal parenchymal density or mass. VENTRICLES & EXTRA-AXIAL SPACES: On axial image 10 of 29 on series 2, there is asymmetry in density to the MCA with the right slightly denser than the left. Ventricles are within normal limits. Basilar cisterns are patent. No pathologic extra-axial fluid collection or mass. ORBITS: Orbital contents are unremarkable. SINUSES: Visualized paranasal sinuses and mastoid air cells are clear. OSSEOUS & SOFT TISSUES: Calvarium and skull base are intact. IMPRESSION: Asymmetric density to the right MCA could reflect a dense MCA sign of acute arterial occlusion. No findings of acute infarction, hemorrhage or mass effect. Recommend MRI or CT angiography of the head in further evaluation. Electronically signed by: Janette Everett MD (05/12/2019 9:16 AM) [facility]
[2019-05-12 09:23] VITALS: BP 135/72
--- NOTE | 2019-05-12 09:28 | RAD ---
EXAM: CT Pulmonary Angiogram INDICATION: Chest pain. Previous history of DVT/PE. TECHNIQUE: Multi-detector row images were acquired from the thoracic inlet through the upper abdomen with the use of IV contrast. Sagittal and coronal images were acquired from the transaxial data. MIP images of the pulmonary arteries were obtained. All CT scans performed at this facility utilize dose optimization techniques as appropriate to the exam, including the following: Automated exposure control and adjustment of the mA and/or KV according to patient size (this includes techniques or standardized protocols for targeted exams where dose is indication/reason for exam). IV CONTRAST: Administered DLP 330.2 mGycm COMPARISON: 02/09/2019 CT Pulmonary Angiogram FINDINGS: Motion artifact is present. PULMONARY ARTERIES: No pulmonary emboli are identified. CARDIOVASCULAR: Unremarkable Aorta is normal caliber. MEDIASTINUM & MIKE: No adenopathy or masses. LUNGS: Bilateral upper lobe hilar retraction and scarring. Mosaic attenuation to the lung apices, likely reflecting a component of emphysema. PLEURAL SPACE: No pleural effusions or pneumothorax. OSSEOUS & SOFT TISSUE: Partially healed sternal body fracture. It has sclerotic margins. Nonunion is difficult to exclude.. ABDOMEN: The visualized portions of the upper abdomen are unremarkable. IMPRESSION: 1. Motion degraded study showing no pulmonary emboli. 2. Emphysema with bilateral upper lobe predominant pleural parenchymal scarring. 3. No parenchymal consolidation typical of pneumonia. 4. Mosaic attenuation to the lungs could reflect reactive airway disease such as asthma exacerbation or bronchiolitis. Electronically signed by: Janette Everett MD (05/12/2019 9:25 AM) [facility]
--- NOTE | 2019-05-12 10:58 | EKG ---
[address] [address] Test Date: 2019-05-12 Test Time: 08:45:50 Pat Name: NILESH ENCINAS Department: Room: 111 A Gender: F Bag Inspector: NANCY : 1950 Requested By: APOLONIA PLUNKETT Order Number: [id number] Reading MD: Measurements Intervals [place] Rate: 108 P: 29 VT: 166 QRS: -19 QRSD: 78 T: 31 QT: 342 QTc: 462 Interpretive Statements SINUS TACHYCARDIA COMPLEX(ES) WITH ABERRANT INTRAVENTRICULAR CONDUCTION VENTRICULAR PREMATURE COMPLEX(ES) LEFTWARD AXIS ABNORMAL ECG RI6.02 No previous ECG available for comparison
[2019-05-12 12:35] VITALS: BP 120/74
--- NOTE | 2019-05-12 14:26 | PN ---
DATE: SUBJECTIVE: Apparently, the patient was found to be unresponsive at around 8:30 this morning, but breathing. The patient's nurse called for assistance as she was unresponsive to sternal rub. A rapid response was called at about 8:30. Vitals obtained. Showed that her blood pressure was 169/83, pulse was 110, respirations 8 and oxygen saturation was 93% on 2 L. Her blood sugar was 314. She had an EKG done. It showed she was in sinus tachycardia with multiple PVCs noted and labs obtained as well as an order for stat CT of the head. She was seen by Dr. Garcia at that time around 8:35 and the patient started having tremors like activity with what appeared to be a seizure. Dr. Garcia ordered 1 mg of Ativan, which was given at 8:42 followed by 10 mL normal saline, Keppra 1000 mg IV loading dose ordered and the patient's tremor slowed after Ativan, but moments later began again and a second dose of Ativan 2 mg push given followed by 10 mL normal saline. Vitals remained stable. Oxygen increased to 3 liters, the patient was stabilized and was transferred to the ICU where she continued to have seizures and she received a total of 6 mg of Ativan. She did have CT scan of the head, which basically showed that there is symmetric density to the right middle cerebral artery. Could reflect dense MCA sign of acute arterial occlusion, no findings of acute infarction, hemorrhage or mass effect. Recommend MRI or CT angiography of the head for further evaluation. Chest CTA showed that there is no evidence of pulmonary emboli. She has emphysema with bilateral upper lobe predominant pleural parenchymal scarring. No parenchymal consolidation typical of pneumonia. She has mosaic attenuation to the lungs, could reflect reactive airway disease such as asthma exacerbation or bronchiolitis. By the time I arrived to the ICU, the patient was actually more awake, responsive, although a little bit confused. She was able to move her extremities. We did contact the [facility] transfer center and I spoke with the neurologist there who did not think that this is an indication for urgent transfer, that there is an acute occlusion. PHYSICAL EXAMINATION: GENERAL: When I examined her this morning, she was resting almost flat in bed, in no apparent distress. She was confused, but responding appropriately. She was somewhat pale, but no jaundice, cyanosis or thyromegaly. No jugular venous distention. EXTREMITIES: No lower limb edema. Her heart rate was 104, blood pressure was 135/72, temperature was 97.9, respiratory rate was 18 and oxygen saturation was 96% on 3 liters of oxygen. HEAD, EYES, EARS, NOSE AND THROAT: Showed normocephalic, atraumatic. NECK: Supple. CARDIAC: Normal first and second heart sounds. No gallop or murmur. CHEST: Shows central trachea, equal bilateral expansion, air entry, vesicular sounds. She has bilateral few scattered rhonchi. No crepitation. ABDOMEN: Distended, soft, nontender. NEUROLOGIC: She was somewhat lethargic and confused, but all her cranial nerves are intact. She moves extremities without difficulty. Her intake over the last 24 hours was 320, output was 400 as of this morning. LABORATORY DATA: Her white cell count was 6900, hemoglobin 11, hematocrit 33, MCV 86 and platelet count of 177,000. Serum sodium was 140, potassium 4.5, chloride 104, bicarbonate 24, anion gap of 12, BUN 17, creatinine 0.9, estimated GFR was 62 mL per minute. Her glucose was 339. Lactic acid was 2.5 and total calcium was 8.6. Total bilirubin, AST, ALT, alkaline phosphatase were normal. Total protein 6.5, albumin 3.4. Her prothrombin time, INR and aPTT were normal. ASSESSMENT AND PLAN: 1. Chronic obstructive pulmonary disease exacerbation for which continued on bronchodilator and Solu-Medrol and Mucinex. 2. Other medical problems include chest pain mostly retrosternal and left sided. Patient has had 3 sets of cardiac enzymes that ruled out myocardial infarction. She is known to have history of pulmonary emboli and deep venous thrombosis and we did a CT angio of the chest, which was negative for pulmonary embolism. 3. Coronary artery disease, status post percutaneous coronary intervention with stent deployment. 4. Hyperlipidemia. 5. History of deep vein thrombosis and pulmonary embolism for which she used to be on Xarelto. 6. Generalized osteoarthritis. 7. 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 8. Degenerative disk disease. 9. She has new onset seizures for which she received 1 gram of Keppra and also a total of 6 mg of Ativan. PLAN: To obviously continue with Keppra, continue with steroids and nebulized treatment. Continue with Plavix, metoprolol and isosorbide mononitrate as recommended by the store hand. PAOLONIA PLUNKETT MD DR: SUHA/eliezer JOB#: [id number] / [id number]
== END 2019-05-12 13:48 | disposition home or self-care (01) | DRG 191 ==
LOC: ER 14:06 → 1 SOUTH 17:17 → ICU 05-12 08:57
PROVIDERS: ADMIT Internal Medicine; ATTEND Internal Medicine
DX: J44.1 Chronic obstructive pulmonary disease with (acute) exacerbation (principal); G81.94 Hemiplegia, unspecified affecting left nondominant side; E11.9 Type 2 diabetes mellitus without complications; E78.5 Hyperlipidemia, unspecified; I11.0 Hypertensive heart disease with heart failure; I25.10 Atherosclerotic heart disease of native coronary artery without angina pectoris; I50.9 Heart failure, unspecified; M15.9 Polyosteoarthritis, unspecified; M47.9 Spondylosis, unspecified; M48.00 Spinal stenosis, site unspecified; Z77.22 Contact with and (suspected) exposure to environmental tobacco smoke (acute) (chronic); Z80.1 Family history of malignant neoplasm of trachea, bronchus and lung; Z82.49 Family history of ischemic heart disease and other diseases of the circulatory system; Z86.711 Personal history of pulmonary embolism; Z86.718 Personal history of other venous thrombosis and embolism; Z86.73 Personal history of transient ischemic attack (TIA), and cerebral infarction without residual deficits; Z90.710 Acquired absence of both cervix and uterus; Z95.5 Presence of coronary angioplasty implant and graft; Z88.8 Allergy status to other drugs, medicaments and biological substances; Z90.722 Acquired absence of ovaries, bilateral
CPT/HCPCS: 36415; 70450; 71045; 71275; 72125; 80048; 80053; 81001; 82553; 82803; 82947; 83605; 83690; 83735; 83880; 84484; 85025; 85027; 85610; 85730; 87040; 87086; 87186; 87804; 93005; 94640; 94660; 96374; J1650; J1815; J1953; J2060; J2920; J2930; J7620; Q0162; Q9967; 99285-25; J7030

== ENCOUNTER 2019-05-26 17:05 | Observation (INO) | payer MEDICARE ==
[~2019-05-26] VITALS: Ht 162.6 cm; Wt 93.3 kg
--- NOTE | 2019-05-26 17:29 | RAD ---
CT CODE STROKE HEAD WO History: Seizures, stroke like symptoms, left-sided weakness Comparison: May 12, 2019 Technique: Noncontrast CT imaging was performed of the head. Exposure: One or more of the following individualized dose reduction techniques were utilized for this examination: 1. Automated exposure control 2. Adjustment of the mA and/or kV according to patient size 3. Use of iterative reconstruction technique. Findings: No acute extra-axial or parenchymal hemorrhage is identified. There is no significant intra-axial mass effect, midline shift, or extra-axial fluid collection. The hernandes-white differentiation of the major vascular territories is preserved. The ventricles, sulci, and cisterns are within normal limits in size and configuration. The mastoid air cells and the visualized paranasal sinuses are aerated. No acute calvarial abnormality is identified. Impression: 1. There is no evidence of acute intracranial hemorrhage. Critical results were discussed with NIKI ROJAS at 05/26/2019 5:26 PM. Electronically signed by: Simone Olguin MD (05/26/2019 5:26 PM) [facility]
[2019-05-26 17:42] LABS: HEMATOCRIT 37.8 % (36.0-47.0); HEMOGLOBIN 12.4 g/dL (12.0-15.5); RED BLOOD COUNT 4.34 x10^6/uL (3.50-5.40); RED CELL DISTRIBUTION WIDTH 14.4 % (11.5-14.5); WHITE BLOOD COUNT 4.2 x10^3/uL (4.0-11.0)
[2019-05-26] MEDS ORDERED: IPRATRPIUM/ALBUTEROL 0.5/2.5MG 3 ML NEBU. NEB ONE (17:45)
[2019-05-26 17:52] LABS: CALCIUM 8.7 mg/dL (8.5-10.1); CREATININE 0.8 mg/dL (0.6-1.0); GFR 71.1; POTASSIUM 3.8 mmol/L (3.5-5.1)
--- NOTE | 2019-05-26 18:10 | PHYS DOC ---
Past History Past Medical History: CHF, COPD Additional Past Medical Histor: Cardiac (NIKI ROJAS DO) Past Surgical History: No Surgical History Additional Past Surgical Histo: stent placed at [place] on saturday01/05/19 (NIKI ROJAS DO) Alcohol Use: None Drug Use: None (NIKI ROJAS DO) Adult General Chief Complaint Chief Complaint: NEURO SYMPTOMS/DEFICITS HPI HPI 68-year-old female presents as a code stroke. The patient was reported to have left-sided weakness, right-sided facial droop, and slurred speech with EMS. The patient's last known well is difficult to ascertain as no one who witnessed the patient can provide an answer. The patient noticed issues no later than 1500. Patient was also reported to have 5 seizures today. It is unclear if she was given any benzos for treatment. The patient tells me that she was at the store at 1500 and not feeling well. She asked her granddaughter to take her home. After she got home she developed a headache that was global and was concerning to her. She is the one that called EMS. She tells me that she recently had a stroke and has some left-sided weakness, but the stuttering and the right-sided facial droop is new. She does not recall having this before. She has been feeling a little under the weather the last 2-3 days. She does not really describe what that means. (NIKI ROJAS DO) Review of Systems Review of Systems Constitutional: Denies fever or chills [] Eyes: Denies change in visual acuity, redness, or eye pain [] HENT: Denies nasal congestion or sore throat [] Respiratory: Denies cough or shortness of breath [] Cardiovascular: No additional information not addressed in HPI [] GI: Denies abdominal pain, nausea, vomiting, bloody stools or diarrhea [] : Denies dysuria or hematuria [] Musculoskeletal: Denies back pain or joint pain [] Integument: Denies rash or skin lesions [] Neurologic: Dizziness, headache, left sided weakness [] Endocrine: Denies polyuria or polydipsia [] All other systems were reviewed and found to be within normal limits, except as documented in this note. (NIKI ROJAS DO) Allergies Allergies Allergies Coded Allergies Type Severity Reaction Last Updated Verified aspirin Allergy Severe SEIZURE 06/19/14 No prednisone Allergy Severe SEIZURES 06/19/14 No fentanyl Allergy Intermediate 01/12/19 Yes oxycodone Allergy Intermediate 02/09/19 Yes (NIKI ROJAS DO) Physical Exam Physical Exam Constitutional: Well developed, well nourished, no acute distress, non-toxic appearance. [] HENT: Normocephalic, atraumatic, bilateral external ears normal, oropharynx moist, no oral exudates, nose normal. Mild right-sided facial droop[] Eyes: PERRLA, EOMI, conjunctiva normal, no discharge. [] Neck: Normal range of motion, no tenderness, supple, no stridor. [] Cardiovascular:Heart rate regular rhythm, no murmur [] Lungs & Thorax: Bilateral breath sounds clear to auscultation [] Abdomen: Bowel sounds normal, soft, no tenderness, no masses, no pulsatile masses. [] Skin: Warm, dry, no erythema, no rash. [] Back: No tenderness, no CVA tenderness. [] Extremities: No tenderness, no cyanosis, no clubbing, ROM intact, no edema. [] Neurologic: Alert and oriented X 3, mild right-sided facial droop, 4/5 strength on the left upper and lower extremity.[] Psychologic: Affect normal, judgement normal, mood anxious. [] (NIKI ROJAS DO) EKG EKG Sinus rhythm, rate 69, normal axis, no ST elevations or depressions.[] (NIKI ROJAS DO) Radiology/Procedures Radiology/Procedures [] Impressions: CT CODE STROKE HEAD WO History: Seizures, stroke like symptoms, left-sided weakness Comparison: May 12, 2019 Technique: Noncontrast CT imaging was performed of the head. Exposure: One or more of the following individualized dose reduction techniques were utilized for this examination: 1. Automated exposure control 2. Adjustment of the mA and/or kV according to patient size 3. Use of iterative reconstruction technique. Findings: No acute extra-axial or parenchymal hemorrhage is identified. There is no significant intra-axial mass effect, midline shift, or extra-axial fluid collection. The hernandes-white differentiation of the major vascular territories is preserved. The ventricles, sulci, and cisterns are within normal limits in size and configuration. The mastoid air cells and the visualized paranasal sinuses are aerated. No acute calvarial abnormality is identified. Impression: 1. There is no evidence of acute intracranial hemorrhage. Critical results were discussed with NIKI ROJAS at 05/26/2019 5:26 PM. Electronically signed by: Angela Zamora MD (05/26/2019 5:26 PM) [facility] DICTATED AND SIGNED BY: ANGELA ZAMORA MD DATE: 05/26/19 1726 CC: NIKI ROJAS DO; BAILEY MORSE MD ~ (NIKI ROJAS DO) Course & Med Decision Making Course & Med Decision Making Pertinent Labs and Imaging studies reviewed. (See chart for details) The patient initially had falling of the upper extremities to the bed, with encouragement she was able to maintain them without significant drift. She did have drift of the left leg. Seen and a scale for details. Her head CT without contrast was negative for hemorrhage. It appears to be a component of the patient's illness that is willful. She does not seem to want to make effort on some things. Mostly when she is challenge, she is able to perform tasks. She is speaking very softly, but her voice is clear and her answers make sense. She does have an occasional stutter. She believes that she is very sick. The patient's workup is pending. I'm signing the patient out to Dr. Shirley at 1800 who will determine her final disposition. [] (NIKI ROJAS DO) Dragon Disclaimer Dragon Disclaimer This electronic medical record was generated, in whole or in part, using a voice recognition dictation system. (NIKI ROJAS DO) NIH Stroke Scale: NIH Stroke Scale Response (Comments) Value Level of Consciousness: 0 Alert/Responsive 0 LOC Questions: 0 Answers both correctly 0 LOC Commands: 0 Performs both tasks 0 Best Gaze: 0 Normal 0 Visual: 0 No visual loss 0 Facial Palsy: 2 Partial paralysis 2 Motor - Left Arm 1 Drifts, but can hold 1 Motor - Right Arm 0 No drift 0 Motor - Left Leg 1 Drift but can hold 1 Motor: Right Leg 0 No drift 0 Limb Ataxia: 0 Absent 0 Sensory: 1 Mid to moderate loss 1 Best Language: 1 Mild to mod aphasia 1 Dysathria: 1 Mild to moderate 1 Extinction and Inattention: 0 Normal 0 Total 7 Departure Departure: Impression: Primary Impression: Observed seizure-like activity Additional Impression: Left-sided weakness Disposition: 09 ADMITTED INPATIENT Admitting Physician: Chaparrita Cisse NORMAN D Jr. DO) Condition: GOOD Referrals: BAILEY MORSE MD (PCP) Problem Qualifiers NIKI ROJAS DO May 26, 2019 18:10 JIMY SHIRLEY Jr. DO May 26, 2019 18:48
[2019-05-26] MEDS ORDERED: ONDANSETRON PF 4 MG/2 ML VIAL. IV PRN (19:00)
[2019-05-26 20:53] VITALS: BP 148/80
[2019-05-26] MEDS ORDERED: HYDROcodone/APAP 10/325 1 TAB TABLET PO PRN (22:45)
[2019-05-26] MEDS ORDERED: PRAMIPEXOLE 0.25 MG TABLET. PO SCH (23:00)
[2019-05-26 23:35] VITALS: BP 147/81
--- NOTE | 2019-05-27 00:22 | NUR ---
The patient, NILESH ENCINAS, 68 y/o, F admitted by APOLONIA PLUNKETT MD, was given written information regarding hospital policies, unit procedures and contact persons. Valuables were checked and left in room with pt.
[2019-05-27 05:56] VITALS: BP 132/80
[2019-05-27 06:53] LABS: BASO % 1 % (0-3); EOS # 0.2 x10^3/uL (0.0-0.7); EOS % 7 % (0-3); HEMATOCRIT 31.8 % (36.0-47.0); HEMOGLOBIN 10.5 g/dL (12.0-15.5); LYMPH % 27 % (24-48); MEAN CORPUSCULAR HEMOGLOBIN 29 pg (25-35); MEAN CORPUSCULAR HGB CONC 33 g/dL (31-37); MEAN CORPUSCULAR VOLUME 87 fL (79-100); MONO # 0.4 x10^3/uL (0.0-1.1); MONO % 12 % (0-9); NEUT # 1.9 x10^3uL (1.8-7.7); NEUT % 54 % (31-73); PLATELET COUNT 157 x10^3/uL (140-400); RED BLOOD COUNT 3.66 x10^6/uL (3.50-5.40); RED CELL DISTRIBUTION WIDTH 14.6 % (11.5-14.5); WHITE BLOOD COUNT 3.6 x10^3/uL (4.0-11.0)
[2019-05-27 07:04] LABS: CALCIUM 8.1 mg/dL (8.5-10.1); CREATININE 0.7 mg/dL (0.6-1.0); POTASSIUM 3.8 mmol/L (3.5-5.1)
[2019-05-27] MEDS ORDERED: GABAPENTIN 300 MG CAPSULE. PO SCH (08:00)
[2019-05-27] MEDS: ALPRAZolam 0.5 MG TABLET PO SCH ×2 (08:48→14:00)
[2019-05-27] MEDS ORDERED: METOPROLOL TART IMMED RELEASE 25 MG TABLET PO SCH (09:00)
[2019-05-27] MEDS ORDERED: ISOSORBIDE MONONITRATE ER 30 MG TAB.ER.24H PO SCH (09:00)
[2019-05-27] MEDS ORDERED: CLOPIDOGREL BISULFATE 75 MG TABLET PO SCH (09:00)
[2019-05-27 10:53] VITALS: BP 114/73
[2019-05-27] MEDS: GABAPENTIN 300 MG CAPSULE. PO SCH ×2 (12:02→16:49)
--- NOTE | 2019-05-27 13:08 | NUR ---
NSG NOTE; SEIZURE LIKE ACTIVITY THE PATIENT'S VISITOR CALLED ME INTO THE ROOM AT 1100 FOR THE PT WHO WAS SHAKING WITH HEAD TURNED TO LEFT SIDE AND EYES FIXED. I WAS ABLE TO TALK TO THE PT AND GET HER TO LOOK AT ME, THEN TAKE EASY CLEANSING BREATHS FOLLOWING MY DIRECTIONS, AND THE SHAKING GRADUALLY SUBSIDED. THE PATIENT WAS ALERT AND ORIENTED AND DID NOT LOSE CONTROL OF HER BLADDER OR BOWELS
[2019-05-27 15:09] VITALS: BP 99/59
--- NOTE | 2019-05-27 15:53 | DISCH ---
HOME HEALTH DISCHARGE/MEDS DISCHARGE INFORMATION: Discharge Date: May 27, 2019 Final Diagnosis: Problems Medical Problems: (1) Left-sided weakness Status: Acute (2) Observed seizure-like activity Status: Acute (3) Stroke Status: Acute Condition on Discharge: Stable CODE STATUS: Code Status: Full HOME HEALTH: Face to Face: I certify this patient is under my care and that I, or a nurse practitioner or physician's district administrative assistant working with me, had a face to face encounter that meets the physician face to face encounter requirements with this patient on 05/27/19 Medical Condition(s): Other Group Home For: Admin/Educate Injections Physical Therapy For: Evalulation/Treatment Occupational Therapy For: Evaluation/Treatment Homebound Status Met By: Unsteady balance w/ amb, POST DISCHARGE ORDERS: Activity Instructions for Disc: Resume previous activity DIET AFTER DISCHARGE: ADA CERTIFICATION STATEMENT: Certification Statement: Based on the above finding, I certify that this patient is confined to the home and needs intermittent nursing home care, physical therapy and/or speech therapy, or continues to need occupational therapy.~ This patient is under my care, and I have initiated the establishment of the plan of care.~ This patient will be followed by myself or a community physician who will periodically review the plan of care. DISCHARGE MEDICATIONS: Home Meds Reported Medications Rosuvastatin Calcium (Rosuvastatin Calcium) 20 Mg Tablet, 20 MG PO HS for High Cholesterol 02/10/19 Metoprolol Tartrate (METOPROLOL TARTRATE) 25 Mg Tablet, 12.5 MG PO BID for High Blood Pressure 02/10/19 Clopidogrel Bisulfate (CLOPIDOGREL) 75 Mg Tablet, 75 MG PO DAILY for Blood thinner 02/10/19 Gabapentin (Gabapentin) 300 Mg Capsule, 300 MG PO BIDACLD for Nerve Pain 02/10/19 Gabapentin (Gabapentin) 300 Mg Capsule, 600 MG PO DAILY08 for Nerve pain 02/10/19 Trazodone Hcl (TRAZODONE HCL) 50 Mg Tablet, 25 MG PO HS for Insomnia 02/10/19 Insulin Glargine,Hum.rec.anlog (LANTUS SOLOSTAR) 100 Unit/1 Ml Insuln.pen, 12 UNIT SQ QHS for HIGH BLOOD SUGAR-DIABETES LAST DOSE GIVEN: DATE: TIME: NEXT DOSE DUE: DATE: TIME: 01/12/19 Alprazolam (XANAX) 1 Mg Tablet, 1 MG PO TID for anxiety 01/04/19 Hydrocodone Bit/Acetaminophen (HYDROCODONE-APAP 10325 ) 1 Each Tablet, 1 TAB PO PRN Q6HRS PRN for PAIN 01/04/19 Pramipexole Di-Hcl (MIRAPEX) 0.25 Mg Tablet, 0.25 MG PO QHS for restless leg 01/04/19 Montelukast Sodium (MONTELUKAST SODIUM TABLET ) 10 Mg Tablet, 10 MG PO HS for FOR ASTHMA 01/04/19 Isosorbide Mononitrate (ISOSORBIDE MONONITRATE ER) 30 Mg Tab.er.24h, 30 MG PO DAILY for chest pain 01/04/19 Discontinued Reported Medications Pantoprazole Sodium (PANTOPRAZOLE SODIUM) 40 Mg Tablet.dr, 40 MG PO DAILY for GERD LAST DOSE GIVEN: DATE: TIME: NEXT DOSE DUE: DATE: TIME: 02/10/19 Topiramate (TOPIRAMATE) 50 Mg Tablet, 50 MG PO BID for Headaches LAST DOSE GIVEN: DATE: TIME: NEXT DOSE DUE: DATE: TIME: 02/10/19 APOLONIA PLUNKETT MD May 27, 2019 15:53
--- NOTE | 2019-05-27 16:03 | HP ---
ADMIT DATE: 05/26/2019 HISTORY OF PRESENT ILLNESS: The patient is a 68-year-old female patient, who was brought to the Emergency Room with a complaint of left-sided weakness, right-sided facial droop and slurred speech. She apparently lives alone in her apartment and the patient reported that she has 5 seizures. She apparently was at the store at 1500, not feeling well. She asked her granddaughter to take her home. After she got home, she developed headache that was global and was concerning to her. She is the one who called the EMS and tells me that she recently had a stroke and has some left-sided weakness, but the stuttering and right-sided facial droop are new. She was basically evaluated in the Emergency Room and was extensively investigated. Has had a CT scan of the head, which showed no evidence of acute intracranial hemorrhage and apparently Dr. Garcia was contacted and he recommended to admit the patient for overnight observation. Her lab work was mostly unremarkable. We basically continued all her medication. She apparently is only on alprazolam and gabapentin and whether she really knows about this or not. She is not on any Keppra that was started and I did request the medical records from [facility] to verify at least to find out exactly what was the investigation, what was found, and what was the recommendation by the neurologist there. PAST MEDICAL HISTORY: Significant for coronary artery disease, status post PCI with stent deployment. She has type 2 diabetes, hyperlipidemia, chronic obstructive pulmonary disease/bronchial asthma. She also has history of DVT and pulmonary embolism. Has generalized osteoarthritis, degenerative disk disease. She has right middle cerebral artery territory infarct, left sided hemiplegia in 06/2018. She also claimed that she has seizures, although most people, who observed with her, did not really describe the typical tonic-clonic seizure. They did not see any tongue biting or bowel or bladder incontinence. PAST SURGICAL HISTORY: Significant for PCI with stent deployment, right rotator cuff repair, cholecystectomy, total abdominal hysterectomy, bilateral salpingo-oophorectomy, left carpal tunnel release. ALLERGIES: SHE IS ALLERGIC TO ASPIRIN AND PREDNISONE. SHE ALSO STATED THAT SHE IS ALLERGIC TO OXYCODONE AND FENTANYL. FAMILY HISTORY: She has 2 brothers, older and healthy. Two sisters, one of them is at the age of 65 because of cancer and heart problem. Her father at the age of 82 because of lung cancer and myocardial infarction. Her mother at age of 83 because of myocardial infarction. SOCIAL HISTORY: She is , has 1 son and 2 daughters. She has been a secondhand smoker. Does not drink alcohol or use recreational drugs. 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 REVIEW OF SYSTEMS: As per history of present illness. MEDICATIONS: She is currently on following medications: She is on Plavix 75 mg once a day, Crestor 20 mg at bedtime, isosorbide mononitrate 30 mg daily, metoprolol tartrate 12.5 mg twice a day, hydrocodone/APAP 10/325 one tablet every 6 hours, gabapentin 600 mg daily, gabapentin 300 mg twice a day. She is on trazodone 25 mg at bedtime, alprazolam 1 mg 3 times a day, Mirapex 0.25 mg at bedtime, Singulair 10 mg daily, and Lantus insulin 12 units at bedtime. PHYSICAL EXAMINATION: GENERAL: On arrival to the Emergency Room, she apparently looked well and was clearly in no apparent respiratory distress. No pallor, jaundice, cyanosis or thyromegaly. No jugular venous distention. No limb edema. VITAL SIGNS: Her heart rate was 68, blood pressure was 130/72, temperature was 97.7, respiratory rate 22, and oxygen saturation was 99% on 2 liters of oxygen. HEAD, EYES, EARS, NOSE AND THROAT: Showed normocephalic, atraumatic. NECK: Supple. HEART: Showed normal first and second heart sounds. No gallop or murmur. CHEST: Clear to auscultation. No crepitation or rhonchi. ABDOMEN: Distended, soft, nontender. NEUROLOGIC: She was awake, alert x 3. Mild right-sided facial droop. She has 4/5 strength in the left upper and left lower extremity. Her affect was normal. Judgment was normal and she was anxious. LABORATORY DATA: While in the Emergency Room, she has had lab work including a white cell count 4200, hemoglobin 12.4, hematocrit 37.8, MCV 87 and platelet count of 180,000. Her serum sodium was 142, potassium 3.8, chloride 104, bicarbonate 29, anion gap of 9, BUN 10, creatinine 0.8, estimated GFR was 71 mL per minute. Her glucose was 186, calcium was 8.7. Her prothrombin time, INR and aPTT were normal. Her CT scan of the head without contrast showed that the patient has no acute extraaxial or parenchymal hemorrhage identified. There is no significant extraaxial mass effect, midline shift or extraaxial fluid collection. The hernandes-white differentiation of the major vascular territories is preserved. The ventricles, sulci and cisterns are within normal limits in size and configuration. The mastoid air cells and visualized paranasal sinuses are aerated. No acute calvarial abnormalities identified. ASSESSMENT AND PLAN: The patient was basically continued all her medications. We did consult Dr. Garcia to see her and given that she lives alone, we will consult our social media specialist to see perhaps at admission to a correction facility for rehabilitation is something that can be arranged. We will also requested medical records from [facility]. APOLONIA PLUNKETT MD DR: SUHA/eliezer JOB#: [id number] / [id number]
--- NOTE | 2019-05-27 17:35 | NUR ---
NSG NOTE; AMA DISCHARGE PT WANTS TO DISCHARGE TONITE. DR PLUNKETT AND DR LOYD BOTH WANT PT TO STAY ANOTHER NITE, BUT PT INSISTS ON DISCHARGING. PT ENCOURAGED TO STAY AND ADVISED ABOUT POSSIBLE CONSEQUENCES OF LEAVING AMA PT SIGNED AMA PAPERWORK AND WAS DISCHARGED HOME AT 1730 VIA W/C ACCOMP BY FRIEND
--- NOTE | 2019-05-27 18:36 | EKG ---
[address] [address] Test Date: 2019-05-26 Test Time: 17:37:18 Pat Name: NILESH ENCINAS Department: Room: 122 A Gender: F [employer]: : [id number] Requested By: APOLONIA LPUNKETT Order Number: [id number] Reading MD: Measurements Intervals [place] Rate: 69 P: 56 NC: 170 QRS: -28 QRSD: 80 T: 36 QT: 422 QTc: 454 Interpretive Statements SINUS RHYTHM LEFTWARD AXIS OTHERWISE NORMAL ECG RI6.01 No previous ECG available for comparison
[2019-05-27] MEDS ORDERED: traZODone 50 MG TABLET. PO SCH (21:00)
[2019-05-27] MEDS ORDERED: MONTELUKAST 10 MG TABLET. PO SCH (21:00)
[2019-05-27] MEDS ORDERED: INSULIN GLARGINE HUM REC ANLOG 12 UNIT SQ SCH (21:00)
[2019-05-27] MEDS ORDERED: ATORVASTATIN CALCIUM 20 MG TABLET PO SCH (21:00)
[2019-05-27] MEDS ORDERED: INSULIN GLARGINE SYRINGE. SQ SCH (21:00)
--- NOTE | 2019-05-27 22:07 | DS ---
DATE OF DISCHARGE: 05/27/2019 HOSPITAL COURSE: The patient was admitted with seizure-like activity She claimed that she has about 5 of them at home, although none was witnessed and she has no evidence of any tongue biting or bowel or bladder incontinence. She has had no episodes witnessed throughout her stay in the hospital overnight and throughout the day and given that she lives alone we recommended that she should be admitted to assisted facility for rehabilitation, but the patient was adamant and would like to go home and therefore, a decision was made to discharge her home with home health. PHYSICAL EXAMINATION: GENERAL: When I saw her this afternoon, she looked well and was clearly in no apparent respiratory distress. No pallor, jaundice, cyanosis or thyromegaly. No jugular venous distention limb edema. VITAL SIGNS: Her heart rate was 70, blood pressure was 99/59, temperature was 97.8, respiratory rate 20, and oxygen saturation was 98%. HEAD, EYES, EARS, NOSE AND THROAT: Showed normocephalic, atraumatic. NECK: Supple. HEART: Showed normal first and second heart sounds. No gallop or murmur. CHEST: Clear to auscultation. No crepitation or rhonchi. ABDOMEN: Distended, soft, nontender. No guarding or rigidity. No organomegaly. All hernial orifice intact. Bowel sounds normal. NEUROLOGIC: She is awake, alert, responding appropriately. All cranial nerves intact. She moves all extremities spontaneously, although she states that she has weakness on the left side. She was able to walk with a walker with physical therapy. LABORATORY DATA: Showed a serum sodium 143, potassium 3.8, chloride 108, bicarbonate 28, anion gap of 7, BUN 7, creatinine 0.7, estimated GFR was 83 mL per minute. Her glucose 163, calcium was 8.1. White cell count was 3600, hemoglobin 10.5, hematocrit 31.8, MCV 87 and platelet count of 157,000. Her prothrombin time, INR and aPTT are all normal. DISCHARGE MEDICATIONS: She was discharged back home with home health to continue on alprazolam 1 mg 3 times a day, Plavix 75 mg once a day, gabapentin 600 mg daily, gabapentin 300 mg twice a day before lunch and dinner, hydrocodone/APAP 10/325 one tablet every 6 hours. She is on Lantus insulin 12 units at bedtime, isosorbide mononitrate 30 mg daily, metoprolol tartrate 12.5 mg twice a day, montelukast for Singulair 10 mg at bedtime, Mirapex 0.25 mg at bedtime, rosuvastatin calcium for Crestor 20 mg at bedtime and trazodone 25 mg at bedtime. FINAL DISCHARGE DIAGNOSES: Seizure-like activity, no evidence of tongue biting, no evidence of incontinence of bowel and bladder. Other medical problems include coronary artery disease, status post PCI with stent deployment, type 2 diabetes mellitus, hyperlipidemia, chronic obstructive pulmonary disease/bronchial asthma with a history of deep venous thrombosis and pulmonary embolism, generalized osteoarthritis, degenerative disk disease. She has right middle cerebral artery territory infarct, left side hemiplegia in 06/2018. APOLONIA PLUNKETT MD DR: SUHA/eliezer JOB#: [id number] / [id number]
--- NOTE | 2019-05-27 22:57 | CONS ---
DATE OF CONSULTATION: NEUROLOGY CONSULTATION REFERRING PHYSICIAN: Dr. Cisse REASON FOR CONSULTATION: Mental status changes, tremor, chest pain and headaches. HISTORY OF PRESENT ILLNESS: This is a 68-year-old right-handed female who was admitted through Emergency Room after she presented with new onset of right-sided throbbing headaches associated with dizziness, described as unsteadiness and vertigo. According to the patient, she was in a store when she started feeling dizzy and going to pass out. She was with her grandchild who took her back home. The patient also complains of left-sided chest pain radiated to the left upper extremity and associated with numbness and paresthesia lasted approximately 3 minutes. She denies nausea, vomiting, photophobia or phonophobia, but she was short of breath. From home, she called EMS. According to the patient, EMS personnel witnessed 3 brief seizure-like activity described as a tremor. The patient describes the seizures as a sudden onset of tremor of both arms with eye up in the head looking at the ceiling and lasted a few minutes without post-event confusion or disorientation. The patient stated she did remember all of the spells and she accounted 3 spells. She denies any bowel or bladder incontinence. She remembers going to Emergency Room where she was evaluated extensively. The patient stated ER physician told her that she had a stroke. This morning, the patient denies any chest pain or shortness of breath. She is able to get up and walk to the bathroom by herself without any assistance. She continued to complain of intermittent right-sided headaches. It was reported by ER physician that she had a slurred speech and left-sided weakness along with right facial drooping. Initial nonenhanced head CT scan revealed no acute intracranial process and no evidence of old infarct. PAST MEDICAL HISTORY: Significant for recent seizure-like activities when she was admitted to [facility] a few weeks ago. Then, she was transferred to [facility] for further evaluation. I got some information from following up the patient at . I was told that she had an extensive EEG which did not reveal any epileptiform discharges; however, she had a brain MRI, but the result is not available at this time. The patient was kept on Keppra 500 mg twice a day when she was discharged from ; however, she was seen by her primary care physician, Dr. Hurst, 4 days ago and Keppra was discontinued. Other medical problems include diabetes mellitus, on insulin; obstructive sleep apnea; coronary artery disease, required stent placement; hyperlipidemia; COPD; history of stroke resulted in left-sided weakness; GERD; obesity; arthritis; chronic low back pain; and peripheral neuropathy in the lower extremities. PAST SURGICAL HISTORY: Significant for cholecystectomy, right rotator cuff repair and left carpal tunnel release. PAST PSYCHIATRIC HISTORY: Positive for anxiety and depression and possible bipolar disorder. FAMILY HISTORY: The patient has 2 brothers and 2 sisters. One sister at age of 65 from cancer and heart disease. Father at age of 82 and had lung cancer and myocardial infarction and her mother at age of 83 of myocardial infarction. SOCIAL HISTORY: The patient is . She has 1 son and 2 daughters. She denies smoking, alcohol drinking or illicit drug use, but she is a secondhand smoker. CURRENT HOME MEDICATIONS: Lantus insulin 12 units at bedtime, Lipitor 80 mg at bedtime, trazodone 25 mg at bedtime, Singulair 10 mg p.o. at bedtime, gabapentin 300 mg b.i.d. and 600 mg daily, Mirapex 0.25 mg at bedtime for intermittent tremor, Plavix 75 mg daily, Imdur 30 mg p.o. daily, metoprolol 12.5 mg twice daily, alprazolam 1 mg t.i.d., hydrocodone/acetaminophen p.r.n. ALLERGIES: ASPIRIN, FENTANYL, OXYCODONE AND PREDNISONE. REVIEW OF SYSTEMS: A 10-point review of system was performed as mentioned above in history of present illness, otherwise unremarkable. PHYSICAL EXAMINATION: GENERAL: Moderately obese female, not in acute distress. VITAL SIGNS: She weighs 93 pounds with a BMI of 35.3. Blood pressure 132/80, respiratory rate 18, pulse is 65, oxygen saturation is 97% on 2 liters by nasal cannula. HEENT: Normocephalic, atraumatic, otherwise unremarkable. NECK: Supple. Negative for carotid bruit, lymphadenopathy, JVD or thyromegaly. LUNGS: Clear to A and P. CARDIOVASCULAR: Regular rate and rhythm. Normal S1, S2. There is no S3, S4 or murmur. ABDOMEN: Soft. Bowel sounds positive. EXTREMITIES: Negative for cyanosis, clubbing or pitting edema. NEUROLOGICAL: Mental Status: The patient is alert and oriented x 3. Speech is fluent. There is no language dysfunction. Memory, judgment and abstracting thinking are normal. The patient denies hallucination or delusion. Cranial Nerves: Visual griggs are full. The pupils are reactive to light and accommodation. The extraocular movements are intact. There is no nystagmus. There is no facial motor or sensory deficit. Hearing is intact bilaterally. The palate is elevated symmetrically. Sternocleidomastoid muscles are powerful bilaterally. The patient shrugs her shoulders symmetrically and protrudes her tongue in the midline without fasciculation or atrophy. Motor Examination: No focal muscle bulk was seen. The tone is normal. The strength is 4/5 in the left upper and lower extremities and 5/5 elsewhere. Sensory examination revealed diminished pinprick and light touch senses in patchy distributions in the left upper and lower extremities compared to normal sensation on the right side. Deep tendon reflexes were asymmetric and hypoactive with absent Achilles responses. Gait not tested. LABORATORY DATA: CBC revealed white blood cells of 3.6 thousand, hemoglobin 10.5, hematocrit 31.8, platelet count 157,000. Chemistry revealed sodium of 143, potassium 3.8, chloride 108, CO2 of 28, BUN 7, creatinine 0.7, glucose 163 and calcium 8.1. Troponin level is normal. IMPRESSION: 1. Recurrent seizure-like activities, rule out pseudoseizure. 2. History of seizure diagnosed earlier this month on admission to [facility]. 3. Multiple medical problems include coronary artery disease, status post stent placement; gastroesophageal reflux disease; chronic obstructive pulmonary disease; hyperlipidemia; obstructive sleep apnea; obesity; arthritis; diabetes mellitus; peripheral neuropathy in the lower extremities; depression; anxiety; and anemia. RECOMMENDATIONS: 1. Continue with current home medications. 2. Physical therapy evaluation. 3. Follow up with Dr. Loyd after 2 weeks from discharge. M Dottie LOYD MD DR: ZHANE/eliezer JOB#: [id number] / [id number]
--- NOTE | 2019-05-28 03:15 | PN ---
DATE: 05/27/2019 SUBJECTIVE: The patient is resting, slightly propped up in bed, in no apparent distress, awake and alert; continued to claim that she is unable to move her left upper extremity and that her left lower extremity gives way on her. She was seen by the physical therapist today and was able to walk with a walker. Has had no witnessed seizure since yesterday or this morning. She was able to feed herself, and ate her breakfast and lunch. PHYSICAL EXAMINATION: GENERAL: When I examined her this afternoon, she looked well and was clearly in no apparent respiratory distress; slightly pale but no jaundice, cyanosis or thyromegaly. No jugular venous distention. No limb edema. VITAL SIGNS: Her heart rate was 83, blood pressure 148/80, temperature 97.5, respiratory rate was 18 and oxygen saturation was 98% on 2 liters of oxygen. HEAD, EYES, EARS, NOSE AND THROAT: Showed normocephalic, atraumatic. NECK: Supple. HEART: Showed normal first and second heart sounds. No gallop or murmur. CHEST: Clear to auscultation. No crepitation or rhonchi. ABDOMEN: Distended, soft, nontender. NEUROLOGIC: She was awake, alert, responding appropriately. All her cranial nerves were intact. She states that she continues to have left-sided weakness, although she continues to insist they want to go home on their own. We have spoken with our psychiatric social worker supervisor to see whether she can qualify to go to a detention facility for further rehabilitation. LABORATORY DATA: Her lab work this morning showed a white cell count of 3600, hemoglobin 10.5, hematocrit 32, MCV 87 and platelet count of 157,000. Her chemistry showed a serum sodium of 143, potassium 3.8, chloride 108, bicarbonate 28, anion gap of 7, BUN 7, creatinine 0.7. Estimated GFR was 83 mL per minute. Her glucose 163, calcium was 8.1. ASSESSMENT: Seizure-like activity in a patient who apparently was able to contact EMS during the episode of seizures. The patient has no evidence of any tongue biting, or incontinence of bowel or bladder. She has had no seizures witnessed since last night and throughout today. PLAN: My plan is to get the records from [facility] to see exactly what was found, what was their recommendation as now she is not on Keppra. The patient was seen by Dr. Garcia; however, I have not seen his recommendations yet. APOLONIA PLUNKETT MD DR: SUHA/eliezer JOB#: [id number] / [id number]
== END 2019-05-27 17:30 | disposition left against medical advice (07) ==
LOC: ER 17:05 → INTOOBSV 18:45 → 1 SOUTH 18:45
PROVIDERS: ADMIT Internal Medicine; ATTEND Internal Medicine
DX: R56.9 Unspecified convulsions (principal); R29.810 Facial weakness; I25.10 Atherosclerotic heart disease of native coronary artery without angina pectoris; E11.9 Type 2 diabetes mellitus without complications; E78.5 Hyperlipidemia, unspecified; J44.9 Chronic obstructive pulmonary disease, unspecified; I50.9 Heart failure, unspecified; R42 Dizziness and giddiness; M15.9 Polyosteoarthritis, unspecified; R41.82 Altered mental status, unspecified; Z86.73 Personal history of transient ischemic attack (TIA), and cerebral infarction without residual deficits; Z95.5 Presence of coronary angioplasty implant and graft; Z86.718 Personal history of other venous thrombosis and embolism; Z86.711 Personal history of pulmonary embolism; Z90.710 Acquired absence of both cervix and uterus; Z79.899 Other long term (current) drug therapy; Z79.4 Long term (current) use of insulin; Z79.02 Long term (current) use of antithrombotics/antiplatelets; Z77.22 Contact with and (suspected) exposure to environmental tobacco smoke (acute) (chronic)
CPT/HCPCS: 36415; 70450; 80048; 82947; 84484; 85025; 85027; 85610; 85730; 93005; 94640; 96374; 97116; 97162; 97166; 99284; G0378; J2060; J7620; G0379

== ENCOUNTER 2019-06-05 10:14 | Observation (INO) | payer MEDICARE ==
[~2019-06-05] VITALS: Ht 162.6 cm; Wt 94.2 kg
[2019-06-05] MEDS ORDERED: IPRATRPIUM/ALBUTEROL 0.5/2.5MG 3 ML NEBU. ONE (10:23)
[2019-06-05] MEDS: IPRATRPIUM/ALBUTEROL 0.5/2.5MG 3 ML NEBU. NEB SCH ×3 (10:27→20:33)
[2019-06-05] MEDS ORDERED: IPRATRPIUM/ALBUTEROL 0.5/2.5MG 3 ML NEBU. NEB ONE (10:30)
[2019-06-05] MEDS ORDERED: IV NORMAL SALINE 1,000ML 1,000 ML IV ONE (10:30)
[2019-06-05] MEDS ORDERED: methylPREDNISolone SOD SUCC PF 125 MG/2 ML VIAL. IV ONE (10:30)
[2019-06-05 10:36] LABS: BASO % 1 % (0-3); EOS # 0.2 x10^3/uL (0.0-0.7); EOS % 5 % (0-3); HEMATOCRIT 40.4 % (36.0-47.0); HEMOGLOBIN 13.2 g/dL (12.0-15.5); LYMPH # 1.8 x10^3/uL (1.0-4.8); LYMPH % 39 % (24-48); MEAN CORPUSCULAR HEMOGLOBIN 28 pg (25-35); MEAN CORPUSCULAR HGB CONC 33 g/dL (31-37); MEAN CORPUSCULAR VOLUME 87 fL (79-100); MONO # 0.5 x10^3/uL (0.0-1.1); MONO % 10 % (0-9); NEUT # 2.2 x10^3uL (1.8-7.7); NEUT % 46 % (31-73); PLATELET COUNT 229 x10^3/uL (140-400); RED BLOOD COUNT 4.67 x10^6/uL (3.50-5.40); RED CELL DISTRIBUTION WIDTH 15.1 % (11.5-14.5); WHITE BLOOD COUNT 4.7 x10^3/uL (4.0-11.0)
[2019-06-05 10:41] LABS: CREATININE 0.9 mg/dL (0.6-1.0); GFR 62.1; POTASSIUM 3.9 mmol/L (3.5-5.1)
--- NOTE | 2019-06-05 10:42 | PHYS DOC ---
Past History Past Medical History: CHF, COPD, CVA, Seizure Past Surgical History: Other Additional Past Surgical Histo: stent placed at [place] on saturday01/05/19 Alcohol Use: None Drug Use: None Adult General Chief Complaint Chief Complaint: SHORTNESS OF BREATH HPI HPI Patient is a 68-year-old female with past medical history significant for COPD and not currently on home oxygen and also questionable seizure diagnosis. Patient is brought by EMS due to reported increasing shortness of breath past day or so and reported seizure this morning. She does not recall details of the seizure. She states that she did urinate herself. She took a breathing treatment this morning and she was also given a breathing treatment in route complaining of shortness of breath. Denies chest pain. Of note patient states that she was taken off of her Keppra when she was in the hospital recently While examination Patient had a witnessed seizure-like activity that lasted for approximately 30 seconds. She had total body shaking and her head turned to the right and she was leaking. She was given 1 mg of Ativan after resolution of. Approximately 5 minutes later the patient had similar activity that lasted for approximately 30 seconds. She did not urinate herself either time and she was not postictal Review of Systems Review of Systems All other systems were reviewed and found to be within normal limits, except as documented in this note. Current Medications Current Medications Current Medications Medications (Trade) Dose Ordered Sig/Sherrie Start Time Stop Time Status Last Admin Dose Admin Albuterol/ Ipratropium (Duoneb) 3 ml 1X ONCE 06/05/19 10:30 06/05/19 10:31 DC Levetiracetam 1000 mg/Sodium Chloride 100 ml @ 400 mls/hr 1X ONCE 06/05/19 10:45 06/05/19 10:59 UNV Lorazepam (Ativan Inj) 1 mg 1X ONCE 06/05/19 10:45 06/05/19 10:46 UNV Methylprednisolone Sodium Succinate (SOLU-Medrol 125MG VIAL) 125 mg 1X ONCE 06/05/19 10:30 06/05/19 10:31 DC Sodium Chloride 1,000 ml @ 1,000 mls/hr 1X ONCE 06/05/19 10:30 06/05/19 11:29 Allergies Allergies Allergies Coded Allergies Type Severity Reaction Last Updated Verified aspirin Allergy Severe SEIZURE 05/26/19 No prednisone Allergy Severe SEIZURES 05/26/19 No fentanyl Allergy Intermediate 05/26/19 Yes oxycodone Allergy Intermediate 05/26/19 Yes Physical Exam Physical Exam Constitutional: Well developed, well nourished, anxious, non-toxic appearance. [] HENT: Normocephalic, atraumatic, bilateral external ears normal, oropharynx moist, no oral exudates, nose normal. [] Eyes: PERRLA, EOMI, conjunctiva normal, no discharge. [] Neck: Normal range of motion, no tenderness, supple, no stridor. [] Cardiovascular:Heart rate regular rhythm, no murmur [] Lungs & Thorax: Bilateral breath sounds clear to auscultation [] Abdomen: Bowel sounds normal, soft, no tenderness, no masses, no pulsatile masses. [] Skin: Warm, dry, no erythema, no rash. [] Back: No tenderness, no CVA tenderness. [] Extremities: No tenderness, no cyanosis, no clubbing, ROM intact, no edema. [] Neurologic: Alert and oriented X 3, resting tremor, normal sensory function, no focal deficits noted. [] Psychologic: Affect normal, judgement normal, mood normal. [] Current Patient Data Lab Results Laboratory Tests Test 06/05/19 10:15 06/05/19 10:32 White Blood Count 4.7 x10^3/uL Red Blood Count 4.67 x10^6/uL Hemoglobin 13.2 g/dL Hematocrit 40.4 % Mean Corpuscular Volume 87 fL Mean Corpuscular Hemoglobin 28 pg Mean Corpuscular Hemoglobin Concent 33 g/dL Red Cell Distribution Width 15.1 % Platelet Count 229 x10^3/uL Neutrophils (%) (Auto) 46 % Lymphocytes (%) (Auto) 39 % Monocytes (%) (Auto) 10 % Eosinophils (%) (Auto) 5 % Basophils (%) (Auto) 1 % Neutrophils # (Auto) 2.2 x10^3uL Lymphocytes # (Auto) 1.8 x10^3/uL Monocytes # (Auto) 0.5 x10^3/uL Eosinophils # (Auto) 0.2 x10^3/uL Basophils # (Auto) 0.0 x10^3/uL Sodium Level 143 mmol/L Potassium Level 3.9 mmol/L Chloride Level 106 mmol/L Carbon Dioxide Level 26 mmol/L Anion Gap 11 Blood Urea Nitrogen 13 mg/dL Creatinine 0.9 mg/dL Estimated GFR (Cockcroft-Gault) 62.1 Glucose Level 201 mg/dL Calcium Level 9.0 mg/dL Troponin I Quantitative < 0.017 ng/mL GA-Sff-X-Type Natriuretic Peptide 226 pg/mL Influenza Type A (Rapid) Negative Influenza Type B (Rapid) Negative Current Medications Medications (Trade) Dose Ordered Sig/Sherrie Route PRN Reason Start Time Stop Time Status Last Admin Dose Admin Albuterol/ Ipratropium (Duoneb) 3 ml STK-MED ONCE .ROUTE 06/05/19 10:23 06/05/19 10:24 DC Albuterol/ Ipratropium (Duoneb) 3 ml 1X ONCE NEB 06/05/19 10:30 06/05/19 10:31 DC 06/05/19 10:27 Methylprednisolone Sodium Succinate (SOLU-Medrol 125MG VIAL) 125 mg 1X ONCE IV 06/05/19 10:30 06/05/19 10:31 DC 06/05/19 10:30 Sodium Chloride 1,000 ml @ 1,000 mls/hr 1X ONCE IV 06/05/19 10:30 06/05/19 11:29 06/05/19 10:30 Lorazepam (Ativan Inj) 2 mg STK-MED ONCE .ROUTE 06/05/19 10:29 06/05/19 10:29 DC Lorazepam (Ativan Inj) 1 mg 1X ONCE IVP 06/05/19 10:45 06/05/19 10:46 DC 06/05/19 10:45 Levetiracetam 1000 mg/Sodium Chloride 100 ml @ 400 mls/hr 1X ONCE IV 06/05/19 10:45 06/05/19 10:59 DC 06/05/19 10:45 EKG EKG [] Radiology/Procedures Radiology/Procedures EXAM: CHEST AP ONLY INDICATION: Shortness of air. Seizures.. TECHNIQUE: Single portable upright AP chest COMPARISON: 05/10/2019 FINDINGS: The heart size is normal. The great vessels appear unremarkable. There is no hilar or mediastinal mass. The lungs are hyperlucent of the APCs in a pattern suggesting underlying COPD but otherwise are clear. There is no pleural effusion or pneumothorax. There are no significant osseous abnormalities. IMPRESSION: Findings suggestive of COPD with no superimposed active cardiopulmonary disease. Electronically signed by: Janette Everett MD (06/05/2019 10:58 AM) [facility][] Course & Med Decision Making Course & Med Decision Making Patient seen for perceived shortness of breath and possible seizure-like activity. She was placed on 2 L nasal cannula by EMS. The patient was taken off oxygen she was 95% on room air. She has mild right upper lobe wheezing so a third DuoNeb treatment was ordered. Patient was also ordered to have Solu- Medrol. She did have the 2 witnessed seizure-like activities in the ED and has been given 1 mg of Ativan; also ordered 1 g of Keppra IV to be given. At this time her seizures appear to be possible pseudoseizures. Patient's workup is completed at this time and is unremarkable. Given her presentation to the 79 and 2 witnessed seizure-like activities and some wheezing initially we will admit for seizure-like activity, COPD exacerbation, anxiousness. Dragon Disclaimer Dragon Disclaimer This electronic medical record was generated, in whole or in part, using a voice recognition dictation system. Departure Departure: Impression: Primary Impression: Observed seizure-like activity Additional Impressions: Anxiousness COPD exacerbation Disposition: ADMITTED INPATIENT Admitting Physician: Chaparrita Cisse Condition: STABLE Referrals: BAILEY MORSE MD (PCP) Problem Qualifiers CASSIUS RAE DO Jun 05, 2019 10:42
--- NOTE | 2019-06-05 11:01 | RAD ---
EXAM: CHEST AP ONLY INDICATION: Shortness of air. Seizures.. TECHNIQUE: Single portable upright AP chest COMPARISON: 05/10/2019 FINDINGS: The heart size is normal. The great vessels appear unremarkable. There is no hilar or mediastinal mass. The lungs are hyperlucent of the APCs in a pattern suggesting underlying COPD but otherwise are clear. There is no pleural effusion or pneumothorax. There are no significant osseous abnormalities. IMPRESSION: Findings suggestive of COPD with no superimposed active cardiopulmonary disease. Electronically signed by: Janette Everett MD (06/05/2019 10:58 AM) [facility]
[2019-06-05 11:15] LABS: INFLUENZA A PATIENT NEGATIVE (NEGATIVE); INFLUENZA B PATIENT NEGATIVE (NEGATIVE)
[2019-06-05 13:37] VITALS: BP 149/77
[2019-06-05] MEDS ORDERED: HYDROcodone/APAP 10/325 1 TAB TABLET PO PRN (17:30)
--- NOTE | 2019-06-05 18:29 | HP ---
ADMIT DATE: 06/05/2019 HISTORY OF PRESENT ILLNESS: The patient is a 68-year-old female patient who came to the Emergency Room by EMS due to reported increasing shortness of breath last day or so and reported seizures this morning. She does not recall details of seizures. She stated that she did urinate on herself. She took a breathing treatment this morning and she was also given a breathing treatment en route. She was complaining of shortness of breath. Denied any chest pain. Of note, the patient states that she has taken off her Keppra when she was in the hospital recently. On arrival to the Emergency Room, the patient had a witnessed seizure-like activity that lasted for approximately 30 seconds. She had had a total body shaking and her head turned to the right and she was leaking. She was given 1 mg of Ativan after resolution. Approximately 5 minutes later, the patient had similar activity that lasted approximately 30 seconds. She did not urinate on herself either time and she was not postictal. She was investigated in the Emergency Room and her lab works were essentially unremarkable. Her influenza A and B were negative. Her chest x-ray showed that the heart size is normal. The great vessels appear unremarkable. There is no hilar or mediastinal mass. The lungs are hyperlucent in a pattern suggesting underlying COPD, but otherwise are clear. There is no pleural effusion or pneumothorax. There is no significant osseous abnormality. The patient was admitted for observation and to consult Dr. Garcia again. PAST MEDICAL HISTORY: Coronary artery disease, status post PCI with stent deployment. She has type 2 diabetes, hyperlipidemia, chronic obstructive pulmonary disease/bronchial asthma. She also has a history of DVT and pulmonary embolism. She has generalized osteoarthritis, degenerative disk disease, has right middle cerebral artery territory infarct, left side hemiplegia. In 06/2018, she also claimed that she has seizures, although most people who observed her did not really describe typical tonic-clonic seizures. They did not see any tongue biting or bowel or bladder incontinence. She was actually seen at [facility] and at that time, she was taken off her antiepileptic medication. PAST SURGICAL HISTORY: Significant for PCI with stent deployment, right rotator cuff repair, cholecystectomy, total abdominal hysterectomy, bilateral salpingo-oophorectomy, and left carpal tunnel release. ALLERGIES: SHE IS ALLERGIC TO ASPIRIN AND PREDNISONE. SHE ALSO STATES THAT SHE IS ALLERGIC TO OXYCODONE AND FENTANYL. FAMILY HISTORY: She has 2 brothers, older and healthy. Two sisters, one of them is at the age of 65 because of cancer and heart problems. Her father at the age of 82 because of lung cancer, myocardial infarction. Her mother at age of 83 because of myocardial infarction. SOCIAL HISTORY: She is . She has 1 son and 2 daughters. She has been secondhand smoker. She does not drink alcohol or use any recreational drugs. 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 REVIEW OF SYSTEMS: As per history of present illness. MEDICATIONS: She is currently on following medications: She is on Plavix 75 mg once a day, Crestor 20 mg at bedtime, isosorbide mononitrate 30 mg daily, metoprolol tartrate 12.5 mg twice a day, hydrocodone/APAP 10/325 one tablet every 6 hours, gabapentin 600 mg daily, gabapentin 300 mg twice a day, trazodone 25 mg at bedtime, alprazolam 1 mg 3 times a day, pramipexole for Mirapex 0.5 mg at bedtime. She is on Singulair 10 mg at bedtime and she is on Lantus insulin 12 units at bedtime. PHYSICAL EXAMINATION: GENERAL: On arrival to the Emergency Room, she looked well and was clearly in no apparent respiratory distress. No pallor, jaundice, cyanosis or thyromegaly. No jugular venous distention. No limb edema. VITAL SIGNS: Her heart rate was 83, blood pressure 131/79, temperature was 97.9, respiratory rate was 18 and oxygen saturation was 96%. HEAD, EYES, EARS, NOSE AND THROAT: Showed normocephalic, atraumatic. NECK: Supple. HEART: Showed normal first and second heart sounds. No gallop or murmur. CHEST: Clear to auscultation. No crepitation or rhonchi. ABDOMEN: Slightly distended, soft, nontender. No guarding or rigidity. No organomegaly. All hernial orifices intact. Bowel sounds normal. NEUROLOGIC: She is alert, oriented x 3. She has resting tremors. She has normal motor and sensory function with no obvious lateralizing sign. She apparently has 2 seizure-like activities that lasted about 30 seconds at the Emergency Room. LABORATORY DATA: Her lab work showed a white cell count 4700, hemoglobin 13, hematocrit 40, MCV 87 and platelet count 229,000 with normal manual differential. Her serum sodium was 143, potassium 3.9, chloride 106, bicarbonate 26, anion gap of 11, BUN 13, creatinine 0.9, estimated GFR was 62 mL per minute. Her glucose was high at 201, calcium was 9. Troponin was less than 0.017 and beta natriuretic peptide was 226. Her influenza A and B were negative. Her chest x-ray showed that the heart size is normal, the great vessels appear unremarkable. There is no hilar or mediastinal mass. The lungs are hyperlucent in a pattern suggesting underlying COPD, but otherwise are clear. There is no pleural effusion or pneumothorax. There is no significant osseous abnormality. ASSESSMENT AND PLAN: The patient was admitted with seizure-like activity. She continued to complain of chest pain due to her sternal fracture, although I never really find any documentation that she did have a sternal fracture. In any case, we will reconcile all her medications and I will consult Dr. Garcia and decide the further management accordingly. APOLONIA PLUNKETT MD DR: SUHA/eliezer JOB#: [id number] / [id number]
[2019-06-05 19:18] VITALS: BP 106/65
[2019-06-05] MEDS ORDERED: traZODone 50 MG TABLET. PO SCH (21:00)
[2019-06-05] MEDS ORDERED: PRAMIPEXOLE 0.25 MG TABLET. PO SCH (21:00)
[2019-06-05] MEDS ORDERED: ATORVASTATIN CALCIUM 20 MG TABLET PO SCH (21:00)
[2019-06-05] MEDS ORDERED: MONTELUKAST 10 MG TABLET. PO SCH (21:00)
[2019-06-05] MEDS ORDERED: INSULIN GLARGINE SYRINGE. SQ SCH (21:00)
[2019-06-05] MEDS: ALPRAZolam 0.5 MG TABLET PO SCH (21:36)
[2019-06-05] MEDS: METOPROLOL TART IMMED RELEASE 25 MG TABLET PO SCH (21:37)
[2019-06-05 23:27] VITALS: BP 115/80
--- NOTE | 2019-06-06 00:45 | CONS ---
DATE OF CONSULTATION: 06/05/2019 NEUROLOGY CONSULTATION REFERRING PHYSICIAN: Dr. Cisse. REASON FOR CONSULTATION: Recurrent seizure-like activities. HISTORY OF PRESENT ILLNESS: This is a 68-year-old right-handed female who was admitted through Emergency Room after she presented with 1-2 days history of increased shortness of breath without chest pain. Apparently, the patient had 2 spells of seizure-like activity described as generalized shaking witnessed in the Emergency Room. The first one described as generalized jerking movements with turning the head to one side and eyes rolling up in the back of the head. However, the patient stated she remembered the spells and she did not lose her consciousness. It was reported that the patient had urinary incontinence with post-event confusion. The spell lasted approximately 2-3 minutes. 5 minutes later, the patient had another spell lasted 30 seconds and described as a generalized mild tremor of the upper and lower extremities without urinary incontinence or post-event confusion. The patient was admitted twice to this institution in the last few weeks. The last one was just recently. The patient was transferred after the first admission to [facility] and she had extensive workup including a brain MRI and electroencephalogram. In recent admission, the medical record from [facility] was requested, but the patient signed AMA. Currently, the patient denies headaches, visual disturbances, nausea, vomiting, chest pain, but she complains of intermittent global headaches without photophobia or phonophobia. She denies diplopia or dysarthria. PAST MEDICAL HISTORY: Significant for coronary artery disease, status post stent placement, COPD, diabetes mellitus type 2, status post stent placement, DVT and pulmonary embolism, osteoarthritis and chronic lower back pain secondary to degenerative disk disease, history of right MCA infarct with left-sided hemiparesis in 06/2018, history of seizure and her primary physician discontinued anticonvulsant -- Keppra in the last 2 weeks. PAST SURGICAL HISTORY: Positive for stent placement, right rotator cuff repair, cholecystectomy, total abdominal hysterectomy, and left carpal tunnel release. FAMILY HISTORY: Positive for coronary artery disease and cancer. Father at the age of 82 from lung cancer and myocardial infarction. Mother at the age of 83 from coronary artery disease and myocardial infarction. SOCIAL HISTORY: The patient is . She has 2 daughters and 1 son. She denies smoking, but she is second-hand smoker. She denies alcohol drinking or illicit drug use. CURRENT HOME MEDICATIONS: Plavix 75 mg p.o. daily, Crestor 20 mg daily at bedtime, isosorbide mononitrate 30 mg daily, metoprolol 12.5 mg twice daily, hydrocodone/APAP 10/325 mg q. 6 hours p.r.n. for pain, gabapentin 300 mg twice daily, trazodone 25 mg at bedtime, alprazolam 1 mg 3 times daily, Mirapex 0.5 mg at bedtime likely for restless leg or tremor, Singulair 10 mg at bedtime. She is on Lantus insulin 12 units at bedtime. ALLERGIES: ASPIRIN, PREDNISONE, OXYCODONE, AND FENTANYL. REVIEW OF SYSTEMS: A 10-point review of system was performed as mentioned above in history of present illness, otherwise unremarkable. PHYSICAL EXAMINATION: GENERAL: A well-developed, well-nourished female, not in acute distress. VITAL SIGNS: Blood pressure 149/77, respiratory rate 20, pulse is 97, temperature 97.3, and oxygen saturation is 96% on 2 liters by nasal cannula. HEENT: Normocephalic, atraumatic, otherwise unremarkable. NECK: Supple. Negative for carotid bruit, lymphadenopathy, or thyromegaly. LUNGS: With diminished breath sounds. No wheezing or rales. CARDIOVASCULAR: Regular rate and rhythm, normal S1, S2. There is no S3, S4 or murmurs. ABDOMEN: Soft. Bowel sounds positive. There is no palpable mass, organomegaly or tenderness. EXTREMITIES: Negative for cyanosis, clubbing or pitting edema. NEUROLOGICAL EXAM: 1. Mental Status: The patient is alert and oriented x 3. Speech is fluent. There is no language dysfunction. Memory, judgment, and abstracting thinking are normal. The patient denies hallucination or delusion. 2. Cranial Nerves: Visual griggs are full. The pupils are reactive to light and accommodation. The extraocular movements are intact. There is no nystagmus. There is no facial motor or sensory deficit. Hearing is intact bilaterally. The palate is elevated symmetrically. Sternocleidomastoid muscles are powerful bilaterally. The patient shrugs her shoulders symmetrically and protrudes her tongue in the midline without fasciculation or atrophy. 3. Motor Examination: No focal muscle bulk was seen. The tone is normal. The strength is 4/5 throughout. 4. Sensory Examination: Revealed normal pinprick, light touch, vibratory and position senses. Deep tendon reflexes were symmetric and hypoactive and absent Achilles responses. Gait not tested. LABORATORY DATA: CBC revealed white blood cells of 4.7 thousand, hemoglobin 13.2, hematocrit 40.4, and platelet count 229,000. Chemistry revealed sodium of 143, potassium of 3.9, chloride 106, CO2 26, BUN 13, creatinine 0.9, glucose 201, calcium 9 and NPB is elevated at 226. DIAGNOSTIC DATA: Chest x-ray revealed COPD without acute cardiopulmonary process. IMPRESSION: 1. Recurrent seizure-like activities, probably represent psychogenic or pseudoseizure. 2. History of seizure disorder and possible for cerebral infarct. 3. Multiple medical problems include chronic obstructive pulmonary disease, diabetes mellitus, osteoarthritis, asthma, chronic low back pain secondary to degenerative disk disease and coronary artery disease, required stent placements. RECOMMENDATIONS: 1. To obtain medical record from [facility]. 2. Continue with current management initiated by Dr. Cisse. M Dottie LOYD MD DR: ZHANE/eliezer JOB#: [id number] / [id number]
[2019-06-06] MEDS: IPRATRPIUM/ALBUTEROL 0.5/2.5MG 3 ML NEBU. NEB SCH (05:25)
[2019-06-06 05:40] VITALS: BP 97/62
[2019-06-06 06:46] LABS: CALCIUM 8.4 mg/dL (8.5-10.1); CREATININE 0.8 mg/dL (0.6-1.0); GFR 71.1; POTASSIUM 4.6 mmol/L (3.5-5.1)
[2019-06-06] MEDS ORDERED: DEXTROSE 50% 25 GM / 50ML DISP.SYRIN. IV PRN (07:30)
[2019-06-06] MEDS ORDERED: GABAPENTIN 300 MG CAPSULE. PO SCH ×2 (08:00→11:30)
[2019-06-06] MEDS: INSULIN LISPRO 300 UNITS/3 ML VIAL. SQ SCH ×2 (08:34→12:38)
[2019-06-06] MEDS: ALPRAZolam 0.5 MG TABLET PO SCH ×2 (08:35→14:00)
[2019-06-06] MEDS ORDERED: ISOSORBIDE MONONITRATE ER 30 MG TAB.ER.24H PO SCH (09:00)
[2019-06-06] MEDS ORDERED: CLOPIDOGREL BISULFATE 75 MG TABLET PO SCH (09:00)
[2019-06-06 10:52] VITALS: BP 108/66
[2019-06-06 12:33] VITALS: BP 108/66
[2019-06-06] MEDS: METOPROLOL TART IMMED RELEASE 25 MG TABLET PO SCH (12:33)
--- NOTE | 2019-06-06 12:58 | PN ---
DATE: 06/06/2019 SUBJECTIVE: The patient denies any new medical or neurological complaints. She has not had any seizure-like activities or obvious tremor this morning. OBJECTIVE: GENERAL: Well-developed, well-nourished female, not in acute distress. VITAL SIGNS: Blood pressure 108/66, respiratory rate 12, pulse is 83, oxygen saturation 96% on 2 liters by nasal cannula. HEENT: Normocephalic, atraumatic, otherwise unremarkable. NECK: Supple. Negative for carotid bruit, lymphadenopathy or thyromegaly. LUNGS: Clear to A and P. CARDIOVASCULAR: Regular rate and rhythm, normal S1, S2. There is no S3, S4 or murmur. ABDOMEN: Soft. Bowel sounds positive. EXTREMITIES: Negative for cyanosis, clubbing, pitting edema. NEUROLOGICAL EXAMINATION: Normal mental status and intact cranial nerves. Very mild postural tremor of the left hand. Otherwise, no focal motor or sensory deficit. The strength was 4/5 throughout. Sensory examination revealed normal pinprick and light touch senses throughout. Deep tendon reflexes were asymmetric and hypoactive with absent Achilles responses. Gait: The patient has a steady stance. IMPRESSION: 1. Tremor of the upper extremity and seizure-like activities, probably represent psychogenic seizure due to anxiety. 2. Multiple medical problems include chronic obstructive pulmonary disease, degenerative disk disease, lower back pain, coronary artery disease and anxiety. RECOMMENDATIONS: 1. Continue with current management. 2. Follow up with Dr. Loyd after one week from discharge. M Dottie LOYD MD DR: ZHANE/eliezer JOB#: [id number] / [id number]
--- NOTE | 2019-06-06 15:16 | DS ---
DATE OF DISCHARGE: 06/06/2019 HOSPITAL COURSE: The patient was admitted with seizure-like activity. She apparently has seen multiple facilities and in fact, she was taken off her Keppra when she was at [facility] recently. She has these seizure-like activities in the Emergency Room and none was noted since she was admitted to the hospital. When I saw her today, she was more awake, alert. Denied any complaint. Denied any further episodes of seizures. She has never been postictal. She never bitten her tongue and was incontinent. She was seen in consultation by Dr. Garcia who thinks that these are old psychogenic nonepileptic seizures and he recommended that she can be discharged home to be followed as an outpatient. PHYSICAL EXAMINATION: GENERAL: When I saw her this afternoon, she looked well and was clearly in no apparent respiratory distress. No pallor, jaundice, cyanosis or thyromegaly. No jugular venous distension. No lower limb edema. VITAL SIGNS: Her heart rate was 83, blood pressure was 108/66, temperature was 97.2, respiratory rate was 12 and oxygen saturation was 96% on 2 liters of oxygen. HEAD, EYES, EARS, NOSE AND THROAT: Showed normocephalic, atraumatic. NECK: Supple. HEART: Showed normal first and second heart sounds. No gallop or murmur. CHEST: Clear to auscultation. No crepitation or rhonchi. ABDOMEN: Distended, soft, nontender. NEUROLOGIC: She is definitely more awake, alert, responding appropriately. All cranial nerves intact. She moves extremities without difficulty. She ambulates ____ LABORATORY DATA: Today showed a serum sodium 141, potassium 4.6, chloride 102, bicarbonate 23, anion gap of 16, BUN 15, creatinine 0.8, estimated GFR was 71 mL per minute. Her glucose was 332 and calcium was 8.4. DISCHARGE MEDICATIONS: She was discharged home to continue on following medications: Alprazolam 1 mg 3 times a day, Plavix 75 mg once a day, gabapentin 600 mg daily, gabapentin 300 mg twice a day, hydrocodone/APAP 10/325 one tablet every 6 hours. She is on Lantus insulin 12 units at bedtime, isosorbide mononitrate 30 mg once a day, metoprolol tartrate 12.5 mg twice a day, montelukast sodium 10 mg at bedtime, Mirapex 0.25 mg at bedtime, Crestor 20 mg at bedtime and trazodone 50 mg at bedtime. FINAL DISCHARGE DIAGNOSES: 1. Psychogenic nonepileptic seizures. 2. Anxiety and depression. 3. Coronary artery disease, status post PCI with stent deployment. 4. Type 2 diabetes mellitus, suboptimally controlled. 5. Hyperlipidemia. 6. Chronic obstructive pulmonary disease/bronchial asthma. The patient was advised to follow with her primary care physician as well as follow with Dr. Garcia as an outpatient. Her blood sugar was suboptimally controlled. She advised to increase her Lantus and follow with her primary care physician to achieve a better control of her blood sugar. APOLONIA PLUNKETT MD DR: SUHA/eliezer JOB#: [id number] / [id number]
== END 2019-06-06 14:33 | disposition home or self-care (01) ==
LOC: ER 10:14 → 1 SOUTH 13:04 → INTOOBSV 13:04
PROVIDERS: ADMIT Internal Medicine; ATTEND Internal Medicine
DX: G40.409 Other generalized epilepsy and epileptic syndromes, not intractable, without status epilepticus (principal); R07.89 Other chest pain; I25.10 Atherosclerotic heart disease of native coronary artery without angina pectoris; E11.9 Type 2 diabetes mellitus without complications; E78.5 Hyperlipidemia, unspecified; J44.1 Chronic obstructive pulmonary disease with (acute) exacerbation; M15.9 Polyosteoarthritis, unspecified; G40.909 Epilepsy, unspecified, not intractable, without status epilepticus; M51.36 Other intervertebral disc degeneration, lumbar region; F41.8 Other specified anxiety disorders; I50.9 Heart failure, unspecified; Z86.711 Personal history of pulmonary embolism; Z86.718 Personal history of other venous thrombosis and embolism; Z79.899 Other long term (current) drug therapy; Z95.5 Presence of coronary angioplasty implant and graft; Z79.02 Long term (current) use of antithrombotics/antiplatelets; Z77.22 Contact with and (suspected) exposure to environmental tobacco smoke (acute) (chronic); Z79.4 Long term (current) use of insulin; Z86.73 Personal history of transient ischemic attack (TIA), and cerebral infarction without residual deficits; Z90.710 Acquired absence of both cervix and uterus
CPT/HCPCS: 36415; 71045; 80048; 82947; 83880; 84484; 85025; 87804; 94640; 96372; 96374; 96375; 99284; G0378; J1815; J1953; J2060; J2930; J7620; 96365; 96366; 99285; G0379; J7030

== ENCOUNTER 2019-06-25 14:40 | Observation (INO) | payer MEDICARE ==
[~2019-06-25] VITALS: Ht 162.6 cm; Wt 95.0 kg
[2019-06-25] MEDS ORDERED: IV NORMAL SALINE 1,000ML 1,000 ML IV SCH (15:11)
--- NOTE | 2019-06-25 15:24 | PHYS DOC ---
Past History Past Medical History: COPD, Seizure Past Surgical History: No Surgical History Additional Past Surgical Histo: stent placed at [place] on saturday01/05/19 Alcohol Use: None Drug Use: None Adult General Chief Complaint Chief Complaint: DIZZY/LIGHT HEADED HPI HPI Patient is a 68-year-old female who presents to the emergency department for evaluation. She states earlier this morning she began experiencing dizziness, described as a lightheadedness. She reports feeling weak all over. She denies any vision changes, admits to a mild headache. She states she fell, and injured her left leg, just distal to the knee. She is able to ambulate. She denies any chest pain, shortness of breath, numbness, or focal weakness. She states several months ago she was diagnosed with seizures by [facility] and placed on Keppra, but her PCP discontinued the medication about a month ago, stating that the patient did not have seizures but was primarily under a lot of stress. The patient states she does take Xanax for anxiety chronically but does not feel particularly anxious at this time. There are no alleviating or exacerbating factors to her symptoms. Review of Systems Review of Systems Constitutional: Denies fever or chills [] Eyes: Denies change in visual acuity, redness, or eye pain [] HENT: Denies nasal congestion or sore throat [] Respiratory: Denies cough or shortness of breath [] Cardiovascular: The patient denies any shortness of breath, chest pain, palpitations, or orthopnea[] GI: Denies abdominal pain, nausea, vomiting, bloody stools or diarrhea [] : Denies dysuria or hematuria [] Musculoskeletal: Denies back pain or joint pain [] Integument: Denies rash or skin lesions [] Neurologic: Denies , focal weakness or sensory changes [] Endocrine: Denies polyuria or polydipsia [] All other systems were reviewed and found to be within normal limits, except as documented in this note. Current Medications Current Medications Current Medications Medications (Trade) Dose Ordered Sig/Sherrie Start Time Stop Time Status Last Admin Dose Admin Lorazepam (Ativan Inj) 1 mg 1X ONCE 06/25/19 15:30 06/25/19 15:31 Sodium Chloride 1,000 ml @ 100 mls/hr Q10H 06/25/19 15:11 06/26/19 01:10 Allergies Allergies Allergies Coded Allergies Type Severity Reaction Last Updated Verified prednisone Allergy Severe SEIZURES 06/25/19 No fentanyl Allergy Intermediate 06/25/19 Yes oxycodone Allergy Intermediate 06/25/19 Yes Physical Exam Physical Exam PHYSICAL EXAM: CONSTITUTIONAL: Well developed, well nourished HEAD: normocephalic, atraumatic EENT: PERRL, EOMI. Conjunctivae normal color, sclerae non-icteric; moist mucous membranes. NECK: Supple, non-tender; no meningismus. LUNGS: Lungs CTA, breathing even and unlabored. Normal air movement. HEART: Regular rate and rhythm, no murmur CHEST: No deformity; non-tender ABDOMEN: The abdomen is soft, and non-tender, no masses or bruits. EXTREM: Normal ROM; no deformity, no calf tenderness. Normal pulses palpable in all extremities. There is no pedal edema. There is tenderness to palpation of the small contusion just distal to the left knee on the proximal tibia anteriorly/laterally. Remainder of the extremities are atraumatic. SKIN: No rash; no diaphoresis NEURO: Alert; there is mild stuttering of the speech, intermittent. There is no focal deficit in strength of the extremities. Cranial nerves II through XII are intact. Visual griggs are intact by confrontation. Lqjxhc-[id number]-fmzmof and heel marie testing is normal. There is a tremor in the upper extremities bilaterally. Sensation is grossly normal BACK: No CVA TTP. PSYCHIATRIC: The patient appears moderately anxious. Current Patient Data Lab Results Laboratory Tests Test 06/25/19 15:20 White Blood Count 3.6 x10^3/uL Red Blood Count 4.27 x10^6/uL Hemoglobin 12.0 g/dL Hematocrit 36.8 % Mean Corpuscular Volume 86 fL Mean Corpuscular Hemoglobin 28 pg Mean Corpuscular Hemoglobin Concent 33 g/dL Red Cell Distribution Width 15.3 % Platelet Count 188 x10^3/uL Neutrophils (%) (Auto) 54 % Lymphocytes (%) (Auto) 30 % Monocytes (%) (Auto) 11 % Eosinophils (%) (Auto) 5 % Basophils (%) (Auto) 0 % Neutrophils # (Auto) 1.9 x10^3uL Lymphocytes # (Auto) 1.1 x10^3/uL Monocytes # (Auto) 0.4 x10^3/uL Eosinophils # (Auto) 0.2 x10^3/uL Basophils # (Auto) 0.0 x10^3/uL Sodium Level 144 mmol/L Potassium Level 3.9 mmol/L Chloride Level 106 mmol/L Carbon Dioxide Level 26 mmol/L Anion Gap 12 Blood Urea Nitrogen 11 mg/dL Creatinine 0.7 mg/dL Estimated GFR (Cockcroft-Gault) 83.0 BUN/Creatinine Ratio 16 Glucose Level 239 mg/dL Calcium Level 8.8 mg/dL Magnesium Level 1.8 mg/dL Total Bilirubin 0.4 mg/dL Aspartate Amino Transf (AST/SGOT) 15 U/L Alanine Aminotransferase (ALT/SGPT) 19 U/L Alkaline Phosphatase 99 U/L Troponin I Quantitative < 0.017 ng/mL Total Protein 6.9 g/dL Albumin 3.7 g/dL Albumin/Globulin Ratio 1.2 Current Medications Medications (Trade) Dose Ordered Sig/Sherrie Route PRN Reason Start Time Stop Time Status Last Admin Dose Admin Lorazepam (Ativan Inj) 1 mg 1X ONCE IVP 06/25/19 15:30 06/25/19 15:31 DC 06/25/19 15:44 Sodium Chloride 1,000 ml @ 100 mls/hr Q10H IV 06/25/19 15:11 06/26/19 01:10 06/25/19 15:43 EKG EKG Normal sinus rhythm a rate of 77 beats for minute, left axis deviation, QTC of 475 ms with otherwise normal intervals. There are no acute ischemic ST/T changes.[] Radiology/Procedures Radiology/Procedures PROCEDURE: CHEST AP ONLY EXAM: CHEST 1 VIEW History: Dizziness COMPARISON: 06/05/2019 TECHNIQUE: Single portable radiograph of the chest FINDINGS: Mild cardiomegaly. Mild prominent bilateral interstitial lung markings. The costophrenic sulci are clear and well demarcated. IMPRESSION: Mild prominent bilateral bilateral perihilar interstitial lung markings likely interstitial infiltrates or atelectasis. [] PROCEDURE: KNEE LEFT 3V Examination: 3 views of the left knee HISTORY: History of dizziness COMPARISON: None available FINDINGS: The alignment of the knee joint grossly appears unremarkable. There is mild joint space loss identified in medial, lateral, patellofemoral compartments. IMPRESSION: Mild tricompartmental degenerative changes. PROCEDURE: CT HEAD WO CONTRAST INDICATION: Dizziness COMPARISON: May 26, 2019 TECHNIQUE: Axial CT images obtained through the head without intravenous contrast. One or more of the following individualized dose reduction techniques were utilized for this examination: 1. Automated exposure control; 2. Adjustment of the mA and/or kV according to patient size; 3. Use of iterative reconstruction technique. FINDINGS: No intracranial hemorrhage. No midline shift. Basal cisterns patent. Ventricles and sulci are unremarkable. No acute osseous abnormality. Orbits and paranasal sinuses unremarkable. Linear high density structure in the subcutaneous soft tissues at the right frontal region laterally is again seen. Could be from chronic foreign body in the soft tissues, postoperative changes or linear calcification. IMPRESSION: * No acute intracranial hemorrhage. Course & Med Decision Making Course & Med Decision Making Pertinent Labs and Imaging studies reviewed. (See chart for details) []5:15 PM: The patient's condition remains stable. She feels too weak and dizzy to go home at this time, although she is able to ambulate with some assistance although she is unsteady. I discussed the case with the hospitalist will admit the patient overnight for further observation and testing Dragon Disclaimer Dragon Disclaimer This electronic medical record was generated, in whole or in part, using a voice recognition dictation system. Departure Departure: Impression: Primary Impression: Dizziness Additional Impressions: Weakness Anxiety Psychogenic nonepileptic seizure Disposition: ADMITTED INPATIENT Admitting Physician: Chaparrita Cisse Condition: STABLE Referrals: BAILEY MORSE MD (PCP) Problem Qualifiers KYLEIGH RESTREPO MD Jun 25, 2019 15:24
[2019-06-25 15:41] LABS: CALCIUM 8.8 mg/dL (8.5-10.1); CREATININE 0.7 mg/dL (0.6-1.0); POTASSIUM 3.9 mmol/L (3.5-5.1)
[2019-06-25 15:44] LABS: BASO % 0 % (0-3); EOS # 0.2 x10^3/uL (0.0-0.7); EOS % 5 % (0-3); HEMATOCRIT 36.8 % (36.0-47.0); LYMPH # 1.1 x10^3/uL (1.0-4.8); LYMPH % 30 % (24-48); MEAN CORPUSCULAR HEMOGLOBIN 28 pg (25-35); MEAN CORPUSCULAR HGB CONC 33 g/dL (31-37); MEAN CORPUSCULAR VOLUME 86 fL (79-100); MONO # 0.4 x10^3/uL (0.0-1.1); MONO % 11 % (0-9); NEUT # 1.9 x10^3uL (1.8-7.7); NEUT % 54 % (31-73); PLATELET COUNT 188 x10^3/uL (140-400); RED BLOOD COUNT 4.27 x10^6/uL (3.50-5.40); RED CELL DISTRIBUTION WIDTH 15.3 % (11.5-14.5); WHITE BLOOD COUNT 3.6 x10^3/uL (4.0-11.0)
--- NOTE | 2019-06-25 15:48 | RAD ---
INDICATION: Dizziness COMPARISON: May 26, 2019 TECHNIQUE: Axial CT images obtained through the head without intravenous contrast. One or more of the following individualized dose reduction techniques were utilized for this examination: 1. Automated exposure control; 2. Adjustment of the mA and/or kV according to patient size; 3. Use of iterative reconstruction technique. FINDINGS: No intracranial hemorrhage. No midline shift. Basal cisterns patent. Ventricles and sulci are unremarkable. No acute osseous abnormality. Orbits and paranasal sinuses unremarkable. Linear high density structure in the subcutaneous soft tissues at the right frontal region laterally is again seen. Could be from chronic foreign body in the soft tissues, postoperative changes or linear calcification. IMPRESSION: * No acute intracranial hemorrhage. Electronically signed by: Tony Miller MD (06/25/2019 3:45 PM) [facility] [place]
[2019-06-25 15:50] LABS: ALBUMIN 3.7 g/dL (3.4-5.0); ALBUMIN/GLOBULIN RATIO 1.2 (1.0-1.7); MAGNESIUM 1.8 mg/dL (1.8-2.4); TOTAL BILIRUBIN 0.4 mg/dL (0.2-1.0); TOTAL PROTEIN 6.9 g/dL (6.4-8.2)
--- NOTE | 2019-06-25 15:54 | RAD ---
EXAM: CHEST 1 VIEW History: Dizziness COMPARISON: 06/05/2019 TECHNIQUE: Single portable radiograph of the chest FINDINGS: Mild cardiomegaly. Mild prominent bilateral interstitial lung markings. The costophrenic sulci are clear and well demarcated. IMPRESSION: Mild prominent bilateral bilateral perihilar interstitial lung markings likely interstitial infiltrates or atelectasis. Electronically signed by: Oskar Bobby MD (06/25/2019 3:51 PM) [id number]
--- NOTE | 2019-06-25 15:59 | RAD ---
Examination: 3 views of the left knee HISTORY: History of dizziness COMPARISON: None available FINDINGS: The alignment of the knee joint grossly appears unremarkable. There is mild joint space loss identified in medial, lateral, patellofemoral compartments. IMPRESSION: Mild tricompartmental degenerative changes. Electronically signed by: Oskar Bobby MD (06/25/2019 3:57 PM) [id number]
[2019-06-25] MEDS ORDERED: GABAPENTIN 100 MG CAPSULE. PO ONE (16:45)
[2019-06-25] MEDS ORDERED: HYDROcodone/APAP 10/325 1 TAB TABLET PO ONE (16:45)
--- NOTE | 2019-06-25 16:56 | EKG ---
[address] [address] Test Date: 2019-06-25 Test Time: 15:47:54 Pat Name: NILESH ENCINAS Department: Room: Gender: F Inside Steward/Stewardess: : 1950 Requested By: KYLEIGH RESTREPO Order Number: [id number] Reading MD: Measurements Intervals [place] Rate: 77 P: 59 [place]: 170 QRS: -17 QRSD: 82 T: 26 QT: 418 QTc: 475 Interpretive Statements SINUS RHYTHM LEFTWARD AXIS PROLONGED QT NO SPECIFIC ECG ABNORMALITIES RI6.01 No previous ECG available for comparison
--- NOTE | 2019-06-25 19:20 | NUR ---
The patient, NILESH ENCINAS, 68 y/o, F admitted by APOLONIA PLUNKETT MD, was given written information regarding hospital policies, unit procedures and contact persons. Valuables were checked. pts vitals were taken. pt is A&OX4. pt is up with 1 assist to the toilet. pt skin is intact. pt had no complaints of pain at this time. no complaints of shortness of air. pt stated she always breathes shallow. will continue to monitor pt for shortness of air or any pain.
[2019-06-25 19:35] VITALS: BP 171/72
[2019-06-25] MEDS ORDERED: INSU100I13 SQ (20:27)
[2019-06-25] MEDS ORDERED: HYDROcodone/APAP 10/325 1 TAB TABLET PO PRN (20:30)
[2019-06-25] MEDS ORDERED: INSULIN GLARGINE SYRINGE. SQ SCH (21:00)
[2019-06-25] MEDS ORDERED: traZODone 50 MG TABLET. PO SCH (21:00)
[2019-06-25] MEDS ORDERED: MONTELUKAST 10 MG TABLET. PO SCH (21:00)
[2019-06-25] MEDS ORDERED: ATORVASTATIN CALCIUM 20 MG TABLET PO SCH (21:00)
[2019-06-25] MEDS ORDERED: PRAMIPEXOLE 0.25 MG TABLET. PO SCH (21:00)
[2019-06-25] MEDS: ALPRAZolam 0.5 MG TABLET PO SCH (21:47)
[2019-06-25] MEDS: METOPROLOL TART IMMED RELEASE 25 MG TABLET PO SCH (21:48)
[2019-06-25 23:09] VITALS: BP 122/71
--- NOTE | 2019-06-25 23:20 | NUR ---
pt complained of chest pain. stat ekg and trop were ordered. ekg read no specific ekg abnormalities and her trop was barely elevated 0.019. pt has had no other complaints of chest pain tonight. pt has slept through the night and needed pain meds only once.
--- NOTE | 2019-06-26 05:49 | EKG ---
[address] [address] Test Date: 2019-06-25 Test Time: 23:29:58 Pat Name: NILESH ENCINAS Department: Room: 122 A Gender: F Pulley Man: : 1950 Requested By: APOLONIA PLUNKETT Order Number: [id number] Reading MD: Measurements Intervals [place] Rate: 75 P: 56 [place]: 210 QRS: -21 QRSD: 78 T: 31 QT: 432 QTc: 485 Interpretive Statements SINUS RHYTHM ATRIAL PREMATURE COMPLEX(ES) LEFTWARD AXIS PROLONGED QT NO SPECIFIC ECG ABNORMALITIES RI6.02 No previous ECG available for comparison
[2019-06-26 05:52] VITALS: BP 104/60
[2019-06-26 05:53] VITALS: BP 110/75
[2019-06-26 05:54] VITALS: BP 122/72
[2019-06-26] MEDS ORDERED: GABAPENTIN 300 MG CAPSULE. PO SCH ×2 (08:00→11:30)
[2019-06-26] MEDS: ALPRAZolam 0.5 MG TABLET PO SCH ×2 (08:51→13:59)
[2019-06-26] MEDS: METOPROLOL TART IMMED RELEASE 25 MG TABLET PO SCH (08:54)
[2019-06-26] MEDS ORDERED: ISOSORBIDE MONONITRATE ER 30 MG TAB.ER.24H PO SCH (09:00)
[2019-06-26] MEDS ORDERED: CLOPIDOGREL BISULFATE 75 MG TABLET PO SCH (09:00)
[2019-06-26 10:30] VITALS: BP 97/61
--- NOTE | 2019-06-26 15:38 | PDOC2 ---
CONSULT Date of Admission DATE: 06/26/19 TIME: 15:30 Reason for Consult: Coronary artery disease Referring Physician: Dr. Cisse Chief Complaint Dizziness Source: Chart review, Patient Problem List Problems Medical Problems: (1) Dizziness Status: Acute (2) Weakness Status: Acute History of Present Illness 68-year-old female presented with dizziness/lightheadedness and generalized weakness. She has chronic history of intermittent episodes of retrosternal chest pain ever since she was diagnosed with sternal fracture last year. She denied any recent worsening. She also denied any orthopnea/PND, palpitations or syncope . Past Medical History Coronary artery disease s/p PCI/stents to LAD and LCx with more recent cardiac catheterization in December 2018 at [facility] showing patent stents Diabetes mellitus type 2 Hypertension Hyperlipidemia COPD/asthma DVT/PE Osteoarthritis CVA Lymphoma Anxiety Depression PSVT Seizure Past Surgical History Right rotator cuff repair Cholecystectomy Hysterectomy Carpal tunnel release surgery s/p PCI/stent placement Family History: Coronary Artery Disease, Hypertension Social History Patient denied any current smoking, alcohol or drug use Current Medications Current Medications Lorazepam (Ativan Inj) 1 mg 1X ONCE IVP Last administered on 06/25/19at 15:44; Start 06/25/19 at 15:30; Stop 06/25/19 at 15:31; Status DC Sodium Chloride 1,000 ml @ 100 mls/hr Q10H IV Last administered on 06/25/19at 15:43; Start 06/25/19 at 15:11; Stop 06/26/19 at 01:10; Status DC Gabapentin (Neurontin) 300 mg 1X ONCE PO Last administered on 06/25/19at 16:38; Start 06/25/19 at 16:45; Stop 06/25/19 at 16:46; Status DC Acetaminophen/ Hydrocodone Bitart (Lortab 10/325) 1 tab 1X ONCE PO Last administered on 06/25/19at 16:38; Start 06/25/19 at 16:45; Stop 06/25/19 at 16:46; Status DC Clopidogrel Bisulfate (Plavix) 75 mg DAILY PO Last administered on 06/26/19at 08 :51; Start 06/26/19 at 09:00 Gabapentin (Neurontin) 300 mg BIDACLD PO Last administered on 06/26/19at 12:31; Start 06/26/19 at 11:30 Gabapentin (Neurontin) 600 mg DAILY08 PO Last administered on 06/26/19 08:54; Start 06/26/19 at 08:00 Acetaminophen/ Hydrocodone Bitart (Lortab 10/325) 1 tab PRN Q6HRS PRN PO PAIN Last administered on 06/25/19 22:22; Start 06/25/19 at 20:30 Isosorbide Mononitrate (Imdur) 30 mg DAILY PO Last administered on 06/26/19 08:51; Start 06/26/19 at 09:00 Metoprolol Tartrate (Lopressor) 12.5 mg BID PO Last administered on 06/26/19 08:54; Start 06/25/19 at 21:00 Montelukast Sodium (Singulair) 10 mg HS PO Last administered on 06/25/19 21:47; Start 06/25/19 at 21:00 Pramipexole Dihydrochloride (miraPEX) 0.25 mg QHS PO Last administered on 06/25/19 22:22; Start 06/25/19 at 21:00 Trazodone HCl (Desyrel) 25 mg HS PO Last administered on 06/25/19 21:47; S tart 06/25/19 at 21:00 Alprazolam (Xanax) 1 mg TID PO Last administered on 06/26/19 13:59; Start 06/25/19 at 21:00 Atorvastatin Calcium (Lipitor) 80 mg QHS PO Last administered on 06/25/19 21:47; Start 06/25/19 at 21:00 Insulin Glargine (Lantus Syringe) 15 unit QHS SQ Last administered on 06/25/19 22:22; Start 06/25/19 at 21:00 Active Scripts Active Reported Lantus Solostar (Insulin Glargine,Hum.rec.anlog) 100 Unit/1 Ml Insuln.pen 15 Unit SQ QHS Rosuvastatin Calcium 20 Mg Tablet 20 Mg PO HS Metoprolol Tartrate 25 Mg Tablet 12.5 Mg PO BID Clopidogrel (Clopidogrel Bisulfate) 75 Mg Tablet 75 Mg PO DAILY Gabapentin 300 Mg Capsule 300 Mg PO BIDACLD Gabapentin 300 Mg Capsule 600 Mg PO DAILY08 Trazodone Hcl 50 Mg Tablet 25 Mg PO HS Xanax (Alprazolam) 1 Mg Tablet 1 Mg PO TID Hydrocodone-Apap 10-325 (Hydrocodone Bit/Acetaminophen) 1 Each Tablet 1 Tab PO PRN Q6HRS PRN Mirapex (Pramipexole Di-Hcl) 0.25 Mg Tablet 0.25 Mg PO QHS Montelukast Sodium Tablet (Montelukast Sodium) 10 Mg Tablet 10 Mg PO HS Isosorbide Mononitrate Er (Isosorbide Mononitrate) 30 Mg Tab.er.24h 30 Mg PO DAILY Allergies: Coded Allergies: prednisone (Unverified Allergy, Severe, SEIZURES, 06/25/19) SEIZURES fentanyl (Verified Allergy, Intermediate, 06/25/19) oxycodone (Verified Allergy, Intermediate, 06/25/19) General: YES: Fatigue PSYCHOLOGICAL ROS: No: Hallucinations Eyes: No: Loss of vision Respiratory: No: Hemoptysis, Shortness of breath Cardiovascular: yes: Chest Pain Gastrointestinal: No: Vomiting, Diarrhea Neurological: YES: Dizziness, Seizures Skin: No: Rash General: Alert, Oriented X3 HEENT: Atraumatic Lungs: Clear to auscultation Heart: Regular rate Abdomen: Soft Extremities: No edema Psych/Mental Status: Mood NL VITALS Vital Signs Date Time Temp Pulse Resp B/P (MAP) Pulse Ox O2 Delivery O2 Flow Rate FiO2 06/26/19 10:30 97.6 66 18 97/61 (73) 96 Nasal Cannula 2.0 Labs Laboratory Tests Test 06/25/19 15:20 06/25/19 20:26 06/25/19 21:44 06/25/19 23:41 White Blood Count 3.6 x10^3/uL (4.0-11.0) Red Blood Count 4.27 x10^6/uL (3.50-5.40) Hemoglobin 12.0 g/dL (12.0-15.5) Hematocrit 36.8 % (36.0-47.0) Mean Corpuscular Volume 86 fL (79-100) Mean Corpuscular Hemoglobin 28 pg (25-35) Mean Corpuscular Hemoglobin Concent 33 g/dL (31-37) Red Cell Distribution Width 15.3 % (11.5-14.5) Platelet Count 188 x10^3/uL (140-400) Neutrophils (%) (Auto) 54 % (31-73) Lymphocytes (%) (Auto) 30 % (24-48) Monocytes (%) (Auto) 11 % (0-9) Eosinophils (%) (Auto) 5 % (0-3) Basophils (%) (Auto) 0 % (0-3) Neutrophils # (Auto) 1.9 x10^3uL (1.8-7.7) Lymphocytes # (Auto) 1.1 x10^3/uL (1.0-4.8) Monocytes # (Auto) 0.4 x10^3/uL (0.0-1.1) Eosinophils # (Auto) 0.2 x10^3/uL (0.0-0.7) Basophils # (Auto) 0.0 x10^3/uL (0.0-0.2) Sodium Level 144 mmol/L (136-145) Potassium Level 3.9 mmol/L (3.5-5.1) Chloride Level 106 mmol/L (98-107) Carbon Dioxide Level 26 mmol/L (21-32) Anion Gap 12 (6-14) Blood Urea Nitrogen 11 mg/dL (7-20) Creatinine 0.7 mg/dL (0.6-1.0) Estimated GFR (Cockcroft-Gault) 83.0 BUN/Creatinine Ratio 16 (6-20) Glucose Level 239 mg/dL (70-99) Calcium Level 8.8 mg/dL (8.5-10.1) Magnesium Level 1.8 mg/dL (1.8-2.4) Total Bilirubin 0.4 mg/dL (0.2-1.0) Aspartate Amino Transf (AST/SGOT) 15 U/L (15-37) Alanine Aminotransferase (ALT/SGPT) 19 U/L (14-59) Alkaline Phosphatase 99 U/L (46-116) Troponin I Quantitative < 0.017 ng/mL (0-0.055) 0.019 ng/mL (0-0.055) Total Protein 6.9 g/dL (6.4-8.2) Albumin 3.7 g/dL (3.4-5.0) Albumin/Globulin Ratio 1.2 (1.0-1.7) Glucose (Fingerstick) 109 mg/dL (70-99) 177 mg/dL (70-99) Test 06/26/19 06:20 06/26/19 07:22 06/26/19 11:37 Troponin I Quantitative 0.026 ng/mL (0-0.055) Glucose (Fingerstick) 113 mg/dL (70-99) 205 mg/dL (70-99) Assessment/Plan 1. Dizziness/lightheadedness most probably secondary to dehydration. Blood pressure borderline low. Recommend intravenous hydration. 2. Coronary artery disease s/p PCI/LUCILLE to LAD and LCx was injected complaining of chest pain that is atypical, reproducible and most probably musculoskeletal related to sternal fracture. Cardiac enzymes negative. CAD status clinically stable. Recent cardiac catheterization in December 2018 showed patent stents. Recent 2-D echocardiogram showed normal LV function. Continue current secondary prevention measures. 3. Hyperlipidemia: Continue statin therapy 4. Diabetes mellitus type 2: Treat per IM 5. Seizure disorder: Continue current medical regimen Thank you for your consultation CHING LEVY MD Jun 26, 2019 15:38
--- NOTE | 2019-06-26 15:41 | NUR ---
Discharge information given to patient, states she verbalizes and understands instructions given. Prescription given to patient and states she does not need this called in. IV removed and belongings left with patient. Patient ambulated off unit via wheelchair to family vehicle at this time.
--- NOTE | 2019-06-26 17:19 | SSS ---
ADMIT DATE: 06/26/2019 HISTORY OF PRESENT ILLNESS: The patient is a 68-year-old female patient who presented to the Emergency Department of [facility] for evaluation. She stated that earlier on the day of admission, she began experiencing some dizziness described as lightheadedness. She reports feeling weak all over. She denies any vision changes. Admits to mild headache. She states she fell and injured her left leg just distal to the knee. However, she was able to ambulate. She denied any chest pain, shortness of breath, numbness, or focal weakness. She stated that several months ago, she was diagnosed with seizures by [facility] and was placed on Keppra, but her PCP discontinued the medication about a month ago stating the patient did not have any seizures, but was primarily under a lot of stress. The patient stated that she does take Xanax for anxiety chronically, but does not feel particularly anxious at this time. There are no alleviating or exacerbating factors to her symptoms. She was extensively investigated in the Emergency Room including lab work and imaging studies. Her lab works were essentially unremarkable. She has had x-rays of her left knee, which showed that the alignment of the knee joint grossly appears unremarkable. There is mild joint space loss identified in the medial, lateral and patellofemoral compartment, but there is no evidence of fracture or dislocation. CT scan of the head was unremarkable and her chest x-ray, which showed mild prominent bilateral perihilar interstitial lung markings, but likely interstitial infiltrate or atelectasis. The patient was admitted for observation. PAST MEDICAL HISTORY: Significant for coronary artery disease, status post PCI with stent deployment. She has type 2 diabetes, hyperlipidemia, chronic obstructive pulmonary disease, bronchial asthma. He also has a history of DVT and pulmonary embolism, generalized osteoarthritis, degenerative disk disease, has right middle cerebral artery territory infarct, left side hemiplegia. She did claim that she has seizures; however, she was observed by numerous individuals different facilities and she ____ activity does not really fulfill the tonic-clonic seizures. She has never bitten her tongue or have been bowel or bladder incontinent ____ she has seizures. PAST SURGICAL HISTORY: Significant for PCI with stent deployment, right rotator cuff repair, cholecystectomy, total abdominal hysterectomy, bilateral salpingo-oophorectomy, left carpal tunnel release. ALLERGIES: She is allergic to ASPIRIN and PREDNISONE. She also states that she is allergic to OXYCODONE and FENTANYL. FAMILY HISTORY: She has 2 brothers, older and healthy. Two sisters, one of them at the age of 65 because of cancer and heart problems. Her father at the age of 82 because of lung cancer and myocardial infarction. Her mother at age of 83 because of myocardial infarction. SOCIAL HISTORY: She is , has 1 son and 2 daughters. She has been a secondhand smoker. She does not smoke, drink alcohol or use recreational drugs. 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 REVIEW OF SYSTEMS: As per history of present illness. MEDICATIONS: She is currently on following medications: She is on Plavix 75 mg once a day, Crestor 20 mg at bedtime, isosorbide mononitrate 30 mg daily, metoprolol tartrate 25 mg twice a day, hydrocodone/APAP 10/325 one tablet every 6 hours, ____, gabapentin 300 mg twice a day and trazodone 25 mg at bedtime, alprazolam 1 mg 3 times a day, Mirapex 0.5 mg at bedtime, Singulair 10 mg at bedtime and Lantus insulin 15 units at bedtime. PHYSICAL EXAMINATION: GENERAL: On arrival to the Emergency Room, she looked well and was clearly in no apparent respiratory distress. No pallor, jaundice, cyanosis or thyromegaly. No jugular venous distention. No limb edema. VITAL SIGNS: Her heart rate was 73, blood pressure was 148/79, temperature was 97.7, respiratory rate was 28 and oxygen saturation was 97%. HEAD, EYES, EARS, NOSE AND THROAT: Showed normocephalic, atraumatic. NECK: Supple. HEART: Showed normal first and second heart sounds with no gallop or murmur. CHEST: Clear to auscultation. No crepitation or rhonchi. ABDOMEN: Distended, soft, nontender. NEUROLOGIC: She was awake, alert, responding appropriately. All cranial nerves intact. EXTREMITIES: She moves extremities without difficulty. LABORATORY DATA: Her lab work on admission showed a white cell count of 3600, hemoglobin 12, hematocrit 36, MCV 86 and platelet count of 188,000. Her serum sodium was 144, potassium 3.9, chloride 106, bicarbonate 26, anion gap of 12, BUN 11, creatinine 0.7, estimated GFR was 83 mL per minute. Her glucose 139, calcium was 8.8, magnesium was 1.8. Total bilirubin, AST, ALT, alkaline phosphatase were normal. Total protein was 6.9, albumin was 3.7. The patient was observed overnight. She was seen by physical therapist. We did check her orthostatics with no evidence of any postural hypertension, has been steady and walked without difficulty, has had no further dizziness or lightheadedness. The patient expressed desire to go home and therefore, she was discharged home to continue on all her current medications. FINAL DISCHARGE DIAGNOSES: 1. Dizzy spell, resolved, fall without any injury. She has multiple other medical problems including coronary artery disease, status post PCI with stent deployment. 2. Type 2 diabetes, hyperlipidemia, chronic obstructive pulmonary disease/bronchial asthma, generalized osteoarthritis. APOLONIA PLUNKETT MD DR: SUHA/eliezer JOB#: [id number] / [id number]
== END 2019-06-26 15:41 | disposition home or self-care (01) ==
LOC: ER 14:40 → 1 SOUTH 18:48 → INTOOBSV 18:48
PROVIDERS: ADMIT Internal Medicine; ATTEND Internal Medicine
DX: R42 Dizziness and giddiness (principal); I25.10 Atherosclerotic heart disease of native coronary artery without angina pectoris; E78.5 Hyperlipidemia, unspecified; E11.9 Type 2 diabetes mellitus without complications; G40.909 Epilepsy, unspecified, not intractable, without status epilepticus; J44.9 Chronic obstructive pulmonary disease, unspecified; F41.8 Other specified anxiety disorders; I10 Essential (primary) hypertension; M15.9 Polyosteoarthritis, unspecified; R53.1 Weakness; Z86.73 Personal history of transient ischemic attack (TIA), and cerebral infarction without residual deficits; Z86.718 Personal history of other venous thrombosis and embolism; Z85.72 Personal history of non-Hodgkin lymphomas; Z86.711 Personal history of pulmonary embolism; Z90.710 Acquired absence of both cervix and uterus; Z82.49 Family history of ischemic heart disease and other diseases of the circulatory system; Z95.5 Presence of coronary angioplasty implant and graft; Z77.22 Contact with and (suspected) exposure to environmental tobacco smoke (acute) (chronic); Z79.899 Other long term (current) drug therapy
CPT/HCPCS: 36415; 70450; 71045; 73562; 80053; 82947; 83735; 84484; 85025; 93005; 96361; 96374; 99285; G0378; J1815; J2060; G0379; J7030

== ENCOUNTER 2019-06-28 12:53 | Emergency (ER) | payer MEDICARE ==
[~2019-06-28] VITALS: Ht 162.6 cm; Wt 95.0 kg
--- NOTE | 2019-06-28 13:12 | PHYS DOC ---
Past History Past Medical History: CHF, COPD, Diabetes, Migraines, Seizure, Other Additional Past Medical Histor: Cardiac, lymphoma Past Surgical History: Appendectomy, Cholecystectomy, Hysterectomy, Oophorectomy, Other Additional Past Surgical Histo: stent placed at [facility] on saturday01/05/19; right rotator cuff repair Alcohol Use: None Drug Use: None Adult General Chief Complaint Chief Complaint: SEIZURE HPI HPI Patient is a 68-year-old female presents to the emergency department via EMS. According to EMS, the patient was temple, and bystanders reported about 3 minutes of seizure-like activity, with loss of consciousness. EMS reported that the patient was postictal. She did not bite her tongue or lose urinary continence. She complains of some pain in her head and her chest. She was just recently admitted to this hospital by myself on evening, due to dizziness. She denied a CT had prior to that admission. She states that she was diagnosed with seizures at several months ago, but her PCP took her off her seizure medication. There are no alleviating or exacerbating factors to the patient's symptoms. Review of Systems Review of Systems Constitutional: Denies fever or chills [] Eyes: Denies change in visual acuity, redness, or eye pain [] HENT: Denies nasal congestion or sore throat [] Respiratory: Denies cough or shortness of breath [] Cardiovascular: No additional information not addressed in HPI [] GI: Denies abdominal pain, nausea, vomiting, bloody stools or diarrhea [] : Denies dysuria or hematuria [] Musculoskeletal: Denies back pain or joint pain [] Integument: Denies rash or skin lesions [] Neurologic: Denies focal weakness or sensory changes [] Endocrine: Denies polyuria or polydipsia [] All other systems were reviewed and found to be within normal limits, except as documented in this note. Allergies Allergies Allergies Coded Allergies Type Severity Reaction Last Updated Verified prednisone Allergy Severe SEIZURES 06/25/19 No fentanyl Allergy Intermediate 06/25/19 Yes oxycodone Allergy Intermediate 06/25/19 Yes Physical Exam Physical Exam PHYSICAL EXAM: CONSTITUTIONAL: Well developed, well nourished HEAD: normocephalic, atraumatic EENT: PERRL, EOMI. Conjunctivae normal color, sclerae non-icteric; moist mucous membranes. There is no tongue injury. NECK: Supple, non-tender; no meningismus. LUNGS: Lungs CTA, breathing even and unlabored. Normal air movement. HEART: Regular rate and rhythm, no murmur CHEST: No deformity; non-tender ABDOMEN: The abdomen is soft, and non-tender, no masses or bruits. EXTREM: Normal ROM; no deformity, no calf tenderness. Normal pulses palpable in all extremities. There is no pedal edema. SKIN: No rash; no diaphoresis NEURO: Alert; normal speech and cognition; CN's grossly intact; strength grossly intact without focal deficit. BACK: No CVA TTP. PSYCHIATRIC: Borderline-like affect. Current Patient Data Lab Results Laboratory Tests Test 06/28/19 13:08 White Blood Count 4.2 x10^3/uL Red Blood Count 4.51 x10^6/uL Hemoglobin 12.8 g/dL Hematocrit 38.7 % Mean Corpuscular Volume 86 fL Mean Corpuscular Hemoglobin 28 pg Mean Corpuscular Hemoglobin Concent 33 g/dL Red Cell Distribution Width 15.2 % Platelet Count 186 x10^3/uL Neutrophils (%) (Auto) 63 % Lymphocytes (%) (Auto) 24 % Monocytes (%) (Auto) 9 % Eosinophils (%) (Auto) 4 % Basophils (%) (Auto) 0 % Neutrophils # (Auto) 2.7 x10^3uL Lymphocytes # (Auto) 1.0 x10^3/uL Monocytes # (Auto) 0.4 x10^3/uL Eosinophils # (Auto) 0.2 x10^3/uL Basophils # (Auto) 0.0 x10^3/uL Sodium Level 143 mmol/L Potassium Level 3.6 mmol/L Chloride Level 106 mmol/L Carbon Dioxide Level 28 mmol/L Anion Gap 9 Blood Urea Nitrogen 5 mg/dL Creatinine 0.7 mg/dL Estimated GFR (Cockcroft-Gault) 83.0 BUN/Creatinine Ratio 7 Glucose Level 236 mg/dL Lactic Acid Level 1.5 mmol/L Calcium Level 8.5 mg/dL Total Bilirubin 0.4 mg/dL Aspartate Amino Transf (AST/SGOT) 20 U/L Alanine Aminotransferase (ALT/SGPT) 21 U/L Alkaline Phosphatase 116 U/L Troponin I Quantitative < 0.017 ng/mL Total Protein 6.9 g/dL Albumin 3.6 g/dL Albumin/Globulin Ratio 1.1 Current Medications Medications (Trade) Dose Ordered Sig/Sherrie Route PRN Reason Start Time Stop Time Status Last Admin Dose Admin Levetiracetam 500 mg/Sodium Chloride 100 ml @ 400 mls/hr 1X ONCE IV 06/28/19 13:45 06/28/19 13:59 06/28/19 13:49 EKG EKG Normal sinus rhythm at a rate of 81 bpm, left axis deviation, normal intervals. There are no acute ischemic ST/T changes.[] Radiology/Procedures Radiology/Procedures [] Course & Med Decision Making Course & Med Decision Making Pertinent Labs and prior Imaging studies reviewed. (See chart for details) []2:00 PM:Patient remains stable. I discussed test results, the need for close follow-up, and return precautions. I will restart the patient's Keppra, differential diagnosis includes seizures, versus pseudoseizure like activity. Dragon Disclaimer Dragon Disclaimer This electronic medical record was generated, in whole or in part, using a voice recognition dictation system. Departure Departure: Impression: Primary Impression: Seizure-like activity Disposition: 01 HOME, SELF-CARE Condition: STABLE Referrals: BAILEY MORSE MD (PCP) SAJAN LOYD MD Patient Instructions: Nonepileptic Seizures, Seizure, Adult Scripts Levetiracetam (KEPPRA) 500 Mg Tablet 1 TAB PO BID for - for 30 Days, #60 TAB 0 Refills Prov: KYLEIGH RESTREPO MD 06/28/19 KYLEIGH RESTREPO MD Jun 28, 2019 13:11
--- NOTE | 2019-06-28 13:20 | EKG ---
[address] [address] Test Date: 2019-06-28 Test Time: 13:15:39 Pat Name: NILESH ENCINAS Department: Room: Gender: F Manager Of Clinical: : 1950 Requested By: KYLEIGH RESTREPO Order Number: [id number] Reading MD: Measurements Intervals [place] Rate: 81 P: -90 DE: 150 QRS: -23 QRSD: 84 T: 26 QT: 426 QTc: 501 Interpretive Statements SINUS RHYTHM LEFTWARD AXIS PROLONGED QT NO SPECIFIC ECG ABNORMALITIES RI6.01 No previous ECG available for comparison
[2019-06-28 13:34] LABS: BASO % 0 % (0-3); EOS # 0.2 x10^3/uL (0.0-0.7); EOS % 4 % (0-3); HEMATOCRIT 38.7 % (36.0-47.0); HEMOGLOBIN 12.8 g/dL (12.0-15.5); LYMPH % 24 % (24-48); MEAN CORPUSCULAR HEMOGLOBIN 28 pg (25-35); MEAN CORPUSCULAR HGB CONC 33 g/dL (31-37); MEAN CORPUSCULAR VOLUME 86 fL (79-100); MONO # 0.4 x10^3/uL (0.0-1.1); MONO % 9 % (0-9); NEUT # 2.7 x10^3uL (1.8-7.7); NEUT % 63 % (31-73); PLATELET COUNT 186 x10^3/uL (140-400); RED BLOOD COUNT 4.51 x10^6/uL (3.50-5.40); RED CELL DISTRIBUTION WIDTH 15.2 % (11.5-14.5); WHITE BLOOD COUNT 4.2 x10^3/uL (4.0-11.0)
[2019-06-28 13:36] LABS: CALCIUM 8.5 mg/dL (8.5-10.1); CREATININE 0.7 mg/dL (0.6-1.0); POTASSIUM 3.6 mmol/L (3.5-5.1)
[2019-06-28 13:41] VITALS: BP 160/122
[2019-06-28 13:43] LABS: ALBUMIN 3.6 g/dL (3.4-5.0); ALBUMIN/GLOBULIN RATIO 1.1 (1.0-1.7); TOTAL BILIRUBIN 0.4 mg/dL (0.2-1.0); TOTAL PROTEIN 6.9 g/dL (6.4-8.2)
[2019-06-28] MEDS ORDERED: LEVE500T56 PO (13:59)
== END 2019-06-28 14:35 | disposition home or self-care (01) ==
LOC: ER 12:53
DX: R56.9 Unspecified convulsions (principal); R55 Syncope and collapse; I50.9 Heart failure, unspecified; J44.9 Chronic obstructive pulmonary disease, unspecified; E11.9 Type 2 diabetes mellitus without complications; G43.909 Migraine, unspecified, not intractable, without status migrainosus; Z88.8 Allergy status to other drugs, medicaments and biological substances; Z88.5 Allergy status to narcotic agent
CPT/HCPCS: 36415; 80053; 83605; 84484; 85025; 93005; 96365; 99284; J1953

== ENCOUNTER 2019-07-28 20:00 | Emergency (ER) | payer MEDICARE ==
[~2019-07-28] VITALS: Ht 162.6 cm; Wt 95.0 kg
[~2019-07-28 20:00] MED LIST changes: +LEVE500T56 PO
[2019-07-28] MEDS: ONDANSETRON PF 4 MG/2 ML VIAL. IVP ONE (20:15)
[2019-07-28] MEDS: IV NORMAL SALINE 1,000ML 1,000 ML IV ONE (20:15)
[2019-07-28 20:31] LABS: BASO % 0 % (0-3); EOS # 0.2 x10^3/uL (0.0-0.7); EOS % 3 % (0-3); HEMATOCRIT 37.5 % (36.0-47.0); HEMOGLOBIN 12.4 g/dL (12.0-15.5); LYMPH # 1.9 x10^3/uL (1.0-4.8); LYMPH % 31 % (24-48); MEAN CORPUSCULAR HEMOGLOBIN 28 pg (25-35); MEAN CORPUSCULAR HGB CONC 33 g/dL (31-37); MEAN CORPUSCULAR VOLUME 85 fL (79-100); MONO # 0.5 x10^3/uL (0.0-1.1); MONO % 8 % (0-9); NEUT # 3.5 x10^3uL (1.8-7.7); NEUT % 58 % (31-73); PLATELET COUNT 209 x10^3/uL (140-400); RED BLOOD COUNT 4.39 x10^6/uL (3.50-5.40); RED CELL DISTRIBUTION WIDTH 16.2 % (11.5-14.5); WHITE BLOOD COUNT 6.1 x10^3/uL (4.0-11.0)
[2019-07-28 20:36] LABS: ANION GAP 10 (6-14); BLOOD UREA NITROGEN 9 mg/dL (7-20); BUN/CREATININE RATIO 11 (6-20); CALCIUM 8.3 mg/dL (8.5-10.1); CARBON DIOXIDE 26 mmol/L (21-32); CHLORIDE 108 mmol/L (98-107); CREATININE 0.8 mg/dL (0.6-1.0); GFR 71.1; GLUCOSE 155 mg/dL (70-99); POTASSIUM 3.8 mmol/L (3.5-5.1); SODIUM 144 mmol/L (136-145)
--- NOTE | 2019-07-28 20:43 | RAD ---
CT head without contrast dated 07/28/2019. Comparison made to 06/25/2019. CLINICAL INDICATION: Seizure activity. TECHNIQUE: Contiguous axial imaging the head was performed from skull base to vertex. No contrast administered. One or more of the following individualized dose reduction techniques were utilized for this examination: 1. Automated exposure control 2. Adjustment of the mA and/or kV according to patient size 3. Use of iterative reconstruction technique. FINDINGS: Ventricles and sulci are within normal limits for age. No midline shift or mass effect. Brain parenchyma is of normal attenuation. No hemorrhage or extra-axial collection. Posterior fossa and brainstem unremarkable. Visualized paranasal sinuses and mastoid air cells are clear. No apparent calvarial abnormality. IMPRESSION: No evidence of acute intracranial abnormality. Electronically signed by: Levi Villeda MD (07/28/2019 8:40 PM) [id number]
[2019-07-28 20:52] LABS: ALBUMIN 3.5 g/dL (3.4-5.0); ALBUMIN/GLOBULIN RATIO 1.1 (1.0-1.7); ALK PHOS 98 U/L (46-116); ALT (SGPT) 22 U/L (14-59); AST (SGOT) 23 U/L (15-37); MAGNESIUM 1.8 mg/dL (1.8-2.4); TOTAL BILIRUBIN 0.3 mg/dL (0.2-1.0); TOTAL PROTEIN 6.8 g/dL (6.4-8.2)
--- NOTE | 2019-07-28 21:22 | PHYS DOC ---
Past History Past Medical History: CHF, COPD, Diabetes, Seizure Additional Past Medical Histor: Cardiac, lymphoma Past Surgical History: Cholecystectomy, Hysterectomy Additional Past Surgical Histo: stent placed at [facility] on saturday01/05/19; right rotator cuff repair Smoking: Non-smoker Alcohol Use: None Drug Use: None Adult General Chief Complaint Chief Complaint: SEIZURE HPI HPI 68-year-old female presents with report of seizure-like activity which started at approximately 1957. Patient subsequently became more awake and was able to answer questions. Does have history of prior seizure activity for which she was started on Keppra and then worked up by [facility]. Patient reports she was told that testing have come back normal and therefore was taken off of the Keppra. Denies any fever or chills. Denies known trauma. Review of Systems Review of Systems Constitutional: Denies fever or chills Eyes: Denies redness or eye pain HENT: Denies nasal congestion or sore throat or tongue pain/laceration Respiratory: Denies cough or shortness of breath Cardiovascular: Denies chest pain or palpitations GI: Denies abdominal pain, nausea, or vomiting : Denies dysuria or hematuria Musculoskeletal: Denies back pain or joint pain Integument: Denies rash or skin lesions Neurologic: Denies headache, focal weakness or sensory changes; reports seizure- like activity; denies loss of bowel or bladder Complete systems were reviewed and found to be within normal limits, except as documented in this note. Current Medications Current Medications Current Medications Medications (Trade) Dose Ordered Sig/Sherrie Start Time Stop Time Status Last Admin Dose Admin Lorazepam (Ativan Inj) 1 mg 1X ONCE 07/28/19 20:15 07/28/19 20:17 DC 07/28/19 20:15 1 MG Ondansetron HCl (Zofran) 4 mg 1X ONCE 07/28/19 20:15 07/28/19 20:17 DC 07/28/19 20:15 4 MG Sodium Chloride 1,000 ml @ 1,000 mls/hr 1X ONCE 07/28/19 20:15 07/28/19 21:14 DC 07/28/19 20:15 1,000 MLS/HR Allergies Allergies Allergies Coded Allergies Type Severity Reaction Last Updated Verified prednisone Allergy Severe SEIZURES 06/25/19 No fentanyl Allergy Intermediate 06/25/19 Yes oxycodone Allergy Intermediate 06/25/19 Yes Physical Exam Physical Exam Constitutional: Well developed, well nourished, no acute distress, non-toxic appearance HENT: Normocephalic, atraumatic, oropharynx moist, tongue normal Eyes: PERRL, EOMI, conjunctiva normal, no discharge, no nystagmus Neck: Normal range of motion, no tenderness, supple Cardiovascular: Heart rate normal, regular rhythm Lungs & Thorax: Bilateral breath sounds clear to auscultation, no wheezing Abdomen: Soft, no tenderness Skin: Warm, dry, no erythema, no rash Extremities: No tenderness, ROM intact, no edema Neurologic: Alert and oriented X 3, normal motor function, normal sensory function, no focal deficits noted Psychologic: Affect normal, judgment normal Current Patient Data Vital Signs Vital Signs Date Time Temp Pulse Resp B/P (MAP) Pulse Ox O2 Delivery O2 Flow Rate FiO2 07/28/19 20:16 98.1 87 20 181/95 (123) 97 Room Air Lab Results Laboratory Tests Test 07/28/19 20:13 White Blood Count 6.1 x10^3/uL (4.0-11.0) Red Blood Count 4.39 x10^6/uL (3.50-5.40) Hemoglobin 12.4 g/dL (12.0-15.5) Hematocrit 37.5 % (36.0-47.0) Mean Corpuscular Volume 85 fL (79-100) Mean Corpuscular Hemoglobin 28 pg (25-35) Mean Corpuscular Hemoglobin Concent 33 g/dL (31-37) Red Cell Distribution Width 16.2 % (11.5-14.5) H Platelet Count 209 x10^3/uL (140-400) Neutrophils (%) (Auto) 58 % (31-73) Lymphocytes (%) (Auto) 31 % (24-48) Monocytes (%) (Auto) 8 % (0-9) Eosinophils (%) (Auto) 3 % (0-3) Basophils (%) (Auto) 0 % (0-3) Neutrophils # (Auto) 3.5 x10^3uL (1.8-7.7) Lymphocytes # (Auto) 1.9 x10^3/uL (1.0-4.8) Monocytes # (Auto) 0.5 x10^3/uL (0.0-1.1) Eosinophils # (Auto) 0.2 x10^3/uL (0.0-0.7) Basophils # (Auto) 0.0 x10^3/uL (0.0-0.2) Prothrombin Time 9.3 SEC (9.4-11.4) L Prothrombin Time INR 0.9 (0.9-1.1) Activated Partial Thromboplast Time 24 SEC (23-33) Sodium Level 144 mmol/L (136-145) Potassium Level 3.8 mmol/L (3.5-5.1) Chloride Level 108 mmol/L (98-107) H Carbon Dioxide Level 26 mmol/L (21-32) Anion Gap 10 (6-14) Blood Urea Nitrogen 9 mg/dL (7-20) Creatinine 0.8 mg/dL (0.6-1.0) Estimated GFR (Cockcroft-Gault) 71.1 BUN/Creatinine Ratio 11 (6-20) Glucose Level 155 mg/dL (70-99) H Lactic Acid Level 1.2 mmol/L (0.4-2.0) Calcium Level 8.3 mg/dL (8.5-10.1) L Magnesium Level 1.8 mg/dL (1.8-2.4) Total Bilirubin 0.3 mg/dL (0.2-1.0) Aspartate Amino Transferase (AST) 23 U/L (15-37) Alanine Aminotransferase (ALT) 22 U/L (14-59) Alkaline Phosphatase 98 U/L (46-116) Creatine Kinase 54 U/L (26-192) Creatine Kinase MB (Mass) < 0.5 ng/mL (0.0-3.6) Creatine Kinase MB Relative Index 0.9 % (0-4) Troponin I Quantitative < 0.017 ng/mL (0-0.055) Total Protein 6.8 g/dL (6.4-8.2) Albumin 3.5 g/dL (3.4-5.0) Albumin/Globulin Ratio 1.1 (1.0-1.7) EKG EKG @2053 NSR at 82bpm, NO ST elevation, wandering baseline of aVF and aVL, NO ST elevation Radiology/Procedures Radiology/Procedures PROCEDURE: CT HEAD WO CONTRAST CT head without contrast dated 07/28/2019. Comparison made to 06/25/2019. CLINICAL INDICATION: Seizure activity. TECHNIQUE: Contiguous axial imaging the head was performed from skull base to vertex. No contrast administered. One or more of the following individualized dose reduction techniques were utilized for this examination: 1. Automated exposure control 2. Adjustment of the mA and/or kV according to patient size 3. Use of iterative reconstruction technique. FINDINGS: Ventricles and sulci are within normal limits for age. No midline shift or mass effect. Brain parenchyma is of normal attenuation. No hemorrhage or extra-axial collection. Posterior fossa and brainstem unremarkable. Visualized paranasal sinuses and mastoid air cells are clear. No apparent calvarial abnormality. IMPRESSION: No evidence of acute intracranial abnormality. Electronically signed by: Levi Villeda MD (07/28/2019 8:40 PM) [id number] Course & Med Decision Making Course & Med Decision Making Pertinent Labs and Imaging studies reviewed. (See chart for details) Patient with past medical history of seizure-like activity presents with recurrence which happened prior to arrival. Patient currently neurologically intact. No signs of tongue biting or urinary incontinence. CT head without acute process. Labs obtained and posted to chart. WBC, CPK, and lactic acid within normal limits. Ativan given. Patient stable for discharge with outpatient follow-up with PCP/neurology. Neurology referral provided. Discussed findings and plan with patient, who acknowledges understanding and agreement. Dragsamaria Disclaimer Roseline Disclaimer This electronic medical record was generated, in whole or in part, using a voice recognition dictation system. Departure Departure: Impression: Primary Impression: Observed seizure-like activity Disposition: HOME, SELF-CARE Condition: STABLE Referrals: BAILEY MORSE MD (PCP) SAJAN LOYD MD Patient Instructions: Seizure, Adult, Oxax-jg-Dojn Scripts Lorazepam (ATIVAN) 1 Mg Tablet 0.5 TAB PO TID PRN PRN for TREMORS MDD 2 Tablet(s), #10 TAB 0 Refills Prov: LEVI PICKETT DO 07/28/19 LEVI PICKETT DO Jul 28, 2019 21:22
[2019-07-28 21:28] VITALS: BP 140/76
[2019-07-28] MEDS ORDERED: LORA-254 PO ×2 (21:39→21:41)
--- NOTE | 2019-07-29 14:14 | EKG ---
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
== END 2019-07-28 21:50 | disposition home or self-care (01) ==
LOC: ER 20:00
DX: R56.9 Unspecified convulsions (principal); J44.9 Chronic obstructive pulmonary disease, unspecified; I50.9 Heart failure, unspecified; E11.9 Type 2 diabetes mellitus without complications; Z88.5 Allergy status to narcotic agent; Z88.8 Allergy status to other drugs, medicaments and biological substances
CPT/HCPCS: 36415; 70450; 80053; 82553; 83605; 83735; 84484; 85025; 85610; 85730; 93005; 96374; 96375; 99284; J2060; J2405; J7030

== ENCOUNTER 2019-08-05 15:06 | Emergency (ER) | payer MEDICARE ==
[~2019-08-05] VITALS: Ht 162.6 cm; Wt 95.0 kg
[~2019-08-05 15:06] MED LIST changes: +LORA-254 PO
[2019-08-05] MEDS: IV NORMAL SALINE 1,000ML 1,000 ML IV SCH (15:30)
--- NOTE | 2019-08-05 15:31 | PHYS DOC ---
Past History Past Medical History: CHF, COPD, Diabetes, Seizure Additional Past Medical Histor: Cardiac, lymphoma Past Surgical History: Cholecystectomy, Hysterectomy Additional Past Surgical Histo: stent placed at [facility] on saturday01/05/19; right rotator cuff repair Smoking: Non-smoker Alcohol Use: None Drug Use: None Adult General Chief Complaint Chief Complaint: SEIZURE HPI HPI Patient is a 68 year old female who presents with complaint of seizures. The patient was brought to the emergency department by EMS from Dr. Hurst's office due to seizure. The patient states she has history of seizures and had been on Keppra for treatment but states that she has been off of this medication for several weeks. She states that her seizures started happening over the past 2 weeks. Notes that they become more frequent. States that she had 2 seizures at home prior to going to her doctor's office. She had an additional seizure at the doctor's office and again had 1 during triage. States that she feels a headache prior to tremors. States that she starts to shake all over. After the shaking stops she is able to answer questions within a minute. Denies chest pain, shortness of breath, fever, or abdominal pain. Patient notes that she was told that she would be admitted to the hospital from Dr. Hurst's office, however due to the seizure she was brought to the emergency department prior to being admitted for acute evaluation. Review of Systems Review of Systems Constitutional: Denies fever or chills [] Eyes: Denies change in visual acuity, redness, or eye pain [] HENT: Denies nasal congestion or sore throat [] Respiratory: Denies cough or shortness of breath [] Cardiovascular: Denies chest pain or edema [] GI: Denies abdominal pain, nausea, vomiting, bloody stools or diarrhea [] : Denies dysuria or hematuria [] Musculoskeletal: Denies back pain or joint pain [] Integument: Denies rash or skin lesions [] Neurologic: Headache, seizures [] All other systems were reviewed and found to be within normal limits, except as documented in this note. Current Medications Current Medications Current Medications Medications (Trade) Dose Ordered Sig/Sherrie Start Time Stop Time Status Last Admin Dose Admin Sodium Chloride 1,000 ml @ 1,000 mls/hr Q1H 08/05/19 15:23 08/05/19 16:22 Allergies Allergies Allergies Coded Allergies Type Severity Reaction Last Updated Verified prednisone Allergy Severe SEIZURES 06/25/19 No fentanyl Allergy Intermediate 06/25/19 Yes oxycodone Allergy Intermediate 06/25/19 Yes Physical Exam Physical Exam Constitutional: Alert, afebrile, appears anxious. [] HENT: Normocephalic, atraumatic, bilateral external ears normal, oropharynx moist, no oral exudates, nose normal. [] Eyes: PERRLA, EOMI, conjunctiva normal, no discharge. [] Neck: Normal range of motion, no tenderness, supple, no stridor. [] Cardiovascular:Heart rate regular rhythm, no murmur [] Lungs & Thorax: Bilateral breath sounds clear to auscultation [] Abdomen: Bowel sounds normal, soft, no tenderness, no masses, no pulsatile masses. [] Skin: Warm, dry, no erythema, no rash. [] Back: No tenderness, no CVA tenderness. [] Extremities: No tenderness, no cyanosis, no clubbing, ROM intact, no edema. [] Neurologic: Alert and oriented X 3, normal motor function, normal sensory function, no focal deficits noted. [] Current Patient Data Lab Results Laboratory Tests Test 08/05/19 15:25 White Blood Count 5.3 x10^3/uL Red Blood Count 4.38 x10^6/uL Hemoglobin 12.5 g/dL Hematocrit 36.9 % Mean Corpuscular Volume 84 fL Mean Corpuscular Hemoglobin 28 pg Mean Corpuscular Hemoglobin Concent 34 g/dL Red Cell Distribution Width 15.9 % Platelet Count 219 x10^3/uL Neutrophils (%) (Auto) 59 % Lymphocytes (%) (Auto) 29 % Monocytes (%) (Auto) 10 % Eosinophils (%) (Auto) 3 % Basophils (%) (Auto) 0 % Neutrophils # (Auto) 3.1 x10^3uL Lymphocytes # (Auto) 1.5 x10^3/uL Monocytes # (Auto) 0.5 x10^3/uL Eosinophils # (Auto) 0.1 x10^3/uL Basophils # (Auto) 0.0 x10^3/uL Sodium Level 144 mmol/L Potassium Level 4.0 mmol/L Chloride Level 107 mmol/L Carbon Dioxide Level 26 mmol/L Anion Gap 11 Blood Urea Nitrogen 10 mg/dL Creatinine 0.8 mg/dL Estimated GFR (Cockcroft-Gault) 71.1 BUN/Creatinine Ratio 13 Glucose Level 217 mg/dL Calcium Level 8.6 mg/dL Magnesium Level 1.8 mg/dL Total Bilirubin 0.5 mg/dL Aspartate Amino Transf (AST/SGOT) 19 U/L Alanine Aminotransferase (ALT/SGPT) 23 U/L Alkaline Phosphatase 95 U/L Total Protein 6.6 g/dL Albumin 3.7 g/dL Albumin/Globulin Ratio 1.3 Current Medications Medications (Trade) Dose Ordered Sig/Sherrie Route PRN Reason Start Time Stop Time Status Last Admin Dose Admin Sodium Chloride 1,000 ml @ 1,000 mls/hr Q1H IV 08/05/19 15:23 08/05/19 16:22 DC EKG EKG Interpreted by me: Heart rate 84, sinus rhythm, normal intervals, left axis deviation, no acute ST/T wave abnormalities present [] Radiology/Procedures Radiology/Procedures Not performed [] Course & Med Decision Making Course & Med Decision Making Pertinent Labs and Imaging studies reviewed. (See chart for details) The patient's seizure episode in the emergency department was quite brief and patient was able to start talking shortly after the episode took place. She was given intranasal Ativan 2 mg total during this episode. Patient's lab work is stable at this time. As patient was intended to be a direct admission prior to onset of seizure, I contacted Dr. Cisse who is familiar with the patient. He has agreed to accept care of patient in hospital for further care with plans for inpatient consult with Dr. Garcia of neurology to see patient. [] Dragon Disclaimer Dragon Disclaimer This electronic medical record was generated, in whole or in part, using a voice recognition dictation system. Departure Departure: Impression: Primary Impression: Seizure Disposition: HOME/RESIDENCE PRIOR TO ADM Admitting Physician: Chaparrita Cisse Condition: STABLE Referrals: BAILEY HURST MD (PCP) JACKIE COLLIER MD Aug 05, 2019 15:31
[2019-08-05 15:39] LABS: BASO % 0 % (0-3); EOS # 0.1 x10^3/uL (0.0-0.7); EOS % 3 % (0-3); HEMATOCRIT 36.9 % (36.0-47.0); HEMOGLOBIN 12.5 g/dL (12.0-15.5); LYMPH # 1.5 x10^3/uL (1.0-4.8); LYMPH % 29 % (24-48); MEAN CORPUSCULAR HEMOGLOBIN 28 pg (25-35); MEAN CORPUSCULAR HGB CONC 34 g/dL (31-37); MEAN CORPUSCULAR VOLUME 84 fL (79-100); MONO # 0.5 x10^3/uL (0.0-1.1); MONO % 10 % (0-9); NEUT # 3.1 x10^3uL (1.8-7.7); NEUT % 59 % (31-73); PLATELET COUNT 219 x10^3/uL (140-400); RED BLOOD COUNT 4.38 x10^6/uL (3.50-5.40); RED CELL DISTRIBUTION WIDTH 15.9 % (11.5-14.5); WHITE BLOOD COUNT 5.3 x10^3/uL (4.0-11.0)
[2019-08-05 15:44] LABS: CALCIUM 8.6 mg/dL (8.5-10.1); CREATININE 0.8 mg/dL (0.6-1.0); GFR 71.1
[2019-08-05 15:50] LABS: ALBUMIN 3.7 g/dL (3.4-5.0); ALBUMIN/GLOBULIN RATIO 1.3 (1.0-1.7); MAGNESIUM 1.8 mg/dL (1.8-2.4); TOTAL BILIRUBIN 0.5 mg/dL (0.2-1.0); TOTAL PROTEIN 6.6 g/dL (6.4-8.2)
[2019-08-05 17:13] VITALS: BP 96/59
[2019-08-05] MEDS ORDERED: IV NORMAL SALINE 1,000ML 1,000 ML IV SCH (17:47)
[2019-08-05] MEDS ORDERED: ONDANSETRON PF 4 MG/2 ML VIAL. IVP PRN (18:00)
--- NOTE | 2019-08-05 18:23 | EKG ---
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 Electronically Signed On 08-06-2019 9:24:06 CDT by Sj Quesada
== END 2019-08-05 18:28 | disposition left against medical advice (07) ==
LOC: ER 15:06 → UNDOADMIN 16:29 → 1 SOUTH 16:29 → ER 18:28
DX: R56.9 Unspecified convulsions (principal); R51 Headache; J44.9 Chronic obstructive pulmonary disease, unspecified; I50.9 Heart failure, unspecified; E11.9 Type 2 diabetes mellitus without complications; Z88.5 Allergy status to narcotic agent; Z88.8 Allergy status to other drugs, medicaments and biological substances
CPT/HCPCS: 36415; 80053; 83735; 85025; 93005; 96360; J2060; 99284-25; J7030

== ENCOUNTER 2019-08-06 13:45 | Emergency (ER) | payer MEDICARE ==
[~2019-08-06] VITALS: Ht 162.6 cm; Wt 95.0 kg
[2019-08-06] MEDS ORDERED: IV NORMAL SALINE 1,000ML 1,000 ML IV ONE (14:00)
[2019-08-06 14:30] LABS: BASO % 0 % (0-3); EOS # 0.2 x10^3/uL (0.0-0.7); EOS % 3 % (0-3); HEMATOCRIT 39.9 % (36.0-47.0); HEMOGLOBIN 13.3 g/dL (12.0-15.5); LYMPH # 2.4 x10^3/uL (1.0-4.8); LYMPH % 36 % (24-48); MEAN CORPUSCULAR HEMOGLOBIN 29 pg (25-35); MEAN CORPUSCULAR HGB CONC 33 g/dL (31-37); MEAN CORPUSCULAR VOLUME 86 fL (79-100); MONO # 0.6 x10^3/uL (0.0-1.1); MONO % 9 % (0-9); NEUT # 3.5 x10^3uL (1.8-7.7); NEUT % 53 % (31-73); PLATELET COUNT 248 x10^3/uL (140-400); RED BLOOD COUNT 4.67 x10^6/uL (3.50-5.40); RED CELL DISTRIBUTION WIDTH 16.1 % (11.5-14.5); WHITE BLOOD COUNT 6.7 x10^3/uL (4.0-11.0)
[2019-08-06 14:42] LABS: CREATININE 0.8 mg/dL (0.6-1.0); GFR 71.1; POTASSIUM 4.1 mmol/L (3.5-5.1)
--- NOTE | 2019-08-06 14:44 | PHYS DOC ---
Past History Past Medical History: Asthma, CAD, CHF, COPD, Diabetes, Seizure Additional Past Medical Histor: Cardiac, lymphoma Past Surgical History: Cholecystectomy, Hysterectomy Additional Past Surgical Histo: stent placed at [facility] on saturday01/05/19; right rotator cuff repair Smoking: Non-smoker Alcohol Use: None Drug Use: None General Adult EDM: Chief Complaint: SEIZURE HPI: HPI: 68-year-old female presents with seizures. The patient states that she has had several seizures today. These are short episodes where she sometimes blacks out and wakes up and does not know what is going on. She believes she has tonic- clonic movement. She denies any injuries. She was seen in this emergency room for similar complaint yesterday and was post get admitted. She left prior to getting admitted AMA. She returns today because she is having similar symptoms. She has never been diagnosed officially with seizure disorder. She is not on any seizure medications. She denies fever chills. She denies any medication changes recently. Review of Systems: Review of Systems: Constitutional: Denies fever or chills Eyes: Denies change in visual acuity HENT: Denies nasal congestion or sore throat Respiratory: Denies cough or shortness of breath Cardiovascular: Denies chest pain or edema GI: Denies abdominal pain, nausea, vomiting, bloody stools or diarrhea : Denies dysuria Musculoskeletal: Denies back pain or joint pain Integument: Denies rash Neurologic: Seizure, headache. Denies focal weakness or sensory changes Endocrine: Denies polyuria or polydipsia Lymphatic: Denies swollen glands Psychiatric: Denies depression or anxiety Heart Score: Risk Factors: Risk Factors: DM, Current or recent (<one month) smoker, HTN, HLP, family history of CAD, obesity. Risk Scores: Score 0 - 3: 2.5% MACE over next 6 weeks - Discharge Home Score 4 - 6: 20.3% MACE over next 6 weeks - Admit for Clinical Observation Score 7 - 10: 72.7% MACE over next 6 weeks - Early Invasive Strategies Current Medications: Current Meds: Current Medications Medications (Trade) Dose Ordered Sig/Sherrie Start Time Stop Time Status Last Admin Dose Admin Sodium Chloride 1,000 ml @ 1,000 mls/hr 1X ONCE 08/06/19 14:00 08/06/19 14:59 Allergies: Allergies: Allergies Coded Allergies Type Severity Reaction Last Updated Verified prednisone Allergy Severe SEIZURES 06/25/19 No fentanyl Allergy Intermediate 06/25/19 Yes oxycodone Allergy Intermediate 06/25/19 Yes Physical Exam: PE: Constitutional: Well developed, obese, well nourished, no acute distress, non- toxic appearance. [] HENT: Normocephalic, atraumatic, bilateral external ears normal, oropharynx moist, no oral exudates, nose normal. [] Eyes: PERRLA, EOMI, conjunctiva normal, no discharge. [] Neck: Normal range of motion, no tenderness, supple, no stridor. [] Cardiovascular:Heart rate regular rhythm, no murmur [] Lungs & Thorax: Bilateral breath sounds clear to auscultation [] Abdomen: Bowel sounds normal, soft, no tenderness, no masses, no pulsatile mas ses. [] Skin: Warm, dry, no erythema, no rash. [] Back: No tenderness, no CVA tenderness. [] Extremities: No tenderness, no cyanosis, no clubbing, ROM intact, no edema. [] Neurologic: Alert and oriented X 3, normal motor function, normal sensory function, no focal deficits noted. [] Psychologic: Affect normal, judgement normal, mood normal. [] Current Patient Data: Labs: Laboratory Tests Test 08/06/19 13:50 White Blood Count 6.7 x10^3/uL (4.0-11.0) Red Blood Count 4.67 x10^6/uL (3.50-5.40) Hemoglobin 13.3 g/dL (12.0-15.5) Hematocrit 39.9 % (36.0-47.0) Mean Corpuscular Volume 86 fL (79-100) Mean Corpuscular Hemoglobin 29 pg (25-35) Mean Corpuscular Hemoglobin Concent 33 g/dL (31-37) Red Cell Distribution Width 16.1 % (11.5-14.5) H Platelet Count 248 x10^3/uL (140-400) Neutrophils (%) (Auto) 53 % (31-73) Lymphocytes (%) (Auto) 36 % (24-48) Monocytes (%) (Auto) 9 % (0-9) Eosinophils (%) (Auto) 3 % (0-3) Basophils (%) (Auto) 0 % (0-3) Neutrophils # (Auto) 3.5 x10^3uL (1.8-7.7) Lymphocytes # (Auto) 2.4 x10^3/uL (1.0-4.8) Monocytes # (Auto) 0.6 x10^3/uL (0.0-1.1) Eosinophils # (Auto) 0.2 x10^3/uL (0.0-0.7) Basophils # (Auto) 0.0 x10^3/uL (0.0-0.2) Vital Signs: Vital Signs Date Time Temp Pulse Resp B/P (MAP) Pulse Ox O2 Delivery O2 Flow Rate FiO2 08/06/19 13:49 98.0 72 18 149/85 (106) 96 Room Air EKG: EKG: [] Radiology/Procedures: Radiology/Procedures: [] Course & Med Decision Making: Course & Med Decision Making Pertinent Labs and Imaging studies reviewed. (See chart for details) The patient's labs are unremarkable. Her lactic acid is normal. The seem to be preceded by headache. I wonder if this is a migraine variant versus true seizure. I have treated her here with Toradol, Reglan, and Benadryl. She has had no seizure activity in the emergency room. She is planning to follow-up with neurology. I believe she is able to be discharged at this time. If she has additional episodes she may need to return to the emergency room. She is stable for discharge at this time. [] Dragon Disclaimer: Dragon Disclaimer: This electronic medical record was generated, in whole or in part, using a voice recognition dictation system. Departure Departure: Impression: Primary Impression: Headache Qualified Codes: R51 - Headache Additional Impression: Seizure-like activity Disposition: HOME, SELF-CARE Condition: STABLE Referrals: BAILEY MORSE MD (PCP) Patient Instructions: Nonepileptic Seizures-Brief, Recurrent Migraine Headache, [id number] NIKI ROJAS DO Aug 06, 2019 14:44
[2019-08-06 14:48] LABS: ALBUMIN 3.9 g/dL (3.4-5.0); ALBUMIN/GLOBULIN RATIO 1.1 (1.0-1.7); TOTAL BILIRUBIN 0.7 mg/dL (0.2-1.0); TOTAL PROTEIN 7.5 g/dL (6.4-8.2)
[2019-08-06] MEDS ORDERED: KETOROLAC 30 MG/ML VIAL. IVP ONE (15:45)
[2019-08-06] MEDS ORDERED: diphenhydrAMINE 50 MG/ML VIAL IVP ONE (15:45)
[2019-08-06] MEDS ORDERED: METOCLOPRAMIDE HCL 10 MG/2 ML VIAL. IVP ONE (15:45)
[2019-08-06 15:56] VITALS: BP 128/52
== END 2019-08-06 16:00 | disposition home or self-care (01) ==
LOC: ER 13:45
DX: R56.9 Unspecified convulsions (principal); R51 Headache; J44.9 Chronic obstructive pulmonary disease, unspecified; I25.10 Atherosclerotic heart disease of native coronary artery without angina pectoris; I50.9 Heart failure, unspecified; E11.9 Type 2 diabetes mellitus without complications; Z88.8 Allergy status to other drugs, medicaments and biological substances; Z88.5 Allergy status to narcotic agent
CPT/HCPCS: 36415; 80053; 83605; 85025; 96374; 96375; 99285; J1200; J1885; J2765; 99284-25; J7030

== ENCOUNTER 2019-08-28 11:55 | Emergency (ER) | payer MEDICARE ==
[~2019-08-28] VITALS: Ht 162.6 cm; Wt 95.0 kg
[2019-08-28 12:33] LABS: BASO % 0 % (0-3); EOS # 0.1 x10^3/uL (0.0-0.7); EOS % 3 % (0-3); HEMATOCRIT 36.6 % (36.0-47.0); LYMPH # 1.1 x10^3/uL (1.0-4.8); LYMPH % 24 % (24-48); MEAN CORPUSCULAR HEMOGLOBIN 29 pg (25-35); MEAN CORPUSCULAR HGB CONC 33 g/dL (31-37); MEAN CORPUSCULAR VOLUME 87 fL (79-100); MONO # 0.4 x10^3/uL (0.0-1.1); MONO % 8 % (0-9); NEUT % 65 % (31-73); PLATELET COUNT 188 x10^3/uL (140-400); RED CELL DISTRIBUTION WIDTH 16.9 % (11.5-14.5); WHITE BLOOD COUNT 4.7 x10^3/uL (4.0-11.0)
[2019-08-28 12:38] LABS: CALCIUM 8.6 mg/dL (8.5-10.1); CREATININE 0.7 mg/dL (0.6-1.0); POTASSIUM 4.1 mmol/L (3.5-5.1)
--- NOTE | 2019-08-28 12:45 | RAD ---
Examination: PORTABLE CHEST 1V History: Chest pain Comparison/Correlation: 06/25/2019 Portable Chest X-ray Exam, 02/09/2019 CTA of the chest Findings: Right upright portable frontal view of the chest was obtained. Heart size is normal. No pneumothorax. No infiltrate. Right and left suprahilar scarring is present corresponding to prior exams. Bony structures are unremarkable. No pleural effusion. Impression: No new infiltrate. No suspicious process. Electronically signed by: Marvin Ferrera MD (08/28/2019 12:43 PM) [id number]
[2019-08-28 12:50] LABS: ALBUMIN 3.6 g/dL (3.4-5.0); ALBUMIN/GLOBULIN RATIO 1.2 (1.0-1.7); TOTAL BILIRUBIN 0.7 mg/dL (0.2-1.0); TOTAL PROTEIN 6.5 g/dL (6.4-8.2)
[2019-08-28 14:42] LABS: BACTERIA,URINE FEW /HPF (0-FEW); BILIRUBIN,URINE NEG (NEG); CLARITY,URINE CLEAR; COLOR,URINE YELLOW; GLUCOSE,URINE NEG (NEG); NITRITE,URINE NEG (NEG); RBC,URINE 0 /HPF (0-2); SQUAMOUS EPITHELIAL CELL,UR MOD /LPF; UROBILINOGEN,URINE 0.2 mg/dL (0.2 mg/dL)
[2019-08-28 15:05] VITALS: BP 161/94
--- NOTE | 2019-08-28 15:56 | PHYS DOC ---
Past History Past Medical History: Asthma, CAD, CHF, COPD, Diabetes, Seizure Additional Past Medical Histor: Cardiac, lymphoma Past Surgical History: Cholecystectomy, Hysterectomy Additional Past Surgical Histo: stent placed at [facility] on saturday01/05/19; right rotator cuff repair Smoking: Non-smoker Alcohol Use: None Drug Use: None General Adult EDM: Chief Complaint: CHEST PAIN HPI: HPI: Patient is a 68-year-old female who presented to ER today for evaluation of substernal chest pain that lasted for less than 20 seconds off and on for 3 days. Patient denies any trouble breathing, no nausea vomiting with this. Patient denies any cough or fever. Patient has history of coronary disease, she was one time admitted to the hospital has seizure, had CPR done, causing rib fracture and sternal fracture. Patient has been having pain like this off and on since. Patient went to see her family doctor today about the pain who sent her here for evaluation. Review of Systems: Review of Systems: Constitutional: Denies fever or chills Eyes: Denies change in visual acuity HENT: Denies nasal congestion or sore throat Respiratory: Denies cough or shortness of breath Cardiovascular: Positive for chest pain, no edema, no trouble breathing. GI: Denies abdominal pain, nausea, vomiting, bloody stools or diarrhea : Denies dysuria Musculoskeletal: Denies back pain or joint pain Integument: Denies rash Neurologic: Denies headache, focal weakness or sensory changes Endocrine: Denies polyuria or polydipsia Lymphatic: Denies swollen glands Psychiatric: Denies depression or anxiety Heart Score: HEART Score for Chest Pain: HEART Score for Chest Pain Response (Comments) Value History Slighlty/Non-Suspicious 0 ECG Nonspecific Repolarizatio 1 Age > 65 2 Risk Factors >3 Risk Factors or Hx CAD 2 Troponin < Normal Limit 0 Total 5 Risk Factors: Risk Factors: DM, Current or recent (<one month) smoker, HTN, HLP, family history of CAD, obesity. Risk Scores: Score 0 - 3: 2.5% MACE over next 6 weeks - Discharge Home Score 4 - 6: 20.3% MACE over next 6 weeks - Admit for Clinical Observation Score 7 - 10: 72.7% MACE over next 6 weeks - Early Invasive Strategies Allergies: Allergies: Allergies Coded Allergies Type Severity Reaction Last Updated Verified prednisone Allergy Severe SEIZURES 06/25/19 No fentanyl Allergy Intermediate 06/25/19 Yes oxycodone Allergy Intermediate 06/25/19 Yes Physical Exam: PE: Constitutional: Well developed, well nourished, no acute distress, non-toxic appearance. [] HENT: Normocephalic, atraumatic, bilateral external ears normal, oropharynx moist, no oral exudates, nose normal. [] Eyes: PERRLA, EOMI, conjunctiva normal, no discharge. [] Neck: Normal range of motion, no tenderness, supple, no stridor. [] Cardiovascular:Heart rate regular rhythm, no murmur [] Lungs & Thorax: Bilateral breath sounds clear to auscultation [] Abdomen: Bowel sounds normal, soft, no tenderness, no masses, no pulsatile masses. [] Skin: Warm, dry, no erythema, no rash. [] Back: No tenderness, no CVA tenderness. [] Extremities: No tenderness, no cyanosis, no clubbing, ROM intact, no edema. [] Neurologic: Alert and oriented X 3, normal motor function, normal sensory function, no focal deficits noted. [] Psychologic: Affect normal, judgement normal, mood normal. [] Current Patient Data: Labs: Laboratory Tests Test 08/28/19 12:16 08/28/19 13:54 White Blood Count 4.7 x10^3/uL (4.0-11.0) Red Blood Count 4.20 x10^6/uL (3.50-5.40) Hemoglobin 12.0 g/dL (12.0-15.5) Hematocrit 36.6 % (36.0-47.0) Mean Corpuscular Volume 87 fL (79-100) Mean Corpuscular Hemoglobin 29 pg (25-35) Mean Corpuscular Hemoglobin Concent 33 g/dL (31-37) Red Cell Distribution Width 16.9 % (11.5-14.5) H Platelet Count 188 x10^3/uL (140-400) Neutrophils (%) (Auto) 65 % (31-73) Lymphocytes (%) (Auto) 24 % (24-48) Monocytes (%) (Auto) 8 % (0-9) Eosinophils (%) (Auto) 3 % (0-3) Basophils (%) (Auto) 0 % (0-3) Neutrophils # (Auto) 3.0 x10^3uL (1.8-7.7) Lymphocytes # (Auto) 1.1 x10^3/uL (1.0-4.8) Monocytes # (Auto) 0.4 x10^3/uL (0.0-1.1) Eosinophils # (Auto) 0.1 x10^3/uL (0.0-0.7) Basophils # (Auto) 0.0 x10^3/uL (0.0-0.2) Prothrombin Time 10.2 SEC (9.4-11.4) Prothrombin Time INR 1.0 (0.9-1.1) Activated Partial Thromboplast Time 24 SEC (23-33) Sodium Level 144 mmol/L (136-145) Potassium Level 4.1 mmol/L (3.5-5.1) Chloride Level 106 mmol/L (98-107) Carbon Dioxide Level 28 mmol/L (21-32) Anion Gap 10 (6-14) Blood Urea Nitrogen 10 mg/dL (7-20) Creatinine 0.7 mg/dL (0.6-1.0) Estimated GFR (Cockcroft-Gault) 83.0 BUN/Creatinine Ratio 14 (6-20) Glucose Level 179 mg/dL (70-99) H Calcium Level 8.6 mg/dL (8.5-10.1) Total Bilirubin 0.7 mg/dL (0.2-1.0) Aspartate Amino Transferase (AST) 18 U/L (15-37) Alanine Aminotransferase (ALT) 19 U/L (14-59) Alkaline Phosphatase 87 U/L (46-116) Troponin I Quantitative < 0.017 ng/mL (0-0.055) WK-Ski-F-Type Natriuretic Peptide 518 pg/mL (0-124) H Total Protein 6.5 g/dL (6.4-8.2) Albumin 3.6 g/dL (3.4-5.0) Albumin/Globulin Ratio 1.2 (1.0-1.7) Lipase 65 U/L (73-393) L Urine Collection Type Unknown Urine Color Yellow Urine Clarity Clear Urine pH 5.5 Urine Specific [place] >=1.030 Urine Protein Neg (NEG-TRACE) Urine Glucose (UA) Neg mg/dL (NEG) Urine Ketones (Stick) Neg mg/dL (NEG) Urine Blood Neg (NEG) Urine Nitrite Neg (NEG) Urine Bilirubin Neg (NEG) Urine Urobilinogen Dipstick 0.2 mg/dL (0.2 mg/dL) Urine Leukocyte Esterase Neg (NEG) Urine RBC 0 /HPF (0-2) Urine WBC 1-4 /HPF (0-4) Urine Squamous Epithelial Cells Mod /LPF Urine Bacteria Few /HPF (0-FEW) Urine Mucus Slight /LPF Vital Signs: Vital Signs Date Time Temp Pulse Resp B/P (MAP) Pulse Ox O2 Delivery O2 Flow Rate FiO2 08/28/19 15:05 76 18 161/94 (116) 98 Room Air 08/28/19 12:21 97.8 EKG: EKG: EKG was done at 1208, heart rate of 58 beats per minutes, no STEMI. Sinus rhythm. [] Radiology/Procedures: Radiology/Procedures: [place] [address] IMAGING REPORT Signed PATIENT: NILESH ENCINAS ACCOUNT: [id number] : 1950 LOCATION: ER AGE: 68 SEX: F EXAM STATUS: PRE ER ORD. PHYSICIAN: ARLEY CARMEN DO REASON: chest pain PROCEDURE: PORTABLE CHEST 1V Examination: PORTABLE CHEST 1V History: Chest pain Comparison/Correlation: 06/25/2019 Portable Chest X-ray Exam, 02/09/2019 CTA of the chest Findings: Right upright portable frontal view of the chest was obtained. Heart size is normal. No pneumothorax. No infiltrate. Right and left suprahilar scarring is present corresponding to prior exams. Bony structures are unremarkable. No pleural effusion. Impression: No new infiltrate. No suspicious process. Electronically signed by: Marvin Ibanez MD (08/28/2019 12:43 PM) [id number] DICTATED AND SIGNED BY: MARVIN IBANEZ MD DATE: 08/28/19 1243 CC: ARLEY CARMEN DO; BAILEY MORSE MD ~ Course & Med Decision Making: Course & Med Decision Making Pertinent Labs and Imaging studies reviewed. (See chart for details) CHEST PAIN, NONSPECIFIC: The patient presents today with chest pain lasting less than a minute off and on for three days. The quality of the pain is very at ypical for acute coronary syndrome. Given the duration of the chest pain with cardiac enzymes returning within normal limits, I do feel that from a risk stratification standpoint, the patient can be safely discharged home for outpatient evaluation by the primary care physician. The patient, however, fully understands that the evaluation today in no way rules out coronary artery disease as a possibility and that close followup is necessary as a component of a complete evaluation. The patient also understands that should the pain change, or become more frequent, more intense, or should the patient develop new symptoms, the patient is instructed to return immediately to the emergency room for reevaluation. However, at this time, given the lack of significant risk factors in conjunction with an atypical history in conjunction with normal enzymes despite the duration of pain and an unchanged or normal EKG, I do feel that the information available to us at this time suggests that this is unlikely to represent acute plaque rupture and that the risk of morbidity or mortality is low. Also considered today was the possibility of a pneumothorax, pneumonia, pulmonary embolus, mediastinitis, and thoracic aortic dissection. However, after careful consideration of the patient's clinical history and presentation and findings, there is no evidence to suggest any of these as a likely diagnosis and therefore feel that the continued pursuit of these etiologies is not warranted at this time. [place]on Disclaimer: Roseline Disclaimer: This electronic medical record was generated, in whole or in part, using a voice recognition dictation system. Departure Departure: Impression: Primary Impression: Atypical chest pain Disposition: HOME, SELF-CARE Condition: STABLE Referrals: BAILEY MORSE MD (PCP) please follow up with your professional athletes coach on Saturday for reevaluation. Patient Instructions: Chest Pain (Nonspecific) Additional Instructions: Thank you for visiting our Emergency Department. We appreciate you trusting us with your care. If any additional problems come up don't hesitate to return to visit us. Please follow up with your primary care provider so they can plan additional care if needed and know about the problem that you had. If symptoms worsen come back to the Emergency Department. Any concerning symptoms that start such as chest pain, shortness of air, weakness or numbness on one side of the body, running high fevers or any other concerning symptoms return to the ER. ARLEY CARMEN DO August 28, 2019 15:56
--- NOTE | 2019-08-28 16:43 | EKG ---
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
== END 2019-08-28 16:04 | disposition home or self-care (01) ==
LOC: ER 11:55
DX: R07.2 Precordial pain (principal); J45.909 Unspecified asthma, uncomplicated; I50.9 Heart failure, unspecified; I25.10 Atherosclerotic heart disease of native coronary artery without angina pectoris; E11.9 Type 2 diabetes mellitus without complications; Z88.5 Allergy status to narcotic agent; Z88.8 Allergy status to other drugs, medicaments and biological substances
CPT/HCPCS: 36415; 71045; 80053; 81001; 83690; 83880; 84484; 85025; 85610; 85730; 93005; 99285

== ENCOUNTER 2019-09-07 20:48 | Observation (INO) | payer MEDICARE ==
[~2019-09-07] VITALS: Ht 162.6 cm; Wt 96.9 kg
--- NOTE | 2019-09-07 20:56 | PHYS DOC ---
Past History Past Medical History: Asthma, CAD, CHF, COPD, Diabetes, DVT, Seizure Additional Past Medical Histor: Cardiac, lymphoma Past Medical History PE x 2 Past Surgical History: Cholecystectomy, Hysterectomy Additional Past Surgical Histo: stent placed at [place] on saturday01/05/19; right rotator cuff repair Smoking: Non-smoker Alcohol Use: None Drug Use: None General Adult HPI: HPI: ".. I am having bad chest pain.. here on the left.. it been constant since about 7 tonight..."..." I got bad heart.. and I ve had PE 's before.. I am not sure what causing the pain... " Patient is a 68 year old female who presents with above hx and complaints of left-sided chest pain. Pain has been constant since approximately 1900 hrs. tonight. Pain does have some components of chest wall is exacerbated by deep breaths and cough. Patient does have significant past history of coronary artery disease with PCI and stent placement x2. Has history of previous DVT and pulmonary embolism x2. Patient has history of diabetes, hyperlipidemia, COPD, chronic bronchitis, asthma,. Patient also has history of CVA and left-sided hemiplegia and June 2018. Is also history of seizures that seem to be related to emotional stress. Patient normally follows with Dr. Hurst as primary. Pt. follows with Dr. Pinedo for cardiology. Follows at for her seizure disorder. Does have past history of right rotator cuff repair. Has had a cholecystectomy, hysterectomy, oophorectomy, and left wrist carpal tunnel repair. Review of Systems: Review of Systems: Constitutional: Denies fever or chills Eyes: Denies change in visual acuity HENT: Denies nasal congestion or sore throat Respiratory: Denies cough or shortness of breath Cardiovascular: Complaints of chest pain GI: Denies abdominal pain, nausea, vomiting, bloody stools or diarrhea : Denies dysuria Musculoskeletal: Denies back pain or joint pain Integument: Denies rash Neurologic: Denies headache, focal weakness or sensory changes Endocrine: Denies polyuria or polydipsia Lymphatic: Denies swollen glands Psychiatric: Denies depression or anxiety Heart Score: HEART Score for Chest Pain: HEART Score for Chest Pain Response (Comments) Value History Moderately Suspicious 1 ECG Nonspecific Repolarizatio 1 Age > 65 2 Risk Factors >3 Risk Factors or Hx CAD 2 Troponin < Normal Limit 0 Total 6 Risk Factors: Risk Factors: DM, Current or recent (<one month) smoker, HTN, HLP, family history of CAD, obesity. Risk Scores: Score 0 - 3: 2.5% MACE over next 6 weeks - Discharge Home Score 4 - 6: 20.3% MACE over next 6 weeks - Admit for Clinical Observation Score 7 - 10: 72.7% MACE over next 6 weeks - Early Invasive Strategies Family History: Family History: Significant for 2 sisters 1 secondary to cancer and heart problems father at 82 because of lung cancer and MT. Mother at 83 because of MT. 2 brothers that are generally healthy. Current Medications: Current Meds: See nursing for home meds Allergies: Allergies: Allergies Coded Allergies Type Severity Reaction Last Updated Verified prednisone Allergy Severe SEIZURES 06/25/19 No fentanyl Allergy Intermediate 06/25/19 Yes oxycodone Allergy Intermediate 06/25/19 Yes Physical Exam: PE: Constitutional: Moderate acute distress, non-toxic appearance. [] HENT: Normocephalic, atraumatic, bilateral external ears normal, oropharynx moist, no oral exudates, nose normal. [] Eyes: PERRLA, EOMI, conjunctiva normal, no discharge. [] Neck: Normal range of motion, no tenderness, supple, no stridor. [] Cardiovascular:Heart rate regular rhythm, no murmur [] PMI to the left Lungs & Thorax: Bilateral breath sounds equal apex with scattered wheezes on auscultation [] Abdomen: Bowel sounds decreased, soft, no tenderness, no masses, no pulsatile masses. Obese. Multiple surgical scars Skin: Warm, dry, no erythema, no rash. [] Back: No tenderness, no CVA tenderness. [] Extremities: Complains of multiple joint tenderness, no cyanosis, no clubbing, ROM intact, ankle edema. Arthritic changes . No cording appreciated Neurologic: Alert and oriented X 3, moves extremities on request. Does have distal sensory, no focal deficits noted. [] Psychologic: Affect anxious , judgement normal, mood normal. [] EKG: EKG: [][address] [address] My interpretation EKG shows sinus rhythm at 78 bpm. Does have some leftward axis. Some nonspecific anterior septal changes. No findings acute STEMI of contralateral changes. Radiology/Procedures: Radiology/Procedures: [ IMAGING REPORT Signed PATIENT: NILESH ENCINAS ACCOUNT: [id number] : 1950 LOCATION: ER AGE: 68 SEX: F EXAM STATUS: REG ER ORD. PHYSICIAN: MARLEY VACA MD REASON: cp PROCEDURE: PORTABLE CHEST 1V AP chest x-ray HISTORY: Chest pain. COMPARISON: Chest x-ray August 28, 2019. FINDINGS: Heart size normal. Aortic arch calcified plaque. No pneumothorax, pulmonary opacities or pleural effusions. Pulmonary emphysema and perihilar upper lobe scarring seen to better detail on prior chest CT imaging, stable. Bones are unremarkable. IMPRESSION: No acute process. Stable exam. Electronically signed by: Joanie Solorzano MD (09/07/2019 10:21 PM) [facility] [place] DICTATED AND SIGNED BY: JOANIE SOLORZANO MD DATE: 09/07/192220 CC: MARLEY VACA MD; BAILEY HURST MD ~][address] [address] IMAGING REPORT Signed PATIENT: NILESH ENCINAS ACCOUNT: [id number] : 1950 LOCATION: ER AGE: 68 SEX: F EXAM STATUS: REG ER ORD. PHYSICIAN: MARLEY VACA MD REASON: cp, OMNI 350, 100ml PROCEDURE: CT ANGIOGRAPHY CHEST CTA Chest with contrast: Clinical History: Chest pain. Axial helical images of the chest were obtained after the administration of 100 cc of IV Omni 350 and timed appropriately for a pulmonary arterial study. Conventional axial reconstruction was performed in addition to coronal, sagittal and bilateral oblique MIP (maximum intensity projection). This study was ordered to detect possible pulmonary embolism. COMPARISON: October 11, 2019 There are no filling defects to suggest pulmonary embolism. Mild patchy opacities in the upper lungs were seen previously and are likely chronic. There is no mediastinal or hilar lymphadenopathy. The thoracic aorta appears normal. Impression: 1. No evidence of pulmonary embolism. 2. No significant findings. PQRS Compliance Statement: One or more of the following individualized dose reduction techniques were utilized for this examination: 1. Automated exposure control 2. Adjustment of the mA and/or kV according to patient size 3. Use of iterative reconstruction technique Electronically signed by: Flip Mensah III, MD (09/08/2019 1:43 AM) [id number] DICTATED AND SIGNED BY: FLIP MENSAH III, MD DATE: 09/08/19 0143 CC: MARLEY VACA MD; BAILEY HURST MD ~ Course & Med Decision Making: Course & Med Decision Making Pertinent Labs and Imaging studies reviewed. (See chart for details) Pt. admitted to Dr. Cisse for further eval. and cardiology consult. Impression: 1. Chest Pain 2. DM-137 3. Elevated BNP 540 4. Hx. CADz 5. Elevated D-dimer 0.75 6. History of coronary artery disease- Stents 7. History of DVTs and pulmonary embolisms x2 [] Dragon Disclaimer: Dragon Disclaimer: This electronic medical record was generated, in whole or in part, using a voice recognition dictation system. Departure Departure: Disposition: 01 HOME/RESIDENCE PRIOR TO ADM Condition: STABLE Referrals: BAILEY HURST MD (PCP) Dragon Disclaimer This chart was dictated in whole or in part using Voice Recognition software in a busy, high-work load, and often noisy Emergency Department environment. It may contain unintended and wholly unrecognized errors or omissions. Dragon Disclaimer This chart was dictated in whole or in part using Voice Recognition software in a busy, high-work load, and often noisy Emergency Department environment. It may contain unintended and wholly unrecognized errors or omissions. MARLEY VACA MD September 07, 2019 20:56
[2019-09-07] MEDS ORDERED: ASPIRIN CHEWABLE 81 MG TABLET. PO ONE (21:00)
--- NOTE | 2019-09-07 21:08 | EKG ---
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
[2019-09-07] MEDS: IV RINGERS SOLUTION,LACTATED 1,000 ML IV SCH (21:23)
[2019-09-07 21:47] LABS: BASO % 0 % (0-3); EOS # 0.2 x10^3/uL (0.0-0.7); EOS % 4 % (0-3); HEMATOCRIT 37.5 % (36.0-47.0); HEMOGLOBIN 12.4 g/dL (12.0-15.5); LYMPH # 1.2 x10^3/uL (1.0-4.8); LYMPH % 24 % (24-48); MEAN CORPUSCULAR HEMOGLOBIN 29 pg (25-35); MEAN CORPUSCULAR HGB CONC 33 g/dL (31-37); MEAN CORPUSCULAR VOLUME 88 fL (79-100); MONO # 0.4 x10^3/uL (0.0-1.1); MONO % 9 % (0-9); NEUT # 2.9 x10^3uL (1.8-7.7); NEUT % 62 % (31-73); PLATELET COUNT 193 x10^3/uL (140-400); RED BLOOD COUNT 4.27 x10^6/uL (3.50-5.40); RED CELL DISTRIBUTION WIDTH 16.4 % (11.5-14.5); WHITE BLOOD COUNT 4.7 x10^3/uL (4.0-11.0)
[2019-09-07 22:12] LABS: CALCIUM 8.7 mg/dL (8.5-10.1); CREATININE 0.7 mg/dL (0.6-1.0); POTASSIUM 4.5 mmol/L (3.5-5.1)
[2019-09-07 22:20] LABS: ALBUMIN 3.6 g/dL (3.4-5.0); DIRECT BILIRUBIN 0.1 mg/dL (0.0-0.2); MAGNESIUM 1.9 mg/dL (1.8-2.4); TOTAL BILIRUBIN 0.6 mg/dL (0.2-1.0); TOTAL PROTEIN 7.1 g/dL (6.4-8.2)
--- NOTE | 2019-09-07 22:24 | RAD ---
AP chest x-ray HISTORY: Chest pain. COMPARISON: Chest x-ray August 28, 2019. FINDINGS: Heart size normal. Aortic arch calcified plaque. No pneumothorax, pulmonary opacities or pleural effusions. Pulmonary emphysema and perihilar upper lobe scarring seen to better detail on prior chest CT imaging, stable. Bones are unremarkable. IMPRESSION: No acute process. Stable exam. Electronically signed by: Cristi Solorzano MD (09/07/2019 10:21 PM) [facility]
[2019-09-07 22:52] LABS: BARBITURATES NEG (NEG); BENZODIAZEPINES NEG (NEG); BILIRUBIN,URINE NEG (NEG); CANNABINOIDS NEG (NEG); CLARITY,URINE CLEAR; COCAINE NEG (NEG); COLOR,URINE YELLOW; GLUCOSE,URINE NEG (NEG); METHADONE NEG (NEG); OPIATES NEG (NEG); PHENCYCLIDINE NEG (NEG)
[2019-09-07 22:53] LABS: BACTERIA,URINE FEW /HPF (0-FEW); NITRITE,URINE NEG (NEG); RBC,URINE OCC /HPF (0-2); UROBILINOGEN,URINE 0.2 mg/dL (0.2 mg/dL); WBC,URINE OCC /HPF (0-4)
[2019-09-07 22:57] LABS: AMPHETAMINE/METHAMPHETAMINE NEG (NEG)
[2019-09-08] MEDS ORDERED: ONDANSETRON PF 4 MG/2 ML VIAL. IVP PRN (01:00)
[2019-09-08] MEDS ORDERED: ASPIRIN 325 MG TABLET PO ONE (01:15)
[2019-09-08] MEDS ORDERED: ENOXAPARIN ** NOTE DOSE ** SYRINGE SQ ONE (01:15)
[2019-09-08] MEDS ORDERED: MORPHINE SULFATE 4 MG/ML DISP.SYRIN. IV ONE (01:15)
[2019-09-08] MEDS ORDERED: IOHEXOL 350 MG/ML 100 ML VIAL. IV ONE (01:30)
--- NOTE | 2019-09-08 01:45 | RAD ---
CTA Chest with contrast: Clinical History: Chest pain. Axial helical images of the chest were obtained after the administration of 100 cc of IV Omni 350 and timed appropriately for a pulmonary arterial study. Conventional axial reconstruction was performed in addition to coronal, sagittal and bilateral oblique MIP (maximum intensity projection). This study was ordered to detect possible pulmonary embolism. COMPARISON: October 11, 2019 There are no filling defects to suggest pulmonary embolism. Mild patchy opacities in the upper lungs were seen previously and are likely chronic. There is no mediastinal or hilar lymphadenopathy. The thoracic aorta appears normal. Impression: 1. No evidence of pulmonary embolism. 2. No significant findings. PQRS Compliance Statement: One or more of the following individualized dose reduction techniques were utilized for this examination: 1. Automated exposure control 2. Adjustment of the mA and/or kV according to patient size 3. Use of iterative reconstruction technique Electronically signed by: Augustine Solorio III, MD (09/08/2019 1:43 AM) [id number]
[2019-09-08] MEDS ORDERED: IPRATRPIUM/ALBUTEROL 0.5/2.5MG 3 ML NEBU. ONE (03:17)
[2019-09-08 04:22] VITALS: BP 143/66
[2019-09-08] MEDS ORDERED: GABA100C81 PO (04:36)
[2019-09-08] MEDS ORDERED: ESCI10TA2 PO (04:36)
[2019-09-08] MEDS ORDERED: GABA-585 PO (04:36)
[2019-09-08] MEDS: MORPHINE SULFATE 2 MG/ML DISP.SYRIN. IVP PRN ×2 (05:44→11:50)
[2019-09-08] MEDS: IV RINGERS SOLUTION,LACTATED 1,000 ML IV SCH (05:45)
[2019-09-08] MEDS: IPRATRPIUM/ALBUTEROL 0.5/2.5MG 3 ML NEBU. NEB SCH ×3 (06:23→17:14)
[2019-09-08 06:33] VITALS: BP 117/72
[2019-09-08] MEDS ORDERED: GABAPENTIN 100 MG CAPSULE. PO SCH ×2 (08:00→21:00)
[2019-09-08] MEDS ORDERED: HYDROcodone/APAP 10/325 1 TAB TABLET PO PRN (08:00)
[2019-09-08] MEDS ORDERED: ASPIRIN CHEWABLE 81 MG TABLET. PO SCH (08:00)
[2019-09-08] MEDS: ALPRAZolam 0.5 MG TABLET PO SCH ×2 (08:39→16:07)
[2019-09-08] MEDS ORDERED: CLOPIDOGREL BISULFATE 75 MG TABLET PO SCH (09:00)
[2019-09-08] MEDS ORDERED: CITALOPRAM 20 MG TABLET. PO SCH (09:00)
[2019-09-08] MEDS ORDERED: ISOSORBIDE MONONITRATE ER 30 MG TAB.ER.24H PO SCH (09:00)
[2019-09-08] MEDS ORDERED: METOPROLOL TART IMMED RELEASE 25 MG TABLET PO SCH (09:00)
--- NOTE | 2019-09-08 09:02 | PDOC2 ---
CARDIAC CONSULT DATE OF CONSULT Date Of Consult DATE: 09/08/19 TIME: 08:50 REASON FOR CONSULT Reason for Consult Chest pain Hypertension REFERRING PHYSICIAN Referring Physician Dr. Ortiz SOURCE Source: Chart review, Patient HPI History of Present Illness This is a 68 yo female who presented secondary to chest pain. Pain began last night around 7:30 pm. Describes as aching in her left chest. C/o of tremor in her left arm, tingling down left leg. Having more tremors in her right arm. Pain seems to be worse with the tremors and is worse with raising the left arm. No associated dizziness, diaphoresis, SOA,or palpitations. PAST MEDICAL HISTORY Past Medical History Coronary artery disease s/p PCI/stents to LAD and LCx Diabetes mellitus type 2 Hypertension Hyperlipidemia COPD/asthma DVT/PE Osteoarthritis CVA Lymphoma Anxiety Depression PSVT Seizure PAST SURGICAL HISTORY Past Surgical History Right rotator cuff repair Cholecystectomy Hysterectomy Carpal tunnel release surgery s/p PCI/stent placement FAMILY HISTORY Family History Patient denied any current smoking, alcohol or drug use SOCIAL HISTORY ALCOHOL: none Drugs: None Lives: Alone CURRENT MEDICATIONS Current Medications Current Medications Aspirin (Aspirin Chewable) 324 mg 1X ONCE PO Last administered on 09/07/19at 21:25; Start 09/07/19 at 21:00; Stop 09/07/19 at 21:01; Status DC Lactated Ringer's 1,000 ml @ 100 mls/hr Q10H IV Last administered on 09/08/19at 05:45; Start 09/07/19 at 20:56; Stop 09/08/19 at 06:55; Status DC Enoxaparin Sodium (Lovenox 100mg Syringe) 90 mg 1X ONCE SQ Last administered on 09/08/19at 01:33; Start 09/08/19 at 01:15; Stop 09/08/19 at 01:16; Status DC Morphine Sulfate (Morphine 4mg Syringe) 4 mg 1X ONCE IV Last administered on 09/08/19at 01:33; Start 09/08/19 at 01:15; Stop 09/08/19 at 01:16; Status DC Aspirin (Arlin Aspirin) 325 mg 1X ONCE PO ; Start 09/08/19 at 01:15; Stop 09/08/19 at 01:16; Status DC Iohexol (Omnipaque 350 Mg/ml) 100 ml 1X ONCE IV Last administered on 09/08/19at 01:15; Start 09/08/19 at 01:30; Stop 09/08/19 at 01:31; Status DC Ondansetron HCl (Zofran) 4 mg PRN Q4HRS PRN IVP NAUSEA/VOMITING Last admini stered on 09/08/19at 01:37; Start 09/08/19 at 01:00; Stop 09/09/19 at 00:59 Morphine Sulfate (Morphine 2mg Syringe) 2 mg PRN Q2HR PRN IVP PAIN Last administered on 09/08/19 05:44; Start 09/08/19 at 01:00; Stop 09/09/19 at 00:59 Albuterol/ Ipratropium (Duoneb) 3 ml RTQID NEB Last administered on 09/08/19at 06:23; Start 09/08/19 at 08:00; Stop 09/09/19 at 07:59 Aspirin (Aspirin Chewable) 81 mg DAILYWBKFT PO Last administered on 09/08/19at 08:38; Start 09/08/19 at 08:00 Albuterol/ Ipratropium (Duoneb) 3 ml STK-MED ONCE .ROUTE ; Start 09/08/19 at 03:17; Stop 09/08/19 at 03:17; Status DC Clopidogrel Bisulfate (Plavix) 75 mg DAILY PO Last administered on 09/08/19at 08:38; Start 09/08/19 at 09:00 Gabapentin (Neurontin) 100 mg DAILY08 PO Last administered on 09/08/19at 08:38; Start 09/08/19 at 08:00 Gabapentin (Neurontin) 100 mg HS PO ; Start 09/08/19 at 21:00 Acetaminophen/ Hydrocodone Bitart (Lortab 10/325) 1 tab PRN Q6HRS PRN PO PAIN; Start 09/08/19 at 08:00 Isosorbide Mononitrate (Imdur) 30 mg DAILY PO Last administered on 09/08/19at 08:37; Start 09/08/19 at 09:00 Metoprolol Tartrate (Lopressor) 12.5 mg BID PO Last administered on 09/08/19at 08:39; Start 09/08/19 at 09:00 Montelukast Sodium (Singulair) 10 mg HS PO ; Start 09/08/19 at 21:00 Pramipexole Dihydrochloride (miraPEX) 0.25 mg QHS PO ; Start 09/08/19 at 21:00 Trazodone HCl (Desyrel) 25 mg HS PO ; Start 09/08/19 at 21:00 Alprazolam (Xanax) 1 mg TID PO Last administered on 09/08/19at 08:39; Start 09/08/19 at 09:00 Citalopram Hydrobromide (CeleXA) 20 mg DAILY PO Last administered on 09/08/19at 08:38; Start 09/08/19 at 09:00 Insulin Glargine (Lantus Syringe) 15 unit QHS SQ ; Start 09/08/19 at 21:00 Atorvastatin Calcium (Lipitor) 80 mg QHS PO ; Start 09/08/19 at 21:00 Active Scripts Active Reported Neurontin (Gabapentin) 100 Mg Capsule 100 Mg PO HS Gabapentin (Gabapentin) 100 Mg Capsule 100 Mg PO DAILY08 Escitalopram Oxalate 10 Mg Tablet 10 Mg PO DAILY Lantus Solostar (Insulin Glargine,Hum.rec.anlog) 100 Unit/1 Ml Insuln.pen 15 Unit SQ QHS Rosuvastatin Calcium 20 Mg Tablet 20 Mg PO HS Metoprolol Tartrate 25 Mg Tablet 12.5 Mg PO BID Clopidogrel (Clopidogrel Bisulfate) 75 Mg Tablet 75 Mg PO DAILY Trazodone Hcl 50 Mg Tablet 25 Mg PO HS Xanax (Alprazolam) 1 Mg Tablet 1 Mg PO TID Hydrocodone-Apap 10-325 (Hydrocodone Bit/Acetaminophen) 1 Each Tablet 1 Tab PO PRN Q6HRS PRN Mirapex (Pramipexole Di-Hcl) 0.25 Mg Tablet 0.25 Mg PO QHS Montelukast Sodium Tablet (Montelukast Sodium) 10 Mg Tablet 10 Mg PO HS Isosorbide Mononitrate Er (Isosorbide Mononitrate) 30 Mg Tab.er.24h 30 Mg PO DAILY ALLERGIES Allergies: Coded Allergies: prednisone (Unverified Allergy, Severe, SEIZURES, 06/25/19) SEIZURES oxycodone (Verified Allergy, Intermediate, 06/25/19) ROS Review of Systems 14 point ROS conducted with pertinent positives noted above in HPI PHYSICAL EXAM General: Alert, Oriented X3, Cooperative, No acute distress HEENT: Atraumatic, Mucous membr. moist/pink Lungs: Other (diminished ) Heart: Regular rate Abdomen: Soft Extremities: No edema, Normal pulses Skin: No breakdown Neuro: Normal speech, Sensation intact Psych/Mental Status: Mental status NL, Mood NL MUSCULOSKELETAL: Osteoarthritic changes both hands, Abnormal exam of left (left upper and lower ext weakness) VITALS Vital Signs Vital Signs Date Time Temp Pulse Resp B/P (MAP) Pulse Ox O2 Delivery O2 Flow Rate FiO2 09/08/19 08:39 75 117/72 09/08/19 06:36 20 Room Air 09/08/19 06:33 97.2 96 LABS LABS Laboratory Tests Test 09/07/19 21:15 09/07/19 22:28 09/08/19 07:37 White Blood Count 4.7 x10^3/uL (4.0-11.0) Red Blood Count 4.27 x10^6/uL (3.50-5.40) Hemoglobin 12.4 g/dL (12.0-15.5) Hematocrit 37.5 % (36.0-47.0) Mean Corpuscular Volume 88 fL (79-100) Mean Corpuscular Hemoglobin 29 pg (25-35) Mean Corpuscular Hemoglobin Concent 33 g/dL (31-37) Red Cell Distribution Width 16.4 % (11.5-14.5) Platelet Count 193 x10^3/uL (140-400) Neutrophils (%) (Auto) 62 % (31-73) Lymphocytes (%) (Auto) 24 % (24-48) Monocytes (%) (Auto) 9 % (0-9) Eosinophils (%) (Auto) 4 % (0-3) Basophils (%) (Auto) 0 % (0-3) Neutrophils # (Auto) 2.9 x10^3uL (1.8-7.7) Lymphocytes # (Auto) 1.2 x10^3/uL (1.0-4.8) Monocytes # (Auto) 0.4 x10^3/uL (0.0-1.1) Eosinophils # (Auto) 0.2 x10^3/uL (0.0-0.7) Basophils # (Auto) 0.0 x10^3/uL (0.0-0.2) Prothrombin Time 9.6 SEC (9.4-11.4) Prothromb Time International Ratio 0.9 (0.9-1.1) Activated Partial Thromboplast Time 24 SEC (23-33) D-Dimer (Winter) 0.75 mg/L (0.00-0.50) Sodium Level 140 mmol/L (136-145) Potassium Level 4.5 mmol/L (3.5-5.1) Chloride Level 104 mmol/L (98-107) Carbon Dioxide Level 28 mmol/L (21-32) Anion Gap 8 (6-14) Blood Urea Nitrogen 11 mg/dL (7-20) Creatinine 0.7 mg/dL (0.6-1.0) Estimated GFR (Cockcroft-Gault) 83.0 Glucose Level 137 mg/dL (70-99) Calcium Level 8.7 mg/dL (8.5-10.1) Magnesium Level 1.9 mg/dL (1.8-2.4) Total Bilirubin 0.6 mg/dL (0.2-1.0) Direct Bilirubin 0.1 mg/dL (0.0-0.2) Aspartate Amino Transf (AST/SGOT) 31 U/L (15-37) Alanine Aminotransferase (ALT/SGPT) 26 U/L (14-59) Alkaline Phosphatase 102 U/L (46-116) Creatine Kinase 79 U/L (26-192) Troponin I Quantitative 0.018 ng/mL (0-0.055) < 0.017 ng/mL (0-0.055) KW-Czt-O-Type Natriuretic Peptide 540 pg/mL (0-124) Total Protein 7.1 g/dL (6.4-8.2) Albumin 3.6 g/dL (3.4-5.0) Lipase 84 U/L (73-393) Urine Collection Type Unknown Urine Color Yellow Urine Clarity Clear Urine pH 7.0 Urine Specific [place] 1.020 Urine Protein Neg (NEG-TRACE) Urine Glucose (UA) Neg mg/dL (NEG) Urine Ketones (Stick) Neg mg/dL (NEG) Urine Blood Neg (NEG) Urine Nitrite Neg (NEG) Urine Bilirubin Neg (NEG) Urine Urobilinogen Dipstick 0.2 mg/dL (0.2 mg/dL) Urine Leukocyte Esterase Neg (NEG) Urine RBC Occ /HPF (0-2) Urine WBC Occ /HPF (0-4) Urine Squamous Epithelial Cells None /LPF Urine Renal Epithelial Cells Occ /LPF Urine Bacteria Few /HPF (0-FEW) Urine Opiates Screen Neg (NEG) Urine Methadone Screen Neg (NEG) Urine Barbiturates Neg (NEG) Urine Phencyclidine Screen Neg (NEG) Urine Amphetamine/Methamphetamine Neg (NEG) Urine Benzodiazepines Screen Neg (NEG) Urine Cocaine Screen Neg (NEG) Urine Cannabinoids Screen Neg (NEG) Urine Ethyl Alcohol Neg (NEG) ECHOCARDIOGRAM Echocardiogram <Conclusion> The left ventricle is normal size. The left ventricular systolic function is normal and the ejection fraction is within normal range. The Ejection Fraction is 55-60%. There is mild concentric left ventricular hypertrophy. There is no significant aortic valvular stenosis. Doppler and Color Flow revealed no significant aortic regurgitation. Doppler and Color-flow revealed trace mitral regurgitation. Doppler and Color Flow revealed trace to mild tricuspid regurgitation with an estimated PAP of 44 mmHg. DATE: 01/06/19 1203 HEART CATH Heart Cath Conclusion 1. 80% stenosis involving a large caliber left circumflex artery. The previously placed stent in the left anterior descending artery was widely patent. The diagonal branch which is a small to medium caliber vessel appeared to have been jailed by the stent resulting in 80% ostial/proximal segment stenosis. 2. Successful PCI/drug eluting stent placement to the left circumflex artery 3. Normal left ventricle systolic function with ejection fraction estimated at 60% Recommendations 1. Aspirin 325 mg daily 2. Plavix 75 mg daily for preferably one year 3. Cardiovascular risk factor modification DATE: 01/05/19 1102 ASSESSMENT/PLAN Assessment/Plan 1. Chest pain, atypical. AMI ruled out. Most probably MSK in nature. 2. CAD; s/p previous PCI/stent to the LAD and more recent PCI/LUCILLE to LCx 12/2018. Clinically stable. Recent 2-D echocardiogram showed normal LV function 3. Diabetes, II; as per PCP 4. Hypertension; controlled 5. Hyperlipidemia; statin 6. H/o DVT/PE; approximately 9 months ago at [facility]; treated with Xarelto. 7. Hx of CVA with left side hemiparesis 8. Elevated d-dimer; CTA negative for PE 9. Arrhythmia; brief burst of NSVT this afternoon on tele Recommendations Mg level- replace as warranted Outpatient event monitor arranged Continue secondary prevention measures including DAPT with ASA, Plavix. Continue imdur. Add Ranexa If pain recurrent, consider further workup on an outpatient basis. Follow up in our office with Dr. Pinedo as scheduled. RAMONA JAVED APRN September 08, 2019 09:02
[2019-09-08 10:40] VITALS: BP 98/64
--- NOTE | 2019-09-08 12:01 | EKG ---
[address] [address] Test Date: 2019-09-08 Test Time: 11:58:12 Pat Name: NILESH ENCINAS Department: Room: 113 A Gender: F Washer Machine: : 1950 Requested By: APOLONIA PLUNKETT Order Number: [id number] Reading MD: Dionisio Pinedo Measurements Intervals [place] Rate: 69 P: 47 CO: 180 QRS: -20 QRSD: 76 T: 18 QT: 476 QTc: 512 Interpretive Statements SINUS RHYTHM ATRIAL PREMATURE COMPLEX(ES) LEFTWARD AXIS PROLONGED QT ABNORMAL ECG Electronically Signed On 09-11-2019 8:44:37 CDT by Dionisio Pinedo
[2019-09-08 15:02] VITALS: BP 102/62
--- NOTE | 2019-09-08 17:36 | SSS ---
ADMIT DATE: 09/08/2019 HISTORY OF PRESENT ILLNESS: The patient is a 68-year-old female patient who presented to the Emergency Room with a complaint of chest pain, mostly left sided, started around 7:30 p.m. She described as aching in her left chest and also complained of tremors in her left arm, tingling down her left leg, having more tremors in her right arm, pain seems to be worse with tremors, worse with raising her left arm. No nausea, no vomiting, no diaphoresis or palpitation. Denied any dizziness or lightheadedness. She was extensively investigated in the Emergency Room and has had 3 sets of cardiac enzymes that ruled out myocardial infarction. PAST MEDICAL HISTORY: Significant for coronary artery disease, status post PCI with stent deployment to the left anterior descending and left circumflex arteries. She is known to have type 2 diabetes mellitus, hypertension, hyperlipidemia, chronic obstructive pulmonary disease/bronchial asthma, DVT and PE, generalized osteoarthritis, cerebrovascular accident. She has anxiety and depression. She has also history of lymphoma and claims that she has seizures also, although she has been investigated in multiple centers including [facility] without any evidence that she really has seizures. PAST SURGICAL HISTORY: Significant for right rotator cuff repair, cholecystectomy, hysterectomy, carpal tunnel release surgery and PCI with stent deployment. FAMILY HISTORY: Unremarkable. SOCIAL HISTORY: She is , has 1 son and 2 daughters. She has been a secondhand smoker. She does not herself smoke, drink alcohol or use any recreational drugs. 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 REVIEW OF SYSTEMS: As per history of present illness. MEDICATIONS: She is currently on following medications: She is on Plavix 75 mg once a day, Crestor 20 mg at bedtime, isosorbide mononitrate 30 mg daily, metoprolol tartrate 12.5 mg twice a day, hydrocodone/APAP 10/325 one tablet every 6 hours, gabapentin 100 mg at bedtime, escitalopram oxalate 10 mg daily, trazodone 25 mg at bedtime, alprazolam 1 mg 3 times a day and Mirapex 0.25 mg at bedtime, montelukast sodium 10 mg at bedtime. She is on Lantus insulin 15 units at bedtime. PHYSICAL EXAMINATION: GENERAL: On arrival to the Emergency Room, she looked well and was clearly in no apparent respiratory distress. No pallor, jaundice, cyanosis or thyromegaly. No jugular venous distention. No lower limb edema. VITAL SIGNS: Her heart rate was 76, blood pressure was 126/79, temperature was 98.7, respiratory rate 20, and oxygen saturation was 97%. HEAD, EYES, EARS, NOSE AND THROAT: Showed normocephalic, atraumatic. NECK: Supple. HEART: Showed normal first and second heart sounds. No gallop or murmur. CHEST: Clear to auscultation. No crepitation or rhonchi. ABDOMEN: Distended, soft, nontender. NEUROLOGIC: She is awake, alert, responding appropriately. All cranial nerves intact. EXTREMITIES: She moves extremities without difficulty. LABORATORY DATA: Showed a white cell count of 4700, hemoglobin 12, hematocrit 37, MCV 88 and platelet count of 193,000. Her chemistry showed a serum sodium of 140, potassium 4.5, chloride 104, bicarbonate 28, anion gap of 8, BUN 11, creatinine was 0.7, estimated GFR was 83 mL per minute, his glucose 137, calcium was 8.7, magnesium was 1.9. Total bilirubin, AST, ALT, alkaline phosphatase were normal. Total protein was 7.1, albumin 3.6. She has 3 sets of cardiac enzymes, showed troponin to be ____ 0.018, and less than 0.017. Her beta natriuretic peptide was 540. Her prothrombin time, INR and aPTT are normal. Her D-dimer was slightly elevated at 0.75. Urinalysis essentially unremarkable. Tox screen was essentially negative. The patient has had a chest x-ray, which showed no acute process. There was no pneumothorax, pulmonary opacities or pleural effusion. She has pulmonary emphysema with perihilar upper lobe scarring seen with better details an hour prior CT scan imaging. Bones are unremarkable. Given her chest pain and elevated D-dimer the patient has had a CT angio of the chest, which showed that there is no evidence of pulmonary embolism, no significant finding. She was seen in consultation by the Cardiology nurse practitioner and we did also talk to Dr. Pinedo and the plan is for her to be discharged home to follow with them in their office as an outpatient. FINAL DISCHARGE DIAGNOSES: Chest pain, atypical; acute myocardial infarction ruled out, coronary artery disease status post previous PCI with stent deployment to the left anterior descending and left circumflex, type 2 diabetes mellitus, hypertension, hyperlipidemia, history of DVT and PE. She has also history of cerebrovascular accident with left-sided hemiparesis and elevated D-dimer; however, CT angio was negative for PE. APOLONIA PLUNKETT MD DR: SUHA/eliezer JOB#: [id number] / [id number]
[2019-09-08 19:15] LABS: THYROID STIM HORMONE (TSH) 1.787 uIU/mL (0.358-3.740)
[2019-09-08] MEDS ORDERED: MONTELUKAST 10 MG TABLET. PO SCH (21:00)
[2019-09-08] MEDS ORDERED: traZODone 50 MG TABLET. PO SCH (21:00)
[2019-09-08] MEDS ORDERED: INSULIN GLARGINE SYRINGE. SQ SCH (21:00)
[2019-09-08] MEDS ORDERED: PRAMIPEXOLE 0.25 MG TABLET. PO SCH (21:00)
[2019-09-08] MEDS ORDERED: ATORVASTATIN CALCIUM 20 MG TABLET PO SCH (21:00)
== END 2019-09-08 17:57 | disposition home or self-care (01) ==
LOC: ER 20:48 → 1 SOUTH 09-08 01:00
PROVIDERS: ADMIT Internal Medicine; ATTEND Internal Medicine
DX: R07.9 Chest pain, unspecified (principal); I25.10 Atherosclerotic heart disease of native coronary artery without angina pectoris; E11.9 Type 2 diabetes mellitus without complications; I11.0 Hypertensive heart disease with heart failure; I50.9 Heart failure, unspecified; E78.5 Hyperlipidemia, unspecified; J44.9 Chronic obstructive pulmonary disease, unspecified; M15.9 Polyosteoarthritis, unspecified; F32.9 Major depressive disorder, single episode, unspecified; I47.2 Ventricular tachycardia; G40.909 Epilepsy, unspecified, not intractable, without status epilepticus; Z95.5 Presence of coronary angioplasty implant and graft; Z79.01 Long term (current) use of anticoagulants; Z79.899 Other long term (current) drug therapy; Z79.82 Long term (current) use of aspirin; Z86.711 Personal history of pulmonary embolism; Z90.710 Acquired absence of both cervix and uterus; Z86.73 Personal history of transient ischemic attack (TIA), and cerebral infarction without residual deficits
CPT/HCPCS: 36415; 71045; 71275; 80048; 80061; 80076; 80307; 81001; 82550; 82947; 83690; 83735; 83880; 84443; 84484; 85025; 85379; 85610; 85730; 93005; 94640; 96372; 96374; 96375; 96376; 99285; G0378; J1650; J2270; J2405; J7120; Q9967; G0379

== ENCOUNTER 2019-09-12 20:42 | Observation (INO) | payer MEDICARE ==
[~2019-09-12] VITALS: Ht 162.6 cm; Wt 93.9 kg
[~2019-09-12 20:42] MED LIST changes: +ESCI10TA2 PO; +GABA-585 PO; +GABA100C81 PO
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
[2019-09-12 21:28] LABS: BASO % 1 % (0-3); EOS # 0.2 x10^3/uL (0.0-0.7); EOS % 3 % (0-3); HEMATOCRIT 36.3 % (36.0-47.0); HEMOGLOBIN 12.2 g/dL (12.0-15.5); LYMPH # 1.4 x10^3/uL (1.0-4.8); LYMPH % 23 % (24-48); MEAN CORPUSCULAR HEMOGLOBIN 29 pg (25-35); MEAN CORPUSCULAR HGB CONC 34 g/dL (31-37); MEAN CORPUSCULAR VOLUME 87 fL (79-100); MONO # 0.6 x10^3/uL (0.0-1.1); MONO % 10 % (0-9); NEUT % 64 % (31-73); PLATELET COUNT 219 x10^3/uL (140-400); RED BLOOD COUNT 4.17 x10^6/uL (3.50-5.40); RED CELL DISTRIBUTION WIDTH 15.8 % (11.5-14.5); WHITE BLOOD COUNT 6.2 x10^3/uL (4.0-11.0)
--- NOTE | 2019-09-12 21:41 | RAD ---
CT HEAD INDICATION: Dizziness COMPARISON: 07/28/2019 Exposure: One or more of the following individualized dose reduction techniques were utilized for this examination: 1. Automated exposure control 2. Adjustment of the mA and/or kV according to patient size 3. Use of iterative reconstruction technique TECHNIQUE: 5 mm contiguous axial images were obtained from the skull base to the vertex in both bone and soft tissue algorithm. FINDINGS: No abnormal attenuation within the brain parenchyma. No evidence of acute intracranial hemorrhage. No extra-axial fluid collections. No mass effect or midline shift. Ventricular size is appropriate. Basal cisterns are patent. No fractures identified.Estrada-white differentiation is preserved.Globes and orbits are within normal limits. Paranasal sinuses and mastoid air cells are clear. IMPRESSION: No acute intracranial findings. Electronically signed by: Oskar Bobby MD (09/12/2019 9:38 PM) [id number]
[2019-09-12 21:47] LABS: CALCIUM 8.7 mg/dL (8.5-10.1); CREATININE 0.7 mg/dL (0.6-1.0); POTASSIUM 4.6 mmol/L (3.5-5.1)
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
[2019-09-12 21:53] LABS: ALBUMIN 3.5 g/dL (3.4-5.0); TOTAL BILIRUBIN 0.6 mg/dL (0.2-1.0); TOTAL PROTEIN 7.1 g/dL (6.4-8.2)
[2019-09-12] MEDS ORDERED: ONDANSETRON PF 4 MG/2 ML VIAL. IVP ONE (22:15)
[2019-09-12] MEDS ORDERED: HYDROcodone/APAP 5/325MG 1 TAB TABLET PO ONE (22:15)
--- NOTE | 2019-09-12 22:30 | NUR ---
The patient, NILESH ENCINAS, 68 y/o, F admitted by GAUTAM BOJORQUEZ MD, to room 115 was given written information regarding hospital policies, unit procedures and contact persons. Valuables were checked and left with the patient. Medical history, medications and physical and social needs discussed. Will continue to monitor.
[2019-09-12 23:52] VITALS: BP 154/82
[2019-09-13] MEDS: ALPRAZolam 0.5 MG TABLET PO SCH ×4 (00:30→20:57)
[2019-09-13] MEDS ORDERED: PRAMIPEXOLE 0.25 MG TABLET. PO ONE (00:30)
[2019-09-13] MEDS ORDERED: ONDANSETRON ODT 4 MG TAB.RAPDIS PO PRN (00:30)
[2019-09-13] MEDS: ATORVASTATIN CALCIUM 20 MG TABLET PO SCH ×2 (00:30→20:55)
[2019-09-13] MEDS: MONTELUKAST 10 MG TABLET. PO SCH ×2 (00:30→20:57)
[2019-09-13] MEDS ORDERED: levETIRAcetam 500 MG/5 ML VIAL IV ONE (01:23)
[2019-09-13 01:30] VITALS: BP 141/82
[2019-09-13] MEDS ORDERED: levETIRAcetam 1,500 MG in IV NORMAL SALINE 100ML 100 ML IV ONE (01:30)
--- NOTE | 2019-09-13 02:52 | NUR ---
At 0111, pt stated she "had a headache" and started shaking rhythmically. Pt turned onto right side. Episode lasted 1 minute. Pt's brief was checked and dry. Dr. Campbell contacted for instructions, Becky and Ativan ordered. Second episode started at 0114 and lasted 1 minute. Pt arm was held up during episode and pt moved it back. Post episode, assessed pt for neurological differences from previous assessment. No changes; strength equal, pupils 3mm, equal, reactive, speech clear and easily articulated. Pt oriented to self, date and situation. She stated she doesn't know where she is and that she felt wet. Brief was checked and changed. While preparing medications, a third episode occurred lasting 1 minute approximately. Medications administered. Pt immediately was able to have a conversation about how she felt and communicate clearly after she stopped shaking. Pt stated she hadn't had a seizure in 2 months since she had started taking escitalopram for it. She stated she always had a headache right before a seizure. Later when asked if she knew when a seizure is coming on she stated she didn't. Pt resting soundly. Will continue to monitor.
[2019-09-13 05:40] VITALS: BP 112/58
[2019-09-13] MEDS: HYDROcodone/APAP 10/325 1 TAB TABLET PO PRN ×2 (07:06→20:57)
[2019-09-13] MEDS: GABAPENTIN 100 MG CAPSULE. PO SCH (07:07)
[2019-09-13] MEDS: METOPROLOL TART IMMED RELEASE 25 MG TABLET PO SCH ×2 (09:00→20:56)
[2019-09-13] MEDS: CITALOPRAM 20 MG TABLET. PO SCH (09:15)
[2019-09-13 10:59] VITALS: BP 115/64
[2019-09-13 15:17] VITALS: BP 116/68
[2019-09-13 20:00] VITALS: BP 117/57
[2019-09-13] MEDS ORDERED: INSULIN GLARGINE SYRINGE. SQ SCH (21:00)
[2019-09-13] MEDS ORDERED: PRAMIPEXOLE 0.25 MG TABLET. PO SCH (21:00)
[2019-09-13 22:47] VITALS: BP 93/55
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
[2019-09-14] MEDS: HYDROcodone/APAP 10/325 1 TAB TABLET PO PRN (02:30)
[2019-09-14 06:19] VITALS: BP 128/75
--- NOTE | 2019-09-14 07:22 | EKG ---
[address] [address] Test Date: 2019-09-12 Test Time: 20:49:29 Pat Name: NLIESH ENCINAS Department: Room: 115 A Gender: Flow Specialist: : 1950 Requested By: GAUTAM BOJORQUEZ Order Number: [id number] Reading MD: Toro Mcnamara MD Measurements Intervals [place] Rate: P: IA: QRS: QRSD: T: QT: QTc: Interpretive Statements SR PVC'S Electronically Signed On 09-14-2019 9:24:30 CDT by Toro Mcnamara MD
[2019-09-14] MEDS: METOPROLOL TART IMMED RELEASE 25 MG TABLET PO SCH (08:04)
[2019-09-14] MEDS: ALPRAZolam 0.5 MG TABLET PO SCH (08:05)
[2019-09-14] MEDS: GABAPENTIN 100 MG CAPSULE. PO SCH (08:05)
[2019-09-14] MEDS: CITALOPRAM 20 MG TABLET. PO SCH (08:05)
[2019-09-14 11:00] VITALS: BP 107/66
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
--- NOTE | 2019-09-14 13:09 | NUR ---
Patient is D/C home with home health. Patient is stale at time of discharge. Patients IV is D/C'd. Patient is given discharge instructions. Patient is W/C'd off unit accompanied by staff.
== END 2019-09-14 13:09 | disposition home or self-care (01) ==
LOC: EEVIPCON 20:42 → ER 20:42 → 1 SOUTH 22:40
PROVIDERS: ADMIT Hospitalist; ATTEND Hospitalist
DX: S06.0X9A Concussion with loss of consciousness of unspecified duration, initial encounter (principal); S16.1XXA Strain of muscle, fascia and tendon at neck level, initial encounter; G40.909 Epilepsy, unspecified, not intractable, without status epilepticus; J44.9 Chronic obstructive pulmonary disease, unspecified; I25.10 Atherosclerotic heart disease of native coronary artery without angina pectoris; E11.9 Type 2 diabetes mellitus without complications; I50.9 Heart failure, unspecified; Z79.82 Long term (current) use of aspirin; Z79.02 Long term (current) use of antithrombotics/antiplatelets; Z79.899 Other long term (current) drug therapy; Z86.718 Personal history of other venous thrombosis and embolism; Z95.5 Presence of coronary angioplasty implant and graft; Z90.710 Acquired absence of both cervix and uterus; Y08.89XA Assault by other specified means, initial encounter; Y93.89 Activity, other specified; Y92.89 Other specified places as the place of occurrence of the external cause
CPT/HCPCS: 36415; 70450; 73030; 80053; 82947; 85025; 85610; 85730; 93005; 96365; 96366; 96375; 96376; 97161; 97166; 97530; 99285; G0378; J1815; J1953; J2060; J2405; Q0162; 96372; G0379

== ENCOUNTER 2019-11-03 14:58 | Emergency (ER) | payer MEDICARE ==
[~2019-11-03] VITALS: Ht 162.6 cm; Wt 95.0 kg
[~2019-11-03 14:58] MED LIST changes: -PANT40TA5 PO; +PANT40TA6 PO
[2019-11-03 15:29] VITALS: BP 156/66
--- NOTE | 2019-11-03 15:37 | PHYS DOC ---
Past History Past Medical History: Asthma, CAD, CHF, COPD, Diabetes, DVT, Seizure Additional Past Medical Histor: Cardiac, lymphoma Past Surgical History: Cholecystectomy, Hysterectomy Additional Past Surgical Histo: stent placed at [facility] on saturday01/05/19; right rotator cuff repair Smoking: Non-smoker Alcohol Use: None Drug Use: None General Adult EDM: Chief Complaint: OTHER COMPLAINTS HPI: HPI: Patient is a 68-year-old female who presents to the emergency department for evaluation. She went to see her PCP, who sent her down to the emergency department. She states that she has been having left arm numbness for the past several days, and states that this morning she developed some anterior chest pressure, radiating down her left shoulder down her left arm as well. Exertion does not necessarily worsen her symptoms and there are no known alleviating or exacerbating factors to her symptoms. She is uncertain if the pain feels similar to her prior cardiac episodes. She does take aspirin and Plavix and has taken both medications today including 324 mg of aspirin. She has not had any shortness of breath, fever, cough, nausea, vomiting, or diaphoresis. She was hospitalized at [facility] about 1 week ago for chest pain, and then transferred to [facility] on the [place] when she began experiencing strokelike symptoms. I did review some available records from [facility], she had a completely negative work-up, including negative MRIs of her brain, negative CT head and CT angiograms, and she did exhibit seizure-like activity in the hospital there, but neurology there felt her seizure activity was pseudoseizure-like activity. It should be noted that the patient began exhibiting a tremor in the emergency department, but did not lose consciousness. She did exhibit a tremor intermittently and some stuttering while I was assessing her but this was able to be controlled with coaching. Review of Systems: Review of Systems: Constitutional: Denies fever or chills Eyes: Denies change in visual acuity HENT: Denies nasal congestion or sore throat Respiratory: Denies cough or shortness of breath Cardiovascular: As per HPI GI: Denies abdominal pain, nausea, vomiting, bloody stools or diarrhea : Denies dysuria Musculoskeletal: Denies back pain or joint pain Integument: Denies rash Neurologic: Denies headache, focal weakness or sensory changes, other than the left arm as noted in the HPI Endocrine: Denies polyuria or polydipsia Lymphatic: Denies swollen glands Psychiatric: Denies depression or anxiety Heart Score: Risk Factors: Risk Factors: DM, Current or recent (<one month) smoker, HTN, HLP, family history of CAD, obesity. Risk Scores: Score 0 - 3: 2.5% MACE over next 6 weeks - Discharge Home Score 4 - 6: 20.3% MACE over next 6 weeks - Admit for Clinical Observation Score 7 - 10: 72.7% MACE over next 6 weeks - Early Invasive Strategies Allergies: Allergies: Allergies Coded Allergies Type Severity Reaction Last Updated Verified prednisone Allergy Severe SEIZURES 06/25/19 No oxycodone Allergy Intermediate 06/25/19 Yes Physical Exam: PE: PHYSICAL EXAM: CONSTITUTIONAL: Well developed, well nourished HEAD: normocephalic, atraumatic EENT: PERRL, EOMI. Conjunctivae normal color, sclerae non-icteric; moist mucous membranes. NECK: Supple, non-tender; no meningismus. LUNGS: Lungs CTA, breathing even and unlabored. Normal air movement. HEART: Regular rate and rhythm, no murmur CHEST: No deformity; non-tender ABDOMEN: The abdomen is soft, and non-tender, no masses or bruits. EXTREM: Normal ROM; no deformity, no calf tenderness. Normal pulses palpable in all extremities. There is no pedal edema. SKIN: No rash; no diaphoresis NEURO: Alert; normal speech and cognition; CN's grossly intact; strength grossly intact without focal deficit. There is subjective decrease in pinprick sensation to the left upper extremity relative to the right. There is no weakness. There is a tremor of the left upper extremity, intermittently present. BACK: No CVA TTP. Current Patient Data: Labs: Laboratory Tests Test 11/03/19 15:50 White Blood Count 4.9 x10^3/uL Red Blood Count 4.23 x10^6/uL Hemoglobin 12.5 g/dL Hematocrit 37.8 % Mean Corpuscular Volume 89 fL Mean Corpuscular Hemoglobin 30 pg Mean Corpuscular Hemoglobin Concent 33 g/dL Red Cell Distribution Width 14.6 % Platelet Count 202 x10^3/uL Neutrophils (%) (Auto) 60 % Lymphocytes (%) (Auto) 26 % Monocytes (%) (Auto) 11 % Eosinophils (%) (Auto) 4 % Basophils (%) (Auto) 0 % Neutrophils # (Auto) 2.9 x10^3uL Lymphocytes # (Auto) 1.3 x10^3/uL Monocytes # (Auto) 0.5 x10^3/uL Eosinophils # (Auto) 0.2 x10^3/uL Basophils # (Auto) 0.0 x10^3/uL Sodium Level 142 mmol/L Potassium Level 3.8 mmol/L Chloride Level 107 mmol/L Carbon Dioxide Level 29 mmol/L Anion Gap 6 Blood Urea Nitrogen 16 mg/dL Creatinine 1.0 mg/dL Estimated GFR (Cockcroft-Gault) 55.0 BUN/Creatinine Ratio 16 Glucose Level 184 mg/dL Calcium Level 9.1 mg/dL Total Bilirubin 0.5 mg/dL Aspartate Amino Transf (AST/SGOT) Pending Alanine Aminotransferase (ALT/SGPT) Pending Alkaline Phosphatase 105 U/L Troponin I Quantitative < 0.017 ng/mL AE-Ord-E-Type Natriuretic Peptide 500 pg/mL Total Protein 7.0 g/dL Albumin 3.5 g/dL Albumin/Globulin Ratio 1.0 Current Medications Medications (Trade) Dose Ordered Sig/Sherrie Route PRN Reason Start Time Stop Time Status Last Admin Dose Admin Lorazepam (Ativan Inj) 1 mg 1X ONCE IVP 11/03/19 15:45 11/03/19 15:46 DC 11/03/19 16:06 EKG: EKG: [] Normal sinus rhythm at a rate of 73 bpm, left axis deviation, normal intervals, occasional PVCs, there are no acute ischemic ST/T changes. Nonspecific changes are present. Patient's EKG is unchanged compared to her prior EKG. Radiology/Procedures: Radiology/Procedures: PROCEDURE: CT HEAD WO CONTRAST CT HEAD WO CONTRAST History: Reason: L arm numbness / Spl. Instructions: / History: Comparison: September 12, 2019 Technique: Noncontrast CT imaging was performed of the head. Exposure: One or more of the following individualized dose reduction techniques were utilized for this examination: 1. Automated exposure control 2. Adjustment of the mA and/or kV according to patient size 3. Use of iterative reconstruction technique. Findings: No intracranial hemorrhage. No mass effect. No hydrocephalus. Extra-axial spaces are unremarkable. Imaged orbits are unremarkable. Imaged paranasal sinuses and mastoid air cells are clear. No acute calvarial fracture. Linear density within the right frontal scalp soft tissues, unchanged. Impression: 1. No acute intracranial abnormality. [] PROCEDURE: PORTABLE CHEST 1V AP chest. HISTORY: Chest pain AP view was taken of the chest. Heart is normal in size. There is no pleural effusion. There is density in the right upper lobe similar to the CT from September 07. There is mild left upper lobe density also similar to the previous CT with scarring or atelectasis or chronic infiltrate. No new infiltrates are noted. IMPRESSION: 1. Linear infiltrate or scarring or atelectasis in both upper lobes similar to the CT chest from September 07. 2. No new infiltrates. Course & Med Decision Making: Course & Med Decision Making Pertinent Labs and Imaging studies reviewed. (See chart for details) [] 4:50 PM: The patient's condition remains stable. I had an extensive discussion with the patient about the limitations of ER cardiac evaluation in definitively ruling out acute coronary syndrome. We discussed limitation of the ER evaluation and a singe ED troponin in r/o AMI, and the risks involved in missed diagnosis of acute coronary syndrome including or permanent debility. I discussed the possibility of overnight observation for further formal cardiac evaluation to rule out acute coronary syndrome. After expressing understanding of the limitations of ER cardiac evaluation, as well as the risks of missed diagnosis, the patient declined further cardiac evaluation at this time. The patient was mentally competent, and given opportunity to ask questions about the diagnosis and recommended plan of care. I stressed the importance of outpatient follow-up, and returning to the emergency department for new or worsening symptoms, or if the patient is agreeable to undergo further cardiac evaluation. Given the chronic recurrent nature of the patient's symptoms, numerous ER and hospital evaluations, clinical suspicion for acute coronary syndrome or serious pathology is low at this time. The importance of close follow-up was stressed. Dragon Disclaimer: Dragon Disclaimer: This electronic medical record was generated, in whole or in part, using a voice recognition dictation system. Departure Departure: Impression: Primary Impression: Atypical chest pain Additional Impression: Paresthesia Disposition: 01 HOME/RESIDENCE PRIOR TO ADM Condition: STABLE Referrals: BAILEY MORSE MD (PCP) Patient Instructions: Chest Pain (Nonspecific), Paresthesia Justification of Admission: Justification of Admission: Justification of Admission Dx: N/A KYLEIGH RESTREPO MD Nov 03, 2019 15:37
--- NOTE | 2019-11-03 15:47 | EKG ---
[address] [address] Test Date: 2019-11-03 Test Time: 15:07:37 Pat Name: NILESH ENCINAS Department: Room: Gender: F Web Design Intern: : 1950 Requested By: KYLEIGH RESTREPO Order Number: [id number] Reading MD: Measurements Intervals [place] Rate: 73 P: IN: QRS: -20 QRSD: 126 T: 19 QT: 422 QTc: 469 Interpretive Statements IRREGULAR RHYTHM, NO P-WAVE FOUND VENTRICULAR PREMATURE COMPLEX(ES) LEFTWARD AXIS LEFT BUNDLE BRANCH BLOCK ABNORMAL ECG RI6.02 No previous ECG available for comparison
--- NOTE | 2019-11-03 15:59 | RAD ---
CT HEAD WO CONTRAST History: Reason: L arm numbness / Spl. Instructions: / History: Comparison: September 12, 2019 Technique: Noncontrast CT imaging was performed of the head. Exposure: One or more of the following individualized dose reduction techniques were utilized for this examination: 1. Automated exposure control 2. Adjustment of the mA and/or kV according to patient size 3. Use of iterative reconstruction technique. Findings: No intracranial hemorrhage. No mass effect. No hydrocephalus. Extra-axial spaces are unremarkable. Imaged orbits are unremarkable. Imaged paranasal sinuses and mastoid air cells are clear. No acute calvarial fracture. Linear density within the right frontal scalp soft tissues, unchanged. Impression: 1. No acute intracranial abnormality. Electronically signed by: Bala Reddy DO (11/03/2019 3:56 PM) [id number]
--- NOTE | 2019-11-03 16:05 | RAD ---
AP chest. HISTORY: Chest pain AP view was taken of the chest. Heart is normal in size. There is no pleural effusion. There is density in the right upper lobe similar to the CT from September 07. There is mild left upper lobe density also similar to the previous CT with scarring or atelectasis or chronic infiltrate. No new infiltrates are noted. IMPRESSION: 1. Linear infiltrate or scarring or atelectasis in both upper lobes similar to the CT chest from September 07. 2. No new infiltrates. Electronically signed by: Kalyan Boyd MD (11/03/2019 4:02 PM) [facility]
[2019-11-03 16:06] LABS: BASO % 0 % (0-3); EOS # 0.2 x10^3/uL (0.0-0.7); EOS % 4 % (0-3); HEMATOCRIT 37.8 % (36.0-47.0); HEMOGLOBIN 12.5 g/dL (12.0-15.5); LYMPH # 1.3 x10^3/uL (1.0-4.8); LYMPH % 26 % (24-48); MEAN CORPUSCULAR HEMOGLOBIN 30 pg (25-35); MEAN CORPUSCULAR HGB CONC 33 g/dL (31-37); MEAN CORPUSCULAR VOLUME 89 fL (79-100); MONO # 0.5 x10^3/uL (0.0-1.1); MONO % 11 % (0-9); NEUT # 2.9 x10^3uL (1.8-7.7); NEUT % 60 % (31-73); PLATELET COUNT 202 x10^3/uL (140-400); RED BLOOD COUNT 4.23 x10^6/uL (3.50-5.40); RED CELL DISTRIBUTION WIDTH 14.6 % (11.5-14.5); WHITE BLOOD COUNT 4.9 x10^3/uL (4.0-11.0)
[2019-11-03 16:16] LABS: CALCIUM 9.1 mg/dL (8.5-10.1)
[2019-11-03 16:17] LABS: POTASSIUM 3.8 mmol/L (3.5-5.1)
[2019-11-03 16:35] LABS: ALBUMIN 3.5 g/dL (3.4-5.0); TOTAL BILIRUBIN 0.5 mg/dL (0.2-1.0)
== END 2019-11-03 17:18 | disposition home or self-care (01) ==
LOC: ER 14:58
DX: R07.89 Other chest pain (principal); R20.2 Paresthesia of skin; J44.9 Chronic obstructive pulmonary disease, unspecified; I25.10 Atherosclerotic heart disease of native coronary artery without angina pectoris; I50.9 Heart failure, unspecified; E11.9 Type 2 diabetes mellitus without complications; Z86.718 Personal history of other venous thrombosis and embolism; Z88.5 Allergy status to narcotic agent; Z88.8 Allergy status to other drugs, medicaments and biological substances
CPT/HCPCS: 36415; 70450; 71045; 80053; 83880; 84484; 85025; 93005; 96374; 99285; J2060

== ENCOUNTER 2019-12-14 20:58 | Observation (INO) | payer MEDICARE ==
[~2019-12-14] VITALS: Ht 162.6 cm; Wt 97.6 kg
[~2019-12-14 20:58] MED LIST changes: +PANT40TA5 PO; -PANT40TA6 PO
[2019-12-14] MEDS ORDERED: ASPIRIN CHEWABLE 81 MG TABLET. PO ONE (21:15)
[2019-12-14] MEDS ORDERED: MORPHINE SULFATE 2 MG/ML DISP.SYRIN. IV ONE (21:15)
[2019-12-14] MEDS ORDERED: NITROGLYCERIN SUBLINGUAL 0.4 MG BOTTLE OF 25. SL PRN (21:15)
--- NOTE | 2019-12-14 21:15 | PHYS DOC ---
Past History Past Medical History: Anxiety, Asthma, CAD, CHF, COPD, Diabetes, Heart Disease, Hypertension, Stroke Additional Past Medical Histor: Cardiac, lymphoma Past Surgical History: Other Additional Past Surgical Histo: PCI with stents, ortho Smoking: Non-smoker Alcohol Use: None Drug Use: None General Adult EDM: Chief Complaint: CHEST PAIN HPI: HPI: 69-year-old female presents with sudden onset chest pain. This started 1 hour prior to arrival. She came by private vehicle. The patient was lying in bed when the pain started. She describes it as a moderate to severe chest pressure. She also feels short of breath. Nothing seems to make it better or worse. She tried 2 nitroglycerin at home without relief. She was recently discharged from [facility] after being admitted with similar symptoms. They did a stress test which found some abnormal findings, but no interventions were performed. No new stents or surgery. She was told to follow-up outpatient. She has 2 stents, the most recent 1 year ago. She denies fever or chills. Review of Systems: Review of Systems: Constitutional: Denies fever or chills Eyes: Denies change in visual acuity HENT: Denies nasal congestion or sore throat Respiratory: shortness of breath Cardiovascular: Chest pain GI: Denies abdominal pain, nausea, vomiting, bloody stools or diarrhea : Denies dysuria Musculoskeletal: Denies back pain or joint pain Integument: Denies rash Neurologic: Denies headache, focal weakness or sensory changes Endocrine: Denies polyuria or polydipsia Lymphatic: Denies swollen glands Psychiatric: Denies depression or anxiety Heart Score: HEART Score for Chest Pain: HEART Score for Chest Pain Response (Comments) Value History Moderately Suspicious 1 ECG Normal 0 Age > 65 2 Risk Factors >3 Risk Factors or Hx CAD 2 Troponin < Normal Limit 0 Total 5 Risk Factors: Risk Factors: DM, Current or recent (<one month) smoker, HTN, HLP, family history of CAD, obesity. Risk Scores: Score 0 - 3: 2.5% MACE over next 6 weeks - Discharge Home Score 4 - 6: 20.3% MACE over next 6 weeks - Admit for Clinical Observation Score 7 - 10: 72.7% MACE over next 6 weeks - Early Invasive Strategies Allergies: Allergies: Allergies Coded Allergies Type Severity Reaction Last Updated Verified prednisone Allergy Severe SEIZURES 06/25/19 No oxycodone Allergy Intermediate 06/25/19 Yes Physical Exam: PE: Constitutional: Well developed, well nourished, mild acute distress, non-toxic appearance. [] HENT: Normocephalic, atraumatic, bilateral external ears normal, oropharynx moist, no oral exudates, nose normal. [] Eyes: PERRLA, EOMI, conjunctiva normal, no discharge. [] Neck: Normal range of motion, no tenderness, supple, no stridor. [] Cardiovascular: Heart rate 77, regular rhythm, no murmur [] Lungs & Thorax: Bilateral breath sounds clear to auscultation [] Abdomen: Bowel sounds normal, soft, no tenderness, no masses, no pulsatile masses. [] Skin: Warm, dry, no erythema, no rash. [] Back: No tenderness, no CVA tenderness. [] Extremities: No tenderness, no cyanosis, no clubbing, ROM intact, no edema. [] Neurologic: Alert and oriented X 3, normal motor function, normal sensory function, no focal deficits noted. [] Psychologic: Affect normal, judgement normal, mood normal. [] EKG: EKG: Sinus rhythm, rate 77, leftward axis, no ST elevations or depressions. [] Radiology/Procedures: Radiology/Procedures: [] Course & Med Decision Making: Course & Med Decision Making Pertinent Labs and Imaging studies reviewed. (See chart for details) The patient's labs are unremarkable. Her troponin is negative. Her EKG is negative for acute findings. Her chest x-ray is similar to previous. Given her risk factors and history, I believe the patient should be admitted for further chest pain rule out. I spoke with Dr. Cisse and he has accepted the patient for admission. [] Dragon Disclaimer: Dragon Disclaimer: This electronic medical record was generated, in whole or in part, using a voice recognition dictation system. Departure Departure: Impression: Primary Impression: Unstable angina Disposition: ADMITTED INPATIENT Admitting Physician: Chaparrita Cisse Condition: STABLE Referrals: BAILEY MORSE MD (PCP) Justification of Admission: Justification of Admission: Justification of Admission Dx: Comment: Comments: chest pain, HEART score of 5. NIKI ROJAS DO Dec 14, 2019 21:15
[2019-12-14] MEDS ORDERED: ONDANSETRON PF 4 MG/2 ML VIAL. ONE (22:04)
[2019-12-14 22:06] LABS: BASO # 0.1 x10^3/uL (0.0-0.2); BASO % 1 % (0-3); EOS # 0.2 x10^3/uL (0.0-0.7); EOS % 5 % (0-3); HEMATOCRIT 36.8 % (36.0-47.0); HEMOGLOBIN 12.4 g/dL (12.0-15.5); LYMPH # 1.4 x10^3/uL (1.0-4.8); LYMPH % 26 % (24-48); MEAN CORPUSCULAR HEMOGLOBIN 30 pg (25-35); MEAN CORPUSCULAR HGB CONC 34 g/dL (31-37); MEAN CORPUSCULAR VOLUME 90 fL (79-100); MONO # 0.5 x10^3/uL (0.0-1.1); MONO % 8 % (0-9); NEUT # 3.3 x10^3uL (1.8-7.7); NEUT % 60 % (31-73); PLATELET COUNT 214 x10^3/uL (140-400); RED BLOOD COUNT 4.11 x10^6/uL (3.50-5.40); RED CELL DISTRIBUTION WIDTH 13.9 % (11.5-14.5); WHITE BLOOD COUNT 5.4 x10^3/uL (4.0-11.0)
[2019-12-14 22:14] LABS: CALCIUM 8.8 mg/dL (8.5-10.1); CREATININE 0.9 mg/dL (0.6-1.0); GFR 61.9
[2019-12-14 22:15] LABS: POTASSIUM 4.2 mmol/L (3.5-5.1)
[2019-12-14 22:27] LABS: ALBUMIN 3.4 g/dL (3.4-5.0); ALBUMIN/GLOBULIN RATIO 0.9 (1.0-1.7); TOTAL BILIRUBIN 0.6 mg/dL (0.2-1.0)
[2019-12-14] MEDS ORDERED: ONDANSETRON PF 4 MG/2 ML VIAL. IVP ONE (22:30)
--- NOTE | 2019-12-14 23:28 | RAD ---
AP portable chest radiograph 12/14/2019 Clinical History: Chest pain. An AP erect portable digital radiograph of the chest was obtained. Comparison study is dated 11/03/2019. The cardiac silhouette is borderline enlarged. The thoracic aorta is tortuous. Atherosclerotic calcification thoracic aorta is seen. Emphysematous changes are seen involving both lungs. Areas of scarring are seen involving both upper lobes, unchanged. No acute pulmonary infiltrate is noted. No pneumothorax or pleural effusion is seen. There is diffuse osteopenia of the visualized bony structures. Degenerative changes are seen involving the thoracic spine and both shoulders. Impression: No acute abnormality is seen. Electronically signed by: Carl Manriquez MD (12/14/2019 11:25 PM) [id number]
--- NOTE | 2019-12-15 00:35 | NUR ---
Admission Note: Pt transported from ED to ICU room 2, pt ambulated from cart to bed w/no assistance, steady gait observed, environmental monitoring specialist attached to patient (NSR noted), VSS at time of admission (see chart), pt has no c/o pain or n/v at this time, admission documentation completed, home medications entered (need to be ordered), per pt she see Dr. Pinedo for cardiology (adv pt I would document so Dr. Cisse would know), pt oriented to room and surroundings, will continue to monitor.
[2019-12-15 00:45] VITALS: BP 157/72
[2019-12-15] MEDS ORDERED: ALPR1TAB6 PO (01:06)
[2019-12-15] MEDS ORDERED: GABA100C81 PO (01:06)
[2019-12-15 02:24] VITALS: BP 133/63
--- NOTE | 2019-12-15 02:43 | EKG ---
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
--- NOTE | 2019-12-15 03:04 | NUR ---
Pt states she was having pain shooting down her left arm at 0215 this am. VS: 98.2T, 133/63 BP, 65 HR, 17 RR, 94% RA. EKG is normal. Troponin 0.017. Advised pt I would notify physician in am, pt agrees with plan.
--- NOTE | 2019-12-15 06:08 | NUR ---
Cardiology Consult called this am.
--- NOTE | 2019-12-15 06:41 | EKG ---
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
[2019-12-15] MEDS ORDERED: MORPHINE SULFATE 4 MG/ML DISP.SYRIN. IV PRN (09:15)
[2019-12-15] MEDS ORDERED: HYDROcodone/APAP 10/325 1 TAB TABLET PO PRN (09:30)
--- NOTE | 2019-12-15 09:39 | PDOC2 ---
CARDIAC CONSULT DATE OF CONSULT DOS: DATE: 12/15/19 TIME: 09:30 REASON FOR CONSULT Reason for Consult Chest pain REFERRING PHYSICIAN Referring Physician Dr. Cisse SOURCE Source: Chart review, Patient HPI History of Present Illness This is a 69 yo female who presented secondary to chest pain. Patient reports pain began last night while sitting watching television. Located in her left chest. Describes as aching, pressure. Radiated up to her neck and down to the left arm. Associated with shortness of breath ad dizziness. No specific worsening or relieving factors. Took nitro without any relief. Due to history of CAD, decided to come to the ED for further evaluation and treatment. Pain improved slightly with morphine, but has not completely resolved. Patient experiencing similar pain last week and was admitted to [facility] for further evaluation. Reportedly underwent stress test and echocardiogram. She reports systolic function to be abnormal on echo. Was not told stress test was abnormal. PAST MEDICAL HISTORY Past Medical History Coronary artery disease s/p PCI/stents to LAD and LCx Diabetes mellitus type 2 Hypertension Hyperlipidemia COPD/asthma DVT/PE Osteoarthritis CVA Lymphoma Anxiety Depression PSVT Seizure PAST SURGICAL HISTORY Past Surgical History Right rotator cuff repair Cholecystectomy Hysterectomy Carpal tunnel release surgery s/p PCI/stent placement FAMILY HISTORY Family History: Diabetes, Heart Disease, Hypertension SOCIAL HISTORY Social History Denies any current smoking, alcohol or drug use CURRENT MEDICATIONS Current Medications Current Medications Aspirin (Aspirin Chewable) 324 mg 1X ONCE PO Last administered on 12/14/19at 21:19; Start 12/14/19 at 21:15; Stop 12/14/19 at 21:24; Status DC Nitroglycerin (Nitrostat) 0.4 mg PRN Q5MIN PRN SL CP RATING > 1/10 Last administered on 12/14/19at 21:19; Start 12/14/19 at 21:15; Stop 12/15/19 at 21:14 Morphine Sulfate (Morphine 2mg Syringe) 2 mg 1X ONCE IV Last administered on 12/14/19at 22:02; Start 12/14/19 at 21:15; Stop 12/14/19 at 21:24; Status DC Ondansetron HCl (Zofran) 4 mg STK-MED ONCE .ROUTE ; Start 12/14/19 at 22:04; Stop 12/14/19 at 22:04; Status DC Ondansetron HCl (Zofran) 4 mg 1X ONCE IVP Last administered on 12/14/19at 22:07; Start 12/14/19 at 22:30; Stop 12/14/19 at 22:31; Status DC Morphine Sulfate (Morphine 4mg Syringe) 4 mg PRN Q2HR PRN IV PAIN; Start 12/15/19 at 09:15 Clopidogrel Bisulfate (Plavix) 75 mg DAILY PO ; Start 12/16/19 at 09:00; Status UNV Gabapentin (Neurontin) 100 mg BID PO ; Start 12/15/19 at 21:00; Status UNV Acetaminophen/ Hydrocodone Bitart (Lortab 10/325) 1 tab PRN Q6HRS PRN PO PAIN; Start 12/15/19 at 09:30; Status UNV Isosorbide Mononitrate (Imdur) 30 mg DAILY PO ; Start 12/16/19 at 09:00; Status UNV Metoprolol Tartrate (Lopressor) 12.5 mg BID PO ; Start 12/15/19 at 21:00; St atus UNV Montelukast Sodium (Singulair) 10 mg HS PO ; Start 12/15/19 at 21:00; Status UNV Pramipexole Dihydrochloride (miraPEX) 0.25 mg QHS PO ; Start 12/15/19 at 21:00; Status UNV Non-Formulary Medication (Alprazolam ) 1 mg QID PRN PO ANXIETY / AGITATION; Start 12/15/19 at 09:30; Status UNV Non-Formulary Medication (Escitalopram Oxalate ) 10 mg DAILY PO ; Start 12/16/19 at 09:00; Status UNV Non-Formulary Medication (Insulin Glargine,Hum.rec.anlog (Lantus Solostar)) 15 unit QHS SQ ; Start 12/15/19 at 21:00; Status UNV Non-Formulary Medication (Rosuvastatin Calcium ) 20 mg HS PO ; Start 12/15/19 at 21:00; Status UNV Active Scripts Active Reported Alprazolam 1 Mg Tablet 1 Mg PO QID PRN Neurontin (Gabapentin) 100 Mg Capsule 100 Mg PO BID Escitalopram Oxalate 10 Mg Tablet 10 Mg PO DAILY LAST DOSE GIVEN: DATE: TODAY TIME: AM NEXT DOSE DUE: DATE: TOMORROW TIME: AM Lantus Solostar (Insulin Glargine,Hum.rec.anlog) 100 Unit/1 Ml Insuln.pen 15 Unit SQ QHS NOT GIVEN THE HOSPITAL NEXT DOSE DUE: DATE: TODAY TIME: AT BEDTIME Rosuvastatin Calcium 20 Mg Tablet 20 Mg PO HS NOT GIVEN IN THE HOSPITAL NEXT DOSE DUE: DATE: TODAY TIME: AT BEDTIME Metoprolol Tartrate 25 Mg Tablet 12.5 Mg PO BID LAST DOSE GIVEN: DATE: TO TIME: AM NEXT DOSE DUE: DATE: TODAY TIME: PM Clopidogrel (Clopidogrel Bisulfate) 75 Mg Tablet 75 Mg PO DAILY LAST DOSE GIVEN: DATE: TODAY TIME: AM NEXT DOSE DUE: DATE: TOMORROW TIME: AM Hydrocodone-Apap 10-325 (Hydrocodone Bit/Acetaminophen) 1 Each Tablet 1 Tab PO PRN Q6HRS PRN NOT GIVEN TODAY NEXT DOSE DUE: DATE: TODAY TIME: IF AND WHEN NEEDED Mirapex (Pramipexole Di-Hcl) 0.25 Mg Tablet 0.25 Mg PO QHS NOT GIVEN IN THE HOSPITAL NEXT DOSE DUE: DATE: RESTART TODAY TIME: AT BEDTIME Montelukast Sodium Tablet (Montelukast Sodium) 10 Mg Tablet 10 Mg PO HS LAST DOSE GIVEN: DATE: YESTERDAY TIME: AT BEDTIME NEXT DOSE DUE: DATE: TODAY TIME: AT BEDTIME Isosorbide Mononitrate Er (Isosorbide Mononitrate) 30 Mg Tab.er.24h 30 Mg PO DAILY LAST DOSE GIVEN: DATE: TODAY TIME: AM NEXT DOSE DUE: DATE: TOMORROW TIME: AM ALLERGIES Allergies: Coded Allergies: prednisone (Unverified Allergy, Severe, SEIZURES, 06/25/19) SEIZURES oxycodone (Verified Allergy, Intermediate, 12/15/19) MORPHINE OK ROS Review of Systems 14 point ROS conducted with pertinent positives noted above in HPI PHYSICAL EXAM Physical Exam General: Alert, Oriented X3, Cooperative, No acute distress HEENT: Atraumatic, Mucous membr. moist/pink Lungs: Other (diminished ) Heart: Regular rate Abdomen: Soft Extremities: No edema, Normal pulses Skin: No breakdown Neuro: Normal speech, Sensation intact Psych/Mental Status: Mental status NL, Mood NL MUSCULOSKELETAL: Osteoarthritic changes both hands VITALS Vital Signs Vital Signs Date Time Temp Pulse Resp B/P (MAP) Pulse Ox O2 Delivery O2 Flow Rate FiO2 12/15/19 02:24 98.2 65 17 133/63 (86) 94 Room Air LABS LABS Laboratory Tests Test 12/14/19 21:40 12/15/19 02:36 12/15/19 05:50 White Blood Count 5.4 x10^3/uL (4.0-11.0) Red Blood Count 4.11 x10^6/uL (3.50-5.40) Hemoglobin 12.4 g/dL (12.0-15.5) Hematocrit 36.8 % (36.0-47.0) Mean Corpuscular Volume 90 fL (79-100) Mean Corpuscular Hemoglobin 30 pg (25-35) Mean Corpuscular Hemoglobin Concent 34 g/dL (31-37) Red Cell Distribution Width 13.9 % (11.5-14.5) Platelet Count 214 x10^3/uL (140-400) Neutrophils (%) (Auto) 60 % (31-73) Lymphocytes (%) (Auto) 26 % (24-48) Monocytes (%) (Auto) 8 % (0-9) Eosinophils (%) (Auto) 5 % (0-3) Basophils (%) (Auto) 1 % (0-3) Neutrophils # (Auto) 3.3 x10^3uL (1.8-7.7) Lymphocytes # (Auto) 1.4 x10^3/uL (1.0-4.8) Monocytes # (Auto) 0.5 x10^3/uL (0.0-1.1) Eosinophils # (Auto) 0.2 x10^3/uL (0.0-0.7) Basophils # (Auto) 0.1 x10^3/uL (0.0-0.2) Sodium Level 142 mmol/L (136-145) Potassium Level 4.2 mmol/L (3.5-5.1) Chloride Level 106 mmol/L (98-107) Carbon Dioxide Level 28 mmol/L (21-32) Anion Gap 8 (6-14) Blood Urea Nitrogen 10 mg/dL (7-20) Creatinine 0.9 mg/dL (0.6-1.0) Estimated GFR (Cockcroft-Gault) 61.9 BUN/Creatinine Ratio 11 (6-20) Glucose Level 160 mg/dL (70-99) Calcium Level 8.8 mg/dL (8.5-10.1) Total Bilirubin 0.6 mg/dL (0.2-1.0) Aspartate Amino Transf (AST/SGOT) 18 U/L (15-37) Alanine Aminotransferase (ALT/SGPT) 14 U/L (14-59) Alkaline Phosphatase 99 U/L (46-116) Troponin I Quantitative < 0.017 ng/mL (0-0.055) < 0.017 ng/mL (0-0.055) < 0.017 ng/mL (0-0.055) FY-Ukx-S-Type Natriuretic Peptide 509 pg/mL (0-124) Total Protein 7.0 g/dL (6.4-8.2) Albumin 3.4 g/dL (3.4-5.0) Albumin/Globulin Ratio 0.9 (1.0-1.7) ECHOCARDIOGRAM Echocardiogram <Conclusion> The left ventricle is normal size. The left ventricular systolic function is normal and the ejection fraction is within normal range. The Ejection Fraction is 55-60%. There is mild concentric left ventricular hypertrophy. There is no significant aortic valvular stenosis. Doppler and Color Flow revealed no significant aortic regurgitation. Doppler and Color-flow revealed trace mitral regurgitation. Doppler and Color Flow revealed trace to mild tricuspid regurgitation with an estimated PAP of 44 mmHg. DATE: 01/06/19 1203 HEART CATH Heart Cath Conclusion 1. 80% stenosis involving a large caliber left circumflex artery. The pr eviously placed stent in the left anterior descending artery was widely patent. The diagonal branch which is a small to medium caliber vessel appeared to have been jailed by the stent resulting in 80% ostial/proximal segment stenosis. 2. Successful PCI/drug eluting stent placement to the left circumflex artery 3. Normal left ventricle systolic function with ejection fraction estimated at 60% Recommendations 1. Aspirin 325 mg daily 2. Plavix 75 mg daily for preferably one year 3. Cardiovascular risk factor modification DATE: 01/05/19 1102 ASSESSMENT/PLAN Assessment/Plan 1. Chest pain, mixed features. AMI ruled out 2. CAD; s/p previous PCI/stent to the LAD and more recent PCI/LUCILLE to LCx 12/2018. Echocardiogram 01/15 showed normal LV function. Had stress test and echo last week at [facility]. Stress reportedly normal. Echo reportedly with impaired systolic function 3. Diabetes, II; as per PCP 4. Accelerated hypertension; now controlled 5. Hyperlipidemia; statin 6. H/o DVT/PE; treated with Xarelto. 7. Hx of CVA with left side weakness Recommendations Continue secondary prevention measures including DAPT with ASA, Plavix. Given h/o CAD and recurrent admissions for CP, will plan for definitive ischemic evaluation with [facility]. R/b/a discussed and she is agreeable. Will plan for transfer to [facility] for angiogram Supportive care RAMONA JAVED APRN Dec 15, 2019 09:39
[2019-12-15] MEDS ORDERED: ALPRAZolam 0.5 MG TABLET PO PRN (09:45)
[2019-12-15] MEDS ORDERED: CITALOPRAM 20 MG TABLET. PO SCH (10:00)
[2019-12-15] MEDS ORDERED: ISOSORBIDE MONONITRATE ER 30 MG TAB.ER.24H PO SCH (10:00)
[2019-12-15] MEDS ORDERED: CLOPIDOGREL BISULFATE 75 MG TABLET PO SCH (10:00)
[2019-12-15] MEDS ORDERED: METOPROLOL TART IMMED RELEASE 25 MG TABLET PO SCH (10:00)
[2019-12-15 11:16] VITALS: BP 119/46
[2019-12-15 11:35] LABS: BASO % 0 % (0-3); EOS # 0.3 x10^3/uL (0.0-0.7); EOS % 4 % (0-3); HEMATOCRIT 37.6 % (36.0-47.0); HEMOGLOBIN 12.7 g/dL (12.0-15.5); LYMPH # 2.3 x10^3/uL (1.0-4.8); LYMPH % 31 % (24-48); MEAN CORPUSCULAR HEMOGLOBIN 30 pg (25-35); MEAN CORPUSCULAR HGB CONC 34 g/dL (31-37); MEAN CORPUSCULAR VOLUME 89 fL (79-100); MONO # 0.6 x10^3/uL (0.0-1.1); MONO % 8 % (0-9); NEUT # 4.2 x10^3uL (1.8-7.7); NEUT % 57 % (31-73); PLATELET COUNT 226 x10^3/uL (140-400); RED BLOOD COUNT 4.23 x10^6/uL (3.50-5.40); WHITE BLOOD COUNT 7.4 x10^3/uL (4.0-11.0)
[2019-12-15 11:38] VITALS: BP 123/72
[2019-12-15 12:02] LABS: ALBUMIN 3.5 g/dL (3.4-5.0); CALCIUM 8.7 mg/dL (8.5-10.1); CREATININE 1.1 mg/dL (0.6-1.0); GFR 49.1; POTASSIUM 4.4 mmol/L (3.5-5.1); TOTAL BILIRUBIN 0.6 mg/dL (0.2-1.0); TOTAL PROTEIN 7.1 g/dL (6.4-8.2)
[2019-12-15] MEDS ORDERED: GABAPENTIN 100 MG CAPSULE. PO SCH (14:00)
--- NOTE | 2019-12-15 14:44 | SSS ---
ADMIT DATE: 12/15/2019 SHORT STAY TRANSFER SUMMARY HISTORY OF PRESENT ILLNESS: The patient is a 69-year-old female patient, who was brought to the Emergency Room with a sudden onset chest pain that started about an hour prior to arrival. She came by private vehicle. The patient was lying in bed when the pain started. She described it as [id number] chest pressure. She feels short of breath. Nothing seems to make it better or worse. She tried two nitroglycerin at home without relief. She was recently discharged [facility] after being admitted there with similar symptoms. They did stress test and found some abnormal finding, but no intervention was performed. No new stents or surgery. She was told to follow up as an outpatient. She has 2 stents and the most recent one was a year ago. She denies fever or chills. She had an EKG done, which showed that she was in sinus rhythm at [address] segment elevation or depression. Her first set of cardiac enzymes showed a troponin to be less than 0.017. She was admitted to the ICU and has had 2 more sets of cardiac enzymes that ruled out myocardial infarction. She was seen in consultation by Cardiology team and they recommended basically to transfer her to [facility] for cardiac catheterization. While in the ICU, she had also seizures, which seems to be atypical as she has a previous seizure before and according to nursing staff, that seizure lasted up to 15 minutes, although the patient did not bite her tongue nor that she wet herself. When I saw her immediately after the seizure, she immediately recognized me and she did not have any postictal state. I believe she has had video EEG done at [facility] before that showed that these are pseudoseizures and in fact her Keppra was discontinued and indicates she has received 2 mg of Ativan and 1000 mg of Keppra and we plan to consult Dr. Woods when she arrives at [facility]. PAST MEDICAL HISTORY: Significant for coronary artery disease, status post PCI stent deployment to the left anterior and left circumflex, type 2 diabetes mellitus, hypertension, hyperlipidemia, COPD/bronchial asthma, DVT and PE, osteoarthritis, CVA, lymphoma, anxiety and depression, paroxysmal supraventricular tachycardia and seizures/pseudoseizures. PAST SURGICAL HISTORY: Significant for right rotator cuff repair, cholecystectomy, hysterectomy, carpal tunnel release surgery, cardiac catheterization with PCI and stent deployment. FAMILY HISTORY: Positive for diabetes, heart disease and hypertension. SOCIAL HISTORY: She is , has 1 son and 2 daughters. She has been a secondhand smoker. She does not herself smoke, drink alcohol or use any recreational drugs. 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 REVIEW OF SYSTEMS: As per history of present illness. MEDICATIONS: She is currently on following medications: She is on Plavix 75 mg once a day, Crestor 20 mg at bedtime, isosorbide mononitrate 30 mg once a day, metoprolol tartrate 12.5 mg twice a day, hydrocodone/APAP 10/325 one tablet every 6 hours, gabapentin 100 mg twice a day, escitalopram oxalate 10 mg once a day, alprazolam 1 mg 4 times a day, Mirapex 0.25 mg at bedtime. She is on Singulair 10 mg once a day, Lantus insulin 15 units at bedtime. PHYSICAL EXAMINATION: GENERAL: On arrival to the Emergency Room, she looked well and was clearly in no apparent respiratory distress. No pallor, jaundice, cyanosis or thyromegaly. No jugular venous distention. No limb edema. VITAL SIGNS: Her heart rate was 75, blood pressure was 185/96, temperature 98.6, respiratory rate 20, and oxygen saturation was 96%. HEAD, EYES, EARS, NOSE AND THROAT: Normocephalic, atraumatic. NECK: Supple. HEART: Showed normal first and second heart sounds. No gallop, rub or murmur. CHEST: Clear to auscultation. No crepitation or rhonchi. ABDOMEN: Distended, soft, nontender. NEUROLOGIC: She was awake, alert, responding appropriately. All cranial nerves intact. EXTREMITIES: She moves extremities without difficulty. LABORATORY DATA: Her lab work on arrival showed a serum sodium 142, potassium 4.2, chloride 106, bicarbonate 28, anion gap of 8, BUN 10, creatinine 0.9, estimated GFR was 62 mL per minute. Her glucose 160, calcium was 8.8. Total bilirubin, AST, ALT, alkaline phosphatase were normal. Troponin was less than 0.017. Beta-natriuretic peptide was 509. Total protein was 7, albumin was 3.4. White cell count was 5400, hemoglobin 12, hematocrit 36, MCV 90 and platelet count 214,000. Her chest x-ray was unremarkable. The patient was admitted to ICU. She has 2 more sets of cardiac enzymes, both of them showed troponin to be less than 0.07. ASSESSMENT AND PLAN: The patient was seen by the field sampling technician and a decision was made to transfer her to [facility] for cardiac catheterization and will also consult Dr. Woods as she has another episode of seizures while she was here, although it was fairly atypical seizures. APOLONIA PLUNKETT MD DR: SUHA/eliezer JOB#: [id number] / [id number]
--- NOTE | 2019-12-15 14:45 | NUR ---
Patient started to complain of chest pain rating the pain at 8/10. One nitroglycerin tab was given with no reduction in pain and patient stated the Nitro was giving her a headache and nausea. Morphine was then given which did seem to reduce the pain some what. Oxygen was administered at 2L per NC also. Patients chest pain seemed to dissipate but she than began having numbness and tingling in her left arm and left leg along with a twitching in her left facial cheek area. Approximately 20 mins later patient began having seizure like activity with whole body muscle jerks and spasms. A Rapid Response was called at this time. This lasted approximately 5 mins. 1 mg of Ativan was given which reduced the spasms for a short period and but spams return so an additional 1 mg of Ativan was given. Dr. Cisse was notified of the change in patients condition and he ordered Keppra IV which was administered and seemed to reduce the seizure like activity. Dr. Cisse also requested the patient be transferred to [facility] for a higher level of care and further evaluation. Patient was also seen by Cardiology this am and they had made a presumptive plan to transfer the patient to [facility] for an exploratory cardiac cath so a mutual decision was made to transfer patient to [facility] to room 261. Report was called to Cassandra JOSÉ at [facility]. EMS was called to transport patient. Patient left the unit with her belongings (which included her purse and cell phone) via gurney escorted by EMS personnel.
[2019-12-15] MEDS ORDERED: MONTELUKAST 10 MG TABLET. PO SCH (21:00)
[2019-12-15] MEDS ORDERED: ATORVASTATIN CALCIUM 20 MG TABLET PO SCH (21:00)
[2019-12-15] MEDS ORDERED: PRAMIPEXOLE 0.25 MG TABLET. PO SCH (21:00)
[2019-12-15] MEDS ORDERED: INSULIN GLARGINE SYRINGE. SQ SCH (21:00)
== END 2019-12-15 14:45 | disposition short-term general hospital (02) ==
LOC: ER 20:58 → ICU 23:00 → INTOOBSV 23:00
PROVIDERS: ADMIT Internal Medicine; ATTEND Internal Medicine
DX: R07.89 Other chest pain (principal); I20.0 Unstable angina; I11.0 Hypertensive heart disease with heart failure; I50.9 Heart failure, unspecified; J44.9 Chronic obstructive pulmonary disease, unspecified; E11.9 Type 2 diabetes mellitus without complications; E78.5 Hyperlipidemia, unspecified; F41.9 Anxiety disorder, unspecified; R56.9 Unspecified convulsions; Z86.73 Personal history of transient ischemic attack (TIA), and cerebral infarction without residual deficits; Z95.1 Presence of aortocoronary bypass graft; Z79.82 Long term (current) use of aspirin; Z79.4 Long term (current) use of insulin; Z79.02 Long term (current) use of antithrombotics/antiplatelets; Z86.711 Personal history of pulmonary embolism; Z86.718 Personal history of other venous thrombosis and embolism; Z90.710 Acquired absence of both cervix and uterus; Z95.5 Presence of coronary angioplasty implant and graft; Z85.72 Personal history of non-Hodgkin lymphomas; Z79.899 Other long term (current) drug therapy; Z90.49 Acquired absence of other specified parts of digestive tract
CPT/HCPCS: 36415; 71045; 80053; 82947; 83605; 83880; 84484; 85025; 93005; 96374; 96375; 99285; G0378; J1953; J2060; J2270; J2405; G0379

== ENCOUNTER → 2019-12-21 | Outpatient (CLI) | payer MEDICARE ==
[2019-12-15 11:38] VITALS: BP 123/72
[~2019-12-21] MED LIST changes: +ALPR1TAB6 PO
--- NOTE | 2019-12-21 15:21 | RAD ---
Examination: Ultrasound pelvis HISTORY: History of right lower quadrant pelvic pain COMPARISON: None available FINDINGS: The uterus, right and left ovaries could not be identified likely prior hysterectomy changes. No obvious adnexal mass identified. IMPRESSION: 1. Changes of complete hysterectomy. No evidence of adnexal mass identified. Electronically signed by: Oskar Bobby MD (12/21/2019 3:18 PM) [id number]
== END | disposition home or self-care (01) ==
LOC: PMG 08:48
PROVIDERS: ATTEND Physician Assistant Medical
DX: R10.31 Right lower quadrant pain (principal)
CPT/HCPCS: 76856

== ENCOUNTER → 2019-12-22 | Outpatient (CLI) | payer MEDICARE ==
[2019-12-15 11:38] VITALS: BP 123/72
--- NOTE | 2019-12-22 09:26 | RAD ---
INDICATION: Reason: GENERAL ABDOMEN PAIN, HEART CATH LAST WEEK, GROIN PAIN, BLOATING / Spl. Instructions: / History: COMPARISON: May 2014 TECHNIQUE: Axial CT images obtained through the abdomen and pelvis without contrast. One or more of the following individualized dose reduction techniques were utilized for this examination: 1. Automated exposure control; 2. Adjustment of the mA and/or kV according to patient size; 3. Use of iterative reconstruction technique. FINDINGS: There is some mild basilar atelectasis of the lungs. Small amount of fluid/debris in some of the bronchi. At least moderate calcific atherosclerosis. Within the right groin there is edema and fullness of the soft tissues with a high density structure seen just anterior to the right common femoral artery. There is a small amount of fluid seen tracking more proximally adjacent to right external iliac artery. There is some suspected fluid or confluent edema adjacent to the right common femoral artery measuring approximately 2 cm. No intrahepatic bile duct dilation. Duodenal diverticulum. There is some mild indistinctness the fat at the pancreas. Could be artifactual in nature unless the patient has symptoms of pancreatitis Spleen is unremarkable. Cystic lesion of the left kidney. No hydronephrosis. The urinary bladder has decompressed therefore not well evaluated. Colonic diverticulosis. No dilated loops of bowel to suggest obstruction. Degenerative changes the spine with multilevel central canal and neural foraminal stenosis. IMPRESSION: * At the right groin abutting the vessels there is edema to the fat as well as some fluid. This also tracks more proximally adjacent to the right external iliac artery. If the patient's puncture site was within the right groin this could be secondary to some associated inflammation and fluid within the soft tissues. There is some fullness seen within the region abutting the right common femoral artery with a high density structure within the region. Could be secondary to closure device or calcifications and some blood and edema adjacent to the vessel but given that this is a noncontrast examination and may be helpful to obtain a focused ultrasound given that causes such as pseudoaneurysm cannot be excluded on this noncontrast exam. Electronically signed by: Tony Miller MD (12/22/2019 9:24 AM) [id number]
--- NOTE | 2019-12-22 17:26 | RAD ---
Right lower extremity duplex ultrasound History:Status post heart catheterization, right groin pain Findings: Multiple grayscale, color, and duplex spectral analysis sonographic images were acquired of the right groin region. No pseudoaneurysm or hematoma is demonstrated. Visualized vessels of the right frontal region are patent with normal triphasic waveforms of the visualized right common femoral artery and proximal superficial femoral artery. There is normal phasicity and color-flow of the visualized veins in this region. There is a small lymph node in this region, greatest dimension about 1 cm. Impression: 1. No significant abnormality is demonstrated. Electronically signed by: Simone Olguin MD (12/22/2019 5:23 PM) [facility]
== END | disposition home or self-care (01) ==
LOC: CT 08:19
PROVIDERS: ATTEND Physician Assistant Medical
DX: K57.30 Diverticulosis of large intestine without perforation or abscess without bleeding (principal); K57.10 Diverticulosis of small intestine without perforation or abscess without bleeding; J98.11 Atelectasis; I70.0 Atherosclerosis of aorta; R60.0 Localized edema; N28.89 Other specified disorders of kidney and ureter
CPT/HCPCS: 74176; 93926

== ENCOUNTER 2020-01-19 20:54 | Observation (INO) | payer MEDICARE ==
[~2020-01-19] VITALS: Ht 162.6 cm; Wt 95.7 kg
[~2020-01-19 20:54] MED LIST changes: -PANT40TA5 PO; +PANT40TA6 PO
--- NOTE | 2020-01-19 20:59 | PHYS DOC ---
Past History Past Medical History: Anxiety, Asthma, CAD, CHF, COPD, Diabetes, Heart Disease, Hypertension, Seizure, Stroke Additional Past Medical Histor: Cardiac, lymphoma Past Surgical History: Appendectomy, Cholecystectomy, Hysterectomy, Oophorectomy, Other Additional Past Surgical Histo: PCI with stents, ortho Smoking: Non-smoker Alcohol Use: None Drug Use: None General Adult EDM: Chief Complaint: SEIZURE HPI: HPI: ".. I was at [email or web address]...and it was on the [employer].. well I went home.. and the Holy Ghost was affecting me.. I had a seizure in my bed.. and shook my dog 'Cookie".. off the bed.. I did try to call my daughter... She did not answer the phone.. .so I just decided to drive here... "..." I am having these confusion episodes.. not thinking straight..." Patient is a 69 year old female who presents with above hx and seizure like activity. Pt. was seen laying down in the ED entrance and then had tonic / clonic activity. Patient has a history of idiopathic or pseudoseizures. Is not currently on any anti-seizure meds. Patient has a significant medical history for asthma, COPD, CHF, diabetes, DVT, lymphoma. Patient current history of tonic-clonic seizure suggestive of anxiety induced or pseudoseizure.. Patient currently follows with Dr. Hurst. Review of Systems: Review of Systems: Constitutional: Denies fever or chills Eyes: Denies change in visual acuity HENT: Denies nasal congestion or sore throat Respiratory: Denies cough or shortness of breath Cardiovascular: Denies chest pain or edema GI: Denies abdominal pain, nausea, vomiting, bloody stools or diarrhea : Denies dysuria Musculoskeletal: Denies back pain or joint pain Integument: Denies rash Neurologic: Complaints of seizures.. confusion Endocrine: Denies polyuria or polydipsia Lymphatic: Denies swollen glands Psychiatric: Complains of anxiety Heart Score: HEART Score for Chest Pain: HEART Score for Chest Pain Response (Comments) Value History Slighlty/Non-Suspicious 0 ECG Nonspecific Repolarizatio 1 Age > 65 2 Risk Factors >3 Risk Factors or Hx CAD 2 Troponin < Normal Limit 0 Total 5 Risk Factors: Risk Factors: DM, Current or recent (<one month) smoker, HTN, HLP, family history of CAD, obesity. Risk Scores: Score 0 - 3: 2.5% MACE over next 6 weeks - Discharge Home Score 4 - 6: 20.3% MACE over next 6 weeks - Admit for Clinical Observation Score 7 - 10: 72.7% MACE over next 6 weeks - Early Invasive Strategies Family History: Family History: Noncontributory to presentation Current Medications: Current Meds: See nursing for home meds Allergies: Allergies: Allergies Coded Allergies Type Severity Reaction Last Updated Verified prednisone Allergy Severe SEIZURES 06/25/19 No oxycodone Allergy Intermediate 12/15/19 Yes Physical Exam: PE: Constitutional: Reports emotional distress, chronically ill in appearance. [] HENT: Normocephalic, atraumatic, bilateral external ears normal, oropharynx moist, no oral exudates, nose normal. [] Eyes: PERRLA, EOMI, conjunctiva normal, no discharge. [] Neck: Normal range of motion, no tenderness, supple, no stridor. [] Cardiovascular: Tachycardia heart rate regular rhythm, no murmur, PMI to the left Lungs & Thorax: Bilateral breath sounds equal apex with scattered wheezes throughout on auscultation []. Old surgery scars. - Ports removed from Lymphoma tx Abdomen: Bowel sounds normal, soft, no tenderness, no masses, no pulsatile masses. Obese old surgery scars Skin: Warm, dry, no erythema, no rash. [] Back: No tenderness, no CVA tenderness. [] Extremities: No tenderness, no cyanosis, no clubbing, ROM intact, no edema. Old surgery scars. Arthritic changes Neurologic: Alert and oriented X 3, moves all extremities on request, has distal sensory,, no gross focal deficits noted. [] Psychologic: Affect extremely anxious, judgement normal, mood depressed EKG: EKG: My interpretation EKG shows a sinus rhythm at 99 bpm. Left axis. No findings of acute STEMI or contralateral changes slightly prolonged QT interval at 354 ms [] Radiology/Procedures: Radiology/Procedures: [address] [address] IMAGING REPORT Signed PATIENT: NILESH ENCINAS ACCOUNT: [id number] : 1950 LOCATION: ER AGE: 69 SEX: F EXAM STATUS: REG ER ORD. PHYSICIAN: MARLEY VACA MD REASON: Seizure with fall, headache, neck pain PROCEDURE: CT HEAD AND CERVICAL SPINE [facility] Compliance Statement: One or more of the following individualized dose reduction techniques were utilized for this examination: 1. Automated exposure control 2. Adjustment of the mA and/or kV according to patient size 3. Use of iterative reconstruction technique CT HEAD AND CERVICAL SPINE WITHOUT CONTRAST History: Reason: Seizure with fall, headache, neck pain / Comparison: CT head without contrast, November 03, 2019. Procedure: Axial images are obtained of the head from the skull base through the vertex without IV contrast. Noncontrast helical CT of the cervical spine was performed. Axial, sagittal, and coronal reconstructions were obtained. Findings: The ventricles and sulci are normal for the patient's age. No mass-effect, midline shift, hemorrhage or obvious acute infarction is identified. Basilar cisterns are patent. Bone windows demonstrate no significant calvarial abnormality. There is stable tiny linear metallic density of the right frontal scalp. The visualized paranasal sinuses are clear. Mastoid air cells are well aerated. There is no evidence of acute fracture or acute malalignment of the cervical spine. No perched or jumped facet joints are seen. Several upper cervical facet joints are fused. Throughout the cervical spine there is disc space narrowing and endplate spurring and irregularity. The alignment is maintained. Visualized soft tissues of the neck demonstrate no significant abnormalities. There are linear opacities and bronchiectasis and emphysema in the upper lungs. IMPRESSION: 1. No acute intracranial abnormality. 2. No acute fracture of the cervical spine. 3. Linear opacities and bronchiectasis and emphysema in the upper lungs. Correlate for radiographic stability. If uncertain consider outpatient CT chest. Electronically signed by: Omer Christopher MD (01/19/2020 9:38 PM) [facility] DICTATED AND SIGNED BY: OMER CHRISTOPHER MD DATE: 01/19/202137 CC: MARLEY VACA MD; BAILEY HURST MD ~ [][address] [address] IMAGING REPORT Signed PATIENT: NILESH ENCINAS ACCOUNT: [id number] : 1950 LOCATION: ER AGE: 69 SEX: F EXAM STATUS: REG ER ORD. PHYSICIAN: MARLEY VACA MD REASON: Seizure activity, short of air PROCEDURE: PORTABLE CHEST 1V PORTABLE CHEST 1V Clinical Indication: Reason: Seizure activity, short of air / Spl. Instructions: / History: Comparison: AP chest December 14, 2019 and November 03, 2019. Findings: The cardiomediastinal silhouette is normal. Parenchymal opacities in the bilateral lung apices are unchanged compared to October radiograph. There is associated bronchiectasis. No acute airspace disease is seen. There is no pneumothorax. No pleural effusion is appreciated. No acute bone abnormality. IMPRESSION: 1. No acute cardiopulmonary process. 2. There is biapical parenchymal scarring and bronchiectasis. Electronically signed by: Omer Christopher MD (01/19/2020 11:10 PM) [facility] DICTATED AND SIGNED BY: OMER CHRISTOPHER MD DATE: 01/19/202309 CC: MARLEY VACA MD; BAILEY HURST MD ~ Course & Med Decision Making: Course & Med Decision Making Pertinent Labs and Imaging studies reviewed. (See chart for details) Discussed presentation ,testing and tx. plan with Dr. Campbell- Admit with neurology consult 1. Seizure Activity 2. DM glu 235 3 Elevated. D-dimer 0.78 4. COPD 5. Anxiety 6. Complaints of confusion [] Dragon Disclaimer: Dragon Disclaimer: This electronic medical record was generated, in whole or in part, using a voice recognition dictation system. Departure Departure: Disposition: 01 HOME/RESIDENCE PRIOR TO ADM Condition: STABLE Referrals: BAILEY HURST MD (PCP) Justification of Admission: Justification of Admission: Justification of Admission Dx: Yes Altered Mental Status: Altered Mental Status Dragon Disclaimer This chart was dictated in whole or in part using Voice Recognition software in a busy, high-work load, and often noisy Emergency Department environment. It may contain unintended and wholly unrecognized errors or omissions. Dragon Disclaimer This chart was dictated in whole or in part using Voice Recognition software in a busy, high-work load, and often noisy Emergency Department environment. It may contain unintended and wholly unrecognized errors or omissions. Dragon Disclaimer This chart was dictated in whole or in part using Voice Recognition software in a busy, high-work load, and often noisy Emergency Department environment. It may contain unintended and wholly unrecognized errors or omissions. MARLEY VACA MD Jan 19, 2020 20:59
[2020-01-19] MEDS ORDERED: IV RINGERS SOLUTION,LACTATED 1,000 ML IV SCH (21:07)
[2020-01-19 21:27] LABS: BASO % 0 % (0-3); EOS # 0.2 x10^3/uL (0.0-0.7); EOS % 3 % (0-3); HEMATOCRIT 38.9 % (36.0-47.0); HEMOGLOBIN 12.8 g/dL (12.0-15.5); LYMPH # 2.4 x10^3/uL (1.0-4.8); LYMPH % 33 % (24-48); MEAN CORPUSCULAR HEMOGLOBIN 29 pg (25-35); MEAN CORPUSCULAR HGB CONC 33 g/dL (31-37); MEAN CORPUSCULAR VOLUME 89 fL (79-100); MONO # 0.6 x10^3/uL (0.0-1.1); MONO % 9 % (0-9); NEUT % 55 % (31-73); PLATELET COUNT 214 x10^3/uL (140-400); RED BLOOD COUNT 4.38 x10^6/uL (3.50-5.40); RED CELL DISTRIBUTION WIDTH 14.1 % (11.5-14.5); WHITE BLOOD COUNT 7.2 x10^3/uL (4.0-11.0)
[2020-01-19 21:40] LABS: CALCIUM 8.4 mg/dL (8.5-10.1); CREATININE 1.2 mg/dL (0.6-1.0); GFR 44.4; POTASSIUM 3.6 mmol/L (3.5-5.1)
--- NOTE | 2020-01-19 21:40 | RAD ---
[facility] Compliance Statement: One or more of the following individualized dose reduction techniques were utilized for this examination: 1. Automated exposure control 2. Adjustment of the mA and/or kV according to patient size 3. Use of iterative reconstruction technique CT HEAD AND CERVICAL SPINE WITHOUT CONTRAST History: Reason: Seizure with fall, headache, neck pain / Comparison: CT head without contrast, November 03, 2019. Procedure: Axial images are obtained of the head from the skull base through the vertex without IV contrast. Noncontrast helical CT of the cervical spine was performed. Axial, sagittal, and coronal reconstructions were obtained. Findings: The ventricles and sulci are normal for the patient's age. No mass-effect, midline shift, hemorrhage or obvious acute infarction is identified. Basilar cisterns are patent. Bone windows demonstrate no significant calvarial abnormality. There is stable tiny linear metallic density of the right frontal scalp. The visualized paranasal sinuses are clear. Mastoid air cells are well aerated. There is no evidence of acute fracture or acute malalignment of the cervical spine. No perched or jumped facet joints are seen. Several upper cervical facet joints are fused. Throughout the cervical spine there is disc space narrowing and endplate spurring and irregularity. The alignment is maintained. Visualized soft tissues of the neck demonstrate no significant abnormalities. There are linear opacities and bronchiectasis and emphysema in the upper lungs. IMPRESSION: 1. No acute intracranial abnormality. 2. No acute fracture of the cervical spine. 3. Linear opacities and bronchiectasis and emphysema in the upper lungs. Correlate for radiographic stability. If uncertain consider outpatient CT chest. Electronically signed by: Omer Christopher MD (01/19/2020 9:38 PM) [facility]
[2020-01-19 21:52] LABS: ALBUMIN 3.7 g/dL (3.4-5.0); DIRECT BILIRUBIN 0.3 mg/dL (0.0-0.2); MAGNESIUM 1.8 mg/dL (1.8-2.4); TOTAL BILIRUBIN 0.8 mg/dL (0.2-1.0); TOTAL PROTEIN 7.4 g/dL (6.4-8.2)
--- NOTE | 2020-01-19 23:13 | RAD ---
PORTABLE CHEST 1V Clinical Indication: Reason: Seizure activity, short of air / Spl. Instructions: / History: Comparison: AP chest December 14, 2019 and November 03, 2019. Findings: The cardiomediastinal silhouette is normal. Parenchymal opacities in the bilateral lung apices are unchanged compared to October radiograph. There is associated bronchiectasis. No acute airspace disease is seen. There is no pneumothorax. No pleural effusion is appreciated. No acute bone abnormality. IMPRESSION: 1. No acute cardiopulmonary process. 2. There is biapical parenchymal scarring and bronchiectasis. Electronically signed by: Omer Christopher MD (01/19/2020 11:10 PM) [facility]
[2020-01-20] MEDS ORDERED: ONDANSETRON PF 4 MG/2 ML VIAL. IVP PRN
[2020-01-20 01:45] VITALS: BP 161/80
[2020-01-20] MEDS ORDERED: TRAZ-120 PO (02:21)
[2020-01-20 02:26] LABS: BARBITURATES NEG (NEG); BENZODIAZEPINES NEG (NEG); CANNABINOIDS NEG (NEG); COCAINE NEG (NEG); METHADONE NEG (NEG); OPIATES NEG (NEG); PHENCYCLIDINE NEG (NEG)
[2020-01-20 02:27] LABS: AMPHETAMINE/METHAMPHETAMINE NEG (NEG)
[2020-01-20 02:46] LABS: BILIRUBIN,URINE NEG (NEG); CLARITY,URINE CLEAR; COLOR,URINE YELLOW; GLUCOSE,URINE 100 mg/dL (NEG)
[2020-01-20 02:47] LABS: BACTERIA,URINE FEW /HPF (0-FEW); NITRITE,URINE NEG (NEG); RBC,URINE 0 /HPF (0-2); SQUAMOUS EPITHELIAL CELL,UR FEW /LPF; WBC,URINE OCC /HPF (0-4)
--- NOTE | 2020-01-20 03:10 | NUR ---
Nursing Note Pt admitted to 122, is highly anxious on admit. States she didn't take any of her HS meds tonight, States she has chronic chest pain, takes imdur. Pt became increasingly anxious until meds approved by Dr. Campbell. Meds pending in pharmacy. VSS upon arrival. BP in the 160's.
[2020-01-20] MEDS ORDERED: INSULIN GLARGINE SYRINGE. SQ SCH ×2 (04:00→21:00)
[2020-01-20] MEDS ORDERED: PRAMIPEXOLE 0.25 MG TABLET. PO SCH ×2 (04:00→21:00)
[2020-01-20] MEDS ORDERED: MONTELUKAST 10 MG TABLET. PO SCH ×2 (04:00→21:00)
[2020-01-20] MEDS: ALPRAZolam 0.5 MG TABLET PO SCH ×2 (04:22→11:46)
[2020-01-20] MEDS: METOPROLOL TART IMMED RELEASE 25 MG TABLET PO SCH ×2 (04:23→11:48)
[2020-01-20] MEDS: HYDROcodone/APAP 10/325 1 TAB TABLET PO SCH ×2 (04:23→11:47)
[2020-01-20] MEDS: GABAPENTIN 100 MG CAPSULE. PO SCH ×2 (04:24→11:46)
[2020-01-20 05:17] VITALS: BP 138/77
[2020-01-20 06:27] LABS: BGAS PH 7.38 (7.35-7.45)
[2020-01-20 06:36] LABS: BASO % 1 % (0-3); EOS # 0.2 x10^3/uL (0.0-0.7); EOS % 5 % (0-3); HEMATOCRIT 34.8 % (36.0-47.0); HEMOGLOBIN 11.7 g/dL (12.0-15.5); LYMPH # 1.1 x10^3/uL (1.0-4.8); LYMPH % 29 % (24-48); MEAN CORPUSCULAR HEMOGLOBIN 30 pg (25-35); MEAN CORPUSCULAR HGB CONC 34 g/dL (31-37); MEAN CORPUSCULAR VOLUME 88 fL (79-100); MONO # 0.4 x10^3/uL (0.0-1.1); MONO % 11 % (0-9); NEUT % 54 % (31-73); PLATELET COUNT 170 x10^3/uL (140-400); RED BLOOD COUNT 3.93 x10^6/uL (3.50-5.40); RED CELL DISTRIBUTION WIDTH 13.7 % (11.5-14.5); WHITE BLOOD COUNT 3.7 x10^3/uL (4.0-11.0)
[2020-01-20 06:48] LABS: CALCIUM 8.3 mg/dL (8.5-10.1); CREATININE 0.8 mg/dL (0.6-1.0); GFR 70.9; POTASSIUM 3.5 mmol/L (3.5-5.1)
--- NOTE | 2020-01-20 07:20 | EKG ---
[address] [address] Test Date: 2020-01-19 Test Time: 21:01:17 Pat Name: NILESH ENCINAS Department: Room: 122 A Gender: F Outpatient Coordinator: : 1950 Requested By: MARLEY VACA Order Number: [id number] Reading MD: Dionisio Pinedo Measurements Intervals [place] Rate: 99 P: 119 RI: 164 QRS: -16 QRSD: 80 T: 55 QT: 354 QTc: 454 Interpretive Statements SINUS RHYTHM LEFTWARD AXIS Electronically Signed On 01-27-2020 13:33:43 CDT by Dionisio Pinedo
[2020-01-20] MEDS ORDERED: IPRATRPIUM/ALBUTEROL 0.5/2.5MG 3 ML NEBU. NEB SCH (08:00)
[2020-01-20] MEDS ORDERED: GABAPENTIN 100 MG CAPSULE. PO SCH (09:00)
[2020-01-20] MEDS ORDERED: METOPROLOL TART IMMED RELEASE 25 MG TABLET PO SCH (09:00)
[2020-01-20] MEDS ORDERED: ENOXAPARIN ** NOTE DOSE ** SYRINGE SQ SCH (09:00)
[2020-01-20] MEDS ORDERED: CLOPIDOGREL BISULFATE 75 MG TABLET PO SCH (09:00)
[2020-01-20] MEDS ORDERED: HYDROcodone/APAP 10/325 1 TAB TABLET PO SCH (09:00)
[2020-01-20] MEDS ORDERED: ISOSORBIDE MONONITRATE ER 30 MG TAB.ER.24H PO SCH (09:00)
[2020-01-20] MEDS ORDERED: ALPRAZolam 0.5 MG TABLET PO SCH (09:00)
[2020-01-20] MEDS ORDERED: IPRATRPIUM/ALBUTEROL 0.5/2.5MG 3 ML NEBU. NEB PRN (10:00)
[2020-01-20 11:14] VITALS: BP 109/53
--- NOTE | 2020-01-20 14:21 | CONS ---
DATE OF CONSULTATION: NEUROLOGY CONSULTATION REFERRING PHYSICIAN: Dr. Campbell. REASON FOR CONSULTATION: Rule out seizure versus pseudoseizure. HISTORY OF PRESENT ILLNESS: This is a 69-year-old right-handed female, who was admitted through Emergency Room last night after she presented with a breakthrough seizure-like activities. According to the patient, she was on the [employer] in a [place] last night, she went home and when she was in bed, she had an anxiety attack, probably induced by Holy Ghost then she started having severe tremor and possible seizure-like activities, so she drove herself to Emergency Room. On her way, the patient had severe tremor then she pulled over. Finally, she made it to Emergency Room. At the entrance of ER, the patient had recurrent seizure-like activities and she went to the floor. She did not hurt herself and she remembers all the events. The patient did not lose her consciousness. I know the patient from previous admissions with seizure activities. She went to [facility] and had prolonged video monitoring, which was consistent with pseudoseizure. She has not been on any anticonvulsants. The patient appeared to have breakthrough seizure-like activities, probably induced by anxiety. Since admission, the patient has not had any recurrent spells. Currently, she complains of mild headaches, but she denies chest pain, shortness of breath or palpitation, dysarthria, dysphagia or vertigo. The patient has had intermittent restless leg syndrome, affecting mainly the left side and intermittent numbness and paresthesia of the distal lower extremities, probably due to underlying peripheral neuropathy secondary to diabetes mellitus. In Emergency Room, her CT scan of the brain reveals no acute intracranial process and CT of the cervical spine revealed no evidence of acute changes or fractures. PAST MEDICAL HISTORY: Quite extensive consistent with restless leg syndrome, coronary artery disease, status post coronary artery stent placement x 2, diabetes mellitus, hyperlipidemia, obstructive sleep apnea, GERD, arthritis, degenerative disk disease of the lumbar spine, chronic low back pain, anxiety, depression, deep venous thrombosis, pulmonary embolism, and lymphoma. PAST SURGICAL HISTORY: Positive for hysterectomy, cholecystectomy, left carpal tunnel release, and right rotator cuff repair. SOCIAL HISTORY: The patient denies smoking, alcohol drinking, or illicit drug use. FAMILY HISTORY: Positive for coronary artery disease, diabetes mellitus, hypertension, fibromyalgia, and lung cancer in her sister with dementia in her sister. CURRENT MEDICATIONS: Lipitor 80 mg at bedtime, trazodone 12.5 mg at bedtime, Plavix 75 mg p.o. daily, albuterol nebulizer, Mirapex 0.25 mg at bedtime for restless leg syndrome, metoprolol 12.5 mg b.i.d., insulin 12 units at bedtime, hydrocodone 10/325 mg p.r.n., gabapentin 100 mg b.i.d., alprazolam 1 mg q.i.d. ALLERGIES: OXYCODONE AND PREDNISONE. REVIEW OF SYSTEMS: A 10-point review of system was performed as mentioned above in history of present illness. PHYSICAL EXAMINATION: GENERAL: Obese female, not in acute distress. She weighs 95.7 kilos. VITAL SIGNS: Blood pressure 138/77, respiratory rate 18, pulse is 64, temperature is 98.1, oxygen saturation 93% on room air. HEENT: Normocephalic, atraumatic, otherwise unremarkable. NECK: Supple. Negative for carotid bruit, lymphadenopathy or thyromegaly. LUNGS: Clear to A and P. CARDIOVASCULAR: Regular rate and rhythm, normal S1, S2. There is no S3, S4 or murmurs. ABDOMEN: Soft. Bowel sounds positive. EXTREMITIES: Negative for cyanosis, clubbing or edema. NEUROLOGICAL EXAM: Mental Status: The patient is alert and oriented x 3. Speech is fluent. There is no language dysfunction. Memory, judgment, and abstracting thinking are normal. The patient denies hallucination or delusion. CRANIAL NERVES: Visual griggs are full. The pupils are reactive to light and accommodation. The extraocular movements are intact. There is no nystagmus. There is no facial motor or sensory deficit. Hearing is intact bilaterally. The palate is elevated symmetrically. Sternocleidomastoid muscles are powerful bilaterally. The patient shrugs her shoulders symmetrically, protrudes her tongue in the midline without fasciculation or atrophy. MOTOR: No focal muscle bulk was seen. The tone is normal. The strength is 5/5 throughout. SENSORY EXAMINATION: Revealed diminished pinprick and light touch senses in distal lower extremities with stocking distributions. Deep tendon reflexes were symmetric and hypoactive with absent Achilles responses. Gait and coordination are normal. DIAGNOSTIC DATA: Chest x-ray revealed no acute cardiopulmonary process and possible bronchiectasis. Nonenhanced head CT scan revealed no acute intracranial process and CT of the cervical spine revealed no acute fracture. LABORATORY DATA: CBC revealed white blood cells of 3.7 thousand, hemoglobin 11.7, hematocrit 34.8, platelet count 170,000. Chemistry revealed sodium of 140, potassium 3.5, chloride 105, CO2 of 24, BUN 10, creatinine 0.8, glucose 124 and calcium 8.3. PT is 9.9 and PTT is 23 with elevated D-dimer at 0.78. Urinalysis is negative for urinary tract infection. Urinary drug screen is negative as well. IMPRESSION: 1. 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 2. Multiple medical problems include coronary artery disease, hyperlipidemia, obstructive sleep apnea, gastroesophageal reflux disease, peripheral neuropathy, diabetes mellitus, anxiety and depression. RECOMMENDATIONS: 1. Continue with current management and home medications. The patient is neurologically stable. 2. Follow up with Dr. Loyd after 2 weeks from discharge. M Dottie LOYD MD DR: ZHANE/eliezer JOB#: [id number] / [id number]
[2020-01-20 14:50] VITALS: BP 134/67
--- NOTE | 2020-01-20 14:54 | NUR ---
THIS RN WENT TO THE PATIENT ROOM, FOUND A PATIENT IN A BED WITH EYES CLOSED AND BILATERAL UPPER EXTREMITIES SHAKING, PATIENT WILL NOT RESPOND TO HER NAME OR TOUCH, PATIENT STOPPED SHAKING IN ABOUT 30 SECONDS OPENED HER EYES AND LOOKED AT THE RN, THIS RN ASKED IF PATIENT IS FINE, PATIENT STATED " I AM OK". VS OBTAINED AND STABLE. WILL CONTINUE TO MONITOR.
--- NOTE | 2020-01-20 16:58 | NUR ---
PATIENT REQUESTED TO TAKE IV OUT, SHE DECIDED TO LEAVE AMA. PATIENT WAS INFORMED THAT SHE WILL NOT GET ANY PRESCRIPTIONS FROM THE DOCTOR AND NEED TO FOLLOW UP WITH PRIMARY HEALTH CARE PROVIDER. PATIENT VERBALIZED UNDERSTANDING, PATIENT SIGNED AMA FORM. PT LEFT UNIT VIA AMBULATION ACCOMPANIED BY SELF.
--- NOTE | 2020-01-20 17:58 | SSS ---
ADMIT DATE: HISTORY OF PRESENT ILLNESS: The patient was admitted to [facility] through the Emergency Room with seizures, stating that she was studying The Bible. It was on the Holy Ghost and the Holy Ghost was affecting her. She had had a seizure in her bed and took my dog Cookie off the bed. In any case, she apparently did not have any tongue biting or was incontinent of urine. She was seen by Dr. Garcia who thought that this is also another episode of pseudoseizures and the patient left against medical advice before even I examined her. APOLONIA PLUNKETT MD DR: SUHA/eliezer JOB#: [id number] / [id number]
[2020-01-20] MEDS ORDERED: traZODone 50 MG TABLET. PO SCH (21:00)
[2020-01-20] MEDS ORDERED: ATORVASTATIN CALCIUM 20 MG TABLET PO SCH (21:00)
[2020-01-20] MEDS ORDERED: INSULIN GLARGINE HUM REC ANLOG 12 UNIT SQ SCH (21:00)
[2020-01-20 23:29] VITALS: BP 145/78
[2020-01-21] MEDS ORDERED: FLU VACC QS 2020-21(6MOS+)/PF 0.5 ML SYRINGE. VAX IM ONE (09:00)
== END 2020-01-20 16:55 | disposition left against medical advice (07) ==
LOC: ER 20:54 → 1 SOUTH 23:30 → UNDOADMOB 01-20 01:07 → 1 SOUTH 01-20 01:07
PROVIDERS: ADMIT Hospitalist; ATTEND Hospitalist
DX: R56.9 Unspecified convulsions (principal); E11.65 Type 2 diabetes mellitus with hyperglycemia; J44.9 Chronic obstructive pulmonary disease, unspecified; F41.9 Anxiety disorder, unspecified; R41.0 Disorientation, unspecified; I11.0 Hypertensive heart disease with heart failure; I50.9 Heart failure, unspecified; I25.10 Atherosclerotic heart disease of native coronary artery without angina pectoris; G47.30 Sleep apnea, unspecified; K21.9 Gastro-esophageal reflux disease without esophagitis; E78.5 Hyperlipidemia, unspecified; G62.9 Polyneuropathy, unspecified; F41.1 Generalized anxiety disorder; G47.33 Obstructive sleep apnea (adult) (pediatric); G25.81 Restless legs syndrome; F32.9 Major depressive disorder, single episode, unspecified; Z86.73 Personal history of transient ischemic attack (TIA), and cerebral infarction without residual deficits; Z90.49 Acquired absence of other specified parts of digestive tract; Z90.710 Acquired absence of both cervix and uterus; Z95.1 Presence of aortocoronary bypass graft; Z79.02 Long term (current) use of antithrombotics/antiplatelets; Z79.4 Long term (current) use of insulin; Z86.711 Personal history of pulmonary embolism; Z86.718 Personal history of other venous thrombosis and embolism
CPT/HCPCS: 36415; 70450; 71045; 72125; 80048; 80076; 80307; 81001; 82550; 82803; 82947; 83690; 83735; 83880; 84146; 84443; 84484; 85025; 85379; 85610; 85730; 93005; 96361; 96374; 99285; G0378; J2060; J7120; G0379

== ENCOUNTER 2020-03-25 12:35 | Emergency (ER) | payer MEDICARE ==
[~2020-03-25] VITALS: Ht 162.6 cm; Wt 95.7 kg
--- NOTE | 2020-03-25 12:57 | PHYS DOC ---
Past History Past Medical History: Anxiety, Asthma, CAD, CHF, COPD, Diabetes, Heart Disease, Hypertension, Seizure, Stroke Additional Past Medical Histor: Cardiac, lymphoma Past Surgical History: Appendectomy, Cholecystectomy, Hysterectomy, Oophorectomy, Other Additional Past Surgical Histo: PCI with stents, ortho Smoking: Non-smoker Alcohol Use: None Drug Use: None General Adult EDM: Chief Complaint: CHEST PAIN-CARDIAC NATURE HPI: HPI: History obtained from patient. Patient is a 69-year-old female history of coronary artery disease, pulmonary liver presents with complaint of chest pain. She began developing chest pain approximate 4 hours prior to arrival. States it began while walking from the living room to the kitchen to get a glass of water. States the pain is a tightness. States it radiates to her neck and arms bilaterally. She states approximately 30 minutes prior to arrival she developed shortness of breath. Denies cough or fever. Denies syncope. States she does have a history of lower extremity DVT and pulmonary embolism diagnosed approximately 1 to 2 years ago. States she only takes Plavix currently. Note she did have coronary artery stent placed in May 2019. Denies history of pancreatitis or GERD. States nothing seems to xacerbate her pain. She did try home nitroglycerin at home with some relief of her pain. No other complaints. Review of Systems: Review of Systems: Constitutional: Denies fever or chills Eyes: Denies change in visual acuity HENT: Denies nasal congestion or sore throat Respiratory: Positive shortness of breath Cardiovascular: Positive for chest pain GI: Denies abdominal pain, nausea, vomiting, bloody stools or diarrhea : Denies dysuria Musculoskeletal: Denies back pain or joint pain Integument: Denies rash Neurologic: Denies headache, focal weakness or sensory changes Endocrine: Denies polyuria or polydipsia Lymphatic: Denies swollen glands Psychiatric: Denies depression or anxiety Allergies: Allergies: Allergies Coded Allergies Type Severity Reaction Last Updated Verified prednisone Allergy Severe SEIZURES 03/25/20 No oxycodone Allergy Intermediate 03/25/20 Yes Physical Exam: PE: Constitutional: Well developed, well nourished, no acute distress, non-toxic appearance. [] HENT: Normocephalic, atraumatic, bilateral external ears normal, oropharynx moist, no oral exudates, nose normal. [] Eyes: PERRLA, EOMI, conjunctiva normal, no discharge. [] Neck: Normal range of motion, no tenderness, supple, no stridor. [] Cardiovascular:Heart rate regular rhythm, no murmur [] Lungs & Thorax: Bilateral breath sounds clear to auscultation [] Abdomen: soft, no tenderness, no masses, no pulsatile masses. [] Skin: Warm, dry, no erythema, no rash. [] Back: No tenderness, no CVA tenderness. [] Extremities: No tenderness, no cyanosis, no clubbing, ROM intact, no edema. [] Neurologic: Alert and oriented X 3, normal motor function, normal sensory function, no focal deficits noted. [] Psychologic: Affect normal, judgement normal, mood normal. [] Current Patient Data: Labs: Laboratory Tests Test 03/25/20 12:45 03/25/20 13:18 White Blood Count 5.5 x10^3/uL Red Blood Count 4.86 x10^6/uL Hemoglobin 14.5 g/dL Hematocrit 43.2 % Mean Corpuscular Volume 89 fL Mean Corpuscular Hemoglobin 30 pg Mean Corpuscular Hemoglobin Concent 34 g/dL Red Cell Distribution Width 14.3 % Platelet Count 249 x10^3/uL Neutrophils (%) (Auto) 53 % Lymphocytes (%) (Auto) 34 % Monocytes (%) (Auto) 8 % Eosinophils (%) (Auto) 4 % Basophils (%) (Auto) 1 % Neutrophils # (Auto) 2.9 x10^3uL Lymphocytes # (Auto) 1.9 x10^3/uL Monocytes # (Auto) 0.5 x10^3/uL Eosinophils # (Auto) 0.2 x10^3/uL Basophils # (Auto) 0.0 x10^3/uL Sodium Level 140 mmol/L Potassium Level 4.4 mmol/L Chloride Level 105 mmol/L Carbon Dioxide Level 28 mmol/L Anion Gap 7 Blood Urea Nitrogen 11 mg/dL Creatinine 0.9 mg/dL Estimated GFR (Cockcroft-Gault) 61.9 BUN/Creatinine Ratio 12 Glucose Level 129 mg/dL Calcium Level 8.6 mg/dL Total Bilirubin 0.6 mg/dL Aspartate Amino Transf (AST/SGOT) 41 U/L Alanine Aminotransferase (ALT/SGPT) 47 U/L Alkaline Phosphatase 116 U/L Troponin I Quantitative < 0.017 ng/mL UI-Doj-[id number]-Type Natriuretic Peptide 502 pg/mL Total Protein 7.3 g/dL Albumin 3.8 g/dL Albumin/Globulin Ratio 1.1 Lipase 63 U/L Glucose (Fingerstick) 119 mg/dL Current Medications Medications (Trade) Dose Ordered Sig/Sherrie Route PRN Reason Start Time Stop Time Status Last Admin Dose Admin Nitroglycerin (Nitrostat) 0.4 mg PRN Q5MIN PRN SL CHEST PAIN 03/25/20 13:00 03/25/20 13:31 Fentanyl Citrate (Fentanyl 2ml Vial) 50 mcg 1X ONCE IVP 03/25/20 13:45 03/25/20 13:46 DC 03/25/20 13:45 Iohexol (Omnipaque 350 Mg/ml) 100 ml 1X ONCE IV 03/25/20 14:00 03/25/20 14:07 DC 03/25/20 14:12 Info (Do NOT chart on this entry -- for MONITORING) 1 each PRN DAILY PRN MC SEE COMMENTS 03/25/20 14:15 03/27/20 14:14 Vital Signs: Vital Signs Date Time Temp Pulse Resp B/P (MAP) Pulse Ox O2 Delivery O2 Flow Rate FiO2 03/25/20 14:30 72 18 121/93 (102) 94 Nasal Cannula 2.0 03/25/20 13:45 20 03/25/20 13:31 87 20 114/58 (76) 93 Room Air 03/25/20 13:31 87 114/58 03/25/20 13:22 90 148/82 03/25/20 13:22 86 22 148/82 (104) 94 Room Air 03/25/20 13:15 70 22 148/74 (98) 94 Room Air 03/25/20 13:14 70 148/74 03/25/20 12:40 98.1 69 16 144/84 (104) 96 Room Air EKG: EKG: [] EKG consistent with normal sinus rhythm. Ventricular rate of 75 bpm. PVC noted. Left axis noted. No acute ST segment elevation appreciated. Radiology/Procedures: Radiology/Procedures: [address] [address] IMAGING REPORT Signed PATIENT: NILESH ENCINAS ACCOUNT: [id number] : 1950 LOCATION: ER AGE: 69 SEX: F EXAM STATUS: REG ER ORD. PHYSICIAN: YANIRA MARINA DO REASON: CP and SOB. hx PE PROCEDURE: CT ANGIOGRAPHY CHEST EXAM: CT Pulmonary Angiogram INDICATION: Reason: CP and SOB. hx PE / Spl. Instructions: / History: TECHNIQUE: Multi-detector row images were acquired from the thoracic inlet through the upper abdomen with the use of IV contrast. Sagittal and coronal images were acquired from the transaxial data. MIP images of the pulmonary arteries were obtained. All CT scans performed at this facility utilize dose optimization techniques as appropriate to the exam, including the following: Automated exposure control and adjustment of the mA and/or KV according to patient size (this includes techniques or standardized protocols for targeted exams where dose is indication/reason for exam). IV CONTRAST: Administered COMPARISON: Chest x-ray 01/19/2020 FINDINGS: PULMONARY ARTERIES: No pulmonary emboli are identified. CARDIOVASCULAR: Multivessel coronary calcifications. Probable left circumflex coronary artery stent. Aortic calcifications and tortuosity. Normal caliber. Normal heart size. No pericardial effusion. MEDIASTINUM & MIKE: Mild right greater than left bilateral hilar adenopathy. LUNGS: Bilateral hilar retraction with peribronchial thickening in the upper lobes is present along with coarse interstitial lung markings. There is mild peribronchial thickening in the upper lobes. PLEURAL SPACE: No pleural effusions or pneumothorax. OSSEOUS & SOFT TISSUE: Old, sternal upper body fracture with mild residual deformity. ABDOMEN: The visualized portions of the upper abdomen are unremarkable. IMPRESSION: 1. No evidence of pulmonary emboli. 2. Pleural parenchymal scarring most conspicuous in the upper lobes with bilateral hilar retraction and peribronchial thickening. Correlate for any evidence of bronchiolitis or bronchitis. 3. No acute superimposed cardiac pulmonary process otherwise shown. Electronically signed by: Marnie Everett MD (03/25/2020 2:32 PM) [facility] DICTATED AND SIGNED BY: MARNIE EVERETT MD DATE: 03/25/20 1432 CC: BAILEY MORSE MD; YANIRA MARINA DO ~MTH0 0 [] Heart Score: HEART Score for Chest Pain: HEART Score for Chest Pain Response (Comments) Value History Slighlty/Non-Suspicious 0 ECG Nonspecific Repolarizatio 1 Age > 65 2 Risk Factors >3 Risk Factors or Hx CAD 2 Troponin < Normal Limit 0 Total 5 Risk Factors: Risk Factors: DM, Current or recent (<one month) smoker, HTN, HLP, family history of CAD, obesity. Risk Scores: Score 0 - 3: 2.5% MACE over next 6 weeks - Discharge Home Score 4 - 6: 20.3% MACE over next 6 weeks - Admit for Clinical Observation Score 7 - 10: 72.7% MACE over next 6 weeks - Early Invasive Strategies Course & Med Decision Making: Course & Med Decision Making Pertinent Labs and Imaging studies reviewed. (See chart for details) [] Patient is an anxious appearing 69-year-old female presents with chief complaint of sudden onset chest pain that begins in her chest and radiates to her neck while walking to the kitchen. Initial EKG without acute ischemic changes. She does have a history of coronary artery disease with stent placement. Troponin negative. She did take 4 baby aspirin at home prior to arr ival and nitroglycerin with some relief of her pain. CT PE study was also obtained and shows no signs of pulmonary emboli. Patient was given additional fentanyl for pain relief. Patient did temporarily become hypoxic at 89% while in the room. Nasal cannula was applied and she responded appropriately. Covid swab be obtained because of this. She has no other Covid related symptoms. I do feel she would benefit from hospitalization and further evaluation given her history of coronary artery disease. Patient is agreeable to this. She will be hospitalized for further care. Dragon Disclaimer: Roseline Disclaimer: This electronic medical record was generated, in whole or in part, using a voice recognition dictation system. Departure Departure: Impression: Primary Impression: Chest pain Qualified Codes: R07.9 - Chest pain, unspecified Additional Impressions: Respiratory failure Qualified Codes: J96.01 - Acute respiratory failure with hypoxia CAD (coronary artery disease) Qualified Codes: I25.10 - Atherosclerotic heart disease of [place] coronary artery without angina pectoris Disposition: 09 ADMITTED INPT THIS HOSP Condition: STABLE Referrals: BAILEY MORSE MD (PCP) YANIRA MARINA DO Mar 25, 2020 12:57
[2020-03-25 13:08] LABS: BASO % 1 % (0-3); EOS # 0.2 x10^3/uL (0.0-0.7); EOS % 4 % (0-3); HEMATOCRIT 43.2 % (36.0-47.0); HEMOGLOBIN 14.5 g/dL (12.0-15.5); LYMPH # 1.9 x10^3/uL (1.0-4.8); LYMPH % 34 % (24-48); MEAN CORPUSCULAR HEMOGLOBIN 30 pg (25-35); MEAN CORPUSCULAR HGB CONC 34 g/dL (31-37); MEAN CORPUSCULAR VOLUME 89 fL (79-100); MONO # 0.5 x10^3/uL (0.0-1.1); MONO % 8 % (0-9); NEUT # 2.9 x10^3uL (1.8-7.7); NEUT % 53 % (31-73); PLATELET COUNT 249 x10^3/uL (140-400); RED BLOOD COUNT 4.86 x10^6/uL (3.50-5.40); RED CELL DISTRIBUTION WIDTH 14.3 % (11.5-14.5); WHITE BLOOD COUNT 5.5 x10^3/uL (4.0-11.0)
[2020-03-25 13:14] LABS: CALCIUM 8.6 mg/dL (8.5-10.1); CREATININE 0.9 mg/dL (0.6-1.0); GFR 61.9; POTASSIUM 4.4 mmol/L (3.5-5.1)
[2020-03-25] MEDS: NITROGLYCERIN SUBLINGUAL 0.4 MG BOTTLE OF 25. SL PRN ×3 (13:14→13:31)
[2020-03-25 13:27] LABS: ALBUMIN 3.8 g/dL (3.4-5.0); ALBUMIN/GLOBULIN RATIO 1.1 (1.0-1.7); TOTAL BILIRUBIN 0.6 mg/dL (0.2-1.0); TOTAL PROTEIN 7.3 g/dL (6.4-8.2)
[2020-03-25] MEDS ORDERED: IOHEXOL 350 MG/ML 100 ML VIAL. IV ONE (14:00)
[2020-03-25] MEDS ORDERED: CONTRAST GIVEN. MC PRN (14:15)
--- NOTE | 2020-03-25 14:34 | RAD ---
EXAM: CT Pulmonary Angiogram INDICATION: Reason: CP and SOB. hx PE / Spl. Instructions: / History: TECHNIQUE: Multi-detector row images were acquired from the thoracic inlet through the upper abdomen with the use of IV contrast. Sagittal and coronal images were acquired from the transaxial data. MIP images of the pulmonary arteries were obtained. All CT scans performed at this facility utilize dose optimization techniques as appropriate to the exam, including the following: Automated exposure control and adjustment of the mA and/or KV according to patient size (this includes techniques or standardized protocols for targeted exams where dose is indication/reason for exam). IV CONTRAST: Administered COMPARISON: Chest x-ray 01/19/2020 FINDINGS: PULMONARY ARTERIES: No pulmonary emboli are identified. CARDIOVASCULAR: Multivessel coronary calcifications. Probable left circumflex coronary artery stent. Aortic calcifications and tortuosity. Normal caliber. Normal heart size. No pericardial effusion. MEDIASTINUM & MIKE: Mild right greater than left bilateral hilar adenopathy. LUNGS: Bilateral hilar retraction with peribronchial thickening in the upper lobes is present along with coarse interstitial lung markings. There is mild peribronchial thickening in the upper lobes. PLEURAL SPACE: No pleural effusions or pneumothorax. OSSEOUS & SOFT TISSUE: Old, sternal upper body fracture with mild residual deformity. ABDOMEN: The visualized portions of the upper abdomen are unremarkable. IMPRESSION: 1. No evidence of pulmonary emboli. 2. Pleural parenchymal scarring most conspicuous in the upper lobes with bilateral hilar retraction and peribronchial thickening. Correlate for any evidence of bronchiolitis or bronchitis. 3. No acute superimposed cardiac pulmonary process otherwise shown. Electronically signed by: Janette Everett MD (03/25/2020 2:32 PM) [facility] [place]
--- NOTE | 2020-03-25 15:17 | EKG ---
[address] [address] Test Date: 2020-03-25 Test Time: 12:46:34 Pat Name: NILESH ENCINAS Department: Room: Gender: F Incident Response Manager: NANCY : 1950 Requested By: YANIRA MARINA Order Number: [id number] Reading MD: Dionisio Pinedo Measurements Intervals [place] Rate: 75 P: 53 UT: 168 QRS: -14 QRSD: 76 T: 31 QT: 418 QTc: 470 Interpretive Statements SINUS RHYTHM ATRIAL PREMATURE COMPLEX(ES) LEFTWARD AXIS LOW LIMB LEAD VOLTAGE ABNORMAL ECG Electronically Signed On 03-29-2020 10:55:49 SURVEY WORKER by Dionisio Pinedo
[2020-03-25 16:58] VITALS: BP 144/78
[2020-03-25] MEDS ORDERED: LISI40TA PO (18:22)
[2020-03-25] MEDS ORDERED: ASPI-630 PO (18:22)
== END 2020-03-25 18:05 | disposition admitted as inpatient to this hospital (09) ==
LOC: ER 12:35
DX: J96.01 Acute respiratory failure with hypoxia (principal); Z20.828 Contact with and (suspected) exposure to other viral communicable diseases; I25.10 Atherosclerotic heart disease of native coronary artery without angina pectoris; R07.89 Other chest pain; F41.9 Anxiety disorder, unspecified; J44.9 Chronic obstructive pulmonary disease, unspecified; E11.9 Type 2 diabetes mellitus without complications; I11.0 Hypertensive heart disease with heart failure; I50.9 Heart failure, unspecified; I25.2 Old myocardial infarction; Z90.89 Acquired absence of other organs; Z90.49 Acquired absence of other specified parts of digestive tract; Z90.710 Acquired absence of both cervix and uterus; Z98.890 Other specified postprocedural states; Z88.5 Allergy status to narcotic agent
CPT/HCPCS: 36415; 71275; 80053; 82947; 83690; 83880; 84484; 85025; 93005; 96374; 99285; C9803; J3010; Q9967; U0003

== ENCOUNTER 2020-05-25 13:55 | Emergency (ER) | payer MEDICARE ==
[~2020-05-25] VITALS: Ht 162.6 cm; Wt 97.8 kg
[~2020-05-25 13:55] MED LIST changes: +ASPI-630 PO; -ESCI10TA2 PO; +ESCI10TA5 PO; +LISI40TA PO
[2020-05-25 13:56] VITALS: BP 151/81
[2020-05-25] MEDS ORDERED: HYDROcodone/APAP 10/325 1 TAB TABLET PO ONE (14:45)
--- NOTE | 2020-05-25 15:17 | PHYS DOC ---
Past History Past Medical History: Anxiety, Asthma, CAD, CHF, COPD, Diabetes, Heart Disease, Hypertension, Seizure, Stroke Additional Past Medical Histor: Cardiac, lymphoma Past Surgical History: Appendectomy, Cholecystectomy, Hysterectomy, Oophorectomy, Other Additional Past Surgical Histo: PCI with stents, ortho Smoking: Non-smoker Alcohol Use: None Drug Use: None General Adult EDM: Chief Complaint: PAIN CONTROL HPI: HPI: Patient is a 6-year-old female presents with left ankle pain after surgery she had on the at [place]. Patient states that she is unable to fill her prescription for hydrocodone and is here for pain control. Patient states that she has not had anything for pain since yesterday when she left [place]. Patient has history of chronic pain, anxiety, pseudoseizures, diabetes, COPD, hypertension. Review of Systems: Review of Systems: Constitutional: Denies fever or chills Eyes: Denies change in visual acuity HENT: Denies nasal congestion or sore throat Respiratory: Denies cough or shortness of breath Cardiovascular: Denies chest pain or edema GI: Denies abdominal pain, nausea, vomiting, bloody stools or diarrhea : Denies dysuria Musculoskeletal: Denies back pain or joint pain Integument: Denies rash Neurologic: Denies headache, focal weakness or sensory changes Endocrine: Denies polyuria or polydipsia Lymphatic: Denies swollen glands Psychiatric: Denies depression or anxiety Current Medications: Current Meds: Current Medications Medications (Trade) Dose Ordered Sig/Sherrie Start Time Stop Time Status Last Admin Dose Admin Acetaminophen/ Hydrocodone Bitart (Lortab 10/325) 1 tab 1X ONCE 05/25/20 14:45 05/25/20 15:01 DC Allergies: Allergies: Allergies Coded Allergies Type Severity Reaction Last Updated Verified prednisone Allergy Severe SEIZURES 03/25/20 No oxycodone Allergy Intermediate 03/25/20 Yes Physical Exam: PE: Constitutional: Well developed, well nourished, no acute distress, non-toxic appearance. [] HENT: Normocephalic, atraumatic, bilateral external ears normal, oropharynx moist, no oral exudates, nose normal. [] Eyes: PERRLA, EOMI, conjunctiva normal, no discharge. [] Neck: Normal range of motion, no tenderness, supple, no stridor. [] Cardiovascular:Heart rate regular rhythm, no murmur [] Lungs & Thorax: Bilateral breath sounds clear to auscultation [] Abdomen: Bowel sounds normal, soft, no tenderness, no masses, no pulsatile masses. [] Skin: Warm, dry, no erythema, no rash. [] Back: No tenderness, no CVA tenderness. [] Extremities: Pain to left ankle, no cyanosis, no clubbing, ROM intact, no edema. [] Neurologic: Alert and oriented X 3, normal motor function, normal sensory function, no focal deficits noted. [] Psychologic: Affect normal, judgement normal, mood normal. [] Current Patient Data: Vital Signs: Vital Signs Date Time Temp Pulse Resp B/P (MAP) Pulse Ox O2 Delivery O2 Flow Rate FiO2 05/25/20 13:56 98.0 95 16 151/81 (104) 95 Room Air EKG: EKG: [] Radiology/Procedures: Radiology/Procedures: [] Heart Score: Risk Factors: Risk Factors: DM, Current or recent (<one month) smoker, HTN, HLP, family history of CAD, obesity. Risk Scores: Score 0 - 3: 2.5% MACE over next 6 weeks - Discharge Home Score 4 - 6: 20.3% MACE over next 6 weeks - Admit for Clinical Observation Score 7 - 10: 72.7% MACE over next 6 weeks - Early Invasive Strategies Course & Med Decision Making: Course & Med Decision Making Pertinent Labs and Imaging studies reviewed. (See chart for details) []Patient is a 6-year-old female presents with left ankle pain after surgery she had on the at [place]. Patient states that she is unable to fill her prescription for hydrocodone and is here for pain control. Patient states that she has not had anything for pain since yesterday when she left [place]. Patient has history of chronic pain, anxiety, pseudoseizures, diabetes, COPD, hypertension. 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 Patient received 90 hydrocodone 10/325 from her PCP on 05/17. Explained to patient unable to give her a prescription for narcotics. She was given 1 hydrocodone in the ER. Patient states "if you cannot give me any pain medication can I just go home". Patient is hemodynamically stable Impression Pain Control Dragon Disclaimer: Drags[place]aria Disclaimer: This electronic medical record was generated, in whole or in part, using a voice recognition dictation system. Departure Departure: Impression: Primary Impression: Left ankle pain Qualified Codes: M25.572 - Pain in left ankle and joints of left foot Disposition: 01 DC HOME SELF CARE/HOMELESS Condition: STABLE Referrals: BAILEY MORSE MD (PCP) Patient Instructions: Ankle Pain Additional Instructions: He was in the emergency room today for left ankle pain after surgery. You were given a hydrocodone in the emergency room for pain control. I am unable to give you a prescription for narcotics since you had a prescription filled on 05/17 by your PCP. You will need to follow up with for additional prescription for Hydrocodone. If you have worsening symptoms or concerns please return to the emergency room. EMERGENCY DEPARTMENT GENERAL DISCHARGE INSTRUCTIONS Thank you for coming to [facility] (ED) today and trusting us with you care. We trust that you had a positivie experience in our Emergency Department. If you wish to speak to the department management, you may call the director at [phone]. YOUR FOLLOW UP INSTRUCTIONS ARE FOLLOWS: 1. Do you have a private Doctor? If you do not have a private doctor, please ask for a resource list of physicians or clinics that may be able to assist you with follow up care. 2. The Emergency Physician has interpreted your x-rays. The X-Ray specialist will also review them. If there is a change in the findings, you will be notified in 48 hours when at all possible. 3. A lab test or culture has been done, your results will be reviewed and you will be notified if you need a change in treatment. ADDITIONAL INSTRUCTIONS AND INFORMATION: 1. Your care today has been supervised by a physician who is specially trained in emergency care. Many problems require more than one evaluation for a complete diagnosis and treatment. We recommend that you schedule your follow up appointment as recommended to ensure complete treatment of you illness or injury. If you are unable to obtain follow up care and continue to have a problem, or if your condition worsens, we recommend that you return to the ED. 2. We are not able to safely determine your condition over the phone nor are we able to give sound medical advice over the phone. For these safety reasons, if you call for medical advice we will ask you to come to the ED for further evaluation. 3. If you have any questions regarding these discharge instructions please call the ED at [phone]. SAFETY INFORMATION: In the interest of safety, wellness, and injury prevention; we encourage you to wear your sealbelt, if you smoke; quite smoking, and we encourage family to use a protective helmet for bicycling and other sporting events that present an increased risk for head injury. IF YOUR SYMPTOMS WORSEN OR NEW SYMPTOMS DEVELOP, OR YOU HAVE CONCERNS ABOUT YOUR CONDITION; OR IF YOUR CONDITION WORSENS WHILE YOU ARE WAITING FOR YOUR FOLLOW UP APPOINTMENT; EITHER CONTACT YOUR PRIMARY CARE DOCTOR, THE PHYSICIAN WHOSE NAME AND NUMBER YOU WERE GIVEN, OR RETURN TO THE ED IMMEDIATELY. ROSSY DE LOS SANTOS APRN May 25, 2020 15:17
== END 2020-05-25 15:32 | disposition home or self-care (01) ==
LOC: ER 13:55
DX: M25.572 Pain in left ankle and joints of left foot (principal); G89.29 Other chronic pain; F41.9 Anxiety disorder, unspecified; E11.9 Type 2 diabetes mellitus without complications; J44.9 Chronic obstructive pulmonary disease, unspecified; I11.0 Hypertensive heart disease with heart failure; I50.9 Heart failure, unspecified; I25.10 Atherosclerotic heart disease of native coronary artery without angina pectoris; Z86.73 Personal history of transient ischemic attack (TIA), and cerebral infarction without residual deficits; Z88.5 Allergy status to narcotic agent; Z88.8 Allergy status to other drugs, medicaments and biological substances
CPT/HCPCS: 99283

== ENCOUNTER → 2020-06-30 | Outpatient (CLI) | payer MEDICARE ==
[~2020-06-30] MED LIST changes: -ESCI10TA5 PO; +ESCI10TA90 PO; -ISOS30TA4 PO; +ISOS30TA68 PO; -LISI40TA PO; +LISI40TA6 PO
--- NOTE | 2020-07-01 08:22 | RAD ---
EXAMINATION: XR EXAM OF ANKLE_LEFT 3V CLINICAL HISTORY: Follow-up ORIF left ankle TECHNIQUE: XR EXAM OF ANKLE_LEFT 3V Number of Images/Views: 3 COMPARISON: 06/01/2020, 05/21/2020 FINDINGS: Intact lateral plate and screw fixation hardware along the distal fibula. 2 intact partially threaded cannulated screws extending through the medial malleolus into the distal tibial metaphysis. No evide nce for hardware complication. Subtle thin residual radiolucent fracture line visualized along the inner margin of the medial malleo ejy on AP view with increased periosteal reaction along the outer margin of the medial malleolus. No residual radiolucent fracture plane definitively visualized in the distal fibula. Stable joint spaces and alignment. No new fracture. Small plantar and tiny posterior calcaneal enthes ophytes. Persistent soft tissue swelling. IMPRESSION: Healed left distal fibula fracture and healing medial malleolus fracture status post ORIF with no pablo dence of hardware complication. Electronically signed by: Alexander Serrano DO (07/01/2020 8:19 AM) [id number]
== END ==
LOC: RAD 12:35
PROVIDERS: ATTEND Physician Assistant
DX: S82.52XA Displaced fracture of medial malleolus of left tibia, initial encounter for closed fracture (principal); X58.XXXA Exposure to other specified factors, initial encounter; Y93.89 Activity, other specified; Y92.89 Other specified places as the place of occurrence of the external cause; Y99.8 Other external cause status; Z98.890 Other specified postprocedural states
CPT/HCPCS: 73610

== ENCOUNTER → 2020-07-22 | Outpatient (CLI) | payer MEDICARE ==
--- NOTE | 2020-07-22 16:25 | RAD ---
XR EXAM OF ANKLE_LEFT 3V History: Ankle pain Comparison: 06/30/2020 Technique: 3 views of left ankle Findings: There is disuse osteopenia. Redemonstrated lateral plate and screw fixation of the distal fibula and screw fixation of the medial malleolus. Fracture lucencies of the medial malleolus and distal fibula are only subtly visualized. Lucency at the lateral talar dome may represent osteochondral injury. Mil d soft tissue swelling. Impression: 1. Healing distal fibular and medial malleolus fractures status post ORIF. Electronically signed by: Sanjay Anna MD (07/22/2020 4:23 PM) [facility]
== END ==
LOC: RAD 09:55
PROVIDERS: ATTEND Physician Assistant
DX: S82.52XA Displaced fracture of medial malleolus of left tibia, initial encounter for closed fracture (principal); X58.XXXA Exposure to other specified factors, initial encounter; Y93.89 Activity, other specified; Y92.89 Other specified places as the place of occurrence of the external cause; Y99.8 Other external cause status
CPT/HCPCS: 73610

== ENCOUNTER → 2020-08-19 | Outpatient (CLI) | payer MEDICARE ==
--- NOTE | 2020-08-19 12:07 | RAD ---
EXAM: Right ankle, 3 views. HISTORY: Pain. COMPARISON: 06/30/2020 FINDINGS: 3 views of the right ankle are obtained. There is internal fixation of bimalleolar fracture s in anatomic alignment. There has been no significant healing along the medial malleolar fracture li ne. The distal fibular fracture line is no longer seen. There is soft tissue swelling. There is suspe cted disuse osteopenia. There is a small plantar spur. There are vascular calcifications. IMPRESSION: 1. No significant change in a nondisplaced medial malleolar fracture status post internal fixation. 2. Suspected healed or nearly healed distal fibular fracture. 3. Soft tissue swelling and suspected disuse osteopenia. Electronically signed by: Becki Cheng MD (08/19/2020 12:04 PM) [id number]
== END ==
LOC: RAD 10:52
PROVIDERS: ATTEND Physician Assistant
DX: S82.55XA Nondisplaced fracture of medial malleolus of left tibia, initial encounter for closed fracture (principal); M85.872 Other specified disorders of bone density and structure, left ankle and foot; M79.89 Other specified soft tissue disorders; X58.XXXA Exposure to other specified factors, initial encounter; Y93.89 Activity, other specified; Y92.89 Other specified places as the place of occurrence of the external cause; Y99.8 Other external cause status
CPT/HCPCS: 73610

== ENCOUNTER 2020-08-26 15:03 | Emergency (ER) | payer MEDICARE ==
[~2020-08-26] VITALS: Ht 162.6 cm; Wt 100.0 kg
[2020-08-26 15:05] VITALS: BP 157/73
--- NOTE | 2020-08-26 15:33 | PHYS DOC ---
Past History Past Medical History: Anxiety, Asthma, CAD, CHF, COPD, Diabetes, Heart Disease, Hypertension, Seizure, Stroke Additional Past Medical Histor: Cardiac, lymphoma Past Surgical History: Appendectomy, Cholecystectomy, Hysterectomy, Oophorectomy, Other Additional Past Surgical Histo: PCI with stents, ortho Smoking: Non-smoker Alcohol Use: None Drug Use: None General Adult EDM: Chief Complaint: SEIZURE HPI: HPI: Patient is a 69-year-old female coming in for seizures x4 just prior to arrival. EMS states that the patient has been called when she had to approximately 2 and half minute seizures while sitting in her recliner. Patient states she was sitting in her recliner watching TV and playing on her phone, just book with daughter. Denies any recent stressors. Patient does not take any medications for seizures as she is diagnosed with "pseudoseizures". States her last pseudoseizure was approximately 4 to 5 months ago. Patient also states that over the past 2 days she has had episodes of left-sided chest pressure that resolved with her nitro. Is taken a total of 2 nitro pills denies any other complaints. Review of Systems: Review of Systems: All other systems within normal limits except for as noted in the HPI Allergies: Allergies: Allergies Coded Allergies Type Severity Reaction Last Updated Verified prednisone Allergy Severe SEIZURES 08/26/20 No oxycodone Allergy Intermediate 08/26/20 Yes Physical Exam: PE: Constitutional: Well developed, well nourished, no acute distress, non-toxic appearance. [] HENT: Normocephalic, atraumatic, bilateral external ears normal, nose normal. [] Eyes: PERRLA, conjunctiva normal, no discharge. [] Neck: No rigidity, supple, no stridor. [] Cardiovascular: Regular rate and rhythm, brisk cap refill [] Lungs & Thorax: Non labored symmetric respirations, no tachypnea or respiratory distress, pain obvious with palpation [] Abdomen: Soft, nondistended. Skin: Warm, dry, no erythema, no rash. [] Back: Unremarkable Extremities: No deformities, range of motion grossly intact, no lower extremity edema [] Neurologic: Alert and oriented X 3, no focal deficits noted. [] Psychologic: Affect normal, judgement normal, mood normal. [] Current Patient Data: Vital Signs: Vital Signs Date Time Temp Pulse Resp B/P (MAP) Pulse Ox O2 Delivery O2 Flow Rate FiO2 08/26/20 15:05 98.3 73 24 157/73 (101) 95 Room Air EKG: EKG: Sinus rhythm with left axis deviation, occasional PVCs. No ST elevation or depression. [] Radiology/Procedures: Radiology/Procedures: EXAM: Chest, single view. HISTORY: Chest pain. COMPARISON: 03/25/2020 and 03/18/2020 FINDINGS: A frontal view of the chest is obtained. There is stable left greater than right suprahilar interstitial opacity likely due to pleural parenchymal scarring and bronchiectasis superimposed on emphysema, better characterized on the prior CT dated 03/18/2020. There is no consolidation, pleural effusion or pneumothorax. The heart is normal in size. IMPRESSION: 1. Stable bilateral suprahilar pleural parenchymal scarring and bronchiectasis superimposed on emphysema. 2. No acute pulmonary finding. [] Heart Score: C/O Chest Pain: Yes HEART Score for Chest Pain: HEART Score for Chest Pain Response (Comments) Value History Moderately Suspicious 1 ECG Nonspecific Repolarizatio 1 Age > 65 2 Risk Factors 1 or 2 Risk Factors 1 Troponin < Normal Limit 0 Total 5 Risk Factors: Risk Factors: DM, Current or recent (<one month) smoker, HTN, HLP, family history of CAD, obesity. Risk Scores: Score 0 - 3: 2.5% MACE over next 6 weeks - Discharge Home Score 4 - 6: 20.3% MACE over next 6 weeks - Admit for Clinical Observation Score 7 - 10: 72.7% MACE over next 6 weeks - Early Invasive Strategies Course & Med Decision Making: Course & Med Decision Making Pertinent Labs and Imaging studies reviewed. (See chart for details) Patient with history of pseudoseizures but no significant abnormalities found on labs. Patient has baseline angina without any positive cardiac markers or signs of a STEMI. Patient follow-up with her primary provider [] Dragon Disclaimer: Dragon Disclaimer: This electronic medical record was generated, in whole or in part, using a voice recognition dictation system. Departure Departure: Impression: Primary Impression: Psychogenic nonepileptic seizure Additional Impression: Chest pain Disposition: HOME / SELF CARE / HOMELESS Condition: STABLE Referrals: BAILEY MORSE MD (PCP) Patient Instructions: Nonepileptic Seizures-BRI Hines MD Aug 26, 2020 15:33
--- NOTE | 2020-08-26 15:45 | RAD ---
EXAM: Chest, single view. HISTORY: Chest pain. COMPARISON: 03/25/2020 and 03/18/2020 FINDINGS: A frontal view of the chest is obtained. There is stable left greater than right suprahilar interstitial opacity likely due to pleural parenchymal scarring and bronchiectasis superimposed on e mphysema, better characterized on the prior CT dated 03/18/2020. There is no consolidation, pleural e ffusion or pneumothorax. The heart is normal in size. IMPRESSION: 1. Stable bilateral suprahilar pleural parenchymal scarring and bronchiectasis superimposed on emphys marcelo. 2. No acute pulmonary finding. Electronically signed by: Becki Cheng MD (08/26/2020 3:43 PM) [id number]
--- NOTE | 2020-08-26 15:46 | EKG ---
[address] [address] Test Date: 2020-08-26 Test Time: 15:39:48 Pat Name: NILESH ENCINAS Department: Room: Gender: F Appellate Law Clerk: LESLIE : 1950 Requested By: BRI WHITAKER Order Number: [id number] Reading MD: Measurements Intervals [place] Rate: 71 P: 90 [place]: 172 QRS: 0 QRSD: 76 T: 32 QT: 434 QTc: 477 Interpretive Statements SINUS RHYTHM VENTRICULAR PREMATURE COMPLEX(ES) LEFTWARD AXIS PROLONGED QT ABNORMAL ECG RI6.02
[2020-08-26 16:12] LABS: BASO % 0 % (0-3); EOS # 0.2 x10^3/uL (0.0-0.7); EOS % 4 % (0-3); HEMATOCRIT 38.5 % (36.0-47.0); HEMOGLOBIN 13.1 g/dL (12.0-15.5); LYMPH # 1.4 x10^3/uL (1.0-4.8); LYMPH % 32 % (24-48); MEAN CORPUSCULAR HEMOGLOBIN 31 pg (25-35); MEAN CORPUSCULAR HGB CONC 34 g/dL (31-37); MEAN CORPUSCULAR VOLUME 90 fL (79-100); MONO # 0.4 x10^3/uL (0.0-1.1); MONO % 9 % (0-9); NEUT # 2.5 x10^3uL (1.8-7.7); NEUT % 54 % (31-73); PLATELET COUNT 211 x10^3/uL (140-400); RED BLOOD COUNT 4.26 x10^6/uL (3.50-5.40); RED CELL DISTRIBUTION WIDTH 13.2 % (11.5-14.5); WHITE BLOOD COUNT 4.5 x10^3/uL (4.0-11.0)
[2020-08-26 16:23] LABS: CALCIUM 8.4 mg/dL (8.5-10.1); CREATININE 0.8 mg/dL (0.6-1.0); GFR 70.9; POTASSIUM 3.8 mmol/L (3.5-5.1)
[2020-08-26 16:38] LABS: ALBUMIN 3.5 g/dL (3.4-5.0); ALBUMIN/GLOBULIN RATIO 0.9 (1.0-1.7); MAGNESIUM 1.8 mg/dL (1.8-2.4); PHOSPHORUS 2.8 mg/dL (2.6-4.7); TOTAL BILIRUBIN 0.5 mg/dL (0.2-1.0); TOTAL PROTEIN 7.2 g/dL (6.4-8.2)
== END 2020-08-26 17:40 | disposition home or self-care (01) ==
LOC: ER 15:03
DX: G40.89 Other seizures (principal); R07.89 Other chest pain; F41.9 Anxiety disorder, unspecified; I25.10 Atherosclerotic heart disease of native coronary artery without angina pectoris; I11.0 Hypertensive heart disease with heart failure; I50.9 Heart failure, unspecified; J44.9 Chronic obstructive pulmonary disease, unspecified; Z86.73 Personal history of transient ischemic attack (TIA), and cerebral infarction without residual deficits; Z88.8 Allergy status to other drugs, medicaments and biological substances; Z88.5 Allergy status to narcotic agent
CPT/HCPCS: 36415; 71045; 80053; 82550; 83605; 83735; 83874; 83880; 84100; 84484; 85025; 93005; 99285; G0480

== ENCOUNTER 2020-08-31 22:39 | Emergency (ER) | payer MEDICARE ==
[~2020-08-31] VITALS: Ht 162.6 cm; Wt 100.0 kg
[2020-08-31] MEDS: HYDROcodone/APAP 5/325MG 1 TAB TABLET PO ONE (23:14)
--- NOTE | 2020-08-31 23:31 | RAD ---
Study: XR EXAM OF ANKLE_LEFT 3V Indication: Fall. Left ankle pain with swelling. History of surgery in April 2020 Comparison: Most recently on 08/19/2020 Findings: Intact and well fixated fibular plate and screw construct. Intact medial malleolar screws. Disuse osteopenia. The ankle mortise is adequately aligned no acute fracture seen at the ankle. No displaced fracture of the partially assessed foot. Edematous soft tissues and vascular calcifications. Particularly notable edema at the dorsum of the f oot. On the lateral view, apparent cortical lucency at the plantar margin of the fifth metatarsal hea d. There appears to have been a similar finding on the comparison. Impression: 1. Intact and well fixated surgical hardware at the distal tibia and fibula. No periprosthetic fractu re or ankle malalignment. No acute fracture seen throughout the foot. 2. Possible cortical lucency at the plantar aspect of the distal fifth metatarsal only apparent on th e lateral view. Consider dedicated foot radiographs especially if there is an ulcer in this region th at would suggest osteomyelitis as the cause. 3. Edematous soft tissues most notably at the dorsum of the foot. Disuse osteopenia. Electronically signed by: PONCHO NUNEZ MD (08/31/2020 11:28 PM) [facility]
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
[2020-09-01 00:15] VITALS: BP 142/74
== END 2020-09-01 00:15 | disposition home or self-care (01) ==
LOC: ER 22:39
DX: M25.572 Pain in left ankle and joints of left foot (principal); F41.9 Anxiety disorder, unspecified; J44.9 Chronic obstructive pulmonary disease, unspecified; E11.9 Type 2 diabetes mellitus without complications; I11.0 Hypertensive heart disease with heart failure; I50.9 Heart failure, unspecified; Z86.73 Personal history of transient ischemic attack (TIA), and cerebral infarction without residual deficits; Z88.5 Allergy status to narcotic agent; Z88.8 Allergy status to other drugs, medicaments and biological substances; W01.0XXA Fall on same level from slipping, tripping and stumbling without subsequent striking against object, initial encounter; Y93.89 Activity, other specified; Y92.89 Other specified places as the place of occurrence of the external cause; Y99.8 Other external cause status
CPT/HCPCS: 73610; 82947; 99285

== ENCOUNTER 2020-10-02 07:56 | Observation (INO) | payer MEDICARE ==
[~2020-10-02] VITALS: Ht 162.6 cm; Wt 97.7 kg
--- NOTE | 2020-10-02 08:19 | EKG ---
[address] [address] Test Date: 2020-10-02 Test Time: 07:56:26 Pat Name: NILESH ENCINAS Department: Room: Gender: F Clammer: BECKY : 1950 Requested By: NKII ROJAS Order Number: [id number] Reading MD: Measurements Intervals [place] Rate: 62 P: 64 ID: [id number] QRS: 0 QRSD: 76 T: 16 QT: 434 QTc: 443 Interpretive Statements SINUS RHYTHM LEFTWARD AXIS OTHERWISE NORMAL ECG RI6.02 No previous ECG available for comparison
[2020-10-02 08:29] LABS: BASO % 1 % (0-3); EOS # 0.2 x10^3/uL (0.0-0.7); EOS % 5 % (0-3); HEMATOCRIT 41.5 % (36.0-47.0); HEMOGLOBIN 14.1 g/dL (12.0-15.5); LYMPH # 1.9 x10^3/uL (1.0-4.8); LYMPH % 42 % (24-48); MEAN CORPUSCULAR HEMOGLOBIN 31 pg (25-35); MEAN CORPUSCULAR HGB CONC 34 g/dL (31-37); MEAN CORPUSCULAR VOLUME 90 fL (79-100); MONO # 0.4 x10^3/uL (0.0-1.1); MONO % 10 % (0-9); NEUT # 1.9 x10^3uL (1.8-7.7); NEUT % 43 % (31-73); PLATELET COUNT 222 x10^3/uL (140-400); RED BLOOD COUNT 4.61 x10^6/uL (3.50-5.40); RED CELL DISTRIBUTION WIDTH 13.6 % (11.5-14.5); WHITE BLOOD COUNT 4.4 x10^3/uL (4.0-11.0)
[2020-10-02] MEDS ORDERED: MORPHINE SULFATE 2 MG/ML DISP.SYRIN. IV ONE (08:30)
[2020-10-02] MEDS ORDERED: ONDANSETRON PF 4 MG/2 ML VIAL. IVP ONE (08:30)
--- NOTE | 2020-10-02 08:32 | RAD ---
EXAM: Chest, single view. HISTORY: Chest pain. COMPARISON: 08/26/2020 FINDINGS: A frontal view of the chest obtained. There is stable bilateral suprahilar pleural parenchy mal scarring and bronchiectasis superimposed on emphysema. There is no consolidation, pleural effusio n or pneumothorax. The heart is normal in size. IMPRESSION: Stable chronic interstitial changes. Electronically signed by: Becki Cheng MD (10/02/2020 8:30 AM) [facility]
[2020-10-02 08:33] LABS: CALCIUM 8.9 mg/dL (8.5-10.1); CREATININE 0.9 mg/dL (0.6-1.0); GFR 61.9; POTASSIUM 4.4 mmol/L (3.5-5.1)
[2020-10-02 08:39] LABS: ALBUMIN 3.6 g/dL (3.4-5.0); ALBUMIN/GLOBULIN RATIO 0.9 (1.0-1.7); TOTAL BILIRUBIN 0.5 mg/dL (0.2-1.0); TOTAL PROTEIN 7.4 g/dL (6.4-8.2)
[2020-10-02] MEDS ORDERED: MORPHINE SULFATE 4 MG/ML DISP.SYRIN. IV ONE (08:45)
[2020-10-02] MEDS ORDERED: ASPIRIN CHEWABLE 81 MG TABLET. PO ONE (08:45)
[2020-10-02] MEDS ORDERED: FAMOTIDINE 20 MG/2 ML VIAL IVP ONE (08:45)
--- NOTE | 2020-10-02 09:05 | PHYS DOC ---
Past History Past Medical History: Anxiety, Asthma, CAD, CHF, COPD, Diabetes, Heart Disease, Hypertension, Seizure, Stroke Additional Past Medical Histor: Cardiac, lymphoma Past Surgical History: Appendectomy, Cholecystectomy, Hysterectomy, Oophorectomy, Other Additional Past Surgical Histo: PCI with stents, ortho Smoking: Non-smoker Alcohol Use: None Drug Use: None General Adult EDM: Chief Complaint: CHEST PAIN HPI: HPI: 69-year-old female presents with chest pain. Patient woke up this morning and shortly afterwards began to have central 8 out of 10 chest heaviness and pressure. It radiates into her left arm and up the left side of her neck. It feels similar to when she got stents previously. She took a nitro at home but it did not help. She has taken her Plavix today. Patient denies shortness of breath, fever, chills. Review of Systems: Review of Systems: Constitutional: Denies fever or chills Eyes: Denies change in visual acuity HENT: Denies nasal congestion or sore throat Respiratory: Denies cough or shortness of breath Cardiovascular: Chest pain GI: Denies abdominal pain, nausea, vomiting, bloody stools or diarrhea : Denies dysuria Musculoskeletal: Denies back pain or joint pain Integument: Denies rash Neurologic: Denies headache, focal weakness or sensory changes Endocrine: Denies polyuria or polydipsia Lymphatic: Denies swollen glands Psychiatric: Denies depression or anxiety Current Medications: Current Meds: Current Medications Medications (Trade) Dose Ordered Sig/Sherrie Start Time Stop Time Status Last Admin Dose Admin Aspirin (Aspirin Chewable) 324 mg 1X ONCE 10/02/20 08:45 10/02/20 08:46 10/02/20 08:40 324 MG Famotidine (Pepcid Vial) 20 mg 1X ONCE 10/02/20 08:45 10/02/20 08:46 10/02/20 08:41 20 MG Morphine Sulfate (Morphine 2mg Syringe) 2 mg 1X ONCE 10/02/20 08:30 10/02/20 08:33 DC 10/02/20 08:27 2 MG Morphine Sulfate (Morphine 4mg Syringe) 4 mg 1X ONCE 10/02/20 08:45 10/02/20 08:46 10/02/20 08:41 4 MG Ondansetron HCl (Zofran) 4 mg 1X ONCE 10/02/20 08:30 6/6/21 08:33 DC 10/02/20 08:27 4 MG Allergies: Allergies: Allergies Coded Allergies Type Severity Reaction Last Updated Verified prednisone Allergy Severe SEIZURES 08/26/20 No oxycodone Allergy Intermediate 08/26/20 Yes Physical Exam: PE: Constitutional: Well developed, well nourished, obese, mild acute distress, non- toxic appearance. [] HENT: Normocephalic, atraumatic, bilateral external ears normal, oropharynx moist, no oral exudates, nose normal. [] Eyes: PERRLA, EOMI, conjunctiva normal, no discharge. [] Neck: Normal range of motion, no tenderness, supple, no stridor. [] Cardiovascular: Heart rate 62, regular rhythm, no murmur [] Lungs & Thorax: Bilateral breath sounds clear to auscultation [] Abdomen: Bowel sounds normal, soft, no tenderness, no masses, no pulsatile masses. [] Skin: Warm, dry, no erythema, no rash. [] Back: No tenderness, no CVA tenderness. [] Extremities: No tenderness, no cyanosis, no clubbing, ROM intact, no edema. [] Neurologic: Alert and oriented X 3, normal motor function, normal sensory function, no focal deficits noted. [] Psychologic: Affect normal, judgement normal, mood normal. [] Current Patient Data: Labs: Laboratory Tests Test 10/02/20 07:58 White Blood Count 4.4 x10^3/uL (4.0-11.0) Red Blood Count 4.61 x10^6/uL (3.50-5.40) Hemoglobin 14.1 g/dL (12.0-15.5) Hematocrit 41.5 % (36.0-47.0) Mean Corpuscular Volume 90 fL (79-100) Mean Corpuscular Hemoglobin 31 pg (25-35) Mean Corpuscular Hemoglobin Concent 34 g/dL (31-37) Red Cell Distribution Width 13.6 % (11.5-14.5) Platelet Count 222 x10^3/uL (140-400) Neutrophils (%) (Auto) 43 % (31-73) Lymphocytes (%) (Auto) 42 % (24-48) Monocytes (%) (Auto) 10 % (0-9) H Eosinophils (%) (Auto) 5 % (0-3) H Basophils (%) (Auto) 1 % (0-3) Neutrophils # (Auto) 1.9 x10^3uL (1.8-7.7) Lymphocytes # (Auto) 1.9 x10^3/uL (1.0-4.8) Monocytes # (Auto) 0.4 x10^3/uL (0.0-1.1) Eosinophils # (Auto) 0.2 x10^3/uL (0.0-0.7) Basophils # (Auto) 0.0 x10^3/uL (0.0-0.2) Vital Signs: Vital Signs Date Time Temp Pulse Resp B/P (MAP) Pulse Ox O2 Delivery O2 Flow Rate FiO2 10/02/20 08:13 60 30 161/79 (106) 95 Room Air 10/02/20 07:56 97.6 EKG: EKG: [] Radiology/Procedures: Radiology/Procedures: [] Impressions: INDICATION: Reason: left leg weakness, left arm tingling, stuttering, hx stroke x1 yr / Spl. Instructions: / History: COMPARISON: December 2019 TECHNIQUE: Axial CT images obtained through the head without intravenous contrast. One or more of the following individualized dose reduction techniques were utilized for this examination: 1. Automated exposure control; 2. Adjustment of the mA and/or kV according to patient size; 3. Use of iterative reconstruction technique. FINDINGS: No intracranial hemorrhage. No midline shift. Basal cisterns patents. Ventricles and sulci are unremarkable. No acute osseous abnormality. Scattered foci of low attenuation within the white matter. Linear high density structure is again seen within the subcutaneous soft tissues overlying the right frontal region measuring 9 mm. Could be secondary to linear calcification or foreign body. IMPRESSION: 1. No acute intracranial hemorrhage. 2. Scattered regions of low attenuation within the white matter. Non-specific in nature but a common finding and frequently secondary to small vessel ischemic disease. Electronically signed by: Aniceto Daniel MD (10/02/2020 9:54 AM) [id number] DICTATED AND SIGNED BY: ANICETO DANIEL MD DATE: 10/02/20 0948 CC: NIKI ROJAS DO; BAILEY MORSE MD ~MTH0 0 Heart Score: C/O Chest Pain: Yes HEART Score for Chest Pain: HEART Score for Chest Pain Response (Comments) Value History Moderately Suspicious 1 Age > 65 2 Risk Factors >3 Risk Factors or Hx CAD 2 Troponin < Normal Limit 0 Total 5 Risk Factors: Risk Factors: DM, Current or recent (<one month) smoker, HTN, HLP, family history of CAD, obesity. Risk Scores: Score 0 - 3: 2.5% MACE over next 6 weeks - Discharge Home Score 4 - 6: 20.3% MACE over next 6 weeks - Admit for Clinical Observation Score 7 - 10: 72.7% MACE over next 6 weeks - Early Invasive Strategies Course & Med Decision Making: Course & Med Decision Making Pertinent Labs and Imaging studies reviewed. (See chart for details) The patient's EKG is unremarkable. Her labs are unremarkable. Her troponin is negative. Chest x-ray is negative for acute findings. The patient was given 2 mg and then additional 4 mg of morphine for her pain. Patient is on chronic pain medications at home so she is more resistant pain medication. She was also given aspirin p.o. and Pepcid IV. Her heart score is a 5. I have informed the patient she should be admitted to the hospital for further observation. She is in agreement with this plan. I spoke with Dr. Cisse and he has accepted the patient for admission. Based on the patient talking about some left leg numbness I did a head CT. Is negative for acute findings. The patient will be admitted. [] Dragon Disclaimer: Dragon Disclaimer: This electronic medical record was generated, in whole or in part, using a voice recognition dictation system. Departure Departure: Impression: Primary Impression: Chest pain Qualified Codes: R07.2 - Precordial pain Additional Impression: CAD (coronary artery disease) Qualified Codes: I25.110 - Atherosclerotic heart disease of [place] coronary artery with unstable angina pectoris Disposition: ADMITTED INPATIENT Admitting Physician: Chaparrita Cisse Condition: STABLE Referrals: BAILEY MORSE MD (PCP) NIKI ROJAS DO Oct 02, 2020 09:05
--- NOTE | 2020-10-02 09:57 | RAD ---
INDICATION: Reason: left leg weakness, left arm tingling, stuttering, hx stroke x1 yr / Spl. Instruct ions: / History: COMPARISON: December 2019 TECHNIQUE: Axial CT images obtained through the head without intravenous contrast. One or more of the following individualized dose reduction techniques were utilized for this examinat ion: 1. Automated exposure control; 2. Adjustment of the mA and/or kV according to patient size; 3 . Use of iterative reconstruction technique. FINDINGS: No intracranial hemorrhage. No midline shift. Basal cisterns patents. Ventricles and sulci are unremarkable. No acute osseous abnormality. Scattered foci of low attenuation within the white matter. Linear high density structure is again see n within the subcutaneous soft tissues overlying the right frontal region measuring 9 mm. Could be se condary to linear calcification or foreign body. IMPRESSION: 1. No acute intracranial hemorrhage. 2. Scattered regions of low attenuation within the white matter. Non-specific in nature but a commo n finding and frequently secondary to small vessel ischemic disease. Electronically signed by: Tony Miller MD (10/02/2020 9:54 AM) [id number]
[2020-10-02] MEDS ORDERED: ONDANSETRON PF 4 MG/2 ML VIAL. IVP PRN (10:15)
[2020-10-02] MEDS ORDERED: NITROGLYCERIN SUBLINGUAL 0.4 MG BOTTLE OF 25. SL PRN (10:15)
[2020-10-02 10:57] VITALS: BP 168/90
[2020-10-02] MEDS: MORPHINE SULFATE 4 MG/ML DISP.SYRIN. IVP PRN ×3 (11:53→20:05)
[2020-10-02 14:20] VITALS: BP 118/63
[2020-10-02] MEDS ORDERED: HYDROcodone/APAP 10/325 1 TAB TABLET PO PRN (14:30)
[2020-10-02 14:33] LABS: BILIRUBIN,URINE NEG (NEG); CLARITY,URINE HAZY; COLOR,URINE YELLOW; GLUCOSE,URINE NEG (NEG); NITRITE,URINE NEG (NEG); UROBILINOGEN,URINE 0.2 mg/dL (0.2 mg/dL)
[2020-10-02 14:36] LABS: BACTERIA,URINE FEW /HPF (0-FEW); RBC,URINE OCC /HPF (0-2)
[2020-10-02 14:37] LABS: SQUAMOUS EPITHELIAL CELL,UR MOD /LPF
--- NOTE | 2020-10-02 14:56 | HP ---
ADMIT DATE: 10/02/2020 HISTORY OF PRESENT ILLNESS: The patient is a 69-year-old female patient who presented to the Emergency Room with a complaint of chest pain. She stated that she woke up this morning and shortly afterwards began to have central 8/8 chest heaviness and pressure, it radiates to her left arm up to the left side of her neck. It feels similar to when she got stents previously. She took 2 nitroglycerin at home, but did not help. She has taken her Plavix also. The patient denied any shortness of breath, fever, chills or diaphoresis. She also complained that she has left lower extremity weakness. According to her, she is normally able to walk without any assistance or assistive devices. Now, she is unable to use her left lower extremity. She was extensively investigated in the Emergency Room and has had an EKG as well as underwent CT scan of the head without contrast. The CT scan showed no intracranial hemorrhage, no midline shift. Basal cisterns are patent. Ventricles and sulci are unremarkable. No acute osseous abnormality. She has scattered foci of low attenuation within the white matter. A linear high density structure is again seen within the subcutaneous soft tissue overlying the right frontal region measuring 9 mm, could be secondary to renal calcification or have a foreign body. Her first set of cardiac enzyme showed troponin to be less than 0.0117. The patient was admitted for further evaluation, to do two more sets of cardiac enzymes, check her fasting lipid profile. We will consult the micro computer specialist as well as the neurologist. PAST MEDICAL HISTORY: Significant for restless leg syndrome, coronary artery disease status post coronary artery stent placement x2, type 2 diabetes mellitus, hyperlipidemia, obstructive sleep apnea, gastroesophageal reflux disease, generalized arthritis, degenerative disk disease of the lumbar spine, chronic low back pain, anxiety, depression, deep vein thrombosis, pulmonary embolism, lymphoma. PAST SURGICAL HISTORY: Significant for hysterectomy, cholecystectomy, left carpal tunnel release and a right rotator cuff repair. SOCIAL HISTORY: The patient lives with her . She does not smoke, drink alcohol or use recreational drugs. FAMILY HISTORY: Positive for coronary artery disease, type 2 diabetes mellitus, hypertension, fibromyalgia, lung cancer in her sister, dementia in her sister. ALLERGIES: She is allergic to OXYCODONE AND PREDNISONE. MEDICATIONS: She is currently on the following medication: She is on Plavix 75 mg once a day, Crestor 20 mg at bedtime, isosorbide mononitrate 30 mg daily, metoprolol tartrate 12.5 mg twice a day, lisinopril 40 mg daily, aspirin 81 mg once a day, hydrocodone/APAP 10/325 one tablet 3 times a day as needed, gabapentin 100 mg 3 times a day, trazodone 12.5 mg at bedtime. She is on alprazolam 1 mg 4 times a day and Mirapex 0.25 mg at bedtime. She is on montelukast 10 mg at bedtime, Lantus insulin 12 units at bedtime. PHYSICAL EXAMINATION: GENERAL: On arrival to the Emergency Room, the patient was somewhat tachypneic, but there was no pallor, jaundice, cyanosis, or thyromegaly. No jugular venous distention, no lower limb edema. VITAL SIGNS: Heart rate was 57, blood pressure was 149/67, temperature was 97.6, respiratory rate was 32 and oxygen saturation was 96% on room air. HEAD, EYES, EARS, NOSE AND THROAT: Normocephalic, atraumatic. NECK: Supple. HEART: Showed normal first and second sounds. No gallop or murmur. CHEST: Clear to auscultation, no crepitation or rhonchi. ABDOMEN: Distended, soft, nontender. NEUROLOGIC: She is awake, alert, responding appropriately. All her cranial nerves intact. She moves upper extremities without difficulty. She has weakness on moving her left lower extremity. LABORATORY DATA: On admission showed a white cell count 4400, hemoglobin 14, hematocrit 41, MCV 90 and platelet count 222,000 with a manual differential showed 43% polymorphs, 42% lymphocytes and 10% monocytes. Her chemistry showed a serum sodium 141, potassium 4.4, chloride 107, bicarbonate 26, anion gap of 8, BUN 13, creatinine 0.9, estimated GFR was 61 mL per minute, her glucose 153, calcium was 8.9. Total bilirubin, AST, ALT, alkaline phosphatase were normal. First set of cardiac enzyme was less than 0.017. Total protein was 7.4, albumin was 3.6. The chest x-ray showed that there is stable bilateral suprahilar pleural parenchymal scarring and ___ superimposed on emphysema. There is no consolidation, pleural effusion, or pneumothorax. The heart is normal in size. Her CT scan of the head showed that the patient has no intracranial hemorrhage, no midline shift. Basal cisterns are patent. Ventricles and sulci are unremarkable with no acute osseous abnormalities. There are scattered foci of low attenuation within the white matter, linear high density structures again seen within the subcutaneous soft tissue overlying the right frontal region measuring 9 mm could be secondary to linear calcification or foreign body. The patient was admitted to a telemetry bed. We will do two more sets of cardiac enzymes, check her fasting lipid profile and consult the Cardiology as well as the neurologist and it showed that 2 thing are connected. She is known to have degenerative disk disease and whether she has some form of sciatica on the left side. She has no problem with her left upper extremity. ANNA DR: [place] TID: [id number]
[2020-10-02] MEDS: GABAPENTIN 100 MG CAPSULE. PO SCH ×2 (15:00→20:05)
[2020-10-02] MEDS: ALPRAZolam 0.5 MG TABLET PO SCH ×2 (17:00→20:05)
[2020-10-02 18:53] VITALS: BP 126/66
[2020-10-02] MEDS: METOPROLOL TART IMMED RELEASE 25 MG TABLET. PO SCH (20:09)
[2020-10-02] MEDS ORDERED: INSULIN GLARGINE SYRINGE. SQ SCH (21:00)
[2020-10-02] MEDS ORDERED: traZODone 50 MG TABLET. PO SCH (21:00)
[2020-10-02] MEDS ORDERED: MONTELUKAST 10 MG TABLET. PO SCH (21:00)
[2020-10-02] MEDS ORDERED: ATORVASTATIN CALCIUM 20 MG TABLET PO SCH (21:00)
[2020-10-02] MEDS ORDERED: PRAMIPEXOLE 0.25 MG TABLET. PO SCH (21:00)
--- NOTE | 2020-10-02 22:21 | CONS ---
DATE OF CONSULTATION: 10/02/2020 REFERRING PHYSICIAN: Dr. Cisse. REASON FOR CONSULTATION: Weakness of the lower extremities. HISTORY OF PRESENT ILLNESS: This is a 69-year-old right-handed female who was admitted through emergency room after she presented with a chief complaint of sudden onset of chest pain. The patient stated her chest pain radiating to the left upper extremity and associated with numbness and paresthesia and weakness of the both lower extremities. The patient stated she has been in her usual state of health until 2 days ago when she started noticing progressive weakness of the lower extremities and numbness and paresthesia of the left upper and lower extremity as well. She had some nausea, but she denies vomiting, sweating, or shortness of breath or palpitations. The patient denies dysphagia, dysarthria, or vertigo. Initial nonenhanced head CT scan revealed no evidence of acute intracranial process, but shows chronic small vessel ischemic changes. According to the patient, the chest pain has been off and on and usually lasts up to 10 minutes. She took 2 tablets of nitroglycerin without changes. 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 PAST SURGICAL HISTORY: Positive for hysterectomy, cholecystectomy, left carpal tunnel release and right rotator cuff repair, history of a left ankle fracture, requiring surgery. SOCIAL HISTORY: The patient is . She lives with her but she has some difficulties with marriage resulting in extreme stress on her. She denies smoking, alcohol drinking or illicit drug use. FAMILY HISTORY: Strongly positive for diabetes mellitus type 2, coronary artery disease, hypertension, lung cancer in her sister and dementia in another sister, and fibromyalgia. REVIEW OF SYSTEMS: A 12-point review of system was performed as mentioned above in history of present illness, otherwise unremarkable. CURRENT MEDICATIONS: Lisinopril 40 mg p.o. daily, Imdur 30 mg p.o. daily, aspirin 81 mg p.o. daily, Lipitor 80 mg daily, insulin, trazodone 12.5 mg at bedtime, Singular 10 mg p.o. daily, metoprolol 12.5 mg b.i.d., alprazolam 1 mg q.i.d., gabapentin 100 mg t.i.d., Tylenol p.r.n., nitroglycerin 0.4 mg sublingually p.r.n. for pain, morphine 4 mg every 12 hours p.r.n. for chest pain. ALLERGIES: OXYCODONE and PREDNISONE. PHYSICAL EXAMINATION: GENERAL: Obese female in no acute distress. She weighs 97.7 kilos. VITAL SIGNS: Blood pressure 118/63, respiratory rate 20, pulse is 53, oxygen saturation is 95% on room air, temperature 97.6. HEENT: Normocephalic, atraumatic, otherwise unremarkable. NECK: Supple, negative for carotid bruit, lymphadenopathy or thyromegaly. LUNGS: Diminished breath sounds, but no rales or wheezing. HEART: Regular rate and rhythm, normal S1, S2. There is no S3, S4 or murmur. ABDOMEN: Soft. Bowel sounds positive. EXTREMITIES: Negative for cyanosis, clubbing or pedal edema. NEUROLOGIC EXAMINATION: Mental status: The patient is alert and oriented x3. The speech is fluent. There is no language dysfunction. Memory, judgment and abstracting thinking are normal. The patient denies hallucination or delusion. Cranial nerves: Visual griggs are full. The pupils are reactive to light and accommodation. The extraocular movements are intact. There is no nystagmus. There is no facial motor or sensory deficits. Hearing is intact bilaterally. The palate is elevated symmetrically. Sternocleidomastoid muscles are powerful bilaterally. The patient shrugs her shoulders symmetrically and protrudes her tongue in the midline without fasciculation or atrophy. Motor examination: No focal muscle bulk wasting. The tone is normal. The strength is 4/5 in the left lower extremity and 5/5 throughout. Sensory examination revealed dense diminished pinprick and light touch senses over the left forehead, face, upper and lower extremities. Deep tendon reflexes were symmetric and hypoactive with absent Achilles responses. Gait not tested. LABORATORY DATA: CBC revealed blood cells of 4.4 thousand, hemoglobin 14.1, hematocrit 41.5, platelet count 222,000. Chemistry revealed sodium of 141, potassium 4.4, chloride 107, CO2 26, BUN 13, creatinine 0.9, glucose 153. Liver enzymes are normal. Troponin level is normal. Urinalysis is negative for urinary tract infections. IMPRESSION: 1. Sudden onset of left-sided chest pain radiating into the left upper extremity associated with numbness and paresthesia, possible exacerbation of her previous coronary artery disease, required 2 stents placements. 2. Dense left-sided hypoesthesia, may represent ischemic event and possible right hemispheric infarct in the parietal or thalamic regions. 3. Multiple risk factors for stroke including coronary artery disease, hypertension, hyperlipidemia along with lower back pain. 4. Multiple psychiatric problems include depression and anxiety. 5. Weakness of the lower extremities associated with numbness and paresthesia, rule out peripheral neuropathy versus lumbosacral radiculopathy. RECOMMENDATIONS: 1. We will continue with current management with aspirin and Plavix. 2. PT, OT. 3. Carotid Doppler study bilaterally to rule out any significant stenosis. 4. Continue with current management initiated by Dr. Stinson. 5. We will arrange for EMG/NCS to rule out entrapment neuropathy versus lumbosacral radiculopathy or peripheral neuropathy. ZHANE/ABEBE DR: [place] TID: [id number]
[2020-10-02 22:45] VITALS: BP 129/89
[2020-10-03 05:02] VITALS: BP 121/62
[2020-10-03 07:06] LABS: ALBUMIN 3.1 g/dL (3.4-5.0); ALBUMIN/GLOBULIN RATIO 0.9 (1.0-1.7); CALCIUM 8.2 mg/dL (8.5-10.1); CREATININE 0.8 mg/dL (0.6-1.0); GFR 70.9; POTASSIUM 4.2 mmol/L (3.5-5.1); TOTAL BILIRUBIN 0.6 mg/dL (0.2-1.0); TOTAL PROTEIN 6.5 g/dL (6.4-8.2)
--- NOTE | 2020-10-03 08:03 | PDOC2 ---
CARDIAC CONSULT DATE OF CONSULT DOS: DATE: 10/03/20 TIME: 07:59 REASON FOR CONSULT Reason for Consult Chest pain REFERRING PHYSICIAN Referring Physician Dr. Cisse SOURCE Source: Chart review, Patient HPI History of Present Illness This is a 69 yo female who presented secondary to chest pain. Patient reports she woke up yesterday morning with pain in her left chest. Describes as sharp pressure. [place] slightly short of breath and was wheezing. Pain associated with nausea and numbness down her left arm and left. She took nitro without any relief. Pain resolved after about 10 minutes, but then returned so she came to the ED for further evaluation and treatment. This morning, occurs with deep breathing and with certain movements. Left chest is not tender upon palpation. PAST MEDICAL HISTORY Past Medical History Coronary artery disease s/p PCI/stents to LAD and LCx Diabetes mellitus type 2 Hypertension Hyperlipidemia COPD/asthma DVT/PE Osteoarthritis CVA Lymphoma Anxiety Depression PSVT Seizure PAST SURGICAL HISTORY Past Surgical History Right rotator cuff repair Cholecystectomy Hysterectomy Carpal tunnel release surgery s/p PCI/stent placement Distal tibia and fibula fracture s/p ORIF. FAMILY HISTORY Family History Diabetes, Heart Disease, Hypertension SOCIAL HISTORY Social History Denies any current smoking, alcohol or drug use Lives at home with CURRENT MEDICATIONS Current Medications Current Medications Ondansetron HCl (Zofran) 4 mg 1X ONCE IVP Last administered on 10/02/20at 08:27; Start 10/02/20 at 08:30; Stop 10/02/20 at 08:33; Status DC Morphine Sulfate (Morphine 2mg Syringe) 2 mg 1X ONCE IV Last administered on 10/02/20at 08:27; Start 10/02/20 at 08:30; Stop 10/02/20 at 08:33; Status DC Morphine Sulfate (Morphine 4mg Syringe) 4 mg 1X ONCE IV Last administered on 10/02/20at 08:41; Start 10/02/20 at 08:45; Stop 10/02/20 at 08:46; Status DC Aspirin (Aspirin Chewable) 324 mg 1X ONCE PO Last administered on 10/02/20at 08:40; Start 10/02/20 at 08:45; Stop 10/02/20 at 08:46; Status DC Famotidine (Pepcid Vial) 20 mg 1X ONCE IVP Last administered on 10/02/20at 08:41; Start 10/02/20 at 08:45; Stop 10/02/20 at 08:46; Status DC Ondansetron HCl (Zofran) 4 mg PRN Q4HRS PRN IVP NAUSEA/VOMITING Last administered on 10/02/20at 17:44; Start 10/02/20 at 10:15; Stop 10/03/20 at 10:14 Morphine Sulfate (Morphine 4mg Syringe) 4 mg PRN Q2HR PRN IVP PAIN Last administered on 10/02/20at 20:05; Start 10/02/20 at 10:15; Stop 10/03/20 at 10:14 Nitroglycerin (Nitrostat) 0.4 mg PRN Q5MIN PRN SL CHEST PAIN; Start 10/02/20 at 10:15; Stop 10/03/20 at 10:14 Aspirin (Aspirin Chewable) 81 mg DAILY PO ; Start 10/03/20 at 09:00 Clopidogrel Bisulfate (Plavix) 75 mg DAILY PO ; Start 10/03/20 at 09:00 Gabapentin (Neurontin) 100 mg TID PO Last administered on 10/02/20at 20:05; Start 10/02/20 at 15:00 Acetaminophen/ Hydrocodone Bitart (Lortab 10/325) 1 tab PRN TID PRN PO PAIN; Start 10/02/20 at 14:30 Isosorbide Mononitrate (Imdur) 30 mg DAILY PO ; Start 10/03/20 at 09:00 Metoprolol Tartrate (Lopressor) 12.5 mg BID PO Last administered on 10/02/20at 20:09; Start 10/02/20 at 21:00 Montelukast Sodium (Singulair) 10 mg HS PO Last administered on 10/02/20at 20:05; Start 10/02/20 at 21:00 Pramipexole Dihydrochloride (miraPEX) 0.25 mg QHS PO Last administered on 10/02/20at 20:06; Start 10/02/20 at 21:00 Trazodone HCl (Desyrel) 12.5 mg HS PO Last administered on 10/02/20at 20:06; Start 10/02/20 at 21:00 Alprazolam (Xanax) 1 mg QID PO Last administered on 10/02/20at 20:05; Start 10/02/20 at 17:00 Insulin Glargine (Lantus Syringe) 12 unit QHS SQ Last administered on 10/02/20at 20:09; Start 10/02/20 at 21:00 Lisinopril (Prinivil) 40 mg DAILY PO ; Start 10/03/20 at 09:00 Atorvastatin Calcium (Lipitor) 80 mg QHS PO Last administered on 10/02/20at 20:05; Start 10/02/20 at 21:00 Active Scripts Active Reported Lisinopril 40 Mg Tablet 1 Tab PO DAILY Aspirin 81 Mg Tab.chew 81 Mg PO DAILY Trazodone Hcl 50 Mg Tablet 12.5 Mg PO HS Alprazolam 1 Mg Tablet 1 Mg PO QID Neurontin (Gabapentin) 100 Mg Capsule 100 Mg PO TID Lantus Solostar (Insulin Glargine,Hum.rec.anlog) 100 Unit/1 Ml Insuln.pen 12 Unit SQ QHS NOT GIVEN THE HOSPITAL NEXT DOSE DUE: DATE: TODAY TIME: AT BEDTIME Rosuvastatin Calcium 20 Mg Tablet 20 Mg PO HS NOT GIVEN IN THE HOSPITAL NEXT DOSE DUE: DATE: TODAY TIME: AT BEDTIME Metoprolol Tartrate 25 Mg Tablet 12.5 Mg PO BID LAST DOSE GIVEN: DATE: TIME: AM NEXT DOSE DUE: DATE: TODAY TIME: PM Clopidogrel (Clopidogrel Bisulfate) 75 Mg Tablet 75 Mg PO DAILY LAST DOSE GIVEN: DATE: TODAY TIME: AM NEXT DOSE DUE: DATE: TOMORROW TIME: AM Hydrocodone-Apap 10-325 (Hydrocodone Bit/Acetaminophen) 1 Each Tablet 1 Tab PO TID PRN NOT GIVEN TODAY NEXT DOSE DUE: DATE: TODAY TIME: IF AND WHEN NEEDED Mirapex (Pramipexole Di-Hcl) 0.25 Mg Tablet 0.25 Mg PO QHS NOT GIVEN IN THE HOSPITAL NEXT DOSE DUE: DATE: RESTART TODAY TIME: AT BEDTIME Montelukast Sodium Tablet (Montelukast Sodium) 10 Mg Tablet 10 Mg PO HS LAST DOSE GIVEN: DATE: YESTERDAY TIME: AT BEDTIME NEXT DOSE DUE: DATE: TODAY TIME: AT BEDTIME Isosorbide Mononitrate Er (Isosorbide Mononitrate) 30 Mg Tab.er.24h 30 Mg PO DAILY LAST DOSE GIVEN: DATE: TODAY TIME: AM NEXT DOSE DUE: DATE: TOMORROW TIME: AM ALLERGIES Allergies: Coded Allergies: prednisone (Unverified Allergy, Severe, SEIZURES, 08/26/20) SEIZURES oxycodone (Verified Allergy, Intermediate, 08/26/20) MORPHINE, [place] ROS Review of Systems 14 point ROS conducted with pertinent positives noted above in hPI PHYSICAL EXAM Physical Exam General: Alert, Oriented X3, Cooperative, No acute distress HEENT: Atraumatic, Mucous membr. moist/pink Lungs: Other (diminished ) Heart: Regular rate Abdomen: Soft Extremities: No edema, Normal pulses Skin: No breakdown Neuro: Normal speech, diminished sensation of LLE Psych/Mental Status: Mental status NL, Mood NL MUSCULOSKELETAL: Osteoarthritic changes both hands VITALS Vital Signs Vital Signs Date Time Temp Pulse Resp B/P (MAP) Pulse Ox O2 Delivery O2 Flow Rate FiO2 10/03/20 05:02 97.6 58 18 121/62 (81) 95 Room Air LABS LABS Laboratory Tests Test 10/02/20 07:58 10/02/20 11:54 10/02/20 13:02 10/02/20 14:10 White Blood Count 4.4 x10^3/uL (4.0-11.0) Red Blood Count 4.61 x10^6/uL (3.50-5.40) Hemoglobin 14.1 g/dL (12.0-15.5) Hematocrit 41.5 % (36.0-47.0) Mean Corpuscular Volume 90 fL (79-100) Mean Corpuscular Hemoglobin 31 pg (25-35) Mean Corpuscular Hemoglobin Concent 34 g/dL (31-37) Red Cell Distribution Width 13.6 % (11.5-14.5) Platelet Count 222 x10^3/uL (140-400) Neutrophils (%) (Auto) 43 % (31-73) Lymphocytes (%) (Auto) 42 % (24-48) Monocytes (%) (Auto) 10 % (0-9) Eosinophils (%) (Auto) 5 % (0-3) Basophils (%) (Auto) 1 % (0-3) Neutrophils # (Auto) 1.9 x10^3uL (1.8-7.7) Lymphocytes # (Auto) 1.9 x10^3/uL (1.0-4.8) Monocytes # (Auto) 0.4 x10^3/uL (0.0-1.1) Eosinophils # (Auto) 0.2 x10^3/uL (0.0-0.7) Basophils # (Auto) 0.0 x10^3/uL (0.0-0.2) Sodium Level 141 mmol/L (136-145) Potassium Level 4.4 mmol/L (3.5-5.1) Chloride Level 107 mmol/L (98-107) Carbon Dioxide Level 26 mmol/L (21-32) Anion Gap 8 (6-14) Blood Urea Nitrogen 13 mg/dL (7-20) Creatinine 0.9 mg/dL (0.6-1.0) Estimated GFR (Cockcroft-Gault) 61.9 BUN/Creatinine Ratio 14 (6-20) Glucose Level 153 mg/dL (70-99) Calcium Level 8.9 mg/dL (8.5-10.1) Total Bilirubin 0.5 mg/dL (0.2-1.0) Aspartate Amino Transf (AST/SGOT) 17 U/L (15-37) Alanine Aminotransferase (ALT/SGPT) 21 U/L (14-59) Alkaline Phosphatase 121 U/L (46-116) Troponin I Quantitative < 0.017 ng/mL (0-0.055) < 0.017 ng/mL (0-0.055) Total Protein 7.4 g/dL (6.4-8.2) Albumin 3.6 g/dL (3.4-5.0) Albumin/Globulin Ratio 0.9 (1.0-1.7) Glucose (Fingerstick) 131 mg/dL (70-99) Urine Collection Type Unknown Urine Color Yellow Urine Clarity Hazy Urine pH 5.5 Urine Specific [place] >=1.030 Urine Protein Neg (NEG-TRACE) Urine Glucose (UA) Neg mg/dL (NEG) Urine Ketones (Stick) Neg mg/dL (NEG) Urine Blood Neg (NEG) Urine Nitrite Neg (NEG) Urine Bilirubin Neg (NEG) Urine Urobilinogen Dipstick 0.2 mg/dL (0.2 mg/dL) Urine Leukocyte Esterase Neg (NEG) Urine RBC Occ /HPF (0-2) Urine WBC 1-4 /HPF (0-4) Urine Squamous Epithelial Cells Mod /LPF Urine Bacteria Few /HPF (0-FEW) Urine Mucus Slight /LPF Test 6/6/21 16:15 10/02/20 16:28 10/02/20 19:57 10/03/20 07:29 Troponin I Quantitative < 0.017 ng/mL (0-0.055) Glucose (Fingerstick) 106 mg/dL (70-99) 147 mg/dL (70-99) 137 mg/dL (70-99) ECHOCARDIOGRAM Echocardiogram <Conclusion> The left ventricle is normal size. The left ventricular systolic function is normal and the ejection fraction is within normal range. The Ejection Fraction is 55-60%. There is mild concentric left ventricular hypertrophy. There is no significant aortic valvular stenosis. Doppler and Color Flow revealed no significant aortic regurgitation. Doppler and Color-flow revealed trace mitral regurgitation. Doppler and Color Flow revealed trace to mild tricuspid regurgitation with an estimated PAP of 44 mmHg. DATE: 01/06/19 1203 STRESS TEST Stress Test Conclusion 1. 80% stenosis involving a large caliber left circumflex artery. The previously placed stent in the left anterior descending artery was widely patent. The diagonal branch which is a small to medium caliber vessel appeared to have been jailed by the stent resulting in 80% ostial/proximal segment stenosis. 2. Successful PCI/drug eluting stent placement to the left circumflex artery 3. Normal left ventricle systolic function with ejection fraction estimated at 60% Recommendations 1. Aspirin 325 mg daily 2. Plavix 75 mg daily for preferably one year 3. Cardiovascular risk factor modification DATE: 01/05/19 1102 HEART CATH Heart Cath FINDINGS 1. Hemodynamics: Left ventricular end-diastolic pressure 18 mmHg. No pullback gradient across the aortic valve. 2. Left ventriculography: Normal left ventricular systolic function with ejection fraction estimated at 50 to 55%. No significant mitral regurgitation seen. 3. Coronary angiography: a. The left main coronary artery arose from the left sinus of Valsalva, gave rise to the left anterior descending and left circumflex arteries and did not show any significant stenosis. b. The left anterior descending artery showed widely patent stent in the midsegment. There was 40% stenosis noted in the proximal segment. The diagonal branch which is small to medium caliber vessel appeared to have been jailed by the stent resulting in 80% ostial stenosis, described in prior cardiac catheterization. c. The left circumflex artery showed widely patent stent in the midsegment. d. The right coronary artery was a large and dominant vessel arising from the right sinus of Valsalva that did not show any significant stenosis Conclusion 1. Widely patent previously placed stents in the left anterior descending and left circumflex arteries. The diagonal branch which is a small to medium caliber vessel showed 80% ostial stenosis from stent jailing, described in prior cardiac catheterization. No lesions needing intervention were noted. 2. Normal left ventricular systolic function with ejection fraction estimated at 50 to 55%. Recommendations Medical Therapy DATE: 12/16/19 1216 ASSESSMENT/PLAN Assessment/Plan 1. Chest pain, mixed features. AMI ruled out. EKG without acute changes 2. CAD; s/p previous PCI/stent to the LAD and more recent PCI/LUCILLE to LCx 12/2018. Echocardiogram 01/15 showed normal LV function. Cath 12/16 without lesions needing intervention. LVEF preserved per cath. 3. Diabetes, II; as per PCP 4. Hypertension; controlled 5. Hyperlipidemia; statin 6. H/o DVT/PE 7. Hx of CVA with left side weakness 8. 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 Numbness and paresthesia of left upper and lower extremity; CT head without acute findings. Carotid US pending. Neuro following Recommendations Continue secondary prevention measures including DAPT with ASA/Plavix Continued Imdur, metoprolol, and statin therapy Will check d-dimer given h/o PE/DVT and CP worse with deep breathin Outpatient ischemic evaluation Supportive care RAMONA JAVED APRN Oct 03, 2020 08:03
[2020-10-03] MEDS: GABAPENTIN 100 MG CAPSULE. PO SCH ×2 (08:04→11:45)
[2020-10-03] MEDS: ALPRAZolam 0.5 MG TABLET PO SCH ×2 (08:04→11:38)
[2020-10-03] MEDS: METOPROLOL TART IMMED RELEASE 25 MG TABLET. PO SCH (08:05)
--- NOTE | 2020-10-03 08:31 | RAD ---
INDICATION: Reason: new left sided weakness / Spl. Instructions: / History: COMPARISON: None. TECHNIQUE: Color, grayscale and doppler ultrasound images obtained of the carotid system bilaterally. Percent stenosis is estimated using criteria that correlates with NASCET methodology. FINDINGS: Peak systolic velocities are as follows in cm/s: Right Carotid System: CCA: 81 ICA: 75 ICA/CCA Ratio 0.9 Left Carotid System: CCA: 64 ICA: 96 ICA/CCA Ratio 1.5 Vertebral arteries are antegrade bilaterally. Scattered plaque is seen bilaterally. IMPRESSION: * No hemodynamically significant stenosis of the internal carotid arteries bilaterally. * Multifocal plaque is identified. Electronically signed by: Tony Miller MD (10/03/2020 8:29 AM) [id number]
[2020-10-03] MEDS ORDERED: ISOSORBIDE MONONITRATE ER 30 MG TAB.ER.24H PO SCH (09:00)
[2020-10-03] MEDS ORDERED: LISINOPRIL 20 MG TABLET PO SCH (09:00)
[2020-10-03] MEDS ORDERED: ASPIRIN CHEWABLE 81 MG TABLET. PO SCH (09:00)
[2020-10-03] MEDS ORDERED: CLOPIDOGREL BISULFATE 75 MG TABLET PO SCH (09:00)
[2020-10-03 10:25] VITALS: BP 116/70
[2020-10-03 10:30] VITALS: BP 103/62
[2020-10-03 10:53] LABS: BGAS PH 7.35 (7.35-7.45)
--- NOTE | 2020-10-03 10:55 | RAD ---
EXAM: Head CT without contrast. HISTORY: Unresponsive. TECHNIQUE: Computed tomographic images of the head were obtained without contrast. *One or more of the following individualized dose reduction techniques were utilized for this examina tion: 1. Automated exposure control. 2. Adjustment of the mA and/or kV according to patient size. 3. Use of iterative reconstruction technique. COMPARISON: 10/02/2020. FINDINGS: There is no acute or subacute extra-axial or intraparenchymal hemorrhage. There is no mass effect or midline shift. There is no hydrocephalus. There are areas of decreased attenuation within the cerebral white matter, nonspecific and likely rel ated to chronic small vessel disease. There is cerebral volume loss. There is mild paranasal sinus because of thickening. The orbits and ma stoid air cells are unremarkable. There is a stable 8 x 1 mm linear foreign body within the right inf erior frontal scalp. IMPRESSION: 1. No acute intracranial finding. Note is made that MRI is more sensitive for acute infarction. 2. Bilateral cerebral white matter changes, likely due to chronic small vessel disease in a patient o f this age. Electronically signed by: Becki Cheng MD (10/03/2020 10:52 AM) [id number]
[2020-10-03 10:56] VITALS: BP 103/59
[2020-10-03 11:03] VITALS: BP 93/54
[2020-10-03 11:10] LABS: HEMOGLOBIN ISTAT 12.2 gm/dL; POTASSIUM ISTAT 4.2 mmol/L (3.5-5.0)
[2020-10-03 11:23] LABS: HEMATOCRIT 36.8 % (36.0-47.0); HEMOGLOBIN 12.3 g/dL (12.0-15.5); RED BLOOD COUNT 4.09 x10^6/uL (3.50-5.40); RED CELL DISTRIBUTION WIDTH 13.5 % (11.5-14.5); WHITE BLOOD COUNT 4.8 x10^3/uL (4.0-11.0)
--- NOTE | 2020-10-03 14:00 | DISCH ---
HOME HEALTH DISCHARGE/MEDS DISCHARGE INFORMATION: Discharge Date: Oct 03, 2020 Final Diagnosis: Problems Medical Problems: (1) CAD (coronary artery disease) Status: Acute (2) Chest pain Status: Acute Condition on Discharge: Stable CODE STATUS: Code Status: Full HOME HEALTH: Face to Face: I certify this patient is under my care and that I, or a nurse practitioner or physician's medical office receptionist assistant working with me, had a face to face encounter that meets the physician face to face encounter requirements with this patient on 10/03/2020 Medical Condition(s): Other Physical Therapy For: Evalulation/Treatment Occupational Therapy For: Evaluation/Treatment Speech Language Pathology For: Evaluation/Treatment POST DISCHARGE ORDERS: Activity Instructions for Disc: Activity as tolerated DIET AFTER DISCHARGE: Cardiac CERTIFICATION STATEMENT: Certification Statement: Based on the above finding, I certify that this patient is confined to the home and needs intermittent fpc care, physical therapy and/or speech therapy, or continues to need occupational therapy.~ This patient is under my care, and I have initiated the establishment of the plan of care.~ This patient will be followed by myself or a community physician who will periodically review the plan of care. DISCHARGE MEDICATIONS: Home Meds Reported Medications Lisinopril (LISINOPRIL) 40 Mg Tablet, 1 TAB PO DAILY for HIGH BLOOD PRESSURE 03/25/20 Aspirin (ASPIRIN) 81 Mg Tab.chew, 81 MG PO DAILY for PREVENT BLOOD CLOTS 03/25/20 Trazodone Hcl (TRAZODONE HCL) 50 Mg Tablet, 12.5 MG PO HS for insomnia, TAB 01/20/20 Alprazolam (ALPRAZOLAM) 1 Mg Tablet, 1 MG PO QID for ANXIETY 12/15/19 Gabapentin (Neurontin) 100 Mg Capsule, 100 MG PO TID for NERVE PAIN 12/15/19 Insulin Glargine,Hum.rec.anlog (LANTUS SOLOSTAR) 100 Unit/1 Ml Insuln.pen, 12 UNIT SQ QHS for DIABETES NOT GIVEN THE HOSPITAL NEXT DOSE DUE: DATE: TODAY TIME: AT BEDTIME 06/25/19 Rosuvastatin Calcium (Rosuvastatin Calcium) 20 Mg Tablet, 20 MG PO HS for HIGH CHOLESTEROL NOT GIVEN IN THE HOSPITAL NEXT DOSE DUE: DATE: TODAY TIME: AT BEDTIME 02/10/19 Metoprolol Tartrate (METOPROLOL TARTRATE) 25 Mg Tablet, 12.5 MG PO BID for HIGH BLOOD PRESSURE LAST DOSE GIVEN: DATE: TIME: AM NEXT DOSE DUE: DATE: TODAY TIME: PM 02/10/19 Clopidogrel Bisulfate (CLOPIDOGREL) 75 Mg Tablet, 75 MG PO DAILY for PREVENT BLOOD CLOTS LAST DOSE GIVEN: DATE: TODAY TIME: AM NEXT DOSE DUE: DATE: TOMORROW TIME: AM 02/10/19 Hydrocodone Bit/Acetaminophen (HYDROCODONE-APAP 10-325 ) 1 Each Tablet, 1 TAB PO TID PRN for PAIN NOT GIVEN TODAY NEXT DOSE DUE: DATE: TODAY TIME: IF AND WHEN NEEDED 01/04/19 Pramipexole Di-Hcl (MIRAPEX) 0.25 Mg Tablet, 0.25 MG PO QHS for RESTLESS LEGS NOT GIVEN IN THE HOSPITAL NEXT DOSE DUE: DATE: RESTART TODAY TIME: AT BEDTIME 01/04/19 Montelukast Sodium (MONTELUKAST SODIUM TABLET ) 10 Mg Tablet, 10 MG PO HS for ALLERGIES LAST DOSE GIVEN: DATE: YESTERDAY TIME: AT BEDTIME NEXT DOSE DUE: DATE: TODAY TIME: AT BEDTIME 01/04/19 Isosorbide Mononitrate (ISOSORBIDE MONONITRATE ER) 30 Mg Tab.er.24h, 30 MG PO DAILY for CHEST PAIN LAST DOSE GIVEN: DATE: TODAY TIME: AM NEXT DOSE DUE: DATE: TOMORROW TIME: AM 01/04/19 APOLONIA PLUNKETT MD Oct 03, 2020 14:00
--- NOTE | 2020-10-03 15:10 | EKG ---
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
[2020-10-03 16:24] LABS: ALBUMIN 3.3 g/dL (3.4-5.0); ALBUMIN/GLOBULIN RATIO 1.1 (1.0-1.7); CALCIUM 8.5 mg/dL (8.5-10.1); CREATININE 0.7 mg/dL (0.6-1.0); GFR 82.7; POTASSIUM 4.4 mmol/L (3.5-5.1); TOTAL BILIRUBIN 0.7 mg/dL (0.2-1.0); TOTAL PROTEIN 6.4 g/dL (6.4-8.2)
[2020-10-03 23:10] LABS: HEMOGLOBIN A1C 7.1 % (4.8-5.6)
--- NOTE | 2020-10-03 23:26 | DS ---
DATE OF DISCHARGE: 10/03/2020 HOSPITAL COURSE: The patient is a 69-year-old female patient who came to the Emergency Room with a complaint of chest pain that started shortly after she woke up in the morning of admission, was central, 8/8, chest heaviness and pressure, radiates to the left arm and to the left side of her neck, feels similar to when she got her stents previously. She took 2 nitroglycerin sublingually at home without much help. She has taken her Plavix this morning also. The patient denied any shortness of breath, chills or diaphoresis. She also complained that she has left lower extremity weakness according to her. She is normally able to walk without any assistance or assistive devices. Now, she is unable to walk with her left lower extremity. She was extensively investigated initially in the Emergency Room with an EKG that showed no evidence of ST segment elevation or depression. She had 3 sets of cardiac enzymes that were negative. CT scan of the head without contrast showed no evidence of any strokes. She was admitted and had 2 sets of cardiac enzymes. She also has her bilateral carotid Doppler ultrasound showed no evidence of significant stenosis. She was seen in consultation by the gas booster engineer as well as the neurologist. She was ruled out for acute myocardial infarction and the neurologist did not recommended to continue with current treatment with aspirin and Plavix as CT scan was unrevealing. She did have an episode of unresponsiveness this morning that was extensively investigated. She has another CT scan of the head without contrast and was unremarkable. Her blood gasses were unremarkable. Blood sugar was also within normal range and a decision was made to discharge the patient home with home health. PHYSICAL EXAMINATION: GENERAL: When I saw her this afternoon, she looked well and was clearly in no apparent respiratory distress. No pallor, jaundice, cyanosis, or thyromegaly. No jugular venous distention or limb edema. VITAL SIGNS: Heart rate was 65, blood pressure 93/54, temperature 97.5, respiratory rate was 18 and oxygen saturation was 98% on 2 liters of oxygen. HEAD, EYES, EARS, NOSE AND THROAT: Normocephalic and atraumatic. NECK: Supple. HEART: Showed normal first and second heart sounds, no gallop or murmur. CHEST: Clear to auscultation, no crepitation or rhonchi. ABDOMEN: Distended, soft, nontender. No guarding or rigidity. No organomegaly. All hernial orifice intact. Bowel sounds normal. NEUROLOGIC: She is awake, alert, responding appropriately. All her cranial nerves intact. She moves extremities without difficulty. LABORATORY DATA: This morning showed a serum sodium 136, potassium 4.2, chloride 101, bicarbonate 29, anion gap of 12, BUN 14, creatinine 0.7, glucose was 60. Ionized calcium was . Her white cell count was 4800, hemoglobin 12, hematocrit 36, MCV 90 and platelet count of 197,000. Her blood gas showed a pH of 7.35, pCO2 of 48, pO2 of 92, bicarbonate 27 and oxygen saturation was 97% on FIO2 . Her D-dimer was 0.48. Urinalysis essentially unremarkable. DISCHARGE MEDICATIONS: She was discharged home with home health to continue on alprazolam 1 mg 4 times a day, aspirin 81 mg daily, Plavix 75 mg once a day, gabapentin 100 mg 3 times a day, hydrocodone/APAP 10/325 one tablet 3 times a day, Lantus insulin 12 units at bedtime, isosorbide mononitrate 30 mg once a day, lisinopril 40 mg once a day, metoprolol tartrate 25 mg twice a day, montelukast 10 mg at bedtime, Mirapex 0.25 mg at bedtime, Crestor 20 mg at bedtime, and trazodone 12.5 mg at bedtime. FINAL DISCHARGE DIAGNOSES: 1. Chest pain, myocardial infarction ruled out. 2. Coronary artery disease, status post percutaneous coronary intervention and stent deployment. 3. Type 2 diabetes mellitus. 4. Hypertension. 5. Hyperlipidemia. 6. History of deep venous thrombosis and pulmonary embolism. 7. Cerebrovascular accident, left-sided weakness. 8. 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 DUSTY/SILKE DR: [place] TID: [id number]
--- NOTE | 2020-10-04 03:06 | PN ---
SUBJECTIVE: The patient complains of occipital headache radiating to the right frontal and parietal regions without nausea, vomiting, photophobia or phonophobia. She also complains of substernal discomfort radiating to the left shoulder and dizziness described as a spinning along with weakness and numbness of the left side of her body. The patient stated she does not feel good this morning and she has difficulty finding words and difficulty talking. Apparently, the patient still under extreme stress. OBJECTIVE: GENERAL: Moderately obese female in no acute distress. VITAL SIGNS: Blood pressure 121/62, respiratory rate 18, pulse is 58 and regular, oxygen saturation is 95% on room air. HEENT: Normocephalic and atraumatic, otherwise unremarkable. NECK: Supple. Negative for carotid bruit, lymphadenopathy or thyromegaly. LUNGS: Clear to A and P. CARDIOVASCULAR: Regular rate and rhythm, normal S1 and S2. There is no S3, S4 or murmur. ABDOMEN: Soft. Bowel sounds positive. EXTREMITIES: Negative for cyanosis, clubbing or pedal edema. NEUROLOGIC: The patient is alert and oriented x 3. Speech is clear. There is no language dysfunction. Memory, judgment and abstracting thinkings are fair. The patient denies hallucination or delusion. Cranial nerves are intact. Motor examination revealed weakness of the left upper and lower extremity with the strength is 4/5. Sensory examination revealed diminished pinprick and light touch senses over the left upper and lower extremities and face. Deep tendon reflexes were symmetric and hypoactive with absent Achilles responses. Gait not tested. IMAGING STUDIES: Carotid Doppler study revealed scattered plaques without significant stenosis of the internal carotid arteries. ASSESSMENT: 1. Numbness and paresthesia of the left upper and lower extremities to rule out possible ischemic events; however, the patient has been under extreme stress. 2. Multiple medical problems include probably noncardiac chest pain, chronic low back pain, hypertension, hyperlipidemia, obstructive sleep apnea, gastroesophageal reflux disease, generalized arthritis, and history of lymphoma in remission. RECOMMENDATIONS: 1. Continue with current medications and medical care initiated by Dr. Cisse. 2. Physical therapy. 3. We will arrange for EMG/NCS of the lower extremities after discharge. The patient may need a brain MRI to be done on an outpatient basis. ZHANE/YVONNE/JEFF DR: ZHANE/eliezer TID: [id number]
== END 2020-10-03 14:19 | disposition home health service (06) ==
LOC: ER 07:56 → 1 SOUTH 10:07 → INTOOBSV 10:07
PROVIDERS: ADMIT Internal Medicine; ATTEND Internal Medicine
DX: R07.2 Precordial pain (principal); I11.0 Hypertensive heart disease with heart failure; I50.9 Heart failure, unspecified; I25.110 Atherosclerotic heart disease of native coronary artery with unstable angina pectoris; E11.9 Type 2 diabetes mellitus without complications; E78.5 Hyperlipidemia, unspecified; I63.9 Cerebral infarction, unspecified; I69.354 Hemiplegia and hemiparesis following cerebral infarction affecting left non-dominant side; G40.909 Epilepsy, unspecified, not intractable, without status epilepticus; G25.81 Restless legs syndrome; G47.33 Obstructive sleep apnea (adult) (pediatric); G89.29 Other chronic pain; J44.9 Chronic obstructive pulmonary disease, unspecified; K21.9 Gastro-esophageal reflux disease without esophagitis; M13.0 Polyarthritis, unspecified; F32.9 Major depressive disorder, single episode, unspecified; F41.9 Anxiety disorder, unspecified; R29.700 NIHSS score 0; Z85.72 Personal history of non-Hodgkin lymphomas; Z86.711 Personal history of pulmonary embolism; Z86.718 Personal history of other venous thrombosis and embolism; Z87.81 Personal history of (healed) traumatic fracture; Z90.49 Acquired absence of other specified parts of digestive tract; Z90.710 Acquired absence of both cervix and uterus; Z95.5 Presence of coronary angioplasty implant and graft; Z79.899 Other long term (current) drug therapy; Z98.890 Other specified postprocedural states; Z79.82 Long term (current) use of aspirin; Z95.1 Presence of aortocoronary bypass graft; Z79.4 Long term (current) use of insulin
CPT/HCPCS: 36415; 70450; 71045; 80047; 80053; 80061; 81001; 82803; 82947; 83036; 84484; 85025; 85027; 85379; 93005; 93880; 96374; 96375; 96376; 99285; G0378; J1815; J2270; J2405; J3490; G0379

== ENCOUNTER 2020-10-09 20:45 | Emergency (ER) | payer MEDICARE ==
[~2020-10-09] VITALS: Ht 162.6 cm; Wt 97.7 kg
[2020-10-09] MEDS ORDERED: ASPIRIN CHEWABLE 81 MG TABLET. PO ONE (21:45)
[2020-10-09 21:48] LABS: BASO % 0 % (0-3); EOS # 0.2 x10^3/uL (0.0-0.7); EOS % 5 % (0-3); HEMATOCRIT 39.8 % (36.0-47.0); HEMOGLOBIN 13.5 g/dL (12.0-15.5); LYMPH # 1.5 x10^3/uL (1.0-4.8); LYMPH % 31 % (24-48); MEAN CORPUSCULAR HEMOGLOBIN 30 pg (25-35); MEAN CORPUSCULAR HGB CONC 34 g/dL (31-37); MEAN CORPUSCULAR VOLUME 90 fL (79-100); MONO # 0.4 x10^3/uL (0.0-1.1); MONO % 8 % (0-9); NEUT # 2.7 x10^3uL (1.8-7.7); NEUT % 56 % (31-73); PLATELET COUNT 209 x10^3/uL (140-400); RED BLOOD COUNT 4.43 x10^6/uL (3.50-5.40); WHITE BLOOD COUNT 4.8 x10^3/uL (4.0-11.0)
[2020-10-09 21:49] LABS: CALCIUM 8.3 mg/dL (8.5-10.1); CREATININE 0.9 mg/dL (0.6-1.0); GFR 61.9
--- NOTE | 2020-10-09 21:54 | RAD ---
AP chest x-ray HISTORY: Chest pain shortness of breath. COMPARISON: Chest x-ray October 02, 2020. FINDINGS: Heart size normal. Aortic arch calcified plaque. Pulmonary emphysema, with some areas of souza prahilar upper lobe linear scarring stable to prior x-rays and CT imaging. No new pulmonary opacity. No pneumothorax or pleural effusions. Bones are unremarkable. IMPRESSION: No acute process. Stable exam as described above. Electronically signed by: Cristi Solorzano MD (10/09/2020 9:52 PM) [facility]
[2020-10-09 21:55] LABS: ALBUMIN 3.8 g/dL (3.4-5.0); ALBUMIN/GLOBULIN RATIO 1.1 (1.0-1.7); MAGNESIUM 1.8 mg/dL (1.8-2.4); TOTAL BILIRUBIN 0.5 mg/dL (0.2-1.0); TOTAL PROTEIN 7.2 g/dL (6.4-8.2)
[2020-10-09] MEDS ORDERED: NITROGLYCERIN SUBLINGUAL 0.4 MG BOTTLE OF 25. SL PRN (22:15)
--- NOTE | 2020-10-09 22:19 | PHYS DOC ---
Past History Past Medical History: Anxiety, Asthma, CAD, CHF, COPD, Diabetes, Heart Disease, Hypertension, MN, Seizure, Stroke Additional Past Medical Histor: Cardiac, lymphoma Past Surgical History: Appendectomy, Cholecystectomy, Hysterectomy, Oophorectomy, Other Additional Past Surgical Histo: PCI with stents, ortho Smoking: Non-smoker Alcohol Use: None Drug Use: None Adult General Chief Complaint Chief Complaint: CHEST PAIN HPI HPI Patient is a 69-year-old female with a past medical history significant for MN, status post stent placement a year ago, CAD, COPD, CHF and insulin-dependent diabetes as well as hypertension and hyperlipidemia who presents with chest pain. States it started about an hour before coming into the emergency department, was substernal, sharp in nature with some radiation to the left neck and left shoulder. States she was just sitting watching TV when this happened. States that this seems to happen about once or twice a month and happened about 2 weeks ago and she went to the doctor and nothing was found. Denies any recent travel, traumas, fevers, cold/flu symptoms or known ill contacts. Does have a history of PE and DVT but states this feels different. States she is currently on Plavix and baby aspirin and is taking all her medications as prescribed. Denies any alcohol or drug use. Review of Systems Review of Systems Review of systems otherwise unremarkable except noted in HPI Current Medications Current Medications Current Medications Medications (Trade) Dose Ordered Sig/Sherrie Start Time Stop Time Status Last Admin Dose Admin Aspirin (Aspirin Chewable) 324 mg 1X ONCE 10/09/20 21:45 10/09/20 21:46 DC Fentanyl Citrate (Fentanyl 2ml Vial) 50 mcg 1X ONCE 10/09/20 21:45 10/09/20 21:46 DC 10/09/20 21:47 50 MCG Allergies Allergies Allergies Coded Allergies Type Severity Reaction Last Updated Verified prednisone Allergy Severe SEIZURES 08/26/20 No oxycodone Allergy Intermediate 08/26/20 Yes Physical Exam Physical Exam Constitutional: Well developed, well nourished, no acute distress, non-toxic appearance. [] HENT: Normocephalic, atraumatic, bilateral external ears normal, oropharynx moist, no oral exudates, nose normal. [] Eyes: conjunctiva normal, no discharge. [] Neck: Normal range of motion, no tenderness, supple, no stridor. [] Cardiovascular:Heart rate regular rhythm, no murmur [] Lungs & Thorax: Bilateral breath sounds clear to auscultation [] Abdomen: Bowel sounds normal, soft, no tenderness, no masses, no pulsatile masses. [] Skin: Warm, dry, no erythema, no rash. [] Back: No tenderness, no CVA tenderness. [] Extremities: No tenderness, no cyanosis, no clubbing, ROM intact, no edema. [] Neurologic: Alert and oriented X 3, normal motor function, normal sensory function, no focal deficits noted. [] Psychologic: Affect normal, judgement normal, mood normal. [] Current Patient Data Vital Signs Vital Signs Date Time Temp Pulse Resp B/P (MAP) Pulse Ox O2 Delivery O2 Flow Rate FiO2 10/09/20 21:47 26 Room Air 10/09/20 21:04 98.3 73 167/74 (105) Lab Results Laboratory Tests Test 10/09/20 21:15 White Blood Count 4.8 x10^3/uL (4.0-11.0) Red Blood Count 4.43 x10^6/uL (3.50-5.40) Hemoglobin 13.5 g/dL (12.0-15.5) Hematocrit 39.8 % (36.0-47.0) Mean Corpuscular Volume 90 fL (79-100) Mean Corpuscular Hemoglobin 30 pg (25-35) Mean Corpuscular Hemoglobin Concent 34 g/dL (31-37) Red Cell Distribution Width 14.0 % (11.5-14.5) Platelet Count 209 x10^3/uL (140-400) Neutrophils (%) (Auto) 56 % (31-73) Lymphocytes (%) (Auto) 31 % (24-48) Monocytes (%) (Auto) 8 % (0-9) Eosinophils (%) (Auto) 5 % (0-3) H Basophils (%) (Auto) 0 % (0-3) Neutrophils # (Auto) 2.7 x10^3uL (1.8-7.7) Lymphocytes # (Auto) 1.5 x10^3/uL (1.0-4.8) Monocytes # (Auto) 0.4 x10^3/uL (0.0-1.1) Eosinophils # (Auto) 0.2 x10^3/uL (0.0-0.7) Basophils # (Auto) 0.0 x10^3/uL (0.0-0.2) Sodium Level 141 mmol/L (136-145) Potassium Level 4.0 mmol/L (3.5-5.1) Chloride Level 104 mmol/L (98-107) Carbon Dioxide Level 26 mmol/L (21-32) Anion Gap 11 (6-14) Blood Urea Nitrogen 16 mg/dL (7-20) Creatinine 0.9 mg/dL (0.6-1.0) Estimated GFR (Cockcroft-Gault) 61.9 BUN/Creatinine Ratio 18 (6-20) Glucose Level 129 mg/dL (70-99) H Calcium Level 8.3 mg/dL (8.5-10.1) L Magnesium Level 1.8 mg/dL (1.8-2.4) Total Bilirubin 0.5 mg/dL (0.2-1.0) Aspartate Amino Transferase (AST) 16 U/L (15-37) Alanine Aminotransferase (ALT) 22 U/L (14-59) Alkaline Phosphatase 125 U/L (46-116) H Troponin I Quantitative < 0.017 ng/mL (0-0.055) Total Protein 7.2 g/dL (6.4-8.2) Albumin 3.8 g/dL (3.4-5.0) Albumin/Globulin Ratio 1.1 (1.0-1.7) EKG EKG EKG with a rate of 75, QRS of 78, QTc of 456, no STEMI [] Radiology/Procedures Radiology/Procedures [] CT angiogram of the chest with contrast: Reason for examination: Chest pain with elevated d-dimer. History of PE. Comparison is made to previous studies dated 03/25/2020 and 09/08/2019. Helical images were obtained through the chest with intravenous administration of 100 cc Omnipaque 350 using PE protocol. 3-D MIPS reconstruction was performed in sagittal and coronal planes. Exposure: One or more of the following individualized dose reduction techniques were utilized for this examination: 1. Automated exposure control 2. Adjustment of the mA and/or kV according to patient size 3. Use of iterative reconstruction technique. The trachea and mainstem bronchi show no intraluminal lesions. No abnormality seen at the esophagus. The thoracic aorta shows no aneurysmal dilatation or dissection. The heart size is normal with no pericardial effusion. No pulmonary embolus is evident. The lung griggs show chronic parenchymal changes in the upper lobes which are stable. No acute infiltrates or pleural effusions are seen. No acute bony abnormalities are evident. No focal abnormalities are seen at the liver, spleen or adrenal glands. There does appear to be a small hiatal hernia. IMPRESSION: No evidence of pulmonary embolus. Chronic parenchymal changes in the upper lobes bilaterally which are stable. Small hiatal hernia. Electronically signed by: Jalyn Daniels MD (10/10/2020 12:56 AM) [facility] Heart Score C/O Chest Pain: Yes HEART Score for Chest Pain: HEART Score for Chest Pain Response (Comments) Value History Moderately Suspicious 1 ECG Nonspecific Repolarizatio 1 Risk Factors >3 Risk Factors or Hx CAD 2 Total 4 Risk Factors: Risk Factors: DM, Current or recent (<one month) smoker, HTN, HLP, family history of CAD, obesity. Risk Scores: Risk Factors: DM, Current or recent (<one month) smoker, HTN, HLP, family history of CAD, obesity. Course & Med Decision Making Course & Med Decision Making Patient is a 69-year-old female who presents with chest pain that started about an hour before coming into the emergency department Vital signs notable for hypertension. Physical exam noted above. EKG noted above and normal. Initial troponin normal. Repeat troponin normal. D-dimer elevated. Patient given aspirin and nitroglycerin. Given fentanyl. Chest x- ray not concerning. Laboratory analysis not concerning. CTA of the chest with no pulmonary embolism, pneumonia, pneumothorax but does show chronic parenchymal changes in the upper lobes which are stable and a small hiatal hernia. Given patient's significant cardiac history, patient was offered admission for continued evaluation and treatment with trending of EKGs and troponins as well as cardiology consult. Patient stated that she was feeling well, and had no medical complaints at this time and was ready to be discharged home. Discussed with patient that although her diagnostics were reassuring at this point that did not mean that something else was going on and she was not at a 0 risk for both cardiopulmonary processes. Patient stated that she felt fine, and was ready to discharge home and has an appointment in 2 days with her primary care physician and in 2 weeks with her supervisor sample preparation and would just like to go home. Gave strict return precautions to the emergency department. Patient grateful, verbalized understanding and agreed with plan of discharge. [] Dragon Disclaimer Dragon Disclaimer This electronic medical record was generated, in whole or in part, using a voice recognition dictation system. Departure Departure: Impression: Primary Impression: Chest pain Disposition: HOME / SELF CARE / HOMELESS Condition: GOOD Referrals: BAILEY MORSE MD (PCP) Patient Instructions: Chest Pain (Nonspecific) Additional Instructions: Thank you for coming into the emergency department tonight and allowing us to take care of you. Please read all of the attached information very carefully. As discussed even though all of your labs and imaging were reassuring at this point that does not necessarily mean that you do not have something possibly going on with your heart and/or lungs. You are offered admission to the hospital for continued evaluation and treatment, but opted to go home as you stated you have an appointment with your primary care physician in a couple days and also with your supervisor sample preparation in a couple of weeks. We discussed strict return precautions to the emergency department and you were advised to come back immediately with any new or concerning symptoms. NATALIE WILLAMS MD Oct 09, 2020 22:19
[2020-10-09] MEDS ORDERED: CONTRAST GIVEN. MC PRN (23:45)
[2020-10-10] MEDS ORDERED: IOHEXOL 350 MG/ML 100 ML VIAL. IV ONE
--- NOTE | 2020-10-10 00:58 | RAD ---
CT angiogram of the chest with contrast: Reason for examination: Chest pain with elevated d-dimer. History of PE. Comparison is made to previous studies dated 03/25/2020 and 09/08/2019. Helical images were obtained through the chest with intravenous administration of 100 cc Omnipaque 35 0 using PE protocol. 3-D MIPS reconstruction was performed in sagittal and coronal planes. Exposure: One or more of the following individualized dose reduction techniques were utilized for thi s examination: 1. Automated exposure control 2. Adjustment of the mA and/or kV according to patient size 3. Use of iterative reconstruction technique. The trachea and mainstem bronchi show no intraluminal lesions. No abnormality seen at the esophagus. The thoracic aorta shows no aneurysmal dilatation or dissection. The heart size is normal with no per icardial effusion. No pulmonary embolus is evident. The lung griggs show chronic parenchymal changes in the upper lobes which are stable. No acute infiltrates or pleural effusions are seen. No acute bon y abnormalities are evident. No focal abnormalities are seen at the liver, spleen or adrenal glands. There does appear to be a sma ll hiatal hernia. IMPRESSION: No evidence of pulmonary embolus. Chronic parenchymal changes in the upper lobes bilaterally which are stable. Small hiatal hernia. Electronically signed by: Jalyn Daniels MD (10/10/2020 12:56 AM) [facility]
[2020-10-10 01:20] VITALS: BP 158/74
--- NOTE | 2020-10-10 03:56 | EKG ---
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
== END 2020-10-10 01:22 | disposition home or self-care (01) ==
LOC: ER 20:45
DX: R07.89 Other chest pain (principal); J45.909 Unspecified asthma, uncomplicated; I11.0 Hypertensive heart disease with heart failure; I50.9 Heart failure, unspecified; J44.9 Chronic obstructive pulmonary disease, unspecified; Z90.49 Acquired absence of other specified parts of digestive tract; Z88.8 Allergy status to other drugs, medicaments and biological substances; Z88.5 Allergy status to narcotic agent; Z90.710 Acquired absence of both cervix and uterus
CPT/HCPCS: 36415; 71045; 71275; 80053; 83735; 84484; 85025; 85379; 93005; 96374; 99285; J3010; Q9967

== ENCOUNTER → 2020-10-10 | Outpatient (CLI) | payer MEDICARE ==
[2020-10-10 01:20] VITALS: BP 158/74
--- NOTE | 2020-10-10 17:22 | RAD ---
XR EXAM OF ANKLE_LEFT 3V History: Reason: S/P SURGERY, ANKLE PAIN / Spl. Instructions: / History: Technique: 3 views left ankle Comparison: August 31, 2020 Findings: Internal fixation distal fibula and medial malleolus fractures. Unchanged alignment. No acute fractur e. Symmetric ankle mortise. Plantar calcaneal spur. Lesion with soft tissue swelling. Vascular calcif ications. Disuse osteopenia. Impression: 1. Internal fixation distal fibula and medial malleolus fractures, unchanged alignment. No hardware complications. 2. Lower extremity soft tissue swelling. Electronically signed by: Bala Reddy DO (10/10/2020 5:20 PM) [id number]
== END ==
LOC: DXRAD 13:36
PROVIDERS: ATTEND Physician Assistant
DX: S82.52XA Displaced fracture of medial malleolus of left tibia, initial encounter for closed fracture (principal); M77.32 Calcaneal spur, left foot; X58.XXXA Exposure to other specified factors, initial encounter; Y93.89 Activity, other specified; Y92.89 Other specified places as the place of occurrence of the external cause; Y99.8 Other external cause status
CPT/HCPCS: 73610

== ENCOUNTER 2020-10-18 12:50 | Observation (INO) | payer MEDICARE ==
[~2020-10-18] VITALS: Ht 162.6 cm; Wt 97.7 kg
[2020-10-18] MEDS ORDERED: ASPIRIN 325 MG TABLET PO ONE (13:15)
[2020-10-18] MEDS ORDERED: ONDANSETRON PF 4 MG/2 ML VIAL. IVP ONE (13:15)
--- NOTE | 2020-10-18 13:34 | PHYS DOC ---
Past History Past Medical History: Anxiety, Asthma, CAD, CHF, COPD, Diabetes, Heart Disease, Hypertension, OH, Seizure, Stroke Additional Past Medical Histor: Cardiac, lymphoma Past Surgical History: Appendectomy, Cholecystectomy, Hysterectomy, Oophorectomy, Other Additional Past Surgical Histo: PCI with stents, ortho Smoking: Non-smoker Alcohol Use: None Drug Use: None General Adult EDM: Chief Complaint: CHEST PAIN HPI: HPI: 69-year-old female with significant cardiac risk factors presents with report of sudden left-sided chest pain with radiation to her back, neck, and left arm that started at 0930 this AM but has been intermittent in nature over the last 2 weeks. Patient does report some associated nausea without vomiting. Denies leg swelling or calf tenderness. Denies pleuritic pain. Denies fever or chills. Reports shortness of breath. Patient reports this is the third visit to the em ergency department for similar in the last 2 weeks. Last seen 10/09/20 in the ED for same. Patient had CTA chest at that time which was without signs of acute PE per [facility] review. Patient had also been admitted 10/02/20-10/03/20 at which time patient was evaluated by cardiology and had 3 negative Troponins. Denies any trauma. Reports using nitroglycerine and 324mg of Aspirin earlier today prior to arrival. Patient denies known exposure to COVID-19. Reports has received both Moderna COVID vaccinations ending in June 2020. Review of Systems: Review of Systems: Constitutional: Denies fever or chills Eyes: Denies redness or eye pain HENT: Denies nasal congestion or sore throat Respiratory: Reports cough and shortness of breath Cardiovascular: Reports chest pain; denies palpitations GI: Denies abdominal pain or vomiting; reports nausea : Denies dysuria or hematuria Musculoskeletal: Denies back pain or joint pain Integument: Denies rash or skin lesions Neurologic: Denies headache, focal weakness or sensory changes Complete systems were reviewed and found to be within normal limits, except as documented in this note. Current Medications: Current Meds: Current Medications Medications (Trade) Dose Ordered Sig/Sherrie Start Time Stop Time Status Last Admin Dose Admin Aspirin (Arlin Aspirin) 325 mg 1X ONCE 10/18/20 13:15 10/18/20 13:15 DC Fentanyl Citrate (Fentanyl 2ml Vial) 50 mcg 1X ONCE 10/18/20 13:15 10/18/20 13:16 UNV Ondansetron HCl (Zofran) 4 mg 1X ONCE 10/18/20 13:15 10/18/20 13:16 UNV Allergies: Allergies: Allergies Coded Allergies Type Severity Reaction Last Updated Verified prednisone Allergy Severe SEIZURES 08/26/20 No oxycodone Allergy Intermediate 08/26/20 Yes Physical Exam: PE: Constitutional: Well developed, well nourished, anxious, non-toxic appearance HENT: Normocephalic, atraumatic Eyes: Conjunctiva normal, no discharge Neck: Normal range of motion, no tenderness, supple Lungs & Thorax: No respiratory distress, equal chest rise and fall Abdomen: Soft, no tenderness Skin: Warm, dry, no erythema, no rash Back: No tenderness, no CVA tenderness Extremities: No tenderness, ROM intact, no edema Neurologic: Alert and oriented X 3, normal motor function, normal sensory function, no focal deficits noted Psychologic: Affect anxious, judgment normal Current Patient Data: Vital Signs: Vital Signs Date Time Temp Pulse Resp B/P (MAP) Pulse Ox O2 Delivery O2 Flow Rate FiO2 10/18/20 13:09 98.4 60 18 171/66 (101) 96 Room Air EKG: EKG: @1259 NSR at 68bpm, NO ST elevation, QRS 80ms, QT/QTc 452/486ms, occasional PVC Radiology/Procedures: Radiology/Procedures: PROCEDURE: CHEST AP ONLY INDICATION: Reason: chest pain / Spl. Instructions: / History: COMPARISON: October 09, 2020 FINDINGS: Single view of chest obtained. Calcific atherosclerosis. Cardiac silhouette is similar to prior. Hypoexpansion. Mild interstitial and groundglass opacities with some disorganization of the pulmonary markings. IMPRESSION: * Mild interstitial and groundglass opacities which could be from mild edema or interstitial infiltrate. Electronically signed by: Tony Miller MD (10/18/2020 1:44 PM) [id number] Heart Score: C/O Chest Pain: Yes HEART Score for Chest Pain: HEART Score for Chest Pain Response (Comments) Value History Moderately Suspicious 1 ECG Normal 0 Age > 65 2 Risk Factors >3 Risk Factors or Hx CAD 2 Troponin < Normal Limit 0 Total 5 Risk Factors: Risk Factors: DM, Current or recent (<one month) smoker, HTN, HLP, family history of CAD, obesity. Risk Scores: Score 0 - 3: 2.5% MACE over next 6 weeks - Discharge Home Score 4 - 6: 20.3% MACE over next 6 weeks - Admit for Clinical Observation Score 7 - 10: 72.7% MACE over next 6 weeks - Early Invasive Strategies Course & Med Decision Making: Course & Med Decision Making Pertinent Labs and Imaging studies reviewed. (See chart for details) Patient presents with left-sided chest pain with radiation to neck and left arm and associated nausea. This is the third visit in the emergency department for similar. Patient with significant cardiac risk factors. EKG stable. Labs obta ined and posted to chart. Initial troponin within normal limits. Chest x-ray with signs of vascular congestion. BNP pending. Lasix provided. History of recent CTA chest without finding of acute PE per brief [employer] review. HEART score 5. Patient requiring admission for further evaluation and treatment. Discussed with Dr. Cisse (hospitalist) who is in agreement with admission and requests cardiac consultation. Discussed findings and plan with patient and family, who acknowledge understanding and agreement. Roseline Disclaimer: Roseline Disclaimer: This electronic medical record was generated, in whole or in part, using a voice recognition dictation system. Departure Departure: Impression: Primary Impression: Chest pain Qualified Codes: R07.9 - Chest pain, unspecified Additional Impression: Acute exacerbation of CHF (congestive heart failure) Qualified Codes: I50.9 - Heart failure, unspecified Disposition: ADMITTED INPATIENT (observation) Admitting Physician: Chaparrita Cisse Condition: STABLE Referrals: BAILEY MORSE MD (PCP) SHANIQUE PICKETT DO Oct 18, 2020 13:34
[2020-10-18 13:38] LABS: BASO % 1 % (0-3); EOS # 0.2 x10^3/uL (0.0-0.7); EOS % 5 % (0-3); HEMATOCRIT 38.5 % (36.0-47.0); HEMOGLOBIN 13.1 g/dL (12.0-15.5); LYMPH # 1.5 x10^3/uL (1.0-4.8); LYMPH % 34 % (24-48); MEAN CORPUSCULAR HEMOGLOBIN 30 pg (25-35); MEAN CORPUSCULAR HGB CONC 34 g/dL (31-37); MEAN CORPUSCULAR VOLUME 89 fL (79-100); MONO # 0.4 x10^3/uL (0.0-1.1); MONO % 9 % (0-9); NEUT # 2.3 x10^3uL (1.8-7.7); NEUT % 52 % (31-73); PLATELET COUNT 203 x10^3/uL (140-400); RED BLOOD COUNT 4.31 x10^6/uL (3.50-5.40); RED CELL DISTRIBUTION WIDTH 13.9 % (11.5-14.5); WHITE BLOOD COUNT 4.5 x10^3/uL (4.0-11.0)
[2020-10-18 13:42] LABS: BUN ISTAT 9 mg/dL (8-26); GLUCOSE ISTAT 137 mg/dL (60-99); POTASSIUM ISTAT 4.1 mmol/L (3.5-5.0); SODIUM ISTAT 141 mmol/L (135-145)
[2020-10-18 13:43] LABS: HEMATOCRIT ISTAT 37 %; HEMOGLOBIN ISTAT 12.6 gm/dL
--- NOTE | 2020-10-18 13:46 | RAD ---
INDICATION: Reason: chest pain / Spl. Instructions: / History: COMPARISON: October 09, 2020 FINDINGS: Single view of chest obtained. Calcific atherosclerosis. Cardiac silhouette is similar to prior. Hypoexpansion. Mild interstitial an d groundglass opacities with some disorganization of the pulmonary markings. IMPRESSION: * Mild interstitial and groundglass opacities which could be from mild edema or interstitial infiltr ate. Electronically signed by: Tony Miller MD (10/18/2020 1:44 PM) [id number]
[2020-10-18] MEDS ORDERED: FUROSEMIDE 40 MG/4 ML VIAL IVP ONE (14:00)
[2020-10-18] MEDS ORDERED: MORPHINE SULFATE 4 MG/ML DISP.SYRIN. IV ONE (14:15)
[2020-10-18] MEDS ORDERED: DEXTROSE 50% 25 GM / 50ML DISP.SYRIN. IV PRN (14:15)
[2020-10-18] MEDS ORDERED: ONDANSETRON PF 4 MG/2 ML VIAL. IVP PRN (14:15)
[2020-10-18] MEDS: MORPHINE SULFATE 2 MG/ML DISP.SYRIN. IVP PRN (15:30)
[2020-10-18 16:01] LABS: BILIRUBIN,URINE NEG (NEG); CLARITY,URINE CLEAR; COLOR,URINE YELLOW; GLUCOSE,URINE NEG (NEG); NITRITE,URINE NEG (NEG); UROBILINOGEN,URINE 0.2 mg/dL (0.2 mg/dL)
[2020-10-18 16:09] LABS: BACTERIA,URINE FEW /HPF (0-FEW); RBC,URINE 0 /HPF (0-2); SQUAMOUS EPITHELIAL CELL,UR OCC /LPF; WBC,URINE OCC /HPF (0-4)
[2020-10-18 16:19] VITALS: BP 164/73
[2020-10-18] MEDS: INSULIN LISPRO 300 UNITS/3 ML VIAL. SQ SCH (17:00)
[2020-10-18] MEDS ORDERED: ASPI-630 PO (17:30)
[2020-10-18] MEDS ORDERED: GABA-586 PO (17:30)
[2020-10-18] MEDS ORDERED: METO25TA4 PO (17:30)
[2020-10-18 19:31] VITALS: BP 122/66
[2020-10-18] MEDS: ALPRAZolam 0.5 MG TABLET PO SCH (20:46)
[2020-10-18] MEDS ORDERED: MONTELUKAST 10 MG TABLET. PO SCH (21:00)
[2020-10-18] MEDS ORDERED: traZODone 50 MG TABLET. PO SCH (21:00)
[2020-10-18] MEDS ORDERED: PRAMIPEXOLE 0.25 MG TABLET. PO SCH (21:00)
[2020-10-18] MEDS ORDERED: GABAPENTIN 300 MG CAPSULE. PO SCH (21:00)
[2020-10-18] MEDS ORDERED: INSULIN GLARGINE SYRINGE. SQ SCH (21:00)
[2020-10-18] MEDS ORDERED: ATORVASTATIN CALCIUM 20 MG TABLET PO SCH (21:00)
[2020-10-18 21:18] LABS: ALBUMIN 3.4 g/dL (3.4-5.0); ALK PHOS 97 U/L (46-116); ALT (SGPT) 18 U/L (14-59); ANION GAP 11 (6-14); AST (SGOT) 18 U/L (15-37); BLOOD UREA NITROGEN 9 mg/dL (7-20); BUN/CREATININE RATIO 11 (6-20); CALCIUM 8.1 mg/dL (8.5-10.1); CARBON DIOXIDE 23 mmol/L (21-32); CHLORIDE 106 mmol/L (98-107); CREATININE 0.8 mg/dL (0.6-1.0); GFR 70.9; GLUCOSE 125 mg/dL (70-99); MAGNESIUM 1.9 mg/dL (1.8-2.4); POTASSIUM 4.1 mmol/L (3.5-5.1); SODIUM 140 mmol/L (136-145); TOTAL BILIRUBIN 0.5 mg/dL (0.2-1.0); TOTAL PROTEIN 6.7 g/dL (6.4-8.2)
[2020-10-18 22:12] LABS: LIPASE 42 U/L (73-393)
[2020-10-18 23:13] VITALS: BP 98/61
[2020-10-19 05:34] VITALS: BP 119/72
[2020-10-19] MEDS: INSULIN LISPRO 300 UNITS/3 ML VIAL. SQ SCH (08:00)
--- NOTE | 2020-10-19 08:39 | PDOC2 ---
CARDIAC CONSULT DATE OF CONSULT DOS: DATE: 10/19/20 TIME: 08:34 REASON FOR CONSULT Reason for Consult Chest pain REFERRING PHYSICIAN Referring Physician Dr. No SOURCE Source: Chart review, Patient HPI History of Present Illness This is a 69 yo female who presented secondary to chest pain. Patient reports pain began yesterday morning upon awakening. Located in her left chest. Seemed to be worse with certain movements and with application of pressure to the left chest. Also reports pain in her left neck and shooting pain down her left arm. No dizziness, diaphoresis, shortness of breath, or nausea/vomiting. Pain persisted so she came to the ED for further evaluation and treatment. PAST MEDICAL HISTORY Past Medical History Coronary artery disease s/p PCI/stents to LAD and LCx Diabetes mellitus type 2 Hypertension Hyperlipidemia COPD/asthma DVT/PE Osteoarthritis CVA Lymphoma Anxiety Depression PSVT Seizure PAST SURGICAL HISTORY Past Surgical History Right rotator cuff repair Cholecystectomy Hysterectomy Carpal tunnel release surgery s/p PCI/stent placement Distal tibia and fibula fracture s/p ORIF. FAMILY HISTORY Family History Diabetes, Heart Disease, Hypertension SOCIAL HISTORY Social History Denies any current smoking, alcohol or drug use Lives at home with CURRENT MEDICATIONS Current Medications Current Medications Aspirin (Arlin Aspirin) 325 mg 1X ONCE PO ; Start 10/18/20 at 13:15; Stop 10/18/20 at 13:15; Status DC Fentanyl Citrate (Fentanyl 2ml Vial) 50 mcg 1X ONCE IV Last administered on 10/18/20at 13:36; Start 10/18/20 at 13:15; Stop 10/18/20 at 13:38; Status DC Ondansetron HCl (Zofran) 4 mg 1X ONCE IVP Last administered on 10/18/20at 13:36; Start 10/18/20 at 13:15; Stop 10/18/20 at 13:38; Status DC Furosemide (Lasix) 40 mg 1X ONCE IVP Last administered on 10/18/20at 15:05; Start 10/18/20 at 14:00; Stop 10/18/20 at 14:04; Status DC Morphine Sulfate (Morphine 4mg Syringe) 4 mg 1X ONCE IV Last administered on 10/18/20at 14:40; Start 10/18/20 at 14:15; Stop 10/18/20 at 14:16; Status DC Ondansetron HCl (Zofran) 4 mg PRN Q4HRS PRN IVP NAUSEA/VOMITING Last administered on 10/18/20at 14:38; Start 10/18/20 at 14:15; Stop 10/19/20 at 14:14 Morphine Sulfate (Morphine 2mg Syringe) 2 mg PRN Q2HR PRN IVP PAIN Last administered on 10/18/20at 15:30; Start 10/18/20 at 14:15; Stop 10/19/20 at 14:14 Insulin Human Lispro (HumaLOG) 0-5 UNITS TIDWMEALS SQ ; Start 10/18/20 at 17:00 Dextrose (Dextrose 50%-Water Syringe) 12.5 gm PRN Q15MIN PRN IV SEE COMMENTS; Start 10/18/20 at 14:15 Lorazepam (Ativan Inj) 2 mg STK-MED ONCE .ROUTE ; Start 10/18/20 at 14:50; Stop 10/18/20 at 14:51; Status DC Aspirin (Aspirin Chewable) 324 mg DAILY PO ; Start 10/19/20 at 09:00 Clopidogrel Bisulfate (Plavix) 75 mg DAILY PO ; Start 10/19/20 at 09:00 Gabapentin (Neurontin) 300 mg HS PO Last administered on 10/18/20at 20:46; Start 10/18/20 at 21:00 Isosorbide Mononitrate (Imdur) 30 mg DAILY PO ; Start 10/19/20 at 09:00 Metoprolol Tartrate (Lopressor) 25 mg DAILY PO ; Start 10/19/20 at 09:00 Montelukast Sodium (Singulair) 10 mg HS PO Last administered on 10/18/20at 20:46; Start 10/18/20 at 21:00 Pramipexole Dihydrochloride (miraPEX) 0.25 mg QHS PO Last administered on 10/18/20at 20:46; Start 10/18/20 at 21:00 Trazodone HCl (Desyrel) 12.5 mg HS PO Last administered on 10/18/20at 20:46; Start 10/18/20 at 21:00 Alprazolam (Xanax) 1 mg QID PO Last administered on 10/18/20at 20:46; Start 10/18/20 at 21:00 Insulin Glargine (Lantus Syringe) 12 unit QHS SQ Last administered on 10/18/20at 20:47; Start 10/18/20 at 21:00 Lisinopril (Prinivil) 40 mg DAILY PO ; Start 10/19/20 at 09:00 Atorvastatin Calcium (Lipitor) 80 mg QHS PO Last administered on 10/18/20at 20:46; Start 10/18/20 at 21:00 Active Scripts Active Reported Aspirin 81 Mg Tab.chew 325 Mg PO DAILY Gabapentin (Gabapentin) 300 Mg Capsule 300 Mg PO HS Metoprolol Tartrate 25 Mg Tablet 25 Mg PO DAILY Lisinopril 40 Mg Tablet 1 Tab PO DAILY Trazodone Hcl 50 Mg Tablet 12.5 Mg PO HS Alprazolam 1 Mg Tablet 1 Mg PO QID Lantus Solostar (Insulin Glargine,Hum.rec.anlog) 100 Unit/1 Ml Insuln.pen 12 Unit SQ QHS NOT GIVEN THE HOSPITAL NEXT DOSE DUE: DATE: TODAY TIME: AT BEDTIME Rosuvastatin Calcium 20 Mg Tablet 20 Mg PO HS NOT GIVEN IN THE HOSPITAL NEXT DOSE DUE: DATE: TODAY TIME: AT BEDTIME Clopidogrel (Clopidogrel Bisulfate) 75 Mg Tablet 75 Mg PO DAILY LAST DOSE GIVEN: DATE: TODAY TIME: AM NEXT DOSE DUE: DATE: TOMORROW TIME: AM Hydrocodone-Apap 10-325 (Hydrocodone Bit/Acetaminophen) 1 Each Tablet 1 Tab PO TID PRN NOT GIVEN TODAY NEXT DOSE DUE: DATE: TODAY TIME: IF AND WHEN NEEDED Mirapex (Pramipexole Di-Hcl) 0.25 Mg Tablet 0.25 Mg PO QHS NOT GIVEN IN THE HOSPITAL NEXT DOSE DUE: DATE: RESTART TODAY TIME: AT BEDTIME Montelukast Sodium Tablet (Montelukast Sodium) 10 Mg Tablet 10 Mg PO HS LAST DOSE GIVEN: DATE: YESTERDAY TIME: AT BEDTIME NEXT DOSE DUE: DATE: TODAY TIME: AT BEDTIME Isosorbide Mononitrate Er (Isosorbide Mononitrate) 30 Mg Tab.er.24h 30 Mg PO DAILY LAST DOSE GIVEN: DATE: TODAY TIME: AM NEXT DOSE DUE: DATE: TOMORROW TIME: AM ALLERGIES Allergies: Coded Allergies: prednisone (Unverified Allergy, Severe, SEIZURES, 08/26/20) SEIZURES oxycodone (Verified Allergy, Intermediate, 08/26/20) MORPHINE, [place]CO [place] ROS Review of Systems 14 point ROS conducted with pertinent positives noted above in HPI PHYSICAL EXAM Physical Exam General: Alert, Oriented X3, Cooperative, No acute distress HEENT: Atraumatic, Mucous membr. moist/pink Lungs: Other (diminished, left chest tenderness upon palpation ) Heart: Regular rate Abdomen: Soft Extremities: No edema, Normal pulses Skin: No breakdown Neuro: Normal speech Psych/Mental Status: Mental status NL, Mood NL MUSCULOSKELETAL: Osteoarthritic changes both hands VITALS Vital Signs Vital Signs Date Time Temp Pulse Resp B/P (MAP) Pulse Ox O2 Delivery O2 Flow Rate FiO2 10/19/20 05:34 100.7 85 18 119/72 (88) 93 Room Air LABS LABS Laboratory Tests Test 10/18/20 13:24 10/18/20 15:18 10/18/20 18:31 10/18/20 19:05 White Blood Count 4.5 x10^3/uL (4.0-11.0) Red Blood Count 4.31 x10^6/uL (3.50-5.40) Hemoglobin 13.1 g/dL (12.0-15.5) Bedside Hemoglobin 12.6 gm/dL Hematocrit 38.5 % (36.0-47.0) Bedside Hematocrit 37 % Mean Corpuscular Volume 89 fL (79-100) Mean Corpuscular Hemoglobin 30 pg (25-35) Mean Corpuscular Hemoglobin Concent 34 g/dL (31-37) Red Cell Distribution Width 13.9 % (11.5-14.5) Platelet Count 203 x10^3/uL (140-400) Neutrophils (%) (Auto) 52 % (31-73) Lymphocytes (%) (Auto) 34 % (24-48) Monocytes (%) (Auto) 9 % (0-9) Eosinophils (%) (Auto) 5 % (0-3) Basophils (%) (Auto) 1 % (0-3) Neutrophils # (Auto) 2.3 x10^3uL (1.8-7.7) Lymphocytes # (Auto) 1.5 x10^3/uL (1.0-4.8) Monocytes # (Auto) 0.4 x10^3/uL (0.0-1.1) Eosinophils # (Auto) 0.2 x10^3/uL (0.0-0.7) Basophils # (Auto) 0.0 x10^3/uL (0.0-0.2) Bedside Sodium 141 mmol/L (135-145) Sodium Level 140 mmol/L (136-145) Bedside Potassium 4.1 mmol/L (3.5-5.0) Potassium Level 4.1 mmol/L (3.5-5.1) Bedside Chloride 102 mmol/L (98-110) Chloride Level 106 mmol/L (98-107) Carbon Dioxide Level 23 mmol/L (21-32) Bedside Total CO2 23 mmol/L (23-32) Anion Gap 21 mmol/L (6-14) Bedside Blood Urea Nitrogen 9 mg/dL (8-26) Blood Urea Nitrogen 9 mg/dL (7-20) Creatinine 0.8 mg/dL (0.6-1.0) Bedside Creatinine 0.7 mg/dL (0.5-1.4) Estimated GFR (Cockcroft-Gault) 70.9 BUN/Creatinine Ratio 11 (6-20) Glucose Level 137 mg/dL (60-99) Calcium Level 8.1 mg/dL (8.5-10.1) Bedside Ionized Calcium (Mahendra) 1.14 mmol/L (1.13-1.32) Magnesium Level 1.9 mg/dL (1.8-2.4) Total Bilirubin 0.5 mg/dL (0.2-1.0) Aspartate Amino Transf (AST/SGOT) 18 U/L (15-37) Alanine Aminotransferase (ALT/SGPT) 18 U/L (14-59) Alkaline Phosphatase 97 U/L (46-116) Creatine Kinase 35 U/L (26-192) Creatine Kinase MB (Mass) ng/mL (0.0-3.6) Creatine Kinase MB Relative Index % (0-4) Bedside Troponin I < 0.17 ng/ml (<0.08) Total Protein 6.7 g/dL (6.4-8.2) Albumin 3.4 g/dL (3.4-5.0) Albumin/Globulin Ratio 1.0 (1.0-1.7) Lipase 42 U/L (73-393) Urine Collection Type Unknown Urine Color Yellow Urine Clarity Clear Urine pH 5.5 Urine Specific [employer] 1.015 Urine Protein Neg (NEG-TRACE) Urine Glucose (UA) Neg mg/dL (NEG) Urine Ketones (Stick) Neg mg/dL (NEG) Urine Blood Neg (NEG) Urine Nitrite Neg (NEG) Urine Bilirubin Neg (NEG) Urine Urobilinogen Dipstick 0.2 mg/dL (0.2 mg/dL) Urine Leukocyte Esterase Neg (NEG) Urine RBC 0 /HPF (0-2) Urine WBC Occ /HPF (0-4) Urine Squamous Epithelial Cells Occ /LPF Urine Bacteria Few /HPF (0-FEW) Glucose (Fingerstick) 164 mg/dL (70-99) Troponin I Quantitative < 0.017 ng/mL (0-0.055) Test 10/18/20 20:00 10/18/20 22:30 10/19/20 07:56 Glucose (Fingerstick) 145 mg/dL (70-99) 135 mg/dL (70-99) Troponin I Quantitative < 0.017 ng/mL (0-0.055) ECHOCARDIOGRAM Echocardiogram <Conclusion> The left ventricle is normal size. The left ventricular systolic function is normal and the ejection fraction is within normal range. The Ejection Fraction is 55-60%. There is mild concentric left ventricular hypertrophy. There is no significant aortic valvular stenosis. Doppler and Color Flow revealed no significant aortic regurgitation. Doppler and Color-flow revealed trace mitral regurgitation. Doppler and Color Flow revealed trace to mild tricuspid regurgitation with an estimated PAP of 44 mmHg. DATE: 01/06/19 1203 STRESS TEST Stress Test Conclusion 1. 80% stenosis involving a large caliber left circumflex artery. The previously placed stent in the left anterior descending artery was widely patent. The diagonal branch which is a small to medium caliber vessel appeared to have been jailed by the stent resulting in 80% ostial/proximal segment stenosis. 2. Successful PCI/drug eluting stent placement to the left circumflex artery 3. Normal left ventricle systolic function with ejection fraction estimated at 60% Recommendations 1. Aspirin 325 mg daily 2. Plavix 75 mg daily for preferably one year 3. Cardiovascular risk factor modification DATE: 01/05/19 1102 HEART CATH Heart Cath FINDINGS 1. Hemodynamics: Left ventricular end-diastolic pressure 18 mmHg. No pullback gradient across the aortic valve. 2. Left ventriculography: Normal left ventricular systolic function with ejection fraction estimated at 50 to 55%. No significant mitral regurgitation seen. 3. Coronary angiography: a. The left main coronary artery arose from the left sinus of Valsalva, gave rise to the left anterior descending and left circumflex arteries and did not show any significant stenosis. b. The left anterior descending artery showed widely patent stent in the midsegment. There was 40% stenosis noted in the proximal segment. The diagonal branch which is small to medium caliber vessel appeared to have been jailed by the stent resulting in 80% ostial stenosis, described in prior cardiac cathete rization. c. The left circumflex artery showed widely patent stent in the midsegment. d. The right coronary artery was a large and dominant vessel arising from the right sinus of Valsalva that did not show any significant stenosis Conclusion 1. Widely patent previously placed stents in the left anterior descending and left circumflex arteries. The diagonal branch which is a small to medium caliber vessel showed 80% ostial stenosis from stent jailing, described in prior cardiac catheterization. No lesions needing intervention were noted. 2. Normal left ventricular systolic function with ejection fraction estimated at 50 to 55%. Recommendations Medical Therapy DATE: 12/16/19 1216 ASSESSMENT/PLAN Assessment/Plan 1. Chest pain, atypical. Troponin series normal- AMI ruled out. 2. CAD; s/p previous PCI/stent to the LAD and more recent PCI/LUCILLE to LCx 12/2018. Echocardiogram 01/15 showed normal LV function. Cath 12/16 without lesions needing intervention. LVEF preserved per cath. 3. Diabetes, II; as per PCP 4. Hypertension; controlled 5. Hyperlipidemia; statin 6. H/o DVT/PE 7. Hx of CVA with left side weakness 8. 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 Lux as scheduled RAMONA JAVED APRN Oct 19, 2020 08:39
[2020-10-19] MEDS: MORPHINE SULFATE 2 MG/ML DISP.SYRIN. IVP PRN (08:42)
[2020-10-19] MEDS: ALPRAZolam 0.5 MG TABLET PO SCH (08:42)
[2020-10-19] MEDS ORDERED: CLOPIDOGREL BISULFATE 75 MG TABLET PO SCH (09:00)
[2020-10-19] MEDS ORDERED: LISINOPRIL 20 MG TABLET PO SCH (09:00)
[2020-10-19] MEDS ORDERED: ASPIRIN CHEWABLE 81 MG TABLET. PO SCH (09:00)
[2020-10-19] MEDS ORDERED: ISOSORBIDE MONONITRATE ER 30 MG TAB.ER.24H PO SCH (09:00)
[2020-10-19] MEDS ORDERED: METOPROLOL TART IMMED RELEASE 25 MG TABLET. PO SCH (09:00)
[2020-10-19 09:12] VITALS: BP 127/6
[2020-10-19] MEDS ORDERED: MORPHINE SULFATE 2 MG/ML DISP.SYRIN. IV ONE (09:15)
[2020-10-19] MEDS ORDERED: NALOXONE 0.4 MG/ML VIAL. IV ONE (11:15)
[2020-10-19] MEDS ORDERED: FLUMAZENIL 0.5 MG/5 ML VIAL. IV ONE (11:15)
--- NOTE | 2020-10-19 12:44 | HP ---
ADMIT DATE: 10/19/2020 ATTENDING PHYSICIAN: Dr. Campbell CHIEF COMPLAINT: Chest wall pain. HISTORY OF PRESENT ILLNESS: The patient is a 69-year-old female with a left-sided chest wall pain, radiation to her back, neck and arm, started at 9:00 in the morning of admission. She reported some associated nausea. There are multiple trigger points as well as reproducible pain on palpation. She was admitted for further treatment and evaluation. She has had a recent normal cardiac catheterization. There are no signs of pulmonary embolus per CT angiogram. PAST MEDICAL HISTORY: Significant for underlying anxiety; asthma; chronic pain syndrome; COPD; diabetes; heart disease; hypertension; idiopathic seizures and stroke, whether the seizures are real remains to be seen. PAST SURGICAL HISTORY: Appendectomy, cholecystectomy, hysterectomy, oophorectomy. ALLERGIES: She has allergies to OXYCODONE AND PREDNISONE, REACTION IS UNCLEAR. CURRENT MEDICATIONS: Reviewed. She was not on any anti-inflammatory drugs. She was on alprazolam, aspirin, Plavix, Neurontin, hydrocodone, insulin, isosorbide, lisinopril, metoprolol, Singulair, Crestor, Mirapex and trazodone. SOCIAL HISTORY: She is a nonsmoker at this time. She denies any alcohol use. FAMILY HISTORY: Unobtainable. REVIEW OF SYSTEMS: Significant for multiple pains. There is a lot of stress at home. Chest pain is localized. All other systems reviewed and turned to be negative. PHYSICAL EXAMINATION: GENERAL: I saw her, this is a pleasant, chronically ill-appearing female. VITAL SIGNS: Initial vital signs showed a blood pressure of 119/72, pulse is 85 and regular, temperature 98.5 degrees Fahrenheit on admission. Oxygen saturation 93% on room air. HEENT: Head is without trauma. Pupils are reactive. Sclerae nonicteric. Oropharynx clear. NECK: Supple, no bruits. LUNGS: Otherwise clear. CARDIOVASCULAR: Regular heart tones. No gallops. ABDOMEN: Soft. EXTREMITIES: Without edema. NEUROLOGIC FUNCTION: There are multiple trigger points along the left side of the neck. The anterior chest wall pain is also reproducible and symptomatic. SKIN: Warm and dry. PERTINENT LABORATORY STUDIES AND IMAGING STUDIES: Chest x-ray showed no acute infiltrates, mild ground glass opacities, interstitial markings, no acute infiltrates identified. The first set of cardiac enzymes was negative for coronary ischemia. Her CBC showed a normal hemoglobin 12.6 g/dL with a white count of 45. ASSESSMENT: 1. This 69-year-old female has atypical chest pain which is musculoskeletal in nature. 2. Underlying anxiety component. 3. Previous cardiac catheterization that was patent per Cardiology. 4. Chronic pain syndrome. 5. Essential hypertension. PLAN: 1. Admit to the medical floor, observation status. 2. Serial enzymes. 3. Cardiology consultation in the morning. 4. Continue home medications as ordered. ENRIQUE/KRIS/YASMANI DR: Kishore TID: [id number] CC: BAILEY MORSE MD
--- NOTE | 2020-10-19 20:19 | DS ---
DATE OF DISCHARGE: 10/19/2020 ATTENDING PHYSICIAN: Dr. Campbell. FINAL DISCHARGE DIAGNOSES: 1. Atypical chest pain, coronary ischemia ruled out. 2. Musculoskeletal chest wall pain. 3. Cervical neck pain with radiation. 4. Underlying depression with anxiety. 5. Type 2 diabetes. 6. Essential hypertension. 7. Degenerative arthritis. 8. Chronic obstructive pulmonary disease. 9. History of paroxysmal supraventricular tachycardia. 10. Idiopathic seizure disorder. HISTORY OF PRESENT ILLNESS: The patient is a 69-year-old female with multiple medical issues, admitted with atypical chest pain, left-sided in nature, musculoskeletal reproducible on deep palpation. She also has cervical neck muscle strain and shoulder pain with radiation. PHYSICAL EXAMINATION: Please see the dictated note. PERTINENT LABORATORY AND X-RAY STUDIES: Cardiac enzymes are negative for coronary ischemia. Electrolytes, BUN and creatinine, blood sugar, CBC all within normal range. COURSE IN THE HOSPITAL: The patient was admitted. She was seen in consultation by Cardiology service. Monitoring was obtained. She responded well to some Narcan and Romazicon when she got a little obtunded and we administered, I witnessed it, ordered the appropriate medication, she promptly woke up. We got a soft cervical collar. We reassured her that the pain is not cardiac in nature. There is a lot of anxiety component. She perked up when her showed up and I reassured her that she did not have anything critical at this time. She wanted to go home. I felt this is reasonable. Therefore, she was discharged home the next hospital day fairly alert with vital signs stable and pain improved with a soft cervical collar. Her home meds are unchanged. They include the following: She should continue her alprazolam p.r.n., aspirin 81 mg daily, Plavix 75 mg daily, Neurontin, hydrocodone p.r.n., regular insulin as scheduled, isosorbide mononitrate, lisinopril, metoprolol, Singulair, Mirapex, Crestor, and trazodone doses unchanged. She will follow up with Dr. Hurst as scheduled. No new prescriptions were given. She was discharged then from our hospital in stable condition with explicit drug and followup care. PARESH DR: Kishore TID: [id number] CC: BAILEY HURST MD
--- NOTE | 2020-10-19 22:12 | PN ---
DATE: 10/19/2020 ATTENDING PHYSICIAN: Dr. Cisse. SUBJECTIVE: The patient is teary eyed. She is complaining of left-sided chest wall pain. In addition, there is a left-sided posterior cervical pain radiating down her arm. OBJECTIVE FINDINGS: VITAL SIGNS: Her blood pressure today is 121/72 mmHg. She is afebrile, pulse is 85 and regular, her oxygen saturation is 93% on room air. HEENT: Head is without trauma. Pupils are reactive. Sclerae are nonicteric. Oropharynx clear. NECK: There were multiple trigger points along her posterior cervical neck muscles radiating down to the left arm. There is significant muscle spasm palpated. LUNGS: Her lungs are clear. I can reproduce the chest wall pain on mild deep palpation along the sternal border. CARDIOVASCULAR: Showed regular heart tones. ABDOMEN: Soft. EXTREMITIES: Without edema. NEUROLOGIC: Function focally intact. LABORATORY DATA: Cardiac enzymes were negative for coronary ischemia. Blood sugar nonfasting was 136. ASSESSMENT: 1. A 69-year-old female with atypical chest pain, noncardiac in nature. 2. History of previous coronary artery disease and stents with recent normal cardiac catheterization. 3. Multiple admissions with atypical chest pain. 4. Underlying depression with anxiety. 5. Chronic obstructive pulmonary disease. 6. History of idiopathic seizure disorder, which may be pseudoseizures. 7. History of lymphoma. 8. Previous hysterectomy, cholecystectomy, appendectomy and oophorectomy. PLAN: 1. Morphine for pain. 2. Reassurance that her pain is noncardiac in nature. 3. Formal cardiology consultation with reassurance to her that her symptoms are noncardiac. 4. Continue home medications as ordered. HUSAM DR: Kishore TID: [id number]
--- NOTE | 2020-10-20 06:32 | EKG ---
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
--- NOTE | 2020-10-20 06:33 | EKG ---
[facility] ED [facility] [address] [place] [id number] Test Date: 2020-10-18 Test Time: 13:41:27 Pat Name: NILESH ENCINAS Department: Room: 107 A Gender: F Track Manager: MADELEINE : 1950 Requested By: SHANIQUE PICKETT Order Number: [id number] Reading MD: Measurements Intervals [place] Rate: 61 P: 52 [place]: 180 QRS: -16 QRSD: 78 T: 26 QT: 460 QTc: 465 Interpretive Statements SINUS RHYTHM LEFTWARD AXIS OTHERWISE NORMAL ECG RI6.02 Compared to ECG 10/18/2020 12:59:37 Prolonged QT interval no longer present
== END 2020-10-19 13:06 | disposition home or self-care (01) ==
LOC: ER 12:50 → 1 SOUTH 14:04 → ER 15:46
PROVIDERS: ADMIT Internal Medicine; ATTEND Internal Medicine
DX: R07.89 Other chest pain (principal); F41.9 Anxiety disorder, unspecified; G89.4 Chronic pain syndrome; I11.0 Hypertensive heart disease with heart failure; I50.9 Heart failure, unspecified; I47.1 Supraventricular tachycardia; M54.2 Cervicalgia; J44.9 Chronic obstructive pulmonary disease, unspecified; E11.9 Type 2 diabetes mellitus without complications; I25.2 Old myocardial infarction; C85.90 Non-Hodgkin lymphoma, unspecified, unspecified site; M19.90 Unspecified osteoarthritis, unspecified site; G40.89 Other seizures; Z95.1 Presence of aortocoronary bypass graft; Z90.49 Acquired absence of other specified parts of digestive tract; Z79.899 Other long term (current) drug therapy; Z98.890 Other specified postprocedural states; Z79.02 Long term (current) use of antithrombotics/antiplatelets; Z79.82 Long term (current) use of aspirin; Z86.73 Personal history of transient ischemic attack (TIA), and cerebral infarction without residual deficits; Z79.4 Long term (current) use of insulin
CPT/HCPCS: 36415; 71045; 80047; 80053; 81001; 82553; 82947; 83690; 83735; 84484; 85025; 93005; 96374; 96375; 96376; 99285; G0378; J1815; J1940; J2270; J2310; J2405; J3010; J3490; G0379

== ENCOUNTER 2020-10-24 14:15 | Emergency (ER) | payer MEDICARE ==
[~2020-10-24] VITALS: Ht 162.6 cm; Wt 97.7 kg
[~2020-10-24 14:15] MED LIST changes: +GABA-586 PO
--- NOTE | 2020-10-24 14:28 | PHYS DOC ---
Past History Past Medical History: Anxiety, Asthma, CAD, CHF, COPD, Diabetes, Heart Disease, Hypertension, SD, Seizure, Stroke Additional Past Medical Histor: Cardiac, lymphoma Past Surgical History: Appendectomy, Cholecystectomy, Hysterectomy, Oophorectomy, Other Additional Past Surgical Histo: PCI with stents, ortho Smoking: Non-smoker Alcohol Use: None Drug Use: None Adult General Chief Complaint Chief Complaint: SHORTNESS OF BREATH [facility] HPI Patient is a 69-year-old female presenting via EMS for shortness of breath. She is a poor historian at baseline. Was recently here at our facility on the and later reported to [facility] on the where she was admitted with diagnosis of pulmonary embolism. She reports "they put me on a heparin drip and did a lot of stuff", states she was discharged home yesterday and continues to take Plavix which was a chronic medication for her given history of SD with stents. States she had continued shortness of breath with cough on discharge and this had persisted since being home. Nothing known made better or worse, she denies any pain. Denies any tobacco abuse, no history of COPD or supplemental oxygen dependence at home. EMS report patient was hemodynamically stable on arrival to scene, and daughter were there, daughter questions if patient left AGAINST MEDICAL ADVICE Review of Systems Review of Systems Fourteen body systems of review of systems have been reviewed. See HPI for pertinent positives and negative responses, other thompson all other systems are negative, non-pertinent or non-contributory Allergies Allergies Allergies Coded Allergies Type Severity Reaction Last Updated Verified prednisone Allergy Severe SEIZURES 08/26/20 No oxycodone Allergy Intermediate 08/26/20 Yes Physical Exam Physical Exam Constitutional: Well developed, well nourished, no acute distress, non-toxic appearance. HENT: Normocephalic, atraumatic, bilateral external ears normal, oropharynx dry with poor dentition, no oral exudates, nose normal. Eyes: PERRLA, EOMI, conjunctiva normal, no discharge. Neck: Normal range of motion, no tenderness, supple, no stridor. Cardiovascular: Heart rate regular, sinus rhythm, no murmurs rubs or gallops Lungs & Thorax: Increased work of breathing and tachypneic without overt respiratory distress or failure, maintaining oxygen saturation greater than 90% on room air, there is diffuse wheezes most prominent during end expiratory phases Abdomen: Bowel sounds normal, soft, no tenderness, no masses, no pulsatile masses. Nonsurgical abdomen, no peritoneal signs Skin: Warm, dry, no erythema, no rash. Back: No tenderness, no CVA tenderness. Extremities: No tenderness, no cyanosis, no clubbing, ROM intact, no edema. Neurologic: Alert and oriented X 3, grossly normal motor & sensory function, no focal deficits noted. Psychologic: Affect normal, judgement normal, mood normal. Current Patient Data Vital Signs Vital Signs Date Time Temp Pulse Resp B/P (MAP) Pulse Ox O2 Delivery O2 Flow Rate FiO2 10/24/20 14:15 98.2 80 25 122/72 (89) 97 Nasal Cannula 2.0 Vital Signs Date Time Temp Pulse Resp B/P (MAP) Pulse Ox O2 Delivery O2 Flow Rate FiO2 10/24/20 14:45 97 Nasal Cannula 3.0 10/24/20 14:15 98.2 80 25 122/72 (89) Lab Results Laboratory Tests Test 10/24/20 14:35 White Blood Count 2.4 x10^3/uL Red Blood Count 4.03 x10^6/uL Hemoglobin 12.2 g/dL Hematocrit 36.1 % Mean Corpuscular Volume 90 fL Mean Corpuscular Hemoglobin 30 pg Mean Corpuscular Hemoglobin Concent 34 g/dL Red Cell Distribution Width 14.1 % Platelet Count 116 x10^3/uL Neutrophils (%) (Auto) 61 % Lymphocytes (%) (Auto) 28 % Monocytes (%) (Auto) 8 % Eosinophils (%) (Auto) 3 % Basophils (%) (Auto) 0 % Neutrophils # (Auto) 1.5 x10^3uL Lymphocytes # (Auto) 0.7 x10^3/uL Monocytes # (Auto) 0.2 x10^3/uL Eosinophils # (Auto) 0.1 x10^3/uL Basophils # (Auto) 0.0 x10^3/uL Platelet Estimate Pending Prothrombin Time 11.0 SEC Prothromb Time International Ratio 1.1 Activated Partial Thromboplast Time 30 SEC Sodium Level 146 mmol/L Potassium Level 3.7 mmol/L Chloride Level 110 mmol/L Carbon Dioxide Level 24 mmol/L Anion Gap 12 Blood Urea Nitrogen 6 mg/dL Creatinine 0.7 mg/dL Estimated GFR (Cockcroft-Gault) 82.7 BUN/Creatinine Ratio 9 Glucose Level 112 mg/dL Calcium Level 8.1 mg/dL Total Bilirubin 0.5 mg/dL Aspartate Amino Transf (AST/SGOT) 58 U/L Alanine Aminotransferase (ALT/SGPT) 34 U/L Alkaline Phosphatase 95 U/L Troponin I Quantitative 0.027 ng/mL BM-[id number]-Q-Type Natriuretic Peptide 2030 pg/mL Total Protein 6.4 g/dL Albumin 3.2 g/dL Albumin/Globulin Ratio 1.0 Current Medications Medications (Trade) Dose Ordered Sig/Sherrie Route PRN Reason Start Time Stop Time Status Last Admin Dose Admin Albuterol/ Ipratropium (Duoneb) 3 ml 1X ONCE NEB 10/24/20 14:30 10/24/20 14:31 DC 10/24/20 14:45 EKG EKG EKG ordered and interpreted by myself at 1438 hrs. as sinus rhythm at 70 bpm, long QTC at 476 otherwise unremarkable intervals, left axis deviation, no acute ischemic findings, no STEMI Radiology/Procedures Radiology/Procedures EXAM: Chest, single view. HISTORY: Short of breath. COMPARISON: 10/18/2020 FINDINGS: A frontal view of the chest is obtained. There is stable mild diffuse increased interstitial opacity. There is no consolidation, pleural effusion or pneumothorax. The heart is normal in size. There is a coronary artery stent. IMPRESSION: Stable mild diffuse increased interstitial opacity suggesting interstitial infiltrate. Electronically signed by: Becki Cheng MD (10/24/2020 3:12 PM) [id number] Heart Score C/O Chest Pain: No HEART Score for Chest Pain: HEART Score for Chest Pain Response (Comments) Value History Moderately Suspicious 1 ECG Nonspecific Repolarizatio 1 Age > 65 2 Risk Factors >3 Risk Factors or Hx CAD 2 Troponin < Normal Limit 0 Total 6 Risk Factors: Risk Factors: DM, Current or recent (<one month) smoker, HTN, HLP, family history of CAD, obesity. Risk Scores: Risk Factors: DM, Current or recent (<one month) smoker, HTN, HLP, family history of CAD, obesity. Course & Med Decision Making Course & Med Decision Making ABCs unremarkable. I disclosed entirety of ER findings and discussed most likely diagnosis of COPD exacerbation. I obtained records from [facility] and reviewed them thoroughly, appears she was admitted for several days for which she had CTA thorax showing mild filling defect in the right lower lobe, appears a minute pulmonary arterial branch pulmonary embolism that did not meet need/criteria for anticoagulation. Patient had echocardiogram among other testing performed that was grossly unremarkable. Does appear based on their imaging though that patient had pulmonary infiltrates that have been untreated and so, joint decision made to treat with antibiotics. Patient has history of seizures with steroids and so decision was made to defer any steroid treatment today. I also reviewed patient's leukopenia, she discloses she has history of B-cell lymphoma and this is a chronic issue for her. Ultimately, I discussed and recommended hospitalization for continued cardiac observation and inpatient medical management of pulmonary opacities but patient deferred, states she would rather go home and trial outpatient antibiotic therapy given that she is hemodynamically stable. I feel this is an appropriate option given that she has good family support at home. As such, I stressed need for close outpatient follow-up to review today's ER visit. Strict return precautions were also discussed at length with good understanding by patient. Patient voiced understanding and agreement with the plan. Patient knows to come back for repeat evaluation if concerning signs or symptoms present prior to outpatient follow- up. Hemodynamically stable, ambulatory and well-appearing at time of disposition. Dragon Disclaimer Dragon Disclaimer This electronic medical record was generated, in whole or in part, using a voice recognition dictation system. Departure Departure: Impression: Primary Impression: COPD exacerbation Additional Impressions: Pulmonary embolism History of B-cell lymphoma Disposition: HOME / SELF CARE / HOMELESS Condition: STABLE Referrals: BAILEY MORSE MD (PCP) Patient Instructions: Doxycycline tablets or capsules Additional Instructions: You were seen for pulmonary infiltrates concerning for COPD exacerbation versus developing pneumonia. Please continue your current regimen for symptom control and doxycycline antibiotic that was prescribed to you during your ED visit today, take them as prescribed until completion or your primary doctor changes your medications. It will be important that you follow up with your primary doctor and wrinkle chaser after this ED visit to review recent change in health that includes small right lower lobe minute pulmonary embolism that did not meet criteria for anticoagulation use beyond daily Plavix. Return to the ED if you develop worsening cough, shortness of breath, fever > 101, chest pain, or any other new or concerning symptoms. It was a pleasure to take care of you and I wish you the best going forward Scripts Doxycycline Hyclate (DOXYCYCLINE HYCLATE) 100 Mg Capsule 1 CAP PO BID for COPD, #13 CAP Prov: STEVEN TORREZ DO 10/24/20 Problem Qualifiers STEVEN TORREZ DO Oct 24, 2020 14:28
[2020-10-24] MEDS ORDERED: IPRATRPIUM/ALBUTEROL 0.5/2.5MG 3 ML NEBU. NEB ONE (14:30)
[2020-10-24 14:50] LABS: BASO % 0 % (0-3); EOS # 0.1 x10^3/uL (0.0-0.7); EOS % 3 % (0-3); HEMATOCRIT 36.1 % (36.0-47.0); HEMOGLOBIN 12.2 g/dL (12.0-15.5); LYMPH # 0.7 x10^3/uL (1.0-4.8); LYMPH % 28 % (24-48); MEAN CORPUSCULAR HEMOGLOBIN 30 pg (25-35); MEAN CORPUSCULAR HGB CONC 34 g/dL (31-37); MEAN CORPUSCULAR VOLUME 90 fL (79-100); MONO # 0.2 x10^3/uL (0.0-1.1); MONO % 8 % (0-9); NEUT # 1.5 x10^3uL (1.8-7.7); NEUT % 61 % (31-73); PLATELET COUNT 116 x10^3/uL (140-400); RED BLOOD COUNT 4.03 x10^6/uL (3.50-5.40); RED CELL DISTRIBUTION WIDTH 14.1 % (11.5-14.5); WHITE BLOOD COUNT 2.4 x10^3/uL (4.0-11.0)
[2020-10-24 15:12] LABS: ALBUMIN 3.2 g/dL (3.4-5.0); CALCIUM 8.1 mg/dL (8.5-10.1); CREATININE 0.7 mg/dL (0.6-1.0); GFR 82.7; POTASSIUM 3.7 mmol/L (3.5-5.1); TOTAL BILIRUBIN 0.5 mg/dL (0.2-1.0); TOTAL PROTEIN 6.4 g/dL (6.4-8.2)
--- NOTE | 2020-10-24 15:15 | RAD ---
EXAM: Chest, single view. HISTORY: Short of breath. COMPARISON: 10/18/2020 FINDINGS: A frontal view of the chest is obtained. There is stable mild diffuse increased interstitia l opacity. There is no consolidation, pleural effusion or pneumothorax. The heart is normal in size. There is a coronary artery stent. IMPRESSION: Stable mild diffuse increased interstitial opacity suggesting interstitial infiltrate. Electronically signed by: Becki Cheng MD (10/24/2020 3:12 PM) [id number]
[2020-10-24 15:37] LABS: % EOS 2 % (0-5); % LYMPHS 24 % (24-48); % MONOS 8 % (0-10); % SEGS 66 % (35-66); PLT ESTIMATE DECREASED (ADEQUATE)
[2020-10-24 15:50] VITALS: BP 139/91
[2020-10-24] MEDS ORDERED: DOXY100C2 PO (15:51)
[2020-10-24] MEDS ORDERED: DOXYCYCLINE HYCLATE 100 MG TABLET PO ONE (16:00)
--- NOTE | 2020-10-25 21:30 | EKG ---
[address] [address] Test Date: 2020-10-24 Test Time: 14:33:50 Pat Name: NILESH ENCINAS Department: Room: Gender: F Ferry Captain: NANCY : 1950 Requested By: STEVEN TORREZ Order Number: [id number] Reading MD: Measurements Intervals [place] Rate: 70 P: 23 [place]: 172 QRS: -11 QRSD: 80 T: 20 QT: 438 QTc: 476 Interpretive Statements SINUS RHYTHM LEFTWARD AXIS LOW LIMB LEAD VOLTAGE PROLONGED QT NO SPECIFIC ECG ABNORMALITIES RI6.02 No previous ECG available for comparison
== END 2020-10-24 16:05 | disposition home or self-care (01) ==
LOC: ER 14:15
DX: J44.1 Chronic obstructive pulmonary disease with (acute) exacerbation (principal); I26.99 Other pulmonary embolism without acute cor pulmonale; I11.0 Hypertensive heart disease with heart failure; I50.9 Heart failure, unspecified; C85.10 Unspecified B-cell lymphoma, unspecified site; Z88.8 Allergy status to other drugs, medicaments and biological substances; Z88.5 Allergy status to narcotic agent; Z90.49 Acquired absence of other specified parts of digestive tract; Z90.710 Acquired absence of both cervix and uterus
CPT/HCPCS: 36415; 71045; 80053; 83880; 84484; 85007; 85025; 85610; 85730; 93005; 94640; 99285-25

== ENCOUNTER 2020-12-22 10:59 | Emergency (ER) | payer MEDICARE ==
[~2020-12-22] VITALS: Ht 162.6 cm; Wt 96.4 kg
[~2020-12-22 10:59] MED LIST changes: +APIX5TAB3 PO; +DOXY100C3 PO; +ISOS60TA55 PO; +LOSA25TA11 PO; +METO50TA29 PO
--- NOTE | 2020-12-22 11:47 | RAD ---
EXAM: Chest, single view. HISTORY: Chest pain. COMPARISON: 12/16/2020 FINDINGS: A frontal view of the chest is obtained. There is stable coarse diffuse increased interstit ial opacity. There is no consolidation, pleural effusion or pneumothorax. The heart is normal in size . There is a surgical anchor within the right humeral head. IMPRESSION: Stable coarse diffuse increased interstitial opacity likely due to chronic interstitial c hanges. The possibly of superimposed interstitial infiltrate is not excluded. Electronically signed by: Becki Cheng MD (12/22/2020 11:45 AM) [id number]
--- NOTE | 2020-12-22 11:56 | EKG ---
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
[2020-12-22 12:24] LABS: BASO % 0 % (0-3); EOS # 0.2 x10^3/uL (0.0-0.7); EOS % 4 % (0-3); HEMATOCRIT 36.4 % (36.0-47.0); HEMOGLOBIN 12.2 g/dL (12.0-15.5); LYMPH # 1.2 x10^3/uL (1.0-4.8); LYMPH % 19 % (24-48); MEAN CORPUSCULAR HEMOGLOBIN 31 pg (25-35); MEAN CORPUSCULAR HGB CONC 34 g/dL (31-37); MEAN CORPUSCULAR VOLUME 92 fL (79-100); MONO # 0.5 x10^3/uL (0.0-1.1); MONO % 8 % (0-9); NEUT # 4.5 x10^3uL (1.8-7.7); NEUT % 69 % (31-73); PLATELET COUNT 230 x10^3/uL (140-400); RED BLOOD COUNT 3.94 x10^6/uL (3.50-5.40); RED CELL DISTRIBUTION WIDTH 14.2 % (11.5-14.5); WHITE BLOOD COUNT 6.5 x10^3/uL (4.0-11.0)
[2020-12-22 12:26] LABS: CALCIUM 8.3 mg/dL (8.5-10.1); CREATININE 0.8 mg/dL (0.6-1.0); GFR 70.7
--- NOTE | 2020-12-22 12:35 | RAD ---
EXAM: Head CT without contrast. HISTORY: Left upper extremity paresthesia. TECHNIQUE: Computed tomographic images of the head were obtained without contrast. *One or more of the following individualized dose reduction techniques were utilized for this examina tion: 1. Automated exposure control. 2. Adjustment of the mA and/or kV according to patient size. 3. Use of iterative reconstruction technique. COMPARISON: 12/16/2020. FINDINGS: There is no acute or subacute extra-axial or intraparenchymal hemorrhage. There is no mass effect or midline shift. There is no hydrocephalus. There are areas of decreased attenuation within the cerebral white matter, nonspecific and likely rel ated to chronic small vessel disease. There is a suspected tiny chronic lacunar infarct or dilated pe rivascular space within the right basal ganglia. The visualized portions of the orbits, paranasal sinuses and mastoid air cells are unremarkable. No s uspicious calvarial lesion is seen. IMPRESSION: No acute intracranial finding. Note is made that MRI is more sensitive for acute infarcti on. Electronically signed by: Becki Cheng MD (12/22/2020 12:32 PM) [id number]
--- NOTE | 2020-12-22 12:41 | PHYS DOC ---
Past History Past Medical History: Anxiety, Asthma, CAD, CHF, COPD, Diabetes, Heart Disease, Hypertension, DC, Seizure, Stroke Additional Past Medical Histor: PE Past Surgical History: Appendectomy, Cholecystectomy, Hysterectomy, Oophorectomy, Other Additional Past Surgical Histo: PCI with stents, ortho Smoking: Non-smoker Alcohol Use: None Drug Use: None Adult General Chief Complaint Chief Complaint: UPPER EXTREMITY INJURY [facility] HPI Patient is a 70-year-old female presenting for right upper extremity numbness and tingling. She has complicated medical history. Last week she was admitted for several days at [facility] for a stroke that affected her left face and left upper extremity. She stayed for several days and had extensive head imaging such as CT and MRIs. She was subsequently discharged home and symptoms appeared to have resolved. She went to her primary care physician shabbir german for hospital follow-up appointment and complained of right upper extremity numbness and tingling of her arm without any known trauma, exposure or other concerning event. This happened 2 days ago and has been persistent ever since. Primary care physician was worried and referred patient to our ER for evaluation. Review of Systems Review of Systems Fourteen body systems of review of systems have been reviewed. See HPI for pertinent positives and negative responses, other thompson all other systems are negative, non-pertinent or non-contributory Allergies Allergies Allergies Coded Allergies Type Severity Reaction Last Updated Verified bee venom protein (honey bee) Allergy Severe Shortness of Air 12/17/20 Yes prednisone Allergy Severe SEIZURES 08/26/20 No oxycodone Allergy Intermediate 08/26/20 Yes Physical Exam Physical Exam Constitutional: Well developed, well nourished, no acute distress, non-toxic appearance. HENT: Normocephalic, atraumatic, bilateral external ears normal, oropharynx moist, no oral exudates, nose normal. Eyes: PERRLA, EOMI, conjunctiva normal, no discharge. Neck: Normal range of motion, no tenderness, supple, no stridor. No meningeal signs or nuchal rigidity Cardiovascular: Heart rate regular, sinus rhythm, no murmurs rubs or gallops Lungs & Thorax: Bilateral breath sounds clear to auscultation Abdomen: Bowel sounds normal, soft, no tenderness, no masses, no pulsatile masses. Nonsurgical abdomen, no peritoneal signs Skin: Warm, dry, no erythema, no rash. Back: No tenderness, no CVA tenderness. Extremities: No tenderness, no cyanosis, no clubbing, ROM intact, no edema. Neurologic: Alert and oriented X 3, cranial nerves II through XII intact, normal motor & sensory function, no focal deficits noted. Positive Spurling exam exa cerbating symptoms in right upper extremity Psychologic: Affect normal, judgement normal, mood normal. Current Patient Data Vital Signs Vital Signs Date Time Temp Pulse Resp B/P (MAP) Pulse Ox O2 Delivery O2 Flow Rate FiO2 12/22/20 11:22 97.6 70 20 132/75 96 Room Air Lab Results Laboratory Tests Test 12/22/20 11:56 White Blood Count 6.5 x10^3/uL (4.0-11.0) Red Blood Count 3.94 x10^6/uL (3.50-5.40) Hemoglobin 12.2 g/dL (12.0-15.5) Hematocrit 36.4 % (36.0-47.0) Mean Corpuscular Volume 92 fL (79-100) Mean Corpuscular Hemoglobin 31 pg (25-35) Mean Corpuscular Hemoglobin Concent 34 g/dL (31-37) Red Cell Distribution Width 14.2 % (11.5-14.5) Platelet Count 230 x10^3/uL (140-400) Neutrophils (%) (Auto) 69 % (31-73) Lymphocytes (%) (Auto) 19 % (24-48) L Monocytes (%) (Auto) 8 % (0-9) Eosinophils (%) (Auto) 4 % (0-3) H Basophils (%) (Auto) 0 % (0-3) Neutrophils # (Auto) 4.5 x10^3uL (1.8-7.7) Lymphocytes # (Auto) 1.2 x10^3/uL (1.0-4.8) Monocytes # (Auto) 0.5 x10^3/uL (0.0-1.1) Eosinophils # (Auto) 0.2 x10^3/uL (0.0-0.7) Basophils # (Auto) 0.0 x10^3/uL (0.0-0.2) Sodium Level 141 mmol/L (136-145) Potassium Level 4.0 mmol/L (3.5-5.1) Chloride Level 108 mmol/L (98-107) H Carbon Dioxide Level 28 mmol/L (21-32) Anion Gap 5 (6-14) L Blood Urea Nitrogen 9 mg/dL (7-20) Creatinine 0.8 mg/dL (0.6-1.0) Estimated GFR (Cockcroft-Gault) 70.7 Glucose Level 161 mg/dL (70-99) H Calcium Level 8.3 mg/dL (8.5-10.1) L Troponin I Quantitative < 0.017 ng/mL (0-0.055) EKG EKG EKG ordered and interpreted by myself at 1133 hrs. as sinus rhythm at 64 bpm, prolonged QT at 462 and QTC 481 otherwise unremarkable intervals, left axis deviation, no ischemic findings, no STEMI Radiology/Procedures Radiology/Procedures EXAMINATION: CTA HEAD AND NECK W/WO CONTRAST, CT CERVICAL SPINE WO INDICATION:70 years, Female, right upper extremity numbness and tingling. TECHNIQUE: Axial CT images of the cervical spine obtained without IV contrast. Coronal and sagittal reformats were obtained. After bolus of intravenous contrast, volumetric CT data acquisition was acquired of the head and neck. Multiplanar reconstruction images to include MIP and 3-D reconstruction images are submitted. Exposure: One or more of the following individualized dose reduction techniques were utilized for this examination: 1. Automated exposure control 2. Adjustment of the mA and/or kV according to patient size 3. Use of iterative reconstruction technique. COMPARISON: None FINDINGS: Any determination of stenosis is based on NASCET criteria. Head CTA: ICA: No stenosis, occlusion or aneurysm. MCA: No stenosis, occlusion or aneurysm. MARS: No stenosis, occlusion or aneurysm. NEONATOLOGIST: No stenosis, occlusion or aneurysm. Basilar artery: No stenosis, occlusion or aneurysm. Distal vertebral arteries: No stenosis, occlusion or aneurysm. CT angiogram neck: Aortic arch: Patent Common carotid arteries: No stenosis, occlusion or dissection. Internal carotid arteries: No stenosis, occlusion or dissection. External carotid arteries: Patent Vertebral arteries: No stenosis, occlusion or dissection. Imaged lung apices demonstrates bilateral upper lobes peribronchial thickening in with coarse interstitial lung markings, similar to prior exam. Mosaic attenuations in the upper lobes, likely reflecting trapping. Soft tissues appear normal. CT CERVICAL SPINE: Anatomic alignment of the cervical spine is maintained. Neither fracture, subluxation, nor traumatic spondylolisthesis is seen. The vertebral body heights are preserved. The prevertebral and paravertebral soft tissues are within normal limits. Severe multilevel degenerative changes with disc space narrowing, endplate erosion and osteophytes. Multilevel bilateral facet and uncovertebral ar thropathy. Severe left C3-4 neural foraminal narrowing. Severe left and moderate right neuroforaminal narrowing at C4-5. Severe right and moderate left neuroforaminal narrowing at C5-6. Moderate to severe left neuroforaminal narrowing at C6-7. No significant canal stenosis. IMPRESSION: 1. No significant arterial stenosis, occlusion, or aneurysm is identified in the head or neck. 2. Severe multilevel cervical spondylosis. 3. Severe right neuroforaminal narrowing at C5-6. Electronically signed by: Gabriel Albrecht MD (12/22/2020 2:13 PM) [facility] Heart Score C/O Chest Pain: No HEART Score for Chest Pain: HEART Score for Chest Pain Response (Comments) Value History Slighlty/Non-Suspicious 0 ECG Normal 0 Age > 65 2 Risk Factors >3 Risk Factors or Hx CAD 2 Troponin < Normal Limit 0 Total 4 Risk Factors: Risk Factors: DM, Current or recent (<one month) smoker, HTN, HLP, family history of CAD, obesity. Risk Scores: Risk Factors: DM, Current or recent (<one month) smoker, HTN, HLP, family history of CAD, obesity. Course & Med Decision Making Course & Med Decision Making ABCs unremarkable. I disclosed entirety of ER findings and discussed most likely diagnosis of radicular symptoms involving right upper extremity. I disclosed entirety of ER work-up and findings with patient. I contacted patient's neurologist, Dr. Garcia, who agreed to current work-up and need for close outpatient follow-up. He asked that patient present to his office next business day for outpatient evaluation and further care as indicated. Plan of care discussed at length with need for close outpatient follow-up to review today's ER visit stressed. Strict return precautions were also discussed at length with good understanding by patient. Patient voiced understanding and agreement with the plan. Patient knows to come back for repeat evaluation if concerning signs or symptoms present prior to outpatient follow-up. Hemodynamically stable, ambulatory and well-appearing at time of disposition. Dragon Disclaimer Dragon Disclaimer This electronic medical record was generated, in whole or in part, using a voice recognition dictation system. Departure Departure: Impression: Primary Impression: Radicular pain in right arm Disposition: HOME / SELF CARE / HOMELESS Condition: STABLE Referrals: BAILEY MORSE MD (PCP) Additional Instructions: As discussed prior to your departure, you are likely suffering from radicular pain due to cervical spine stenosis. I contacted your neurologist, Dr. Garcia, and reviewed your ER work-up and findings at length. He agreed need for close outpatient follow-up and wants to see you in his clinic first thing tomorrow. Please call his office immediately after ER departure to confirm your time of appointment. Any concerning signs or symptoms present prior to outpatient follow-up please do not hesitate to come back for repeat evaluation. It was a pleasure to take care of you and I wish you the best going forward STEVEN TORREZ DO Dec 22, 2020 12:41
[2020-12-22] MEDS ORDERED: IOHEXOL 350 MG/ML 100 ML VIAL. IV ONE (13:00)
--- NOTE | 2020-12-22 14:16 | RAD ---
EXAMINATION: CTA HEAD AND NECK W/WO CONTRAST, CT CERVICAL SPINE WO INDICATION:70 years, Female, right upper extremity numbness and tingling. TECHNIQUE: Axial CT images of the cervical spine obtained without IV contrast. Coronal and sagittal reformats we re obtained. After bolus of intravenous contrast, volumetric CT data acquisition was acquired of the head and neck . Multiplanar reconstruction images to include MIP and 3-D reconstruction images are submitted. Exposure: One or more of the following individualized dose reduction techniques were utilized for thi s examination: 1. Automated exposure control 2. Adjustment of the mA and/or kV according to patient size 3. Use of iterative reconstruction technique. COMPARISON: None FINDINGS: Any determination of stenosis is based on NASCET criteria. Head CTA: ICA: No stenosis, occlusion or aneurysm. MCA: No stenosis, occlusion or aneurysm. MARS: No stenosis, occlusion or aneurysm. CAREER AND GUIDANCE COUNSELOR: No stenosis, occlusion or aneurysm. Basilar artery: No stenosis, occlusion or aneurysm. Distal vertebral arteries: No stenosis, occlusion or aneurysm. CT angiogram neck: Aortic arch: Patent Common carotid arteries: No stenosis, occlusion or dissection. Internal carotid arteries: No stenosis, occlusion or dissection. External carotid arteries: Patent Vertebral arteries: No stenosis, occlusion or dissection. Imaged lung apices demonstrates bilateral upper lobes peribronchial thickening in with coarse interst itial lung markings, similar to prior exam. Mosaic attenuations in the upper lobes, likely reflectin g trapping. Soft tissues appear normal. CT CERVICAL SPINE: Anatomic alignment of the cervical spine is maintained. Neither fracture, subluxation, nor traumatic spondylolisthesis is seen. The vertebral body heights are preserved. The prevertebral and paravertebr al soft tissues are within normal limits. Severe multilevel degenerative changes with disc space narrowing, endplate erosion and osteophytes. M ultilevel bilateral facet and uncovertebral arthropathy. Severe left C3-4 neural foraminal narrowing. Severe left and moderate right neuroforaminal narrowing at C4-5. Severe right and moderate left neur oforaminal narrowing at C5-6. Moderate to severe left neuroforaminal narrowing at C6-7. No significan t canal stenosis. IMPRESSION: 1. No significant arterial stenosis, occlusion, or aneurysm is identified in the head or neck. 2. Severe multilevel cervical spondylosis. 3. Severe right neuroforaminal narrowing at C5-6. Electronically signed by: Gabriel Albrecht MD (12/22/2020 2:13 PM) [facility]
[2020-12-22 14:47] VITALS: BP 127/71
== END 2020-12-22 14:59 | disposition home or self-care (01) ==
LOC: ER 10:59
DX: M79.601 Pain in right arm (principal); I11.0 Hypertensive heart disease with heart failure; I50.9 Heart failure, unspecified; J44.9 Chronic obstructive pulmonary disease, unspecified; Z90.49 Acquired absence of other specified parts of digestive tract; Z90.710 Acquired absence of both cervix and uterus; Z88.8 Allergy status to other drugs, medicaments and biological substances; Z88.5 Allergy status to narcotic agent
CPT/HCPCS: 36415; 70450; 70496; 70498; 71046; 72125; 80048; 84484; 85025; 93005; 99285; Q9967

== ENCOUNTER 2021-02-17 13:34 | Emergency (ER) | payer MEDICARE ==
[~2021-02-17] VITALS: Ht 162.6 cm; Wt 96.4 kg
--- NOTE | 2021-02-17 13:52 | PHYS DOC ---
Past History Past Medical History: Anxiety, Asthma, CAD, CHF, COPD, Diabetes, Heart Disease, Hypertension, OR, Seizure, Stroke Additional Past Medical Histor: PE Past Surgical History: Appendectomy, Cholecystectomy, Hysterectomy, Oophorectomy, Other Additional Past Surgical Histo: PCI with stents, ortho Smoking: Non-smoker Alcohol Use: None Drug Use: None General Adult EDM: Chief Complaint: CHEST PAIN HPI: HPI: Patient is a 70-year-old female who presents to the emergency department for midsternal chest pain that started around 1030 this morning. She rates the pain 8 out of 10. It radiates to her left arm. No alleviating or aggravating fact ors. Patient reports that she took 324 of aspirin and 1 nitro with the nitro did not improve her pain. She is also reporting mild shortness of breath. She denies cough, fever, nausea, vomiting. Patient has an extensive health history including stent placement. Review of Systems: Review of Systems: 14 body systems of the review of systems have been reviewed. See HPI for pertinent positive and negative responses, otherwise all other systems are negative, nonpertinent or noncontributory Allergies: Allergies: Allergies Coded Allergies Type Severity Reaction Last Updated Verified bee venom protein (honey bee) Allergy Severe Shortness of Air 02/17/21 Yes prednisone Allergy Severe SEIZURES 02/17/21 No oxycodone Allergy Intermediate 02/17/21 Yes Physical Exam: PE: Constitutional: Well developed, well nourished, no acute distress, non-toxic appearance. [] HENT: Normocephalic, atraumatic, bilateral external ears normal, oropharynx moist, no oral exudates, nose normal. [] Eyes: PERRL, EOMI, conjunctiva normal, no discharge. [] Neck: Normal range of motion, no stridor Cardiovascular:Heart rate regular rhythm, no murmur [] Lungs & Thorax: Bilateral breath sounds clear to auscultation [] Abdomen: Bowel sounds normal, soft, no tenderness, no masses, no pulsatile masses. [] Skin: Warm, dry, no erythema, no rash. [] Back: Normal range of motion Extremities: No tenderness, no cyanosis, no clubbing, ROM intact, no edema. [] Neurologic: Alert and oriented X 3, normal motor function, normal sensory function, no focal deficits noted. [] Psychologic: Affect normal, judgement normal, mood normal. [] Current Patient Data: Labs: Laboratory Tests Test 02/17/21 13:55 02/17/21 16:57 White Blood Count 5.8 x10^3/uL Red Blood Count 4.38 x10^6/uL Hemoglobin 13.0 g/dL Hematocrit 38.8 % Mean Corpuscular Volume 89 fL Mean Corpuscular Hemoglobin 30 pg Mean Corpuscular Hemoglobin Concent 34 g/dL Red Cell Distribution Width 13.3 % Platelet Count 224 x10^3/uL Neutrophils (%) (Auto) 61 % Lymphocytes (%) (Auto) 26 % Monocytes (%) (Auto) 9 % Eosinophils (%) (Auto) 4 % Basophils (%) (Auto) 1 % Neutrophils # (Auto) 3.5 x10^3uL Lymphocytes # (Auto) 1.5 x10^3/uL Monocytes # (Auto) 0.5 x10^3/uL Eosinophils # (Auto) 0.2 x10^3/uL Basophils # (Auto) 0.1 x10^3/uL Sodium Level 138 mmol/L Potassium Level 5.1 mmol/L Chloride Level 102 mmol/L Carbon Dioxide Level 29 mmol/L Anion Gap 7 Blood Urea Nitrogen 10 mg/dL Creatinine 0.6 mg/dL Estimated GFR (Cockcroft-Gault) 98.5 BUN/Creatinine Ratio 17 Glucose Level 178 mg/dL Calcium Level 9.0 mg/dL Total Bilirubin 0.5 mg/dL Aspartate Amino Transf (AST/SGOT) 35 U/L Alanine Aminotransferase (ALT/SGPT) 27 U/L Alkaline Phosphatase 113 U/L Troponin I Quantitative < 0.017 ng/mL < 0.017 ng/mL Total Protein 7.4 g/dL Albumin 3.7 g/dL Albumin/Globulin Ratio 1.0 Current Medications Medications (Trade) Dose Ordered Sig/Sherrie Route PRN Reason Start Time Stop Time Status Last Admin Dose Admin Sodium Chloride 1,000 ml @ 1,000 mls/hr 1X ONCE IV 02/17/21 14:00 02/17/21 15:00 DC 02/17/21 14:34 Fentanyl Citrate (Fentanyl 2ml Vial) 50 mcg 1X ONCE IVP 02/17/21 14:00 02/17/21 14:01 DC 02/17/21 14:35 Ondansetron HCl (Zofran) 4 mg 1X ONCE IVP 02/17/21 14:00 02/17/21 14:01 DC 02/17/21 14:32 Azithromycin (Zithromax) 500 mg 1X ONCE PO 02/17/21 15:00 02/17/21 15:04 DC 02/17/21 15:36 Amoxicillin/ Clavulanate Potassium (Augmentin 875/ 125mg) 1 tab 1X ONCE PO 02/17/21 15:00 02/17/21 15:04 DC 02/17/21 15:34 Fentanyl Citrate (Fentanyl 2ml Vial) 50 mcg 1X ONCE IVP 02/17/21 15:45 02/17/21 15:46 DC 02/17/21 17:18 Vital Signs: Vital Signs Date Time Temp Pulse Resp B/P (MAP) Pulse Ox O2 Delivery O2 Flow Rate FiO2 02/17/21 13:40 97.9 84 22 180/104 (129) 94 EKG: EKG: EKG performed by ER staff at 1338 shows sinus rhythm, rate of 78, QTc of 471, no STEMI read by Dr. Toledo at 1347 [] Radiology/Procedures: Radiology/Procedures: []PROCEDURE: PORTABLE CHEST 1V XR CHEST 1V CLINICAL INDICATIONS: Reason: CHEST PAIN / Spl. Instructions: / History: COMPARISON: December 22, 2020. Findings: Chronic bilateral interstitial lung infiltrates and/or chronic bronchitis is again evident. There is a new consolidative infiltrate within the lateral right lower lung zone. No pleural effusion or pneumothorax is seen. The heart size, pulmonary vasculature, mediastinum and both bess are unremarkable. IMPRESSION: New right lower lung zone infiltrate. Electronically signed by: Sean Interiano MD (02/17/2021 2:15 PM) [id number] DICTATED AND SIGNED BY: SEAN INTERIANO MD DATE: 02/17/21 1412 CC: JANINE CHAVARRIA APRN; BAILEY MORSE MD ~MTH0 0 Heart Score: C/O Chest Pain: Yes HEART Score for Chest Pain: HEART Score for Chest Pain Response (Comments) Value History Moderately Suspicious 1 ECG Normal 0 Age > 65 2 Risk Factors >3 Risk Factors or Hx CAD 2 Troponin < Normal Limit 0 Total 5 Risk Factors: Risk Factors: DM, Current or recent (<one month) smoker, HTN, HLP, family history of CAD, obesity. Risk Scores: Score 0 - 3: 2.5% MACE over next 6 weeks - Discharge Home Score 4 - 6: 20.3% MACE over next 6 weeks - Admit for Clinical Observation Score 7 - 10: 72.7% MACE over next 6 weeks - Early Invasive Strategies Course & Med Decision Making: Course & Med Decision Making Pertinent Labs and Imaging studies reviewed. (See chart for details) [] Patient presents to the emergency department for midsternal chest pain that radiates to her left arm. Work-up in the ER consisted of blood work, EKG, chest x-ray. Patient treated with IV fluids, nausea and pain medication. Patient states blood work is unremarkable. Her chest x-ray shows right lower lobe inf iltrate. Patient's vital signs are stable and she is not requiring any oxygen. I discussed patient's case with Dr. Campbell who is a hospitalist and he advised to discharge the patient on antibiotics for her pneumonia as she is already had cardiac evaluation. Patient placed on antibiotic, given first dose in the emergency department. Serial troponin performed and was negative. Advised to follow-up with her primary care provider on Saturday. I discussed with patient all findings and diagnostic testing as well as the need to follow-up with PCP for further evaluation and treatment or return to the ER if any new or worsening symptoms. Strict return precautions were also discussed at length. Patient voiced understanding and agreement with the plan. Patient is hemodynamically stable at the time of disposition. Roseline Disclaimer: Roseline Disclaimer: This electronic medical record was generated, in whole or in part, using a voice recognition dictation system. Departure Departure: Impression: Primary Impression: Atypical chest pain Additional Impression: Pneumonia Qualified Codes: J18.9 - Pneumonia, unspecified organism Disposition: HOME / SELF CARE / HOMELESS Condition: GOOD Referrals: BAILEY MORSE MD (PCP) Patient Instructions: Chest Pain (Nonspecific), Pneumonia, Adult Additional Instructions: You are seen in the emergency department for chest pain. Your work-up in the ER was unremarkable. At this time, does not appear that you are having acute coronary syndrome. However, your chest x-ray was noted to have a right lower lobe pneumonia. This will be treated with an antibiotic. Please take antibiotic as directed. Continue taking your aspirin and nitro as previously prescribed for angina. Follow-up with your primary care provider on Saturday regarding your ER visit. Please return to the emergency department if you develop chest pain, shortness of breath, high fevers refractory to treatment, dizziness or lightheadedness, intractable nausea or vomiting. EMERGENCY DEPARTMENT GENERAL DISCHARGE INSTRUCTIONS Thank you for coming to [facility] (ED) today and trusting us with you care. We trust that you had a positivie experience in our Emergency Department. If you wish to speak to the department management, you may call the director at [phone]. YOUR FOLLOW UP INSTRUCTIONS ARE FOLLOWS: 1. Do you have a private Doctor? If you do not have a private doctor, please ask for a resource list of physicians or clinics that may be able to assist you with follow up care. 2. The Emergency Physician has interpreted your x-rays. The X-Ray specialist will also review them. If there is a change in the findings, you will be notified in 48 hours when at all possible. 3. A lab test or culture has been done, your results will be reviewed and you will be notified if you need a change in treatment. ADDITIONAL INSTRUCTIONS AND INFORMATION: 1. Your care today has been supervised by a physician who is specially trained in emergency care. Many problems require more than one evaluation for a complete diagnosis and treatment. We recommend that you schedule your follow up appointment as recommended to ensure complete treatment of you illness or injury. If you are unable to obtain follow up care and continue to have a problem, or if your condition worsens, we recommend that you return to the ED. 2. We are not able to safely determine your condition over the phone nor are we able to give sound medical advice over the phone. For these safety reasons, if you call for medical advice we will ask you to come to the ED for further evaluation. 3. If you have any questions regarding these discharge instructions please call the ED at [phone]. SAFETY INFORMATION: In the interest of safety, wellness, and injury prevention; we encourage you to wear your sealbelt, if you smoke; quite smoking, and we encourage family to use a protective helmet for bicycling and other sporting events that present an increased risk for head injury. IF YOUR SYMPTOMS WORSEN OR NEW SYMPTOMS DEVELOP, OR YOU HAVE CONCERNS ABOUT YOUR CONDITION; OR IF YOUR CONDITION WORSENS WHILE YOU ARE WAITING FOR YOUR FOLLOW UP APPOINTMENT; EITHER CONTACT YOUR PRIMARY CARE DOCTOR, THE PHYSICIAN WHOSE NAME AND NUMBER YOU WERE GIVEN, OR RETURN TO THE ED IMMEDIATELY. Scripts Azithromycin (ZITHROMAX) 250 Mg Tablet 250 MG PO DAILY for ANTI-BIOTIC for 4 Days, #4 TAB 0 Refills Prov: JANINE CHAVARRIA APRN 02/17/21 Amoxicillin/Potassium Clav (AUGMENTIN 875-125 TABLET) 1 Each Tablet 1 TAB PO BID for pneumonia for 5 Days, #9 TAB 0 Refills Prov: JANINE CHAVARRIA APRN 02/17/21 JANINE CHAVARRIA APRN Feb 17, 2021 13:52
[2021-02-17] MEDS ORDERED: ONDANSETRON PF 4 MG/2 ML VIAL. IVP ONE (14:00)
[2021-02-17] MEDS ORDERED: IV NORMAL SALINE 1,000ML 1,000 ML IV ONE (14:00)
--- NOTE | 2021-02-17 14:17 | RAD ---
XR CHEST 1V CLINICAL INDICATIONS: Reason: CHEST PAIN / Spl. Instructions: / History: COMPARISON: December 22, 2020. Findings: Chronic bilateral interstitial lung infiltrates and/or chronic bronchitis is again evident. There is a new consolidative infiltrate within the lateral right lower lung zone. No pleural effusio n or pneumothorax is seen. The heart size, pulmonary vasculature, mediastinum and both bess are unrem arkable. IMPRESSION: New right lower lung zone infiltrate. Electronically signed by: George Interiano MD (02/17/2021 2:15 PM) [id number]
[2021-02-17 14:32] LABS: CREATININE 0.6 mg/dL (0.6-1.0); GFR 98.5; POTASSIUM 5.1 mmol/L (3.5-5.1)
[2021-02-17 14:34] LABS: BASO # 0.1 x10^3/uL (0.0-0.2); BASO % 1 % (0-3); EOS # 0.2 x10^3/uL (0.0-0.7); EOS % 4 % (0-3); HEMATOCRIT 38.8 % (36.0-47.0); LYMPH # 1.5 x10^3/uL (1.0-4.8); LYMPH % 26 % (24-48); MEAN CORPUSCULAR HEMOGLOBIN 30 pg (25-35); MEAN CORPUSCULAR HGB CONC 34 g/dL (31-37); MEAN CORPUSCULAR VOLUME 89 fL (79-100); MONO # 0.5 x10^3/uL (0.0-1.1); MONO % 9 % (0-9); NEUT # 3.5 x10^3uL (1.8-7.7); NEUT % 61 % (31-73); PLATELET COUNT 224 x10^3/uL (140-400); RED BLOOD COUNT 4.38 x10^6/uL (3.50-5.40); RED CELL DISTRIBUTION WIDTH 13.3 % (11.5-14.5); WHITE BLOOD COUNT 5.8 x10^3/uL (4.0-11.0)
[2021-02-17 14:38] LABS: ALBUMIN 3.7 g/dL (3.4-5.0); TOTAL BILIRUBIN 0.5 mg/dL (0.2-1.0); TOTAL PROTEIN 7.4 g/dL (6.4-8.2)
[2021-02-17] MEDS ORDERED: AZIT250T PO (14:53)
[2021-02-17] MEDS ORDERED: AMOX1TAB61 PO (14:53)
[2021-02-17] MEDS ORDERED: AZITHROMYCIN 250 MG TABLET. PO ONE (15:00)
[2021-02-17] MEDS ORDERED: AMOXICILLIN/K CLAV 875/125MG TABLET. PO ONE (15:00)
[2021-02-17 17:45] VITALS: BP 145/73
--- NOTE | 2021-02-17 18:43 | EKG ---
[address] [address] Test Date: 2021-02-17 Test Time: 13:38:22 Pat Name: NILESH ENCINAS Department: Room: Gender: F [employer]: [employer] : 1950 Requested By: JANINE CHAVARRIA Order Number: [id number] Reading MD: Toro Mcnamara MD Measurements Intervals [place] Rate: 78 P: 62 NM: 166 QRS: -9 QRSD: 80 T: 39 QT: 410 QTc: 471 Interpretive Statements SINUS RHYTHM Electronically Signed On 02-20-2021 11:12:47 CDT by Toro Mcnamara MD
== END 2021-02-17 18:05 | disposition home or self-care (01) ==
LOC: ER 13:34
DX: J18.9 Pneumonia, unspecified organism (principal); R07.89 Other chest pain; I11.0 Hypertensive heart disease with heart failure; I50.9 Heart failure, unspecified; J44.9 Chronic obstructive pulmonary disease, unspecified; Z90.49 Acquired absence of other specified parts of digestive tract; Z88.5 Allergy status to narcotic agent; Z88.8 Allergy status to other drugs, medicaments and biological substances; Z90.710 Acquired absence of both cervix and uterus
CPT/HCPCS: 36415; 71045; 80053; 84484; 85025; 93005; 96361; 96374; 96375; 96376; 99285; J2405; J3010; J7030

== ENCOUNTER 2021-04-04 14:55 | Emergency (ER) | payer MEDICARE ==
[~2021-04-04] VITALS: Ht 162.6 cm; Wt 96.4 kg
[~2021-04-04 14:55] MED LIST changes: +AMOX1TAB61 PO; +AZIT250T PO
[2021-04-04] MEDS ORDERED: ORPHENADRINE CITRATE 60 MG/2 ML VIAL. IM ONE (16:15)
[2021-04-04] MEDS ORDERED: ORPH-16 PO (16:44)
--- NOTE | 2021-04-04 16:44 | PHYS DOC ---
Past History Past Medical History: Anxiety, Asthma, CAD, CHF, COPD, Diabetes, Heart Disease, Hypertension, SD, Seizure, Stroke Additional Past Medical Histor: PE Past Surgical History: Appendectomy, Cholecystectomy, Hysterectomy, Oophorectomy, Other Additional Past Surgical Histo: PCI with stents, ortho Smoking: Non-smoker Alcohol Use: None Drug Use: None General Adult EDM: Chief Complaint: BACK PAIN - NO INJURY HPI: HPI: Patient is a 70 year old diabetic female who presents with low back pain that began this morning. Patient reports a history of chronic low back pain, for which she has been diagnosed with a pinched nerve. Patient reports this morning, her pain was severe. She states she took 2 Tylenol tablets and a warm shower, without significant symptom relief. Patient reports associated bilateral lower extremity paresthesias in her toes and subjective weakness. Patient recently had her gabapentin dose increased, but it is not helping her pain. She denies any trauma, injury or increased physical activity that may have led to her current symptoms. Patient also denies saddle anesthesia and bladder or bowel incontinence. Review of Systems: Review of Systems: Constitutional: Denies fever or chills Respiratory: Denies cough or shortness of breath Cardiovascular: Denies chest pain or edema GI: Denies abdominal pain, nausea, vomiting, bloody stools or diarrhea : Denies dysuria or hematuria Musculoskeletal: See HPI Integument: Denies rash or other skin lesion Neurologic: Denies headache, focal weakness or sensory changes Current Medications: Current Meds: Current Medications Medications (Trade) Dose Ordered Sig/[facility] Start Time Stop Time Status Last Admin Dose Admin Orphenadrine Citrate (Norflex) 60 mg 1X ONCE 04/04/21 16:15 04/04/21 16:19 DC 04/04/21 16:15 60 MG Allergies: Allergies: Allergies Coded Allergies Type Severity Reaction Last Updated Verified bee venom protein (honey bee) Allergy Severe Shortness of Air 02/17/21 Yes prednisone Allergy Severe SEIZURES 02/17/21 No oxycodone Allergy Intermediate 02/17/21 Yes Physical Exam: PE: Constitutional: Well developed, well nourished, no acute distress, non-toxic appearance. Neck: Normal range of motion, no tenderness, supple, no stridor. Cardiovascular: Heart rate regular rhythm, no obvious murmur. Lungs & Thorax: Bilateral breath sounds clear to auscultation. Abdomen: Bowel sounds normal, soft, no tenderness, no masses, no pulsatile masses. Skin: Warm, dry, no erythema, no rash. Back: No stepoffs, no midline tenderness, left sided lumbar paraspinal spasm and mild tenderness appreciated. Extremities: No tenderness, no cyanosis, no clubbing, ROM intact, no edema. Bilateral lower extremity strength 5/5 to hip flexion and extension, knee flexion and extension, great toe dorsiflexion, plantar flexion. Neurologic: Alert and oriented x4, motor function grossly intact, sensory function grossly intact, no focal deficits noted. Current Patient Data: Vital Signs: Vital Signs Date Time Temp Pulse Resp B/P (MAP) Pulse Ox O2 Delivery O2 Flow Rate FiO2 04/04/21 18:02 82 16 160/82 (108) 97 Room Air 04/04/21 16:10 98.2 82 16 184/73 (110) 98 Room Air Heart Score: C/O Chest Pain: No Course & Med Decision Making: Course & Med Decision Making Pertinent Labs and Imaging studies reviewed. (See chart for details) Patient is a 70-year-old female who presents with acute on chronic low back pain. Patient states she was seen by her neurologist 2 weeks ago, where she was diagnosed with a pinched nerve on the left side lumbar spine. Patient has no re d flag symptoms including saddle anesthesia or bowel or bladder incontinence. Patient will be treated for muscle spasm contributing to worsening low back pain. On reevaluation after medication administration, patient complains of sudden onset central chest pressure. EKG and troponin ordered. Cardiac work-up unremarkable. Patient is improved after a few minutes. Patient given return precautions. Patient understands and is agreeable to discharge plan. Dragon Disclaimer: [place] Disclaimer: This electronic medical record was generated, in whole or in part, using a voice recognition dictation system. Departure Departure: Impression: Primary Impression: Acute exacerbation of chronic low back pain Additional Impression: Anxiety about health Disposition: 01 HOME / SELF CARE / HOMELESS Condition: STABLE Referrals: BAILEY MORSE MD (PCP) Patient Instructions: Back Pain, Adult, [facility] Scripts Orphenadrine Citrate (ORPHENADRINE CITRATE) 100 Mg Tablet.er 1 TAB PO Q12HR for muscle spasm, #10 TAB 1 Refill Prov: KELLIE PEREZ 04/04/21 KELLIE PEREZ Apr 04, 2021 16:44
--- NOTE | 2021-04-04 17:50 | EKG ---
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
[2021-04-04 18:02] VITALS: BP 160/82
== END 2021-04-04 18:03 | disposition home or self-care (01) ==
LOC: ER 14:55
DX: G89.29 Other chronic pain (principal); M54.50 Low back pain, unspecified; F41.9 Anxiety disorder, unspecified; J45.909 Unspecified asthma, uncomplicated; I25.10 Atherosclerotic heart disease of native coronary artery without angina pectoris; I11.0 Hypertensive heart disease with heart failure; I50.9 Heart failure, unspecified; J44.9 Chronic obstructive pulmonary disease, unspecified; E11.9 Type 2 diabetes mellitus without complications; I25.2 Old myocardial infarction; Z86.73 Personal history of transient ischemic attack (TIA), and cerebral infarction without residual deficits; Z90.89 Acquired absence of other organs; Z90.49 Acquired absence of other specified parts of digestive tract; Z90.710 Acquired absence of both cervix and uterus; Z90.722 Acquired absence of ovaries, bilateral; Z91.030 Bee allergy status; Z88.5 Allergy status to narcotic agent; Z88.8 Allergy status to other drugs, medicaments and biological substances
CPT/HCPCS: 36415; 84484; 93005; 96372; 99284; J2360

== ENCOUNTER 2021-05-05 10:51 | Emergency (ER) | payer MEDICARE ==
[~2021-05-05] VITALS: Ht 162.6 cm; Wt 96.4 kg
[~2021-05-05 10:51] MED LIST changes: +ORPH-16 PO
--- NOTE | 2021-05-05 11:06 | PHYS DOC ---
Past History Past Medical History: Anxiety, Asthma, CAD, CHF, COPD, Diabetes, Heart Disease, Hypertension, CT, Seizure, Stroke Additional Past Medical Histor: PE Past Surgical History: Appendectomy, Cholecystectomy, Hysterectomy, Oophorectomy, Other Additional Past Surgical Histo: PCI with stents, ortho Smoking: Non-smoker Alcohol Use: None Drug Use: None Adult General Chief Complaint Chief Complaint: CHEST PAIN HPI HPI Patient is a 70-year-old female presenting via EMS for chest pain. Reports onset was approximately 2 hours prior to arrival. Nothing known makes better or worse. Pain is pressure in the substernal area radiating to left shoulder and 10/10 in severity. Timing of symptoms has been constant since onset. She is experienced this pain in the past. She reports calling EMS who on arrival found patient to be hemodynamically stable. A total of 325 mg aspirin x1 sublingual nitro administered without significant improvement in symptoms in route to ER. On arrival, patient still complaining of pain. No other reported symptoms. Has extensive CAD with prior stents, last of which was several years ago. Review of Systems Review of Systems Fourteen body systems of review of systems have been reviewed. See HPI for pertinent positives and negative responses, other thompson all other systems are negative, non-pertinent or non-contributory Allergies Allergies Allergies Coded Allergies Type Severity Reaction Last Updated Verified bee venom protein (honey bee) Allergy Severe Shortness of Air 02/17/21 Yes prednisone Allergy Severe SEIZURES 02/17/21 No oxycodone Allergy Intermediate 02/17/21 Yes Physical Exam Physical Exam Constitutional: Well developed, well nourished, no acute distress, non-toxic appearance. HENT: Normocephalic, atraumatic, bilateral external ears normal, oropharynx moist, no oral exudates, nose normal. Eyes: PERRLA, EOMI, conjunctiva normal, no discharge. Neck: Normal range of motion, no tenderness, supple, no stridor. Cardiovascular: Heart rate regular, sinus rhythm, no murmurs rubs or gallops Lungs & Thorax: Bilateral breath sounds clear to auscultation Abdomen: Bowel sounds normal, soft, no tenderness, no masses, no pulsatile masses. Nonsurgical abdomen, no peritoneal signs Skin: Warm, dry, no erythema, no rash. Back: No tenderness, no CVA tenderness. Extremities: No tenderness, no cyanosis, no clubbing, ROM intact, no edema. Neurologic: Alert and oriented X 3, grossly normal motor & sensory function, no focal deficits noted. Psychologic: Anxious affect and mood Current Patient Data Vital Signs Vital Signs Date Time Temp Pulse Resp B/P (MAP) Pulse Ox O2 Delivery O2 Flow Rate FiO2 05/05/21 11:57 84 149/82 Vital Signs Date Time Temp Pulse Resp B/P (MAP) Pulse Ox O2 Delivery O2 Flow Rate FiO2 05/05/21 12:06 87 162/78 Lab Results Laboratory Tests Test 05/05/21 11:10 White Blood Count 5.6 x10^3/uL Red Blood Count 4.54 x10^6/uL Hemoglobin 13.5 g/dL Hematocrit 39.9 % Mean Corpuscular Volume 88 fL Mean Corpuscular Hemoglobin 30 pg Mean Corpuscular Hemoglobin Concent 34 g/dL Red Cell Distribution Width 14.5 % Platelet Count 207 x10^3/uL Neutrophils (%) (Auto) 59 % Lymphocytes (%) (Auto) 24 % Monocytes (%) (Auto) 10 % Eosinophils (%) (Auto) 7 % Basophils (%) (Auto) 1 % Neutrophils # (Auto) 3.3 x10^3uL Lymphocytes # (Auto) 1.3 x10^3/uL Monocytes # (Auto) 0.5 x10^3/uL Eosinophils # (Auto) 0.4 x10^3/uL Basophils # (Auto) 0.1 x10^3/uL Sodium Level 140 mmol/L Potassium Level 4.1 mmol/L Chloride Level 104 mmol/L Carbon Dioxide Level 27 mmol/L Anion Gap 9 Blood Urea Nitrogen 10 mg/dL Creatinine 0.8 mg/dL Estimated GFR (Cockcroft-Gault) 70.7 Glucose Level 172 mg/dL Calcium Level 8.5 mg/dL Troponin I High Sensitivity 9 ng/L PI-Bze-S-Type Natriuretic Peptide 375 pg/mL Current Medications Medications (Trade) Dose Ordered Sig/Sherrie Route PRN Reason Start Time Stop Time Status Last Admin Dose Admin Nitroglycerin (Nitrostat) 0.4 mg PRN Q5MIN PRN SL CP RATING > 05/0805/05/21 11:15 05/05/21 13:26 DC 05/05/21 12:52 EKG EKG EKG ordered and interpreted by myself at 1106 hrs. as sinus rhythm at 72 bpm, unremarkable intervals, left axis deviation, no obvious ischemic findings, no STEMI Radiology/Procedures Radiology/Procedures Single view of the chest. 05/05/2021 11:23 AM Indication: Reason: chest pain / Spl. Instructions: / History: Comparison: Chest radiograph February 17, 2021 Findings: EKG leads obscure portions of the right lung base. Diffuse interstitial thickening is seen. Probable emphysematous changes noted. No pneu mothorax or pleural effusion is seen. Heart size is top normal. Aortic calcification noted. No acute osseous changes are seen. Postoperative changes to the right shoulder noted. No acute appearing infiltrates are identified. IMPRESSION: 1. No evidence of acute cardiopulmonary process is identified Electronically signed by: Ahmet Smith MD (05/05/2021 11:53 AM) [id number] Heart Score C/O Chest Pain: Yes HEART Score for Chest Pain: HEART Score for Chest Pain Response (Comments) Value History Highly Suspicious 2 ECG Normal 0 Age > 65 2 Risk Factors >3 Risk Factors or Hx CAD 2 Troponin < Normal Limit 0 Total 6 Risk Factors: Risk Factors: DM, Current or recent (<one month) smoker, HTN, HLP, family history of CAD, obesity. Risk Scores: Risk Factors: DM, Current or recent (<one month) smoker, HTN, HLP, family history of CAD, obesity. Course & Med Decision Making Course & Med Decision Making ABCs unremarkable HPI physical exam and comprehensive ER work-up nonconcerning for any emergent or surgical issues I reviewed heart score with patient. I contacted hospitalist who is well aware of the patient, he further discloses that patient has had recent ischemic testing that was overall negative. Patient has history of opioid seeking behavior. He denied admission and advise close stoker mechanic follow-up I disclosed entirety of ER work-up with patient and discussion with hospitalist, she was amenable to plan of care as stated as she has good access to primary care and stoker mechanic in outpatient setting and can be seen for follow-up and further evaluation. Patient requesting IV narcotics which is consistent with prior visits. 2 mg IV morphine administered prior to ER departure Roseline Disclaimer Dragon Disclaimer This electronic medical record was generated, in whole or in part, using a voice recognition dictation system. Departure Departure: Impression: Primary Impression: Chest pain Additional Impression: Anxiety about health Disposition: 01 HOME / SELF CARE / HOMELESS Condition: STABLE Referrals: BAILEY MORSE MD (PCP) Additional Instructions: You were seen for chest pain. Your workup did not show any acute abnormalities today, but does not indicate that you do not have underlying cardiovascular disease. Your case was discussed with hospitalist at [facility] who is more familiar with your case tonight, he was able to review your chart and disclose that there is no emergent need for hospitalization or further inpatient testing. You are well-established in outpatient setting with stoker mechanic and should contact them immediately after ER visit to review your ongoing issues in outpatient setting. You should return to the ED if you develop worsening chest pain, shortness of breath, fever, abnormal sweating, leg swelling, or any other new or concerning symptoms. Problem Qualifiers STEVEN TORREZ DO May 05, 2021 11:06
[2021-05-05 11:25] LABS: BASO # 0.1 x10^3/uL (0.0-0.2); BASO % 1 % (0-3); EOS # 0.4 x10^3/uL (0.0-0.7); EOS % 7 % (0-3); HEMATOCRIT 39.9 % (36.0-47.0); HEMOGLOBIN 13.5 g/dL (12.0-15.5); LYMPH # 1.3 x10^3/uL (1.0-4.8); LYMPH % 24 % (24-48); MEAN CORPUSCULAR HEMOGLOBIN 30 pg (25-35); MEAN CORPUSCULAR HGB CONC 34 g/dL (31-37); MEAN CORPUSCULAR VOLUME 88 fL (79-100); MONO # 0.5 x10^3/uL (0.0-1.1); MONO % 10 % (0-9); NEUT # 3.3 x10^3uL (1.8-7.7); NEUT % 59 % (31-73); PLATELET COUNT 207 x10^3/uL (140-400); RED BLOOD COUNT 4.54 x10^6/uL (3.50-5.40); RED CELL DISTRIBUTION WIDTH 14.5 % (11.5-14.5); WHITE BLOOD COUNT 5.6 x10^3/uL (4.0-11.0)
[2021-05-05 11:33] LABS: CALCIUM 8.5 mg/dL (8.5-10.1); CREATININE 0.8 mg/dL (0.6-1.0); GFR 70.7; POTASSIUM 4.1 mmol/L (3.5-5.1)
--- NOTE | 2021-05-05 11:55 | RAD ---
Single view of the chest. 05/05/2021 11:23 AM Indication: Reason: chest pain / Spl. Instructions: / History: Comparison: Chest radiograph February 17, 2021 Findings: EKG leads obscure portions of the right lung base. Diffuse interstitial thickening is seen. Probable emphysematous changes noted. No pneumothorax or pleural effusion is seen. Heart size is top normal. Aortic calcification noted. No acute osseous changes are seen. Postoperative changes to the right shoulder noted. No acute appearing infiltrates are identified. IMPRESSION: 1. No evidence of acute cardiopulmonary process is identified Electronically signed by: Ahmet Smith MD (05/05/2021 11:53 AM) [id number]
[2021-05-05] MEDS: NITROGLYCERIN SUBLINGUAL 0.4 MG BOTTLE OF 25. SL PRN ×3 (11:57→12:52)
[2021-05-05] MEDS ORDERED: ACETAMINOPHEN 325 MG TABLET PO PRN (12:45)
[2021-05-05] MEDS ORDERED: NITROGLYCERIN SUBLINGUAL 0.4 MG BOTTLE OF 25. SL PRN (12:45)
[2021-05-05 12:57] VITALS: BP 133/68
[2021-05-05] MEDS ORDERED: MORPHINE SULFATE 2 MG/ML DISP.SYRIN. IV ONE (13:00)
--- NOTE | 2021-05-05 13:12 | EKG ---
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
== END 2021-05-05 13:25 | disposition home or self-care (01) ==
LOC: ER 10:51 → ER HOLD 12:31 → UNDOADMIN 12:31
DX: F41.9 Anxiety disorder, unspecified (principal); R07.89 Other chest pain; I11.0 Hypertensive heart disease with heart failure; I50.9 Heart failure, unspecified; J44.9 Chronic obstructive pulmonary disease, unspecified; I25.2 Old myocardial infarction; Z86.73 Personal history of transient ischemic attack (TIA), and cerebral infarction without residual deficits; Z91.030 Bee allergy status; Z88.8 Allergy status to other drugs, medicaments and biological substances; Z88.5 Allergy status to narcotic agent
CPT/HCPCS: 36415; 71045; 80048; 83880; 84484; 85025; 93005; 96374; 99285; J2270

== ENCOUNTER 2021-05-17 22:14 | Emergency (ER) | payer MEDICARE ==
[~2021-05-17] VITALS: Ht 162.6 cm; Wt 98.3 kg
--- NOTE | 2021-05-17 22:27 | RAD ---
EXAM: CT head without contrast INDICATION: Code stroke COMPARISON: 12/22/2020 TECHNIQUE: Axial CT imaging through the head without intravenous contrast. Sagittal and coronal refor mats were obtained. One or more of the following individualized dose reduction techniques were utilized for this examinat ion: 1. Automated exposure control 2. Adjustment of the mA and/or kV according to patient size 3. Use of iterative reconstruction technique. FINDINGS: The ventricles and sulci are mildly enlarged, reflecting age-related volume loss. There is a mild bur den of periventricular and deep hypoattenuating white matter lesions. Martin-white matter differentiat ion is maintained. There is no intracranial hemorrhage, acute infarct, or mass lesion. Basal cisterns are clear. The skull and scalp are intact. Paranasal sinuses and mastoid air cells are clear. Globes and orbits are intact.. IMPRESSION: No acute intracranial abnormality. FOR INTERNAL CODING PURPOSES Critical result: Findings discussed with NATALIE WILLAMS MD at 05/17/2021 10:23 PM. RESULT CODE: (C) Electronically signed by: Trish Flores MD (05/17/2021 10:25 PM) [id number]
--- NOTE | 2021-05-17 23:19 | RAD ---
EXAMINATION: Chest radiograph. VIEWS: 1 COMPARISON: 05/05/2021 INDICATION:70 years, Female, shortness of breath. FINDINGS: Normal cardiomediastinal silhouette. Similar bilateral suprahilar linear opacities, may represent chr onic changes/scarring. No focal consolidation. No pleural effusion or pneumothorax. No acute osseous process. IMPRESSION: No acute cardiopulmonary process. Electronically signed by: Gabriel Albrecht MD (05/17/2021 11:17 PM) [facility]
[2021-05-17 23:24] LABS: BASO % 0 % (0-3); EOS # 0.3 x10^3/uL (0.0-0.7); EOS % 7 % (0-3); LYMPH # 1.2 x10^3/uL (1.0-4.8); LYMPH % 26 % (24-48); MEAN CORPUSCULAR HEMOGLOBIN 30 pg (25-35); MEAN CORPUSCULAR HGB CONC 34 g/dL (31-37); MEAN CORPUSCULAR VOLUME 88 fL (79-100); MONO # 0.5 x10^3/uL (0.0-1.1); MONO % 10 % (0-9); NEUT # 2.7 x10^3uL (1.8-7.7); NEUT % 57 % (31-73); PLATELET COUNT 225 x10^3/uL (140-400); RED CELL DISTRIBUTION WIDTH 14.2 % (11.5-14.5); WHITE BLOOD COUNT 4.7 x10^3/uL (4.0-11.0)
[2021-05-17] MEDS ORDERED: MIDAZOLAM HCL PF 5 MG/5 ML VIAL. IV ONE (23:30)
[2021-05-17 23:31] LABS: CALCIUM 8.6 mg/dL (8.5-10.1); CREATININE 0.9 mg/dL (0.6-1.0); GFR 61.7; POTASSIUM 3.9 mmol/L (3.5-5.1)
[2021-05-17 23:37] LABS: ALBUMIN 3.6 g/dL (3.4-5.0); TOTAL BILIRUBIN 0.4 mg/dL (0.2-1.0); TOTAL PROTEIN 7.2 g/dL (6.4-8.2)
[2021-05-18] MEDS ORDERED: IOHEXOL 350 MG/ML 100 ML VIAL. IV ONE (00:15)
--- NOTE | 2021-05-18 00:28 | PHYS DOC ---
Past History Past Medical History: Anxiety, Asthma, CAD, CHF, COPD, Diabetes, Heart Disease, Hypertension, [place], Seizure, Stroke Additional Past Medical Histor: PE Past Surgical History: Appendectomy, Cholecystectomy, Hysterectomy, Oophorectomy, Other Additional Past Surgical Histo: PCI with stents, ortho Smoking: Non-smoker Alcohol Use: None Drug Use: None Adult General Chief Complaint Chief Complaint: WEAKNESS/GENERALIZED HPI HPI Patient is a 70-year-old female with a past medical history stroke in December, [place], [address], CAD, CHF, diabetes, and COPD who presents to the emergency department with a chief complaint of left arm and leg weakness which started yesterday but got worse earlier this morning. States she usually can get around with a cane or walker but is having trouble doing that now. States that she did have a stroke in December where she had the same symptoms on the same side but they did get a little better and she was able to walk with a walker and/or cane sometimes but it seems worse over the last day or 2. Denies any recent travels, traumas, illnesses, fevers, chest pain, shortness of breath, abdominal pain, nausea, vomiting, diarrhea. Denies any known ill contacts. States she has been eating and drinking normally for her. States has been m aking urine and stool normally for her. Review of Systems Review of Systems Review of systems otherwise unremarkable except noted in HPI Current Medications Current Medications Current Medications Medications (Trade) Dose Ordered Sig/Sherrie Start Time Stop Time Status Last Admin Dose Admin Iohexol (Omnipaque 350 Mg/ml) 100 ml 1X ONCE 05/18/21 00:15 05/18/21 00:16 UNV Midazolam HCl (Versed) 2 mg 1X ONCE 05/17/21 23:30 05/17/21 23:31 DC 05/17/21 23:29 2 MG Allergies Allergies Allergies Coded Allergies Type Severity Reaction Last Updated Verified bee venom protein (honey bee) Allergy Severe Shortness of Air 02/17/21 Yes prednisone Allergy Severe SEIZURES 02/17/21 No oxycodone Allergy Intermediate 02/17/21 Yes Physical Exam Physical Exam Constitutional: Well developed, well nourished, no acute distress, non-toxic appearance. [] HENT: Normocephalic, atraumatic, bilateral external ears normal, oropharynx moist, no oral exudates, nose normal. [] Eyes: PERRLA, EOMI, conjunctiva normal, no discharge. [] Neck: Normal range of motion, no tenderness, supple, no stridor. [] Cardiovascular:Heart rate regular rhythm, no murmur [] Lungs & Thorax: Bilateral breath sounds clear to auscultation [] Abdomen: Bowel sounds normal, soft, no tenderness, no masses, no pulsatile masses. [] Skin: Warm, dry, no erythema, no rash. [] Back: No tenderness, no CVA tenderness. [] Extremities: No tenderness, no cyanosis, no clubbing, ROM intact, no edema. [] Neurologic: Alert and oriented X 3, normal motor function, normal sensory function, able to sit on her own but unable to stand due to weakness on the left side, cranial nerves normal, Psychologic: Affect normal, judgement normal, mood normal. [] Current Patient Data Vital Signs Vital Signs Date Time Temp Pulse Resp B/P (MAP) Pulse Ox O2 Delivery O2 Flow Rate FiO2 05/17/21 22:58 83 18 177/85 (115) 95 Room Air 05/17/21 22:29 98.1 Lab Results Laboratory Tests Test 05/17/21 22:17 05/17/21 22:55 Glucose (Fingerstick) 251 mg/dL (70-99) H White Blood Count 4.7 x10^3/uL (4.0-11.0) Red Blood Count 4.30 x10^6/uL (3.50-5.40) Hemoglobin 13.0 g/dL (12.0-15.5) Hematocrit 38.0 % (36.0-47.0) Mean Corpuscular Volume 88 fL (79-100) Mean Corpuscular Hemoglobin 30 pg (25-35) Mean Corpuscular Hemoglobin Concent 34 g/dL (31-37) Red Cell Distribution Width 14.2 % (11.5-14.5) Platelet Count 225 x10^3/uL (140-400) Neutrophils (%) (Auto) 57 % (31-73) Lymphocytes (%) (Auto) 26 % (24-48) Monocytes (%) (Auto) 10 % (0-9) H Eosinophils (%) (Auto) 7 % (0-3) H Basophils (%) (Auto) 0 % (0-3) Neutrophils # (Auto) 2.7 x10^3uL (1.8-7.7) Lymphocytes # (Auto) 1.2 x10^3/uL (1.0-4.8) Monocytes # (Auto) 0.5 x10^3/uL (0.0-1.1) Eosinophils # (Auto) 0.3 x10^3/uL (0.0-0.7) Basophils # (Auto) 0.0 x10^3/uL (0.0-0.2) Sodium Level 138 mmol/L (136-145) Potassium Level 3.9 mmol/L (3.5-5.1) Chloride Level 102 mmol/L (98-107) Carbon Dioxide Level 27 mmol/L (21-32) Anion Gap 9 (6-14) Blood Urea Nitrogen 8 mg/dL (7-20) Creatinine 0.9 mg/dL (0.6-1.0) Estimated GFR (Cockcroft-Gault) 61.7 BUN/Creatinine Ratio 9 (6-20) Glucose Level 230 mg/dL (70-99) H Calcium Level 8.6 mg/dL (8.5-10.1) Total Bilirubin 0.4 mg/dL (0.2-1.0) Aspartate Amino Transferase (AST) 29 U/L (15-37) Alanine Aminotransferase (ALT) 34 U/L (14-59) Alkaline Phosphatase 118 U/L (46-116) H Troponin I High Sensitivity 9 ng/L (4-50) Total Protein 7.2 g/dL (6.4-8.2) Albumin 3.6 g/dL (3.4-5.0) Albumin/Globulin Ratio 1.0 (1.0-1.7) EKG EKG [] Radiology/Procedures Radiology/Procedures [] Technique: CTA of the head and neck was acquired following the intravenous administration of 100 cc Omnipaque 350. Thin cut coronal and sagittal MIPS reconstructions and 3-D rotational reconstruction. One or more of the following individualized dose reduction techniques were utilized for this examination: 1. Automated exposure control 2. Adjustment of the mA and/or kV according to patient size 3. Use of iterative reconstruction technique. Carotid Stenosis calculations for CT, MR, and conventional angiography are based upon measurements of the distal ICA diameter in accordance with the NASCET methodology. Stenosis calculations for carotid ultrasound studies are derived from validated velocity criteria which are known to correlate with the NASCET methodology. FINDINGS: Contrast bolus is adequate. Aortic arch is normal in caliber. Arch anatomy is standard. There is mild calcific and soft plaque of the proximal left subclavian resulting in mild narrowing. The bilateral subclavian arteries are otherwise patent. Proximal vertebral arteries are somewhat tortuous but otherwise patent. The mid to distal vertebral arteries are within normal limits. No intimal flap or focal stenosis. The intradural vertebral arteries are patent. Basilar artery is well formed. Bilateral SPOKE MAKER are patent. Bilateral common carotid arteries are patent. Calcific plaque at the distal left CCA and proximal left ICA resulting in mild narrowing. There is also minimal calcific plaque at the right carotid bifurcation resulting in no significant stenosis. The bilateral internal carotid arteries are otherwise patent to the skull base. Petrous and cavernous internal carotid arteries are patent. MARS and MCA branches are patent. There is a patent anterior communicating artery. No large vessel occlusion. No evidence of aneurysm. Postcontrast imaging the brain shows no abnormal enhancement. The dural venous sinuses are grossly patent. Visualized soft tissue structures are unremarkable. Thyroid gland unremarkable. Images of the upper chest show linear bands of increased density in the bilateral upper lobes, likely scar or atelectasis. There is some bronchial wall thickening and bronchiectasis of the bilateral upper lobes with areas of mucous plugging. Superimposed mild emphysema. Borderline enlarged subcarinal and pretracheal and right hilar lymph nodes measuring up to 10 mm short axis, nonspecific. Bone window show no acute finding. Multilevel spondylosis. IMPRESSION: 1. No evidence of hemodynamically significant stenosis or aneurysm. No evidence of large vessel occlusion. 2. Mild calcific plaque of the bilateral carotid bifurcations resulting in mild narrowing on the left and minimal narrowing on the right. 3. Biapical linear opacities, likely related to atelectasis or scarring. There is bronchial wall thickening and bronchiectasis with mucous plugging of the bilateral upper lobe airways. Heart Score C/O Chest Pain: No Risk Factors: Risk Factors: DM, Current or recent (<one month) smoker, HTN, HLP, family history of CAD, obesity. Risk Scores: Risk Factors: DM, Current or recent (<one month) smoker, HTN, HLP, family history of CAD, obesity. Course & Med Decision Making Course & Med Decision Making Patient is a 70-year-old female with multiple comorbidities who presents with left-sided weakness a little worse than usual since her stroke Vital signs initially notable for hypertension which resolved in the ED. Physical exam noted above. EKG with a rate of 80, QRS of 78, QTc of 484, no STEMI. Troponin normal. Chest x-ray normal. CT of the head normal. Laboratory analysis not concerning. CTA of the head and neck not concerning. On reassessment patient stated she was feeling much better, was asymptomatic and wanted us to call her son so she could go on home. Offered admission to the hospital for continued evaluation and treatment and evaluation for need for MRI. Stated that she had not urinated yet and we could get a sample, but stated that she did not have any urinary symptoms. Patient stated that she was feeling well, back to normal and will call her primary care physician in the morning to schedule a follow-up. Gave strict return precautions to the ED. Patient grateful, verbalized understanding and agreed with plan of discharge. Dragon Disclaimer Dragon Disclaimer This electronic medical record was generated, in whole or in part, using a voice recognition dictation system. Departure Departure: Impression: Primary Impression: Left-sided muscle weakness Disposition: HOME / SELF CARE / HOMELESS Condition: GOOD Referrals: BAILEY MORSE MD (PCP) Patient Instructions: Weakness Additional Instructions: Thank you for coming into the emergency department tonight and allowing us to take care of you. Please read the attached information carefully to go over things we discussed. We discussed admission to the hospital for continued observation, evaluation possible neurologic consult and MRI versus home. You stated you are feeling better, would like to call your son and go on home. You stated that she would call your primary care physician first thing in the morning to update on ED visit. Offered you some Tylenol with codeine for home and you confirm that you are not allergic. Please call your primary care physician first thing in the morning to update on your ED visit and set up a follow-up as soon as possible for reevaluation. Please come back immediately with new or concerning symptoms as we discussed. NATALIE WILLAMS MD May 18, 2021 00:27
[2021-05-18] MEDS ORDERED: CONTRAST GIVEN. MC PRN (00:30)
--- NOTE | 2021-05-18 01:16 | RAD ---
CTA head and neck with contrast dated 05/18/2021 Comparison: Noncontrast head CT dated 05/17/2021 CLINICAL INDICATION: Left-sided weakness Technique: CTA of the head and neck was acquired following the intravenous administration of 100 cc Omnipaque 35 0. Thin cut coronal and sagittal MIPS reconstructions and 3-D rotational reconstruction. One or more of the following individualized dose reduction techniques were utilized for this examinat ion: 1. Automated exposure control 2. Adjustment of the mA and/or kV according to patient size 3. Use of iterative reconstruction technique. Carotid Stenosis calculations for CT, MR, and conventional angiography are based upon measurements of the distal ICA diameter in accordance with the NASCET methodology. Stenosis calculations for carotid ultrasound studies are derived from validated velocity criteria which are known to correlate with th e NASCET methodology. FINDINGS: Contrast bolus is adequate. Aortic arch is normal in caliber. Arch anatomy is standard. There is mild calcific and soft plaque of the proximal left subclavian resulting in mild narrowing. The bilateral subclavian arteries are otherwise patent. Proximal vertebral arteries are somewhat tortuous but other thompson patent. The mid to distal vertebral arteries are within normal limits. No intimal flap or focal stenosis. The intradural vertebral arteries are patent. Basilar artery is well formed. Bilateral CONFECTIONERY COOKER are patent. Bilateral common carotid arteries are patent. Calcific plaque at the distal left CCA and proximal lef t ICA resulting in mild narrowing. There is also minimal calcific plaque at the right carotid bifurca tion resulting in no significant stenosis. The bilateral internal carotid arteries are otherwise pike nt to the skull base. Petrous and cavernous internal carotid arteries are patent. MARS and MCA branches are patent. There is a patent anterior communicating artery. No large vessel occlusion. No evidence of aneurysm. Postcontrast imaging the brain shows no abnormal enhancement. The dural venous sinuses are grossly pa tent. Visualized soft tissue structures are unremarkable. Thyroid gland unremarkable. Images of the u pper chest show linear bands of increased density in the bilateral upper lobes, likely scar or atelec tasis. There is some bronchial wall thickening and bronchiectasis of the bilateral upper lobes with a reas of mucous plugging. Superimposed mild emphysema. Borderline enlarged subcarinal and pretracheal and right hilar lymph nodes measuring up to 10 mm short axis, nonspecific. Bone window show no acute finding. Multilevel spondylosis. IMPRESSION: 1. No evidence of hemodynamically significant stenosis or aneurysm. No evidence of large vessel occlu noel. 2. Mild calcific plaque of the bilateral carotid bifurcations resulting in mild narrowing on the left and minimal narrowing on the right. 3. Biapical linear opacities, likely related to atelectasis or scarring. There is bronchial wall thic kening and bronchiectasis with mucous plugging of the bilateral upper lobe airways. IMPRESSION: 1. Electronically signed by: Levi Villeda MD (05/18/2021 1:13 AM) [email or web address]
[2021-05-18] MEDS ORDERED: ACETAMINOPHEN/CODEINE 300/30MG 4TABLET STARTPACK. PO ONE (01:30)
--- NOTE | 2021-05-18 01:48 | EKG ---
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
[2021-05-18 01:56] VITALS: BP 154/84
== END 2021-05-18 02:00 | disposition home or self-care (01) ==
LOC: ER 22:14
DX: M62.81 Muscle weakness (generalized) (principal); I11.0 Hypertensive heart disease with heart failure; I50.9 Heart failure, unspecified; E11.9 Type 2 diabetes mellitus without complications; Z90.49 Acquired absence of other specified parts of digestive tract; Z88.8 Allergy status to other drugs, medicaments and biological substances; Z88.5 Allergy status to narcotic agent; Z90.710 Acquired absence of both cervix and uterus
CPT/HCPCS: 36415; 70450; 70496; 70498; 71045; 80053; 82947; 84484; 85025; 93005; 96374; 96375; 99285; J2250; J3010; Q9967

== ENCOUNTER → 2021-07-07 | Outpatient (CLI) | payer MEDICARE ==
--- NOTE | 2021-07-07 17:29 | RAD ---
XR EXAM OF ANKLE_LEFT 3V Clinical Indication: Reason: HX OF FX LAST YEAR, RECENT FALL AND SWELLING / Spl. Instructions: / His tory: Comparison: Left ankle, 3 views, October 10, 2020. Findings: Stable internal fixation hardware of the distal fibula and the medial malleolus. No acute fracture is identified. The ankle mortise is intact. There is minimal medial soft tissue swelling. There is infe rior calcaneal bone spur. There are arterial calcifications. There is disuse osteopenia. IMPRESSION: 1. No acute fracture. 2. Stable internal fixation hardware. Electronically signed by: Omer Christopher MD (07/07/2021 5:26 PM) [id number]
== END ==
LOC: RAD 11:14
PROVIDERS: ATTEND Family Medicine
DX: M77.32 Calcaneal spur, left foot (principal); M79.89 Other specified soft tissue disorders; M85.88 Other specified disorders of bone density and structure, other site; Z68.36 Body mass index [BMI] 36.0-36.9, adult
CPT/HCPCS: 73610

== ENCOUNTER 2021-07-24 10:29 | Emergency (ER) | payer MEDICARE ==
[~2021-07-24] VITALS: Ht 162.6 cm; Wt 98.3 kg
--- NOTE | 2021-07-24 11:52 | RAD ---
EXAMINATION: Chest radiograph. VIEWS: Frontal and lateral views of the chest COMPARISON: Chest radiograph from 05/17/2021 INDICATION:70 years, Female, cough, antibiotic use x5 days. FINDINGS: Stable cardiomediastinal silhouette. Chronic bilateral interstitial lung infiltrates and/or chronic b ronchitis are again noted. There is a new 2.8 cm opacity in the left suprahilar region. No pleural ef fusion or pneumothorax. No acute osseous process. IMPRESSION: New left suprahilar infiltrate favoring area of pneumonia. Chest CT with IV contrast is recommended t o exclude underlying malignancy. Electronically signed by: Edwar James DO (07/24/2021 11:49 AM) [id number]
--- NOTE | 2021-07-24 12:19 | PHYS DOC ---
Past History Past Medical History: Anxiety, Asthma, CAD, CHF, COPD, Diabetes, Heart Disease, Hypertension, [place], Seizure, Stroke Additional Past Medical Histor: PE Past Surgical History: Appendectomy, Cholecystectomy, Hysterectomy, Oophorectomy, Other Additional Past Surgical Histo: PCI with stents, ortho Smoking: Non-smoker Alcohol Use: None Drug Use: None General Adult EDM: Chief Complaint: COUGH HPI: HPI: Patient is a 70 year old female with past medical history that includes COPD who presents with cough for approximately 1 week. Patient was evaluated in urgent care 5 days ago and placed on p.o. antibiotics and cough medication. She states that she is not feeling any better today. Patient reports associated weakness, fatigue. She uses 1 breathing treatment daily at home, but otherwise does not have oxygen requirements. Patient denies fever, chills, sputum production. Review of Systems: Review of Systems: Constitutional: See HPI Eyes: Denies change in visual acuity, visual field deficits or discharge HENT: Denies ear pain, nasal congestion or sore throat Respiratory: See HPI Cardiovascular: Denies chest pain, palpitations or edema GI: Denies abdominal pain, nausea, vomiting, bloody stools or diarrhea : Denies dysuria or hematuria Musculoskeletal: Denies back pain or joint pain Integument: Denies rash or other skin lesion Neurologic: Denies headache, focal weakness or sensory changes Allergies: Allergies: Allergies Coded Allergies Type Severity Reaction Last Updated Verified bee venom protein (honey bee) Allergy Severe Shortness of Air 02/17/21 Yes prednisone Allergy Severe SEIZURES 02/17/21 No oxycodone Allergy Intermediate 02/17/21 Yes Physical Exam: PE: Constitutional: Well developed, well nourished, no acute distress, patient appears fatigued and has slight increased work of breathing. HENT: Normocephalic, atraumatic, bilateral external ears normal, nose normal. Eyes: EOMI, conjunctiva normal, no discharge. Neck: Normal range of motion, no stridor. Cardiovascular: Regular heart rate without murmurs, rubs or gallops. Lungs & Thorax: Bilateral breath sounds clear to auscultation, left-sided breath sounds diminished throughout. Skin: Warm, dry, no erythema, no rash. Extremities: No cyanosis, no clubbing, ROM intact, no edema. Neurologic: Alert and oriented x4, no focal deficits noted. Current Patient Data: Labs: Laboratory Tests Test 07/24/21 13:05 07/24/21 17:28 White Blood Count 7.3 x10^3/uL (4.0-11.0) Red Blood Count 4.57 x10^6/uL (3.50-5.40) Hemoglobin 13.8 g/dL (12.0-15.5) Hematocrit 40.4 % (36.0-47.0) Mean Corpuscular Volume 88 fL (79-100) Mean Corpuscular Hemoglobin 30 pg (25-35) Mean Corpuscular Hemoglobin Concent 34 g/dL (31-37) Red Cell Distribution Width 13.5 % (11.5-14.5) Platelet Count 236 x10^3/uL (140-400) Neutrophils (%) (Auto) 74 % (31-73) Lymphocytes (%) (Auto) 17 % (24-48) Monocytes (%) (Auto) 6 % (0-9) Eosinophils (%) (Auto) 3 % (0-3) Basophils (%) (Auto) 0 % (0-3) Neutrophils # (Auto) 5.4 x10^3uL (1.8-7.7) Lymphocytes # (Auto) 1.2 x10^3/uL (1.0-4.8) Monocytes # (Auto) 0.5 x10^3/uL (0.0-1.1) Eosinophils # (Auto) 0.2 x10^3/uL (0.0-0.7) Basophils # (Auto) 0.0 x10^3/uL (0.0-0.2) Sodium Level 139 mmol/L (136-145) Potassium Level 3.7 mmol/L (3.5-5.1) Chloride Level 101 mmol/L (98-107) Carbon Dioxide Level 31 mmol/L (21-32) Anion Gap 7 (6-14) Blood Urea Nitrogen 4 mg/dL (7-20) Creatinine 0.8 mg/dL (0.6-1.0) Estimated GFR (Cockcroft-Gault) 70.7 BUN/Creatinine Ratio 5 (6-20) Glucose Level 183 mg/dL (70-99) Lactic Acid Level 0.8 mmol/L (0.4-2.0) Calcium Level 8.9 mg/dL (8.5-10.1) Total Bilirubin 0.8 mg/dL (0.2-1.0) Aspartate Amino Transf (AST/SGOT) 15 U/L (15-37) Alanine Aminotransferase (ALT/SGPT) 25 U/L (14-59) Alkaline Phosphatase 128 U/L (46-116) Troponin I High Sensitivity 10 ng/L (4-50) MB-Txz-I-Type Natriuretic Peptide 106 pg/mL (0-124) Total Protein 7.1 g/dL (6.4-8.2) Albumin 3.7 g/dL (3.4-5.0) Albumin/Globulin Ratio 1.1 (1.0-1.7) Urine Collection Type Unknown Urine Color Yellow Urine Clarity Hazy Urine pH 7.0 Urine Specific [place] 1.025 Urine Protein Neg (NEG-TRACE) Urine Glucose (UA) Neg mg/dL (NEG) Urine Ketones (Stick) Trace mg/dL (NEG) Urine Blood Neg (NEG) Urine Nitrite Neg (NEG) Urine Bilirubin Neg (NEG) Urine Urobilinogen Dipstick 1.0 mg/dL (0.2 mg/dL) Urine Leukocyte Esterase Neg (NEG) Urine RBC 1-2 /HPF (0-2) Urine WBC 1-4 /HPF (0-4) Urine Squamous Epithelial Cells Many /LPF Urine Bacteria Few /HPF (0-FEW) Urine Mucus Mod /LPF Vital Signs: Vital Signs Date Time Temp Pulse Resp B/P (MAP) Pulse Ox O2 Delivery O2 Flow Rate FiO2 07/24/21 21:01 83 20 142/89 (106) 95 Room Air 07/24/21 20:32 75 20 121/58 (79) 93 Room Air 07/24/21 20:02 79 18 124/59 (80) 94 Room Air 07/24/21 19:32 81 20 141/67 (91) 95 Room Air 07/24/21 19:02 78 18 136/51 (79) 95 Room Air 07/24/21 18:32 85 18 139/101 (114) 95 Room Air 07/24/21 16:02 76 18 116/73 (87) 95 Room Air 07/24/21 15:32 83 18 130/78 (95) 96 Room Air 07/24/21 15:14 79 18 126/63 (84) 96 Room Air 07/24/21 14:28 85 18 128/101 (110) 96 Room Air 07/24/21 14:02 99 18 132/91 (105) 95 Room Air 07/24/21 10:37 98.0 107 18 119/103 (108) 97 EKG: EKG: EKG Interpreted by Dr. Champion at 1239: Irregularly irregular rhythm at 77 bpm. QT 458 ms/QTc 520 ms. No STEMI. Radiology/Procedures: Radiology/Procedures: PROCEDURE: CHEST PA & LATERAL EXAMINATION: Chest radiograph. VIEWS: Frontal and lateral views of the chest COMPARISON: Chest radiograph from 05/17/2021 INDICATION:70 years, Female, cough, antibiotic use x5 days. FINDINGS: Stable cardiomediastinal silhouette. Chronic bilateral interstitial lung infiltrates and/or chronic bronchitis are again noted. There is a new 2.8 cm opacity in the left suprahilar region. No pleural effusion or pneumothorax. No acute osseous process. IMPRESSION: New left suprahilar infiltrate favoring area of pneumonia. Chest CT with IV contrast is recommended to exclude underlying malignancy. Electronically signed by: Edwar James DO (07/24/2021 11:49 AM) [id number] Heart Score: C/O Chest Pain: No Course & Med Decision Making: Course & Med Decision Making Pertinent Labs and Imaging studies reviewed. (See chart for details) Patient is a 70-year-old female presents to the emergency department with complaint of cough and fatigue after oral antibiotic treatment for pneumonia. Work-up today will include chest x-ray, labs, EKG. Chest x-ray reveals a new left-sided infiltrate. Due to the fact the patient has failed outpatient therapy, she will be transferred to [facility] where they have pulmonology for further management of her pneumonia. Dr. Mayers, hospitalist at [facility], likely accepts patient for transfer. He states that he will perform CT imaging upon her arrival there. Patient is agreeable to transfer. Patient was hemodynamically stable at time of transfer to [facility]. Dragon Disclaimer: Dragon Disclaimer: This electronic medical record was generated, in whole or in part, using a voice recognition dictation system. Departure Departure: Impression: Primary Impression: Pneumonia involving left lung Qualified Codes: J18.9 - Pneumonia, unspecified organism Additional Impressions: History of COPD History of CHF (congestive heart failure) Disposition: TERM HOSPITAL Condition: STABLE Referrals: BAILEY MORSE MD (PCP) KELLIE PREEZ Jul 24, 2021 12:19
[2021-07-24] MEDS ORDERED: AZITHROMYCIN 500 MG in IV NORMAL SALINE 250ML 250 ML IV ONE (12:30)
[2021-07-24] MEDS ORDERED: IV NORMAL SALINE 50ML 50 ML ONE (12:55)
[2021-07-24] MEDS ORDERED: cefTRIAXone SODIUM 1 GM VIAL ONE (12:55)
[2021-07-24] MEDS ORDERED: AZITHROMYCIN 500 MG VIAL. IV ONE (13:28)
[2021-07-24] MEDS ORDERED: IV NORMAL SALINE 250ML 250 ML ONE (13:28)
[2021-07-24 13:29] LABS: BASO % 0 % (0-3); EOS # 0.2 x10^3/uL (0.0-0.7); EOS % 3 % (0-3); HEMATOCRIT 40.4 % (36.0-47.0); HEMOGLOBIN 13.8 g/dL (12.0-15.5); LYMPH # 1.2 x10^3/uL (1.0-4.8); LYMPH % 17 % (24-48); MEAN CORPUSCULAR HEMOGLOBIN 30 pg (25-35); MEAN CORPUSCULAR HGB CONC 34 g/dL (31-37); MEAN CORPUSCULAR VOLUME 88 fL (79-100); MONO # 0.5 x10^3/uL (0.0-1.1); MONO % 6 % (0-9); NEUT # 5.4 x10^3uL (1.8-7.7); NEUT % 74 % (31-73); PLATELET COUNT 236 x10^3/uL (140-400); RED BLOOD COUNT 4.57 x10^6/uL (3.50-5.40); RED CELL DISTRIBUTION WIDTH 13.5 % (11.5-14.5); WHITE BLOOD COUNT 7.3 x10^3/uL (4.0-11.0)
[2021-07-24 13:39] LABS: CALCIUM 8.9 mg/dL (8.5-10.1); CREATININE 0.8 mg/dL (0.6-1.0); GFR 70.7; POTASSIUM 3.7 mmol/L (3.5-5.1)
[2021-07-24 13:52] LABS: ALBUMIN 3.7 g/dL (3.4-5.0); ALBUMIN/GLOBULIN RATIO 1.1 (1.0-1.7); TOTAL BILIRUBIN 0.8 mg/dL (0.2-1.0); TOTAL PROTEIN 7.1 g/dL (6.4-8.2)
[2021-07-24 18:13] LABS: CLARITY,URINE HAZY; COLOR,URINE YELLOW; GLUCOSE,URINE NEG (NEG); NITRITE,URINE NEG (NEG)
[2021-07-24 18:14] LABS: BACTERIA,URINE FEW /HPF (0-FEW); SQUAMOUS EPITHELIAL CELL,UR MANY /LPF
--- NOTE | 2021-07-24 18:28 | EKG ---
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
[2021-07-24] MEDS ORDERED: LORazepam 1 MG TABLET PO ONE (20:30)
[2021-07-24 21:01] VITALS: BP 142/89
[2021-07-24] MEDS ORDERED: GABAPENTIN 300 MG CAPSULE. PO ONE (21:30)
[2021-07-24] MEDS ORDERED: MONTELUKAST 10 MG TABLET. PO ONE (21:30)
[2021-07-25] MEDS ORDERED: PRAMIPEXOLE 0.25 MG TABLET. PO SCH (21:30)
== END 2021-07-24 21:40 | disposition short-term general hospital (02) ==
LOC: ER 10:29
DX: J18.9 Pneumonia, unspecified organism (principal); J44.9 Chronic obstructive pulmonary disease, unspecified; I50.9 Heart failure, unspecified; I11.0 Hypertensive heart disease with heart failure; F41.9 Anxiety disorder, unspecified; I25.10 Atherosclerotic heart disease of native coronary artery without angina pectoris; I25.2 Old myocardial infarction; Z86.73 Personal history of transient ischemic attack (TIA), and cerebral infarction without residual deficits; Z91.030 Bee allergy status; Z88.5 Allergy status to narcotic agent; Z88.8 Allergy status to other drugs, medicaments and biological substances
CPT/HCPCS: 36415; 71046; 80053; 81001; 83605; 83880; 84484; 85025; 87040; 93005; 96365; 96366; 96368; 96375; 99285; J0456; J0696; J2060; J7050

== ENCOUNTER → 2021-08-23 | Outpatient (CLI) | payer MEDICARE ==
[2021-07-24 21:01] VITALS: BP 142/89
--- NOTE | 2021-08-23 20:07 | RAD ---
Exam: Left ankle 3 views INDICATION: Fall, ankle pain TECHNIQUE: Frontal, lateral oblique views left ankle Comparisons: None FINDINGS: There is fixation plate along the distal fibula with numerous transfixing screws at additionally ther e are 2 fixation screws at the medial malleolus. Mild soft tissue swelling surrounding the ankle. Dif fuse osteopenia. No acute fractures seen. IMPRESSION: Fixation is described above mild surrounding soft tissue swelling. Electronically signed by: Whitley Ferrara MD (08/23/2021 8:04 PM) [email or web address]
== END ==
LOC: RAD 16:45
PROVIDERS: ATTEND Nurse Practitioner Family
DX: S99.912A Unspecified injury of left ankle, initial encounter (principal); M85.872 Other specified disorders of bone density and structure, left ankle and foot; M79.89 Other specified soft tissue disorders; Z87.81 Personal history of (healed) traumatic fracture; W01.0XXA Fall on same level from slipping, tripping and stumbling without subsequent striking against object, initial encounter; Y93.89 Activity, other specified; Y92.89 Other specified places as the place of occurrence of the external cause; Y99.8 Other external cause status
CPT/HCPCS: 73610